=== PATIENT | male | born 1980 | race Caucasian/White ===

== ENCOUNTER 2023-07-24 09:44 | Outpatient (REF) | payer MEDICAID, SELFPAY ==
[2023-07-24 11:29] LABS: Appearance Urine Clear; Color Urine Yellow; Glucose Urine UA Negative (Negative); Leukocyte Esterase Urine Negative (Negative); Nitrite Urine Negative (Negative); PH 5.5 (5.0-9.0); Specific Gravity - Urine 1.015 (1.005-1.025); Urine Blood Negative (Negative); Urine Ketones Negative (Negative); Urine Protein Negative (Neg-Trace)
[2023-07-24 11:30] LABS: Appearance Urine Clear; Color Urine Yellow; Glucose Urine UA Negative (Negative); Leukocyte Esterase Urine Negative (Negative); Nitrite Urine Negative (Negative); PH 5.5 (5.0-9.0); Specific Gravity - Urine 1.015 (1.005-1.025); Urine Blood Negative (Negative); Urine Ketones Negative (Negative); Urine Protein Negative (Neg-Trace)
[2023-07-24 11:36] LABS: Bacteria Urine None Seen (None Seen); Hyaline Casts Urine 0-2 /LPF (0-2); RBC Urine 0-2 /HPF (0-2); Squamous Epithelial Cell Urine 0-2 /HPF (0-2); WBC Urine 0-5 /HPF (0-5)
[2023-07-24 12:09] LABS: Estimated Average Glucose 111 mg/dL; Hemoglobin A1c % 5.5 % (<6.0)
[2023-07-24 12:20] LABS: B Type Natriuretic Peptide 101 pg/mL (<100)
[2023-07-24 12:45] LABS: Alanine Aminotransferase 40 U/L (0-40); Alkaline Phosphatase 87 U/L (39-117); Anion Gap 12 (12-20); Aspartate Amino Transferase 52 U/L (5-37); Bilirubin Total 0.3 mg/dL (0.0-1.0); Blood Urea Nitrogen 10 mg/dL (9-16); Calcium 10.1 mg/dL (8.4-10.2); Carbon Dioxide 27 mmol/L (22-29); Chloride 106 mmol/L (96-108); Estimated Glomerular Filt Rate > 60; Glucose Random 97 mg/dL (60-115); Potassium 4.6 mmol/L (3.3-5.1); Prostate Specific Antigen 0.12 ng/mL (<0.05-4.0); Sodium 140 mmol/L (135-145); Total Protein 8.3 g/dL (6.5-8.0)
[2023-07-24 13:06] LABS: TSH reflex Free T4 1.31 uIU/mL (0.32-4.0)
[2023-07-25 04:45] LABS: HBS Num1 12.56 mIU/mL (0-7.99); ~HepC Num1 13.68 S/CO (0.00-0.79); ~Hepatitis B Surface Antibody REACTIVE (Nonreactive); ~Hepatitis C Antibody Reactive (Nonreactive)
[2023-07-25 19:38] LABS: HCV Log PCR 7.04 Log IU/mL (NOT DETECTED); HepC Viral Load 11000000 IU/mL (NOT DETECTED)
== END 2023-07-24 09:45 | disposition home or self-care (01) ==
LOC: HO.HHCL 09:44
PROVIDERS: Nurse Practitioner; Visit Provider Nurse Practitioner Family
DX: R33.9 Retention of urine, unspecified (principal); E66.09 Other obesity due to excess calories; R60.0 Localized edema; B19.20 Unspecified viral hepatitis C without hepatic coma; L03.119 Cellulitis of unspecified part of limb; L02.419 Cutaneous abscess of limb, unspecified; Z68.34 Body mass index [BMI] 34.0-34.9, adult
CPT/HCPCS: 36415; 80053; 81001; 81003; 83036; 83880; 84153; 84443; 86706; 86803; 87522

== ENCOUNTER 2023-08-15 09:31 | Outpatient (REF) | payer MEDICAID, SELFPAY ==
[2023-08-15 11:29] LABS: MANUAL DIFF FLAG NO
[2023-08-15 11:43] LABS: Basophils Percent Auto 0.4 % (0-2); Eosinophils Absolute Auto 0.2 X10*3/uL (0.0-0.4); Eosinophils Percent Auto 4.3 % (0-4); Hematocrit 44.4 % (42.0-52.0); Hemoglobin 14.4 g/dl (14.0-18.0); Imm Gran Abs Auto 0.01 X10*3/uL (0.00-0.03); Imm Gran Pct Auto 0.2 % (0.0-0.4); Lymphocytes Absolute Auto 1.7 X10*3/uL (1.2-4.9); Lymphocytes Percent Auto 35.7 % (20-40); Mean Corpuscular HGB Conc 32.4 g/dl (31.0-36.0); Mean Corpuscular Hemoglobin 28.8 pg (27.0-33.0); Mean Corpuscular Volume 88.8 fL (80.0-98.0); Mean Platelet Volume 10.4 fL (9.4-12.4); Monocytes Absolute Auto 0.5 X10*3/uL (0.1-1.2); Monocytes Percent Auto 9.7 % (2-11); Neutrophils Absolute Auto 2.4 x10*3/uL (2.0-8.3); Neutrophils Percent Auto 49.7 % (45-73); Platelet Count 219 X10*3/uL (160-400); Red Cell Distribution Width 13.3 % (11.0-16.0); White Blood Count 4.9 X10*3/uL (4.8-10.8)
[2023-08-15 11:48] LABS: INTERNATIONAL NORM RATIO 0.9 (0.9-1.1); Prothrombin Time 11.2 SEC (11.1-13.3)
[2023-08-15 12:14] LABS: HBsAGNum1 0.25 S/CO (0.00-0.99); HIV AB/AG Nonreactive (Nonreactive); HIV Num 1 0.05 S/CO (0.00-0.99); Hepatitis B Surface Antigen Negative (Negative)
[2023-08-21 16:38] LABS: Hepatitis C Genotype 1a
[2023-08-28 17:39] LABS: FIB-ALT 40 U/L (9-46); FIB-Alpha-2-Macroglobulin 261 mg/dL (106-279); FIB-Apolipoprotein A1 152 mg/dL (94-176); FIB-GGT 236 U/L (3-95); FIB-Haptoglobin 83 mg/dL (43-212); FIB-Total Bilirubin 0.4 mg/dL (0.2-1.2); Liver Fibrosis Score 0.51; Liver Fibrosis Stage F2; Nec Inflam Act Grade A0-A1; Nec Inflam Act Score 0.28
== END 2023-08-15 09:32 | disposition home or self-care (01) ==
LOC: HO.HHCL 09:31
PROVIDERS: Visit Provider Nurse Practitioner
DX: B19.20 Unspecified viral hepatitis C without hepatic coma (principal)
CPT/HCPCS: 36415; 81596; 85025; 85610; 87340; 87389; 87902

== ENCOUNTER 2023-09-03 09:16 | Outpatient (REF) | payer MEDICAID, SELFPAY ==
[2023-09-03 12:01] LABS: MANUAL DIFF FLAG NO
[2023-09-03 12:09] LABS: Basophils Percent Auto 0.4 % (0-2); Eosinophils Absolute Auto 0.1 X10*3/uL (0.0-0.4); Eosinophils Percent Auto 1.4 % (0-4); Hemoglobin 14.4 g/dl (14.0-18.0); Imm Gran Abs Auto 0.02 X10*3/uL (0.00-0.03); Imm Gran Pct Auto 0.3 % (0.0-0.4); Lymphocytes Absolute Auto 2.1 X10*3/uL (1.2-4.9); Lymphocytes Percent Auto 30.3 % (20-40); Mean Corpuscular Hemoglobin 28.7 pg (27.0-33.0); Mean Corpuscular Volume 89.8 fL (80.0-98.0); Mean Platelet Volume 10.5 fL (9.4-12.4); Monocytes Absolute Auto 0.4 X10*3/uL (0.1-1.2); Monocytes Percent Auto 6.1 % (2-11); Neutrophils Absolute Auto 4.3 x10*3/uL (2.0-8.3); Neutrophils Percent Auto 61.5 % (45-73); Platelet Count 186 X10*3/uL (160-400); Red Blood Count 5.01 X10*6/uL (4.60-5.80); Red Cell Distribution Width 13.3 % (11.0-16.0)
[2023-09-03 12:21] LABS: INTERNATIONAL NORM RATIO 0.8 (0.9-1.1); Prothrombin Time 9.9 SEC (11.1-13.3)
[2023-09-03 12:39] LABS: HIV AB/AG Nonreactive (Nonreactive); HIV Num 1 0.05 S/CO (0.00-0.99)
[2023-09-07 11:29] LABS: Hepatitis C Genotype 1a
[2023-09-20 18:03] LABS: FIB-ALT 30 U/L (9-46); FIB-Alpha-2-Macroglobulin 269 mg/dL (106-279); FIB-Apolipoprotein A1 153 mg/dL (94-176); FIB-GGT 215 U/L (3-95); FIB-Haptoglobin 101 mg/dL (43-212); FIB-Total Bilirubin 0.3 mg/dL (0.2-1.2); Liver Fibrosis Score 0.42; Liver Fibrosis Stage F1-F2; Nec Inflam Act Grade A0-A1; Nec Inflam Act Score 0.17
== END 2023-09-03 09:17 | disposition home or self-care (01) ==
LOC: HO.HHCL 09:16
PROVIDERS: Visit Provider Nurse Practitioner
DX: B19.20 Unspecified viral hepatitis C without hepatic coma (principal)
CPT/HCPCS: 36415; 81596; 85025; 85610; 87389; 87902

== ENCOUNTER 2023-10-10 21:31 | Emergency (ER) | payer MEDICAID, SELFPAY ==
--- NOTE | ~2023-10-10 | XR_ITS ---
EXAMINATION: XR CHEST CLINICAL INFORMATION: Hypoxia. COMPARISON: None available. TECHNIQUE: Frontal view of the chest was obtained. FINDINGS: The cardiomediastinal silhouette is within normal limits. There is no focal lung consolidation or evidence for significant pleural effusion. The bony structures and soft tissues are unremarkable. XR/XR chest 1V IMPRESSION: No acute cardiopulmonary process.
--- NOTE | ~2023-10-10 | XR_ITS ---
EXAMINATION: XR HIP, LEFT CLINICAL INFORMATION: Pain. COMPARISON: None available. TECHNIQUE: Two views of the left hip. FINDINGS: The bone mineralization is within normal limits. There is mild bilateral subchondral sclerosis along the inferior acetabulum. There is minimal loss of joint space bilaterally. No fracture is seen. The soft tissues are unremarkable. XR/XR hip LT w PEL1V IMPRESSION: Mild degenerative changes of the hips. No acute osseous abnormality
--- NOTE | ~2023-10-10 | CT_ITS ---
EXAMINATION: CT HEAD WITHOUT CONTRAST CLINICAL INFORMATION: Altered mental status. COMPARISON: None available. TECHNIQUE: Contiguous axial imaging was performed from the skull base to vertex without intravenous administration of contrast. This CT examination was performed using dose optimization techniques as appropriate, variously including the following: *Automated exposure control *Adjustment of mA and/or kV according to patient size (this includes techniques or standardized protocols for targeted exams where dose is matched to indication/reason for exam; i.e. extremities or head) *Use of iterative reconstruction technique DLP: 725 mGy-cm FINDINGS: The lateral, third and fourth ventricles are normally outlined. The cortical sulci and basal cisterns are normally outlined as well. There is no acute territorial defect, hemorrhage or midline shift. The extra-axial spaces are unremarkable. Calvarium/scalp: Intact. Maxillofacial sinuses and mastoids: Clear as visualized. CT/CT head/brain wo IV con IMPRESSION: No acute intracranial pathology.
[2023-10-10 21:34] VITALS: BP 168/98; PULSE 94; O2SAT 99
[2023-10-10 21:36] VITALS: BP 161/110; PULSE 80; RESP 15; TEMP 37.3; O2SAT 90; BMI 33.9
--- NOTE | 2023-10-10 22:02 | ECG_ITS ---
Test Reason : overdose Blood Pressure : / mmHG Vent. Rate : 072 BPM Atrial Rate : 072 BPM P-R Int : 176 ms QRS Dur : 094 ms QT Int : 380 ms P-R-T Axes : 071 065 063 degrees QTc Int : 416 ms Sinus rhythm with marked sinus arrhythmia Minimal voltage criteria for LVH, may be normal variant ( Sokolow-Cueto ) Borderline ECG No previous ECGs available Referred By: Gilles Bazzi Electronically Signed By:Jose Enciso
[2023-10-10 22:21] LABS: MANUAL DIFF FLAG NO
[2023-10-10 22:24] LABS: Basophils Percent Auto 0.4 % (0-2); Eosinophils Absolute Auto 0.1 X10*3/uL (0.0-0.4); Eosinophils Percent Auto 1.1 % (0-4); Hematocrit 47.2 % (42.0-52.0); Imm Gran Abs Auto 0.03 X10*3/uL (0.00-0.03); Imm Gran Pct Auto 0.3 % (0.0-0.4); Lymphocytes Absolute Auto 2.8 X10*3/uL (1.2-4.9); Lymphocytes Percent Auto 26.9 % (20-40); Mean Corpuscular HGB Conc 33.9 g/dl (31.0-36.0); Mean Corpuscular Hemoglobin 28.5 pg (27.0-33.0); Mean Corpuscular Volume 84.1 fL (80.0-98.0); Mean Platelet Volume 9.2 fL (9.4-12.4); Monocytes Absolute Auto 0.6 X10*3/uL (0.1-1.2); Monocytes Percent Auto 5.9 % (2-11); Neutrophils Absolute Auto 6.8 x10*3/uL (2.0-8.3); Neutrophils Percent Auto 65.4 % (45-73); Platelet Count 221 X10*3/uL (160-400); Red Blood Count 5.61 X10*6/uL (4.60-5.80); Red Cell Distribution Width 12.8 % (11.0-16.0); White Blood Count 10.4 X10*3/uL (4.8-10.8)
[2023-10-10 22:39] LABS: Alanine Aminotransferase 17 U/L (0-40); Alkaline Phosphatase 95 U/L (39-117); Anion Gap 17 (12-20); Aspartate Amino Transferase 26 U/L (5-37); Blood Urea Nitrogen 16 mg/dL (9-16); Calcium 11.5 mg/dL (8.4-10.2); Carbon Dioxide 28 mmol/L (22-29); Chloride 99 mmol/L (96-108); Creatinine Clr Calc Pharmacy 89.7; Estimated Glomerular Filt Rate 56; Glucose Random 107 mg/dL (60-115); Lipase 133 U/L (8-78); Potassium 3.9 mmol/L (3.3-5.1); Sodium 140 mmol/L (135-145); Total Protein 9.5 g/dL (6.5-8.0)
[2023-10-10 22:44] LABS: Ethanol < 10 mg/dL
--- NOTE | 2023-10-10 23:03 | ED_ITS ---
HPI - General Adult General Chief complaint: Overdose Stated complaint: OD, 4 MG NARCAN GIVEN Time Seen by Provider: 10/10/23 21:43 Source: patient and RN notes reviewed Mode of arrival: EMS Limitations: language barrier History of Present Illness ED Provider: Rose Mary SÁNCHEZ narrative: 43-year-old male was apparently found down in alley unresponsive. EMS reports that they were 3 or 4 bags of heroin next to the patient. You received Narcan 4 mg intramuscular x2 for a total of 8 mg IM. The patient arrives somewhat sleepy but arouses to verbal stimuli He is answering questions with yes or no answers but does not contribute much to history He does complain of left knee pain denies any other complaints or concerns at this time Related Data Home Medications ?Medication ?Instructions ?Recorded ?Confirmed methadone 10 mg/mL oral 120 mg PO DAILY 10/11/23 10/11/23 concentrate (Methadone Intensol) Allergies Allergy/AdvReac Type Severity Reaction Status Date / Time Unable to Assess Allergy Verified 10/10/23 22:14 Review of Systems 2 Constitutional: Constitutional: Denies body ache(s), Reports chills, Denies frequent falls and Denies headache(s) ENT: Denies headache(s) Cardiovascular: Cardiovascular: Denies chest pain and Denies dyspnea Respiratory: Respiratory: Denies cough and Denies dyspnea Gastrointestinal: Gastrointestinal: Denies abdominal pain, Denies nausea and Denies vomiting Musculoskeletal: Musculoskeletal: Reports arthralgias Integumentary/Breasts: Skin/Breast: Denies rash Neurologic: Denies frequent falls and Denies headache(s) [facility] Social History Social History (System 07/09/23 @ 08:13 by Kathy Mendoza) Smoked in Last 30 Days: No Use of substances other than those prescribed or required for medical reasons: Yes Substance Use Type: Heroin Advance Directives: No Advance Directives Information Provided: Yes Do you have a plan to hurt others: No Plan Physical Exam ED Vital Signs: Vital Signs - 24 hr 10/10/23 21:36 10/11/23 00:00 10/11/23 03:07 Temperature 99.2 F 98.2 F 98.2 F Pulse Rate 80 82 96 Respiratory Rate 15 16 19 Blood Pressure 161/110 H 134/94 H 119/81 Pulse Oximetry 90 L 97 96 Oxygen Delivery Method Room Air Room Air Room Air Oxygen Flow Rate 10/11/23 04:00 10/11/23 06:00 10/11/23 07:12 Temperature 99.0 F 98.9 F 97.9 F Pulse Rate 73 71 62 Respiratory Rate 18 16 11 L Blood Pressure 118/72 115/75 118/64 Pulse Oximetry 94 93 93 Oxygen Delivery Method Room Air Nasal Cannula Nasal Cannula Oxygen Flow Rate 2 2 10/11/23 11:12 Temperature 98.1 F Pulse Rate 77 Respiratory Rate 14 Blood Pressure 132/71 Pulse Oximetry 93 Oxygen Delivery Method Nasal Cannula Oxygen Flow Rate 2 BMI result Body Mass Index 33.9 Const General: healthy appearing, no acute distress, awake and lethargic Nutritional Appearance: well nourished Orientation/consciousness: oriented to person, No oriented to place, No oriented to time and lethargic HENMT Head: Yes normocephalic and Yes atraumatic Eyes Eyelids: Yes eyelids normal Conjunctivae: conjunctivae normal Sclerae: sclerae normal Corneas: corneas normal Pupils: Equal, round and reactive pupils present EOM: EOMs intact bilaterally Neck Neck: Yes full ROM Resp Effort & Inspection: normal respiratory effort, able to speak in complete sentences, no audible wheezes and not labored Auscultation: clear to auscultation bilaterally Cardio Rate: regular rate Rhythm: regular rhythm GI Inspection: No distended Palpation (GI): Soft to palpation, not firm, nontender, no guarding and not rigid Skin General skin exam: no rashes or lesions noted and elasticity normal Neuro General: oriented to person, No oriented to place and No oriented to time Cranial nerves: Yes Equal, round and reactive pupils present and Yes Bilaterally intact EOM present Extrem Other: Moving all extremities well without any obvious deformities Course Reevaluation(s) Reevaluation #1: Patient re-evaluated, he is awake, alert and answering questions appropriately. His tox screen was positive for opiates, methadone, fentanyl, cocaine, and marijuana. When confronted with this the patient admits that he was both smoking and injecting opiates tonight. He states that he was not trying to harm himself but rather it was a stupid mistake that he overdosed. He is seeking detox. In addiction medicine consult was placed and the patient is medically cleared for addiction medicine consult Time: 01:43 Reevaluation #2: Paulette Anaya PA-C [id number]: Patient seen by addiction medicine who informed the patient there is no beds available for detox at this time and recommended presenting as a walk in to a detox facility tomorrow. Patient cleared for discharge. Observation care revealed the the patient does not meet medical necessity for hospitalization. Final disposition discussed with the patient who verbalized understanding and agreement. Patient completed observation care at 1330, total time spent in observation care was 11 hours and 47 minutes. Medications Administered Discontinued Medications Generic Name Dose Route Start Last Admin Trade Name Rody PRN Reason Stop Dose Admin Sodium Chloride 1,000 mls @ 999 mls/hr 10/10/23 23:00 10/11/23 02:11 Ns IV 10/11/23 00:00 Infused .Q1H1M JOHN Infusion Methadone HCl 120 mg 10/11/23 11:45 10/11/23 12:30 Methadone Hcl 20 Mg/2 Ml Oral.Conc PO 10/11/23 11:46 120 mg ONCE ONE Administration Medical Decision Making Medical Decision Making [facility] Narrative: 43-year-old male presents for evaluation of being found unresponsive. He arrives lethargic but arousable to verbal stimuli after receiving 8 mg of Narcan intramuscularly by EMS. He was found with drug paraphernalia around him. Using the spanish medical interpreter, the patient denies using any drugs today. Tox screen is pending. Plan for basic labs, CT scan of the brain. He complains of left hip pain but has no deformity will get an x-ray of the left hip and pelvis. He was hypoxic to 88% which is likely due to opiate abuse. Plan for chest x-ray to rule out aspiration pneumonia Differential Diagnosis Differential Diagnoses: The differential diagnosis associated with the presentation includes Substance abuse Drug overdose Opiate overdose Opiate abuse Aspiration pneumonia Intracranial hemorrhage Lab Data [facility] Lab Attestation statement: I reviewed the patient's lab results. No leukocytosis. No anemia. Normal platelet count. No electrolyte abnormalities. Renal function within normal limits. CPK is slightly elevated to 171. Lipase is elevated to 133. These may be reactive to substance abuse 10/10/23 22:16 10/10/23 22:16 Labs: Lab Results 10/10/23 10/11/23 Range/Units 22:16 00:20 WBC 10.4 (4.8-10.8) X10*3/uL RBC 5.61 (4.60-5.80) X10*6/uL Hgb 16.0 (14.0-18.0) g/dl Hct 47.2 (42.0-52.0) % MCV 84.1 (80.0-98.0) fL MCH 28.5 (27.0-33.0) pg MCHC 33.9 (31.0-36.0) g/dl RDW 12.8 (11.0-16.0) % Plt Count 221 (160-400) X10*3/uL MPV 9.2 L (9.4-12.4) fL Immature Gran % (Auto) 0.3 (0.0-0.4) % Neut % (Auto) 65.4 (45-73) % Lymph % (Auto) 26.9 (20-40) % Gladwin % (Auto) 5.9 (2-11) % Eos % (Auto) 1.1 (0-4) % Baso % (Auto) 0.4 (0-2) % Lymph # (Auto) 2.8 (1.2-4.9) X10*3/uL Gladwin # (Auto) 0.6 (0.1-1.2) X10*3/uL Eos # (Auto) 0.1 (0.0-0.4) X10*3/uL Baso # (Auto) 0.0 (0.0-0.2) X10*3/uL Abs Immat Gran (auto) 0.03 (0.00-0.03) X10*3/uL Absolute Neuts (auto) 6.8 (2.0-8.3) x10*3/uL Absolute Nucleated RBC 0.000 (0.0-0.012) X10*3/uL Nucleated RBC % (auto) 0.0 (0.0-0.2) /100WBC Sodium 140 (135-145) mmol/L Potassium 3.9 (3.3-5.1) mmol/L Chloride 99 (96-108) mmol/L Carbon Dioxide 28 (22-29) mmol/L Anion Gap 17 (12-20) BUN 16 (9-16) mg/dL Creatinine 1.38 (0.5-1.4) mg/dL Estim Creat Clear Calc 89.7 Estimated GFR 56 Random Glucose 107 (60-115) mg/dL Calcium 11.5 H D (8.4-10.2) mg/dL Total Bilirubin 1.0 (0.0-1.0) mg/dL AST 26 (5-37) U/L ALT 17 (0-40) U/L Alkaline Phosphatase 95 (39-117) U/L Total Creatine Kinase 871 H (38-174) U/L Total Protein 9.5 H (6.5-8.0) g/dL Albumin 5.0 (3.5-5.0) g/dL Lipase 133 H (8-78) U/L Hold Green Top See Note Urine Opiates Screen POSITIVE H (Not Detect) Ur Buprenorphine Scrn Not Detected (Not Detect) ng/mL Ur Oxycodone Screen Not Detected (Not Detect) ng/mL Urine Methadone Screen Positive H (Not Detect) ng/mL Urine Fentanyl Screen POSITIVE H (Not Detect) Ur Barbiturates Screen Not Detected (Not Detect) Ur Phencyclidine Scrn Not Detected (Not Detect) Ur Amphetamines Screen Not Detected (Not Detect) U Benzodiazepines Scrn Not Detected (Not Detect) Urine Cocaine Screen POSITIVE H (Not Detect) U Marijuana (THC) Screen POSITIVE H (Not Detect) Ethyl Alcohol < 10 mg/dL Independent Interpretation I performed an independent interpretation of an: Plain X-Ray (Agree with Radiology interpretation, no fracture of the left hip or pelvis. Chest x-ray without obvious infiltrate) and CT Scan Interpretation: No obvious intracranial hemorrhage Radiology Impression Discussion of test interpretation with radiology: I have reviewed the radiologist's reading. Radiologist Impression: XR/XR hip LT w PEL1V IMPRESSION: Mild degenerative changes of the hips. No acute osseous abnormality XR/XR chest 1V IMPRESSION: No acute cardiopulmonary process. CT/CT head/brain wo IV con IMPRESSION: No acute intracranial pathology. Discharge Plan Discharge Clinical Impression: Opioid overdose Patient Disposition: Still a Patient Prescriptions: No Action methadone [Methadone Intensol] 10 mg/mL Concentrate 120 mg PO DAILY Print Language: Lao
[2023-10-11] VITALS (7 sets, daily range): BP systolic 115–134; BP diastolic 64–94; PULSE 62–96; RESP 11–19; TEMP 36.6–37.2; O2SAT 93–97
[2023-10-11] MEDS: 0.9 % Sodium Chloride 1,000 ML 999 ML IV (00:18)
[2023-10-11 00:37] LABS: Amphetamine Screen Urine Not Detected (Not Detect); Barbiturates, Urine Not Detected (Not Detect); Benzodiazepines Screen Urine Not Detected (Not Detect); Buprenorphine Scr Not Detected (Not Detect); Cannabinoid Screen Urine POSITIVE (Not Detect); Cocaine Screen Urine POSITIVE (Not Detect); Fentanyl, urine POSITIVE (Not Detect); Methadone Screen, Urine Positive (Not Detect); Opiate Screen Urine POSITIVE (Not Detect); Oxycodone Screen Urine Not Detected (Not Detect); Phencyclidine Screen Urine Not Detected (Not Detect)
--- NOTE | 2023-10-11 08:36 | MHC.RECOVRN ---
Referral sent to Delia CEBALLOS.
--- NOTE | 2023-10-11 10:39 | HO.SUDE ---
Met with pt in ED4, along with block cutter, after pt presented after overdose requiring Narcan. Pt laying in bed, awake, alert, engages in conversation, appears comfortable. Pt reports using heroin/fentanyl, 5 bags, IV, which resulted in overdose. Prior to that pt reports last use was 2 or 3 weeks ago. Pt reports he had been at [facility] x 4 months and then [facility] in [place] x 5 months and had left 3 weeks ago. Pt reports lifetime hx of 2 overdoses. Pt reports numerous ATS admissions. Pt reports longest period in recovery was 5 years in [place], which ended 4 years ago. Pt reports currently receiving methadone through [facility] , 120 mg daily, x 3 years. Pt denies having recovery supports in place. Discussed available recovery resources and supports. Pt is interested in ATS, is willing to go to any facility. Pt denies questions or concerns for t/w.
--- NOTE | 2023-10-11 10:59 | MHC.RECOVRN ---
[facility] is unable to accept pt as they report pt was admitted to [facility] from 09/26-10/08, thus pt does not meet level of care as he was in the community x 1 day and used substances 1 time. Further bedsearch conducted, no available beds.
--- NOTE | 2023-10-11 11:32 | MHC.RECOVRN ---
Met with pt, along with trim die maker, to notify pt regarding bed availability. Encouraged pt to continue calling ATS facilities as bed availability can change throughout the day. Pt verbalizes understanding. Pt provided with list of ATS facilities. Pt requesting methadone dose and to dc. RN aware.
--- NOTE | 2023-10-11 11:46 | PC.NURSE ---
Verified pt.'s Methadone dose. MJ Sanchez Spoke with KRISTOPHER White. Last dose = 10/09 @ 6:06am. 120mg. Methadone form scanned to Pharmacy.
--- NOTE | 2023-10-11 12:17 | HE.PHANOTE ---
METHADONE Pt recieves from [facility], . Ricardo White LPN at facility, pt last received 120mg 10/09 @ 0606.
[2023-10-11] MEDS: methADONE HCl 20 MG/2 ML ORAL.CONC 120 MG PO (12:30)
== END 2023-10-11 15:02 | disposition home or self-care (01) ==
PROVIDERS: Physician Assistant; Emergency Provider Internal Medicine
DX: T40.1X1A Poisoning by heroin, accidental (unintentional), initial encounter (principal); M25.552 Pain in left hip; R07.89 Other chest pain; R41.82 Altered mental status, unspecified; I49.8 Other specified cardiac arrhythmias; R11.2 Nausea with vomiting, unspecified; R51.9 Headache, unspecified; Y92.9 Unspecified place or not applicable; Z79.899 Other long term (current) drug therapy
CPT/HCPCS: 36415; 70450; 71045; 73502; 80053; 80307; 82550; 83690; 85025; 93005; 96360; 96361; 99285

== ENCOUNTER → 2023-10-10 22:02 | Outpatient (BNV) | payer MEDICAID, SELFPAY | PROVIDERS: Emergency Provider Internal Medicine; Visit Provider Internal Medicine Cardiovascular Disease | DX: T40.1X1A Poisoning by heroin, accidental (unintentional), initial encounter (principal) | CPT/HCPCS: 93010 ==

== ENCOUNTER 2024-02-01 09:36 | Outpatient (REF) | payer MEDICAID, SELFPAY ==
--- NOTE | ~2024-02-01 | US_ITS ---
EXAMINATION: US ABDOMEN COMPLETE CLINICAL INFORMATION: Edema. ?cirrhosis. History of OUD. COMPARISON: None available. TECHNIQUE: Real-time imaging of the abdominal viscera. Technically difficult study secondary to body habitus and bowel gas. FINDINGS: PANCREAS: Limited visualization. ABDOMINAL AORTA: Limited visualization. INFERIOR VENA CAVA: Visualized portions are normal. LIVER: Increased hepatic parenchymal heterogeneity and echogenicity could be associated with hepatocellular disease/hepatic steatosis and substantially limits visualization. Correlation with liver function tests and clinical exam recommended to determine further management. GALLBLADDER: No gallstones. No gallbladder wall thickening. COMMON BILE DUCT: Normal in caliber measuring 0.4 cm in diameter. RIGHT KIDNEY: No hydronephrosis. No renal calculi. Limited visualization. Possible right renal junctional parenchymal defect at the lower pole is incompletely characterized due to limited visualization. The kidney measures 11.3 cm in maximum dimension. LEFT KIDNEY: No hydronephrosis. No renal calculi. Limited visualization. The kidney measures 10.4 cm in maximum dimension. SPLEEN: Normal. The spleen measures 10.0 cm in maximum dimension. FREE FLUID: None. US/US abdomen complete IMPRESSION: 1. Increased hepatic parenchymal heterogeneity and echogenicity could be associated with hepatocellular disease/hepatic steatosis and substantially limits visualization. Correlation with liver function tests and clinical exam recommended to determine further management. 2. Possible right middle junctional parenchymal defect at the lower pole is incompletely characterized due to limited visualization. CT scan recommended for further evaluation. Electronically signed by: Parul Durán MD 02/17/2024 09:04 PM [facility]
== END 2024-02-01 09:37 | disposition home or self-care (01) ==
LOC: HO.US 09:36
PROVIDERS: PCP Nurse Practitioner Family; Visit Provider Nurse Practitioner Family
DX: R60.0 Localized edema (principal)
CPT/HCPCS: 76700

== ENCOUNTER → 2024-02-19 12:29 | Outpatient (REF) | payer MEDICAID, SELFPAY ==
--- NOTE | 2024-02-19 12:42 | CA_ITS ---
Transthoracic Echocardiogram Patient (Last, First, Middle): Thony Barker, Gender: Male Date of : 1980 Age: 44 Procedure Date: 02/19/2024 Procedure Type: Transthoracic Echocardiogram Location: OP Height: 167.64 cm Weight: 90.72 kg BSA: 2.00 m2 Heart Rate: 45 bpm BP: 100 / 55 mmHg Bulkhead Carpenter: CARMELLA Brandon MD: Kristina Paul STAPLE PROCESSING MACHINE OPERATOR Brake Tester: Arnulfo Dukes MD Symptoms: R60.0 EDEMA R06.09 MORRISON Study Quality: Fair ECG Rhythm: Bradycardia Conclusions: - 1. Normal LV ejection fraction 60 65% 2. Trivial aortic regurgitation 3. Normal RV systolic pressure 4. No gross pericardial effusion Findings Left Ventricle Normal left ventricular size, thickness, and systolic function. The visually estimated ejection fraction is between 60-65%. Spectral Doppler is indicative of a normal filling pattern. Right Ventricle Normal right ventricular cavity size and systolic function. Atria Both atria are normal in size. There is no evidence of interatrial shunt. Aortic Valve Normal aortic valve structure and function. There is no aortic valve stenosis. There is trace (trivial) aortic valve regurgitation. Mitral Valve There is mild anterior and posterior mitral leaflet thickening. There is trace mitral valve regurgitation. There is no mitral valve stenosis. Pulmonic Valve The pulmonic valve is likely normal. There is trace pulmonic valve regurgitation. Tricuspid Valve Normal tricuspid valve structure. There is trace tricuspid valve regurgitation. The right ventricular systolic pressure is normal. The right ventricular systolic pressure is 20 mmHg. Normal right atrial pressure. There is no evidence of pulmonary hypertension. Great Vessels All visible segments of the aorta are normal in size. The pulmonary artery was not well visualized. There is no dilatation of the ascending aorta measuring 3.10 cm. Venous The inferior vena cava is normal in size and collapses greater than 50% with inspiration. Pericardium/Pleural There is no evidence of pericardial effusion. Prior Study Comparison No prior study available for comparison. Measurements 2D Linear Measurements IVSd: 0.96 0.6-0.9/0.6-1.0 cm LVIDd: 5.24 3.9-5.3/4.2-5.9 cm LVIDd Index: 2.62 2.4-3.2/2.2-3.1 cm/m2 LVIDs: 3.48 2.0-3.6 cm LVPWd: 0.89 0.7-1.1 cm LA Diam: 4.00 2.7-3.8/3.0-4.0 cm LAIDs Index: 2.00 1.5-2.3 cm/m2 LV Mass: 220.55 67-162/88-224 g LV Mass Index: 110.28 43-95/49-115 g/m2 LVOT Diam: 2.20 3.0+(-)1.3 cm 2D Systolic Function EF 4C: 55.60 >55% EF 2C: 66.00 >55% EF BiP: 61.50 >55% Mitral Valve MV Pk E: 0.83 MV PK A: 0.39 MV Decel Time: 244.00 E/A: 2.20 E'Lateral: 14.70 E'Medial: 10.00 E/E' Med: 8.30 E/E' Lat: 5.70 PHT: 71.00 MVA PHT: 3.10 Decel [place]: 3.41 Aortic Valve AoV Pk Alvaro: 1.12 AoV Mn Alvaro: 0.84 AoV VTI: 0.28 AoV Pk Grad: 5.00 Aov Mn Grad: 3.00 LOPEZ Cont.VTI: 2.92 LVOT LVOT Pk Alvaro: 0.84 LVOT Mn Alvaro: 0.62 LVOT VTI: 0.21 LVOT Pk Grad: 3.00 LVOT Mn Grad: 2.00 LVOT Diam: 2.20 LVOT Area: 3.80 Diastolic Function MV Pk E: 0.83 MV Pk A: 0.39 E/A: 2.20 E'Medial: 10.00 E/E' Med: 8.30 E' Laterial: 14.70 E/E' Lat: 5.70 Right Ventricle TAPSE (mm): 20.30 TVS' Alvaro: 10.10 Tricuspid Valve TR Pk Alvaro: 1.72 TR Pk Grad: 12.00 RA Press: 8.00 RVSP: 20.00 Great Vessels Aorta Sinus of Valsalva: 3.40 2.0-3.5 cm Ao Asc: 3.10 2.1-3.4 cm Pulmonary Valve PV Pk Alvaro: 0.84 Peak PV Grad: 3.00 Updated in Other Vendor System with Status of Final Arnulfo Dukes MD electronically signed on 02/19/2024 5:04:58 PM with status of Final
== END ==
LOC: HO.CARD 12:29
PROVIDERS: PCP Nurse Practitioner Family; Visit Provider Nurse Practitioner Family
DX: R60.0 Localized edema (principal); R06.09 Other forms of dyspnea
CPT/HCPCS: 93306

== ENCOUNTER → 2024-02-19 12:42 | Outpatient (BNV) | payer MEDICAID, SELFPAY | PROVIDERS: PCP Nurse Practitioner Family; Visit Provider Internal Medicine Cardiovascular Disease | DX: I35.1 Nonrheumatic aortic (valve) insufficiency (principal) | CPT/HCPCS: 93306 ==

== ENCOUNTER → 2024-03-19 10:49 | Outpatient (BNV) | payer MEDICAID, SELFPAY | PROVIDERS: PCP Nurse Practitioner Family; Visit Provider Nurse Practitioner Family | DX: Z13.9 Encounter for screening, unspecified (principal) | CPT/HCPCS: 81003 ==

== ENCOUNTER 2024-03-19 10:53 | Outpatient (AMB) | payer MEDICAID, SELFPAY ==
--- NOTE | 2024-03-19 10:54 | MHC.OFFVIS ---
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 Intake Note: Patient is present for URINARY RETENTION Urology Medication: TAMSULOSIN Antibiotic Allergy:NONE Blood Thinner:NONE TODAY'S PVR:0ML'S Sld Educational Aide Required: Yes Sld Educational Aide Services: Sld Educational Aide Present Sld Educational Aide Name: [id number] Allergies Unable to Assess Allergy (Verified 03/19/24 11:28) Medication List - Last Reconciled 03/19/24 by LUKE Pederson- fluticasone propionate 50 mcg/actuation 1 spray intranasal DAILY methadone (Methadone Intensol) 120 mg PO DAILY propranolol ER 60 mg PO DAILY terazosin 5 mg PO BEDTIME 30 days HPI Comments Details: Thony is a very pleasant 44-year-old British-speaking male patient of . He has a past medical history of opioid dependence, tobacco dependence, hep C, headaches, and chronic back pain. He presents to the office today as a new patient for ongoing lower urinary tract symptoms. In discussion with the patient today he reports having followed up with his PCP in discussing issues with his urination at which time urology referral was made for further assessment evaluation. He reports noting over the last year has been having issues with urinary hesitancy and straining upon urination. He otherwise denies urinary urgency, urinary frequency, incontinence, nocturia, hematuria, dysuria, foul smelling urine, flank pain, fever, and or chills. He reports being on Flomax and has found this somewhat helpful however symptoms continue. In office urinalysis results reviewed with the patient today. PVR 0 mL. In review of patient's chart it appears PSA 07/24 0.1. We discussed lifestyle modifications to assist with lower urinary tract symptoms as well as overall health and well-being. We discussed obtaining retroperitoneal ultrasound for further assessment evaluation. YUNIEL offered however deferred. He otherwise offers no other issues or concerns at this time. [facility] Social History (System 07/09/23 @ 08:13 by Kathy Mendoza) Substance Use Type: Heroin Review of Systems Const All systems reviewed & are unremarkable except as noted in HPI and below Physical Exam Const General: cooperative, healthy appearing, comfortable, no acute distress, well developed, alert and awake Orientation/consciousness: patient oriented x3 Limitations: no limitations HEENT Head: Yes normal to inspection, Yes normocephalic and Yes atraumatic Ears: hearing grossly normal bilaterally Eyes General: appearance normal, both eyes and all related structures Neck Neck: Yes normal visual inspection and Yes trachea midline Chest Chest palpation & inspection: normal inspection of the chest Resp Effort & Inspection: normal respiratory effort and able to speak in complete sentences Cardio Rate: regular rate GI Inspection: Yes normal to inspection General: Yes no CVA tenderness Back/Spine/Pelvis Back: no CVA tenderness Skin General skin exam: no rashes or lesions noted Neuro General: patient oriented x3 Extrem General: Yes normal to inspection Psych Appearance: grossly normal and well kempt Mental Status: mental status grossly normal Speech and movement: Normal speech and movement present and Clear speech present Affect: normal affect Attitude: cooperative Thought process: Normal thought process present Thought content: Normal thought content present Insight: Fair insight present (Psych) Judgement: Fair judgement present (Psych) Office Procedures Post Void Residual Post Residual Void Post Void Residual (PVR): 0 [id number] Void Residual by ultrasound Results AMB Urinalysis, Automated UA Leukoctes 0 Kalpana/uL Last Edit by STEVE Joel on 03/19/24 10:50 UA Nitrite Negative Last Edit by STEVE Joel on 03/19/24 10:50 UA Urobilinogen 0.2 mg/dL Last Edit by STEVE Joel on 03/19/24 10:50 UA Protein 0 mg/dL Last Edit by STEVE Joel on 03/19/24 10:50 UA pH 6.0 Last Edit by Stuart Wood CCM on 03/19/24 10:50 UA Blood 0 [place]cadio/uL Last Edit by STEVE Joel on 03/19/24 10:50 UA Specific [place] 1.020 Last Edit by STEVE Joel on 03/19/24 10:50 UA Ketone Negative Last Edit by STEVE Joel on 03/19/24 10:50 UA Bilirubin 0 mg/dL Last Edit by STEVE Joel on 03/19/24 10:50 UA Glucose 0 mg/dL Last Edit by STEVE Joel on 03/19/24 10:50 Assessment & Plan Assessment & Plan (1) Straining on urination: Code(s): R39.16 - Straining to void Category: Medical (2) History of urinary hesitancy: Code(s): Z87.898 - Personal history of other specified conditions Category: Medical Plan In office urinalysis results reviewed with the patient today; as noted above. PVR 0 mL. Will obtain retroperitoneal ultrasound for further assessment evaluation. Stop Flomax. Start terazosin as discussed and prescribed. We discussed lifestyle modifications to assist with lower urinary tract symptoms patient was experiencing. We discussed pelvic floor exercises for men. YUNIEL offered however deferred. We discussed possible near future in office cystoscopy and or urodynamics for further assessment evaluation. Follow-up in 1-3 months with imaging and PVR; or sooner with any issues, concerns, and or questions. Orders: Orders US retroperitoneal comp Today R39.16 - Straining to void, Z87.898 - Personal history of other specified conditions AMB Urinalysis Automated Today Z13.9 - Encounter for screening, unspecified Medications: New terazosin 5 mg PO BEDTIME 30 caps 3RF 30 days N40.1 - Benign prostatic hyperplasia with lower urinary tract symptoms, R35.0 - Frequency of micturition Patient Instructions: The patient had an opportunity to ask questions regarding the treatment plan. All questions were answered. Physical exam, labs, and imaging were discussed and reviewed in detail. As well as risks, benefits, and discussion of treatment choices. No major barriers to understanding were identified. The patient expressed understanding and agreement with the above treatment plan. The patient was made aware they should contact our office by phone for worsening of their current condition, the appearance of new symptoms, or with any questions or concerns. Compliance is encouraged with any medications and follow up testing that is ordered. It is a privilege to be allowed the opportunity to participate in? your urological care.? Again, if you have any questions or concerns If you have any questions or concerns please do not hesitate to contact me. The office is [phone]. This note is constructed using voice recognition software. While every effort has been made to ensure accuracy disease education specialist errors may have been included. Yours sincerely, LUKE Pederson-PREMA Coding Level of Care Code New Pt Level 4 (68746) Diagnoses Straining on urination R39.16 History of urinary hesitancy Z87.898 CPT Codes Post Residual Void - PVR CPT Code: [id number] Void Residual by ultrasound ([id number])
== END 2024-03-19 11:25 | disposition home or self-care (01) ==
LOC: HO.HUSH 10:53
PROVIDERS: PCP Nurse Practitioner Family; Visit Provider Nurse Practitioner Family
DX: R39.16 Straining to void (principal); Z87.898 Personal history of other specified conditions
CPT/HCPCS: 99204

== ENCOUNTER → 2024-03-19 10:53 | Outpatient (BNVA) | payer MEDICAID, SELFPAY | PROVIDERS: PCP Nurse Practitioner Family; Visit Provider Nurse Practitioner Family | DX: R39.16 Straining to void (principal); Z87.898 Personal history of other specified conditions | CPT/HCPCS: 51798; 99212 ==

== ENCOUNTER 2024-03-25 11:22 | Outpatient (REF) | payer MEDICAID, SELFPAY ==
[2024-03-25 13:14] LABS: MANUAL DIFF FLAG NO
[2024-03-25 13:22] LABS: Basophils Percent Auto 0.3 % (0-2); Eosinophils Absolute Auto 0.2 X10*3/uL (0.0-0.4); Eosinophils Percent Auto 3.2 % (0-4); Hematocrit 45.1 % (42.0-52.0); Hemoglobin 14.9 g/dl (14.0-18.0); Imm Gran Abs Auto 0.01 X10*3/uL (0.00-0.03); Imm Gran Pct Auto 0.1 % (0.0-0.4); Lymphocytes Absolute Auto 2.2 X10*3/uL (1.2-4.9); Mean Corpuscular Volume 87.7 fL (80.0-98.0); Mean Platelet Volume 11.1 fL (9.4-12.4); Monocytes Absolute Auto 0.5 X10*3/uL (0.1-1.2); Monocytes Percent Auto 7.5 % (2-11); Neutrophils Absolute Auto 3.9 x10*3/uL (2.0-8.3); Neutrophils Percent Auto 56.9 % (45-73); Platelet Count 186 X10*3/uL (160-400); Red Blood Count 5.14 X10*6/uL (4.60-5.80); Red Cell Distribution Width 13.2 % (11.0-16.0); White Blood Count 6.8 X10*3/uL (4.8-10.8)
[2024-03-25 13:40] LABS: Alanine Aminotransferase 50 U/L (0-40); Albumin Level 4.5 g/dL (3.5-5.0); Alkaline Phosphatase 86 U/L (39-117); Anion Gap 8 (12-20); Aspartate Amino Transferase 46 U/L (5-37); Bilirubin Total 0.3 mg/dL (0.0-1.0); Blood Urea Nitrogen 12 mg/dL (9-16); Calcium 10.2 mg/dL (8.4-10.2); Carbon Dioxide 32 mmol/L (22-29); Chloride 102 mmol/L (96-108); Estimated Glomerular Filt Rate > 60; Glucose Random 97 mg/dL (60-115); Potassium 4.4 mmol/L (3.3-5.1); Sodium 138 mmol/L (135-145); Total Protein 8.5 g/dL (6.5-8.0)
[2024-03-27 14:38] LABS: ~HepC Num1 14.05 S/CO (0.00-0.79); ~Hepatitis C Antibody Reactive (Nonreactive)
[2024-03-28 12:44] LABS: HCV Log PCR 6.56 Log IU/mL (NOT DETECTED); HepC Viral Load 3660000 IU/mL (NOT DETECTED)
== END 2024-03-25 11:23 | disposition home or self-care (01) ==
LOC: HO.HHCL 11:22
PROVIDERS: Visit Provider Nurse Practitioner Family
DX: B19.20 Unspecified viral hepatitis C without hepatic coma (principal); R93.2 Abnormal findings on diagnostic imaging of liver and biliary tract; R94.5 Abnormal results of liver function studies
CPT/HCPCS: 36415; 80053; 83880; 85025; 86803; 87522

== ENCOUNTER 2024-06-03 09:52 | Outpatient (REF) | payer MEDICAID, SELFPAY ==
--- NOTE | ~2024-06-03 | US_ITS ---
EXAMINATION: US RETROPERITONEAL COMPLETE (RENAL) CLINICAL INFORMATION: History of urinary hesitancy. COMPARISON: None available. TECHNIQUE: Real-time imaging of the kidneys and bladder. FINDINGS: RIGHT KIDNEY: 10.5 x 5.2 x 5.0 cm (SAG x AP x TRV). The kidney is normal in size, contour, and echogenicity. Renal cortical thickness is normal. No calculi or focal parenchymal lesions. There is a junctional parenchymal defect along the midpole. No hydronephrosis. LEFT KIDNEY: 11.3 x 6 0.0, 5.8 cm (SAG x AP x TRV). The kidney is normal in size, contour, and echogenicity. Renal cortical thickness is normal. No calculi or focal parenchymal lesions. No hydronephrosis. A small dromedary hump is noted in midpole. BLADDER: Well distended and normal. Bilateral ureteral jets are demonstrated. Prevoid bladder volume is 165.3 mL. Postvoid bladder volume is 0.3 mL. The prostate volume is 18.1 mL and within normal limits. US/US retroperitoneal comp IMPRESSION: Normal renal ultrasound. Normal bladder ultrasound. Electronically signed by: Heath Sevilla MD 06/04/2024 07:41 AM [facility]
--- OUTSIDE RECORDS SUMMARY | 2024-06-03 11:30 | XMS_ITS | Encounter Summary ---
Author Organization [employer] Address [address] [facility] [facility] [address] [place] [address] Care Team Providers Care Silver Holloware Assembler Name Role Phone Ana Sanchez FUGITIVE DETECTIVE Primary Care Provider [phone] Kristina Paul FUGITIVE DETECTIVE Primary Care Provider [phone] Reason for Referral * Consultation (Routine) - Authorized Specialty Diagnoses / Procedures Referred By Contac t Referred To Contact Infectious Diseases Diagnoses Chronic hepatitis C without hepatic coma (CMS/HCC) Gloria Roca MD [address] [place] [address] Phone: tel: fax: Referral ID Status Reason Start Date Expiration Date Visits Requested Visits Authorized [id number] Authorized Specialty Services Required 08/06/2023 08/05/2024 1 1 Encounter Details Date Type Department Care Team (Late st Contact Info) Description 08/06/2023 Orders Only [facility] [address] [place] [phone] Gloria Roca MD [address] [place], [place] [phone] Chronic hepatitis C without hepatic coma (CMS/HCC) (Primary Dx) Social History Tobacco Use Types Packs/Day Years Used Date Smoking Tobacco: Every Day Cigarettes Alcohol Use Standard Drinks/Week Comments Never 0 (1 standard drink = 0.6 oz pur e alcohol) Depression Answer Date Recorded Patient Health Questionnaire-9 Score 0 07/04/2023 Patient Health Questionnaire-9 Score 0 07/04/2023 Last PHQ-9: Questionnaire Data Not on file 0 07/04/2023 Housing Stability Answer Date Recorded What is your housing situation today? I do not have housing (Staying with others, in a hotel, in a longterm, living outside on the street, on a beach, in a car, or in a park 07/31/[address] you li ve. Do you have problems with any of the following? None of the above 07/31/2023 Food Insecurity Answer Date Recorded Within the past 12 months, y ou worried that your food would run out before you got money to buy more: Never True 07/31/2023 Within the past 12 months,th e food you bought just didn't last and you didn't have enough money to get more: Never True Transportation Answer Date Recorded In the past 12 months, has l ack of transportation kept you from medical appts, meetings, work or from getting things needed for daily living? No 07/31/2023 Utilities Answer Date Recorded In the past 12 months, has t he electric, gas, oil or water company threatened to shut off services in your home? No 07/31/2023 Depression Answer Date Recorded Patient Health Questionnaire-2 Score 0 07/04/2023 Sex and Gender Information Value Date Recorded Sex Assigned at Male 2022 10:38 AM EDT Legal Sex Male 10:38 AM EDT Gender Identity Male 2022 10:38 AM EDT Sexual Orientation Straight 2022 10 :38 AM EDT documented as of this encounter Plan of Treatment Upcoming Encounters Date Type Department Care Team (Late st Contact Info) Description 06/09/2024 1:00 PM EDT Office Visit [facility] [address] [place] [phone] Tika Danielson MD [address] [place] [address] 07/14/2024 11:15 AM EDT Office Visit [facility] [address] [place] [phone] Kristina Paul NP [address] [place] [address] Scheduled Referrals Name Type Priority Associated Diagnoses Order Schedule Referral to [facility] Infectious Disease (HIV & Hep C) Outpatient Referral Routine Chronic hepatitis C without hepatic coma (CMS/HCC) Expected: 08/06/2023 (Approximate), Expires: 08/05/2024 documented as of this encounter Procedures Procedure Name Priority Date/Time Associated Diagnosis Comments HEPATITIS C VIRAL RNA, QUANTITATIVE, REAL-TIME PCR Routine 03/25/2024 11:25 AM EST Chronic hepatitis C without hepatic coma (CMS/HCC) LIVER FIBROSIS, FIBROTEST ACTITEST PANEL Routine 09/03/2023 9:34 AM EDT Chronic hepatitis C without hepatic coma (CMS/HCC) CBC WITH AUTO DIFFERENTIAL Routine 09/03/2023 9:34 AM EDT Chronic hepatitis C without hepatic coma (CMS/HCC) HEPATITIS C VIRAL RNA GENOTYPE, LIPA Routine 09/03/2023 9:34 AM EDT Chronic hepatitis C without hepatic coma (CMS/HCC) HIV 1/2 ANTIGEN/ANTIBODY, FOURTH GENERATION W/RFL Routine 09/03/2023 9:34 AM EDT Chronic hepatitis C without hepatic coma (CMS/HCC) PROTHROMBIN TIME-INR Routine 09/03/2023 9:34 AM EDT Chronic hepatitis C without hepatic coma (CMS/HCC) LIVER FIBROSIS, FIBROTEST ACTITEST PANEL Routine 08/15/2023 9:33 AM EDT Chronic hepatitis C without hepatic coma (CMS/HCC) CBC WITH AUTO DIFFERENTIAL Routine 08/15/2023 9:33 AM EDT Chronic hepatitis C without hepatic coma (CMS/HCC) HEPATITIS B SURFACE ANTIGEN, EIA Routine 08/15/2023 9:33 AM EDT Chronic hepatitis C without hepatic coma (CMS/HCC) HEPATITIS C VIRAL RNA GENOTYPE, LIPA Routine 08/15/2023 9:33 AM EDT Chronic hepatitis C without hepatic coma (CMS/HCC) HIV 1/2 ANTIGEN/ANTIBODY, FOURTH GENERATION W/RFL Routine 08/15/2023 9:33 AM EDT Chronic hepatitis C without hepatic coma (CMS/HCC) PROTHROMBIN TIME-INR Routine 08/15/2023 9:33 AM EDT Chronic hepatitis C without hepatic coma (CMS/HCC) documented in this encounter Results * (ABNORMAL) Hepatitis C Viral RNA, Quantitative, Real-Time PCR (03/25/2024 11:25 AM EST) Hepatitis C Viral Load [id number](A ) NOT DETECTED IU/mL [facility] HCV Log PCR 6.56(A) NOT DETECTED Log IU/mL [facility] Comment:For additional infor merari, please refer tohttp://education.HyperWeek/faq/QYR85i4(This link is being provided for informational/educational purposes only.)THIS TEST WAS PERFORMED AT:[employer] [place] [id number] SIERRA MD 03/25/2024 11:2 5 AM EST 03/27/2024 3:00 PM EST us Kristina Paul NP LAB BLOOD ORDERABLES Final Resul t [facility] [address] [place] [phone] * (ABNORMAL) Liver Fibrosis (HCV), FibroTest-ActiTest Panel (09/03/2023 9:34 AM EDT) Liver Fibrosis Score 0.42 [facility] Liver Fibrosis Stage F1-F2 [facility] Liver Fibrosis Interpretation SEE NOTE [facility] Comment:minimal fibrosisFibr o Test Score (f) Metavir Score f>=0 and f<=0.21 : F0 (no fibrosis)f>0.21 and f<=0.27 : F0-F1 (no fibrosis)f>0.27 and f<=0.31 : F1 (minimal fibrosis)f>0.31 and f<=0.48 : F1-F2 (minimal fibrosis)f>0.48 and f<=0.58 : F2 (moderate fibrosis)f>0.58 and f<=0.72 : F3 (advanced fibrosis)f>0.72 and f<=0.74 : F3-F4 (advanced fibrosis)f>0.74 and f<=1.00 : F4 (severe fibrosis) Nec Inflam Act Score 0.17 [facility] Nec Inflam Act Grade A0-A1 [facility] Nec Inflam Act Interpretation SEE NOTE [facility] Comment:no activityActiTest Score (a) Metavir Score a>=0 and a<=0.17 : A0 (no activity)a>0.17 and a<=0.29 : A0-A1 (no activity)a>0.29 and a<=0.36 : A1 (minimal activity)a>0.36 and a<=0.52 : A1-A2 (minimal activity)a>0.52 and a<=0.60 : A2 (significant activity)a>0.60 and a<=0.62 : A2-A3 (significant activity)a>0.62 and a<=1.00 : A3 (severe activity) SFI-Lxsdk-8-Macroglo bulin 269 106 - 279 mg/dL [facility] FIB-Haptoglobin 101 43 - 212 mg/dL [facility] FIB-Apolipoprotein A1 153 94 - 176 mg/dL [facility] FIB-Total Bilirubin 0.3 0.2 - 1.2 mg/dL [facility] FIB-GGT 215(A) 3 - 95 U/L [facility] FIB-ALT 30 9 - 46 U/L [facility] Reference ID [id number] [facility] Footnote SEE NOTE [facility] Comment: The reliability of results is dependent on compliance withthe preanalytical and analytical conditions recommended byBioPredictive. The tests have to be deferred for: acutehemolysis, acute hepatitis, acute inflammation, extrahepatic cholestasis. The advice of a specialist should besought for interpretation in chronic hemolysis and Gilbert'ssyndrome. The test interpretation is not validated in livertransplant patients. Isolated extreme values of one of thecomponents should lead to caution in interpreting theresults. In case of discordance between a biopsy result charlie test, it is recommended to seek the advice of aspecialist. The causes of these discordances could be due toa flaw of the test or to a flaw in the biopsy: i.e. a liverbiopsy has a 33% variability rate for one fibrosis stage.FibroTest is interpretable for chronic hepatitis B and C,alcoholic and non alcoholic steatosis. ActiTest isinterpretable for chronic hepatitis B and C.The performance characteristics have been determined by[facility]. Ithas not been cleared or approved by the U.S. Food and DrugAdministration. Performance characteristics refer to theanalytical performance of the test.[employer], the associated logo, [employer] and all associated [employer] capellan are theregistered trademarks of [employer]. All third partymarks - (R) and (TM) - are the property of their respectiveowners. (C) [phone] [employer]. Allrights reserved.THIS TEST WAS PERFORMED AT:[employer] [id number] [facility], [place] ??[phone] SANCHEZ MD,PHD,ROXY 09/03/2023 9:34 AM EDT 09/03/2023 11:55 AM EDT Ana Sanchez FUGITIVE DETECTIVE LAB BLOOD ORDERABLES Final Resu lt [facility] [address] [place] [phone] * Hepatitis C Viral RNA, Genotype, LiPA (09/03/2023 9:34 AM EDT) Hepatitis C Genotype 1a [facility] Comment:The method used in t his test is RT-PCR and reversehybridization (Line Probe) of the 5' UTR and coreregion of the HCV genome.The analytical performance characteristics of thisassay have been determined by [place], [place]. The modificationshave not been cleared or approved by the FDA. Thisassay has been validated pursuant to the CLIAregulations and is used for clinical purposes.For additional information, please refer tohttp://education.Mendix/faq/HCVGenotyping(This link is being provided for informational/educational purposes only.)THIS TEST WAS PERFORMED AT:[employer]/[facility] [place] [address]CXXZRRKSHELLEY VILLAGRAN MD,PHD 09/03/2023 9:34 AM EDT 09/03/2023 11:14 AM EDT [facility] LAB BLOOD ORDERABLES Final Resu lt [facility] [address] [place] [phone] * HIV-1/2 Antigen and Antibodies, Fourth Generation, with Reflexes (09/03/2023 9:34 AM EDT) HIV AB/AG Nonreactive Nonreactive [facility] Comment:HIV-1 p24 Ag and/or HIV-1/HIV-2 Ab not detected.A test result that is nonreactive does not exclude thepossibility of exposure to or infection with HIV-1 and/orHIV-2. Nonreactive results in this assay for individualswith prior exposure to HIV-1 and/or HIV-2 may be due toantigen and antibody levels that are below the limit ofdetection of this assay.The FlashSoft HIV Ag/Ab Combo assay result andsupplemental assay results should be interpreted inconjunction with the patient's clinical presentation,history and other laboratory results. If the results areinconsistent with clinical evidence, additional testing issuggested to confirm the result. 09/03/2023 9:34 AM EDT 09/03/2023 11:55 AM EDT Ana Appram FUGITIVE DETECTIVE LAB BLOOD ORDERABLES Final Resu lt Performing Organization Address City/[facility]/ZIP Co de Phone Number [facility] [address] [place] [address] [phone] * (ABNORMAL) Prothrombin Time-INR (09/03/2023 9:34 AM EDT) [facility] Prothrombin Time 9.9(L) 11.1 - 13.3 SEC [facility] INTERNATIONAL NORM RATIO 0.8(L) 0.9 - 1.1 [facility] Comment:INTERNATIONAL NORMAL IZED RATIO (INR) REFERENCE RANGES Reference RangeFor patients not on anticoagulant therapy: 0.9 - 1.1INR ranges for oral anticoagulanttherapy:For prevention and treatment of venous thrombosis and pulmonary embolism: 2.0 - 3.0For acute myocardial infarction with aspirin therapy: 2.0 - 3.0For acute myocardial infarction without aspirin therapy: 3.0 - 4.0For patients with mechanical prosthetic heart valves: 2.5 - 3.5 09/03/2023 9:34 AM EDT 09/03/2023 11:58 AM EDT Ana Sanchez FUGITIVE DETECTIVE LAB BLOOD ORDERABLES Final Resu lt Performing Organization Address City/[facility]/ZIP Co de Phone Number [facility] [address] [place] [address] [phone] * CBC auto differential (09/03/2023 9:34 AM EDT) [facility] White Blood Count 7.0 4.8 - 10.8 X10*3/uL [facility] Red Blood Count 5.01 4.60 - 5.80 X10*6/uL [facility] Hemoglobin 14.4 14.0 - 18.0 g/dl [facility] Hematocrit 45.0 42.0 - 52.0 % [facility] Mean Corpuscular Volume 89.8 80.0 - 98.0 fL [facility] Mean Corpuscular Hemoglobin 28.7 27.0 - 33.0 pg [facility] Mean Corpuscular HGB Conc 32.0 31.0 - 36.0 g/dl [facility] Red Cell Distribution Width 13.3 11.0 - 16.0 % [facility] Platelet Count 186 160 - 400 X10*3/uL [facility] Mean Platelet Volume 10.5 9.4 - 12.4 fL [facility] Neutrophils Percent Auto 61.5 45 - 73 % [facility] Imm Gran Pct Auto 0.3 0.0 - 0.4 % [facility] Lymphocytes Percent Auto 30.3 20 - 40 % [facility] Monocytes Percent Auto 6.1 2 - 11 % [facility] Eosinophils Percent Auto 1.4 0 - 4 % [facility] Basophils Percent Auto 0.4 0 - 2 % [facility] NRBC Pct Auto 0.0 0.0 - 0.2 /100WBC [facility] Neutrophils Absolute Auto 4.3 2.0 - 8.3 x10*3/uL [facility] Imm Gran Abs Auto 0.02 0.00 - 0.03 X10*3/uL [facility] Lymphocytes Absolute Auto 2.1 1.2 - 4.9 X10*3/uL [facility] Monocytes Absolute Auto 0.4 0.1 - 1.2 X10*3/uL [facility] Eosinophils Absolute Auto 0.1 0.0 - 0.4 X10*3/uL [facility] Basophils Absolute Auto 0.0 0.0 - 0.2 X10*3/uL [facility] NRBC Abs Auto 0.000 0.0 - 0.012 X10*3/uL [facility] 09/03/2023 9:34 AM EDT 09/03/2023 11:58 AM EDT us Ana Sanchez NP LAB BLOOD ORDERABLES Final Resu lt [facility] [address] [place] [address] [phone] * (ABNORMAL) Liver Fibrosis (HCV), FibroTest-ActiTest Panel (08/15/2023 9:33 AM EDT) Liver Fibrosis Score 0.51 [facility] Liver Fibrosis Stage F2 [facility] Liver Fibrosis Interpretation SEE NOTE [facility] Comment:moderate fibrosisFib ro Test Score (f) Metavir Score f>=0 and f<=0.21 : F0 (no fibrosis)f>0.21 and f<=0.27 : F0-F1 (no fibrosis)f>0.27 and f<=0.31 : F1 (minimal fibrosis)f>0.31 and f<=0.48 : F1-F2 (minimal fibrosis)f>0.48 and f<=0.58 : F2 (moderate fibrosis)f>0.58 and f<=0.72 : F3 (advanced fibrosis)f>0.72 and f<=0.74 : F3-F4 (advanced fibrosis)f>0.74 and f<=1.00 : F4 (severe fibrosis) Nec Inflam Act Score 0.28 [facility] Nec Inflam Act Grade A0-A1 [facility] Nec Inflam Act Interpretation SEE NOTE [facility] Comment:no activityActiTest Score (a) Metavir Score a>=0 and a<=0.17 : A0 (no activity)a>0.17 and a<=0.29 : A0-A1 (no activity)a>0.29 and a<=0.36 : A1 (minimal activity)a>0.36 and a<=0.52 : A1-A2 (minimal activity)a>0.52 and a<=0.60 : A2 (significant activity)a>0.60 and a<=0.62 : A2-A3 (significant activity)a>0.62 and a<=1.00 : A3 (severe activity) ZTQ-Axebz-6-Macroglo bulin 261 106 - 279 mg/dL [facility] FIB-Haptoglobin 83 43 - 212 mg/dL [facility] FIB-Apolipoprotein A1 152 94 - 176 mg/dL [facility] FIB-Total Bilirubin 0.4 0.2 - 1.2 mg/dL [facility] FIB-GGT 236(A) 3 - 95 U/L [facility] FIB-ALT 40 9 - 46 U/L [facility] Reference ID [id number] [facility] Footnote SEE NOTE [facility] Comment: The reliability of results is dependent on compliance withthe preanalytical and analytical conditions recommended byBioPredictive. The tests have to be deferred for: acutehemolysis, acute hepatitis, acute inflammation, extrahepatic cholestasis. The advice of a specialist should besought for interpretation in chronic hemolysis and Gilbert'ssyndrome. The test interpretation is not validated in livertransplant patients. Isolated extreme values of one of thecomponents should lead to caution in interpreting theresults. In case of discordance between a biopsy result charlie test, it is recommended to seek the advice of aspecialist. The causes of these discordances could be due toa flaw of the test or to a flaw in the biopsy: i.e. a liverbiopsy has a 33% variability rate for one fibrosis stage.FibroTest is interpretable for chronic hepatitis B and C,alcoholic and non alcoholic steatosis. ActiTest isinterpretable for chronic hepatitis B and C.The performance characteristics have been determined by[facility]. Ithas not been cleared or approved by the U.S. Food and DrugAdministration. Performance characteristics refer to theanalytical performance of the test.[employer], the associated logo, [employer] and all associated [employer] capellan are theregistered trademarks of [employer]. All third partymarks - (R) and (TM) - are the property of their respectiveowners. (C) 2607-9542 [employer]. Allrights reserved.THIS TEST WAS PERFORMED AT:[employer] [id number] [facility], [place] ??[phone] SANCHEZ MD,PHD,ROXY 08/15/2023 9:33 AM EDT 08/15/2023 11:22 AM EDT Ana Sanchez FUGITIVE DETECTIVE LAB BLOOD ORDERABLES Final Resu lt [facility] [address] [place] [phone] * Hepatitis C Viral RNA, Genotype, LiPA (08/15/2023 9:33 AM EDT) Hepatitis C Genotype 1a [facility] Comment:The method used in t his test is RT-PCR and reversehybridization (Line Probe) of the 5' UTR and coreregion of the HCV genome.The analytical performance characteristics of thisassay have been determined by [employer] [place], [place]. The modificationshave not been cleared or approved by the FDA. Thisassay has been validated pursuant to the CLIAregulations and is used for clinical purposes.For additional information, please refer tohttp://education.Mendix/faq/HCVGenotyping(This link is being provided for informational/educational purposes only.)THIS TEST WAS PERFORMED AT:[employer]/[id number] [place] [address]UCUQPBKSHELLEY VILLAGRAN MD,PHD 08/15/2023 9:33 AM EDT 08/15/2023 11:22 AM EDT [facility] BLOOD ORDERABLES Final Resu lt Performing Organization Address [facility]/ZIP Co de Phone Number [facility] [address] [place] [phone] * Hepatitis B surface antigen, EIA (08/15/2023 9:33 AM EDT) Hepatitis B Surface Ag Negative Negative [facility] 08/15/2023 9:33 AM EDT 08/15/2023 11:22 AM EDT [facility] BLOOD ORDERABLES Final Resu lt Performing Organization Address [facility]/ZIP Co de Phone Number [facility] [address] [place] [address] [phone] * HIV-1/2 Antigen and Antibodies, Fourth Generation, with Reflexes (08/15/2023 9:33 AM EDT) HIV AB/AG Nonreactive Nonreactive [facility] Comment:HIV-1 p24 Ag and/or HIV-1/HIV-2 Ab not detected.A test result that is nonreactive does not exclude thepossibility of exposure to or infection with HIV-1 and/orHIV-2. Nonreactive results in this assay for individualswith prior exposure to HIV-1 and/or HIV-2 may be due toantigen and antibody levels that are below the limit ofdetection of this assay.The FlashSoft HIV Ag/Ab Combo assay result andsupplemental assay results should be interpreted inconjunction with the patient's clinical presentation,history and other laboratory results. If the results areinconsistent with clinical evidence, additional testing issuggested to confirm the result. 08/15/2023 9:33 AM EDT 08/15/2023 11:22 AM EDT Ana Sanchez NP LAB BLOOD ORDERABLES Final Resu lt [facility] [address] [place] [phone] * Prothrombin Time-INR (08/15/2023 9:33 AM EDT) Prothrombin Time 11.2 11.1 - 13.3 SEC [facility] INTERNATIONAL NORM RATIO 0.9 0.9 - 1.1 [facility] Comment:INTERNATIONAL NORMAL IZED RATIO (INR) REFERENCE RANGES Reference RangeFor patients not on anticoagulant therapy: 0.9 - 1.1INR ranges for oral anticoagulanttherapy:For prevention and treatment of venous thrombosis and pulmonary embolism: 2.0 - 3.0For acute myocardial infarction with aspirin therapy: 2.0 - 3.0For acute myocardial infarction without aspirin therapy: 3.0 - 4.0For patients with mechanical prosthetic heart valves: 2.5 - 3.5 08/15/2023 9:33 AM EDT 08/15/2023 11:29 AM EDT us Ana Sanchez FUGITIVE DETECTIVE LAB BLOOD ORDERABLES Final Resu lt [facility] [address] [place] [phone] [phone] * (ABNORMAL) CBC auto differential (08/15/2023 9:33 AM EDT) White Blood Count 4.9 4.8 - 10.8 X10*3/uL [facility] Red Blood Count 5.00 4.60 - 5.80 X10*6/uL [facility] Hemoglobin 14.4 14.0 - 18.0 g/dl [facility] Hematocrit 44.4 42.0 - 52.0 % [facility] Mean Corpuscular Volume 88.8 80.0 - 98.0 fL [facility] Mean Corpuscular Hemoglobin 28.8 27.0 - 33.0 pg [facility] Mean Corpuscular HGB Conc 32.4 31.0 - 36.0 g/dl [facility] Red Cell Distribution Width 13.3 11.0 - 16.0 % [facility] Platelet Count 219 160 - 400 X10*3/uL [facility] Mean Platelet Volume 10.4 9.4 - 12.4 fL [facility] Neutrophils Percent Auto 49.7 45 - 73 % [facility] Imm Gran Pct Auto 0.2 0.0 - 0.4 % [facility] Lymphocytes Percent Auto 35.7 20 - 40 % [facility] Monocytes Percent Auto 9.7 2 - 11 % [facility] Eosinophils Percent Auto 4.3(H) 0 - 4 % [facility] Basophils Percent Auto 0.4 0 - 2 % [facility] NRBC Pct Auto 0.0 0.0 - 0.2 /100WBC [facility] Neutrophils Absolute Auto 2.4 2.0 - 8.3 x10*3/uL [facility] Imm Gran Abs Auto 0.01 0.00 - 0.03 X10*3/uL [facility] Lymphocytes Absolute Auto 1.7 1.2 - 4.9 X10*3/uL [facility] Monocytes Absolute Auto 0.5 0.1 - 1.2 X10*3/uL [facility] Eosinophils Absolute Auto 0.2 0.0 - 0.4 X10*3/uL [facility] Basophils Absolute Auto 0.0 0.0 - 0.2 X10*3/uL [facility] NRBC Abs Auto 0.000 0.0 - 0.012 X10*3/uL [facility] 08/15/2023 9:33 AM EDT 08/15/2023 11:22 AM EDT us Ana Sanchez FUGITIVE DETECTIVE LAB BLOOD ORDERABLES Final Resu lt [facility] [address] [place] [address] [phone] documented in this encounter Visit Diagnoses Diagnosis Chronic hepatitis C without hepatic coma (CMS/HCC)- Primary documented in this encounter Additional Health Concerns Assessment Noted Time PHQ-9 Depression Total Score: 0 07/04/19 24 1:59 PM EDT documented as of this encounter Care Teams Silver Holloware Assembler Relationship Specialty Start Date End Date Ana Sanchez NP [address] [place] [address] PCP - General Family Medicine 07/04/23 11/07/23 Kristina Paul NP [address] [place] [address] PCP - General Family Medicine 11/08/23 documented as of this encounter
--- OUTSIDE RECORDS SUMMARY | 2024-06-03 11:30 | XMS_ITS | Encounter Summary ---
Author Organization [employer] Address [address] [facility] [address] 7t [place] [address] Care Team Providers Care Body Shop Worker Name Role Phone Kristina Paul NP Primary Care Provider [phone] Encounter Details Date Type Department Care Team ([facility] st Contact Info) Description 04/22/2024 Telephone [facility] [address] [place] [address] Kristina Paul NP [address] [place] [address] Social History Tobacco Use Types Packs/Day Years [...] with others, in a hotel, in a usp, living outside on the street, on a [...] Description 06/09/2024 1:00 PM EDT Office Visit [facility] [address] [place] [address] Tika Danielson MD [address] [place] [address] 07/14/2024 11:15 AM EDT Office Visit [facility] [address] [place] [address] Kristina Paul NP [address] [place] [address] documented as of this encounter Visit Diagnoses Not on filedocumented in this encounter Additional Health Concerns Assessment Noted Time PHQ-9 Depression Total Score: 0 07/04/19 1:59 PM EDT documented as of this encounter Care Teams Body Shop Worker Relationship Specialty Start Date End Date Kristina Paul NP [address] [place] [address] PCP - General Family Medicine 11/08/23 documented as of this encounter
--- OUTSIDE RECORDS SUMMARY | 2024-06-03 11:30 | XMS_ITS | Encounter Summary ---
Author Organization [employer] Address 75 [facility] [address] 7t [place] [address] Care Team Providers Care Military Administrative Technician Name Role Phone Kristina Paul NP Primary Care Provider [phone] Reason for Visit * Reason Comments [facility] Recovery Supports Encounter Details Date Type Department Care Team ([facility] st Contact Info) Description 06/02/2024 Patient Outreach [facility] MEDICINE [address] [place] [address] Jenny Barker Recovery Supports Social History Tobacco Use Types Packs/Day Years [...] in a car, or in a park 05/12/[address] you li ve. Do you have problems with any of the following? Mold 05/12/2024 Food Insecurity Answer Date Recorded Within the past 12 months, y ou worried that your food would run out before you got money to buy more: Sometimes True 2024 Within the past 12 months,th e food you bought just didn't last and you didn't have enough money to get more: Sometimes True 05/12/2024 Transportation Answer Date Recorded In the past 12 months, has l ack of transportation kept you from medical appts, meetings, work or from getting things needed for daily living? Yes, it has kept me from medical appointments or getting medications. 05/12/2024 Utilities Answer Date Recorded In the past 12 months, has t he electric, gas, oil or water company threatened to shut off services in your home? I am not sure 05/12/2024 Depression Answer Date Recorded Patient Health Questionnaire-2 Score 0 07/04/2023 Internet Access Answer Date Recorded Internet Access Q1 No 05/12/2024 Internet Access Q2 Not on file 05/12/2024 Sex and Gender Information Value Date Recorded Sex Assigned at Male 2022 10:38 AM EDT Legal Sex Male 10:38 AM EDT Gender Identity Male 2022 10:38 AM EDT Sexual Orientation Straight 2022 10 :38 AM EDT documented as of this encounter Progress Notes * Jenny Barker - 06/02/2024 2:57 PM EST I met with Thony griffin. Setting: in person at [facility] Recovery Wellness Goals worked on: Social Stability Action taken/next steps: Attended alcohol and drug free activity Additional comments: Today, the participant Thony Barker was at the recovery center. Jenny Barker documented in this encounter Plan of Treatment Upcoming Encounters Date Type Department Care Team (Late st Contact Info) Description 06/09/2024 1:00 PM EDT Office Visit [facility] [address] [place] [address] Tika Danielson MD [address] [place] [address] 07/14/2024 11:15 AM EDT Office Visit [facility] [address] [place] [address] Kristina Paul NP [address] [place] [address] documented as of this encounter Visit Diagnoses Not on filedocumented in this encounter Additional Health Concerns Assessment Noted Time PHQ-9 Depression Total Score: 0 07/04/19 24 1:59 PM EDT documented as of this encounter Care Teams Military Administrative Technician Relationship Specialty Start Date End Date Kristina Paul NP [address] [place] [address] PCP - General Family Medicine 11/08/23 documented as of this encounter
--- OUTSIDE RECORDS SUMMARY | 2024-06-03 11:31 | XMS_ITS | Encounter Summary ---
Author Organization [employer] Address 75 [facility] 7t [place] [address] Care Team Providers Care Digester Cook Name Role Phone Kristina Paul NP Primary Care Provider [phone] Encounter Details Date Type Department Care Team ([facility] st Contact Info) Description 05/12/2024 10:15 AM EST Office Visit [facility]INE [address] [place] [address] Kristina Paul NP [address] [place] [address] Nasal congestion with rhinorrhea (Primary Dx); Dietary counseling; Exercise counseling; Hep C w/o coma, chronic (CMS/HCC); Opioid dependence in remission ([facility]); Tinea corporis; PTSD (post-traumatic stress disorder); Tobacco use; Chronic migraine with aura without status migrainosus, not intractable; Nonintractable headache, unspecified chronicity pattern, unspecified headache type Social History Tobacco Use Types Packs/Day Years [...] with others, in a hotel, in a half-way, living outside on the street, on a [...] AM EDT documented as of this encounter Last Filed Vital Signs Vital Sign Reading Time Taken Comments Blood Pressure 130/85 05/12/2024 10:00 AM EST Pulse 69 05/12/2024 10:00 AM EST Temperature 37 ??C (98.6 ??F) 05/12/2024 10: 00 AM EST Respiratory Rate 18 05/12/2024 10:0 0 AM EST Oxygen Saturation 98% 05/12/2024 10: 00 AM EST Inhaled Oxygen Concentration - - Weight 94.7 kg (208 lb 12.8 oz) 025 10:00 AM EST Height 165.1 cm (5' 5 ) 05/12/2024 10:0 0 AM EST Body Mass Index 34.75 05/12/2024 10:00 AM EST documented in this encounter Plan of Treatment Upcoming Encounters Date Type Department Care Team ([facility] st Contact Info) Description 06/09/2024 1:00 PM EDT Office Visit [facility] [address] [place] [address] Tika Danielson MD [address] [place] [address] 07/14/2024 11:15 AM EDT Office Visit [facility] [address] [place] [address] Kristina Paul NP [address] [place] [address] documented as of this encounter Visit Diagnoses Diagnosis Nasal congestion with rhinorrhea- Primary Other diseases of nasal cavity and sinuses Dietary counseling Dietary surveillance and counseling Exercise counseling Hep C w/o coma, chronic (CMS/HCC) Chronic hepatitis C without mention of hepatic coma Opioid dependence in remission (CMS/HCC) Opioid type dependence, in remission Tinea corporis Dermatophytosis of the body PTSD (post-traumatic stress disorder) Posttraumatic stress disorder Tobacco use Chronic migraine with aura without status migrainosus, not intractable Nonintractable headache, unspecified chronicity pattern, unspecified headache type documented in this encounter Additional Health Concerns Assessment Noted Time PHQ-9 Depression Total Score: 0 07/04/19 1:59 PM EDT documented as of this encounter Care Teams Digester Cook Relationship Specialty Start Date End Date Kristina Paul NP [address] [place] [address] PCP - General Family Medicine 11/08/23 documented as of this encounter
--- OUTSIDE RECORDS SUMMARY | 2024-06-03 11:31 | XMS_ITS | Patient Health Record ---
Author Organization [facility] Address [address] [place], [place] [phone] Care Team Providers Care Dye House Vat Worker Name Role Phone No, PCP Primary Care Provider Unavailabl e [facility], [facility] Unavailable [phone] Reason For Referral No Information Plan Of Treatment No Information Insurance Providers Payer Name Payer Address Payer Phone Subscriber Number Group Number Insured Name Patient Relationship to Insured Coverage Start Date Coverage End Date [place] Medicaid Standard [address] [place] [address] [id number] Thony Rothman Self - patient is the insured 3
--- OUTSIDE RECORDS SUMMARY | 2024-06-03 11:31 | XMS_ITS | Encounter Summary ---
Author Organization [employer] Address 75 [facility] 7t [place] [address] Care Team Providers Care Tow Motor Mechanic Name Role Phone Kristina Paul NP Primary Care Provider Reason for Visit * Reason Comments Med Refill Encounter Details Date Type Department Care Team ([facility] Contact Info) Description 02/19/2024 Refill [facility] [address] [place], [place] [phone] Kristina Paul NP [address] [place] [address] Localized edema Social History Tobacco Use Types Packs/Day Years [...] with others, in a hotel, in a fdc, living outside on the street, on a [...] Description 06/09/2024 1:00 PM EDT Office Visit [facility] [address] [place] [address] Tika Danielson MD [address] [place] [address] 07/14/2024 11:15 AM EDT Office Visit [facility] [address] [place] [address] Kristina Paul NP [address] [place] [address] documented as of this encounter Visit Diagnoses Diagnosis Localized edema Edema documented in this encounter Additional Health Concerns Assessment Noted Time PHQ-9 Depression Total Score: 0 07/04/19 24 1:59 PM EDT documented as of this encounter Care Teams Tow Motor Mechanic Relationship Specialty Start Date End Date Kristina Paul NP [address] [place] [address] PCP - General Family Medicine 11/08/23 documented as of this encounter
--- OUTSIDE RECORDS SUMMARY | 2024-06-03 11:31 | XMS_ITS ---
Author Organization [facility] Address [address] [place], [place] [id number] Care Team Providers Care Tool Design Engineer Name Role Phone No, PCP Primary Care Provider Unavaillegacy health e [facility], [facility] Unavailable [phone] Smitha Lopes Unavailable [phone] REASON FOR VISIT Apply for [facility] Insurance Encounters Encounter Location Date Provider Diagnosis [facility] [address] [place] [address] 02/08/2023 Smitha Lopes Plan Of Treatment No Information Progress Notes * Dora ROTHMANOB:1 (43 yo M)Acc No.[id number]:02/08/2023 Case Management New Patient:?Chau Rothmancolleen Provider:?Smitha Lopes :1980???Age:43 Y???Sex:Male Skyler e:02/08/2023 Address:[address] [place] [address] [id number] Pcp:PCP No Subjective: * Chief Complaints: * ???1. Apply for [facility]. * HPI: ???Social Service:?Action Taken?[employer]? [employer] paper application was completed with client and faxed over to Enrollment center. 02/08/23 gd2.? Objective: Assessment: Plan: * Treatment: * Images: Billing Information: * Visit Code:? * Procedure Codes:? Care Plan Details* * Sign off status: Completed true * Provider:Logan Lopes Date:?02/08/2023 Generated for Pierce doan/Sana/eTjoaquimsmitting on:?06/03/2024 11:31 AM EST History and Physical Notes * HPI (History of Present Illness) Category Sub-Category Detail Notes Social Service Action Taken [facility] : [facility] p aper application was completed with client and faxed over to Enrollment center. 02/08/23 gd2
--- OUTSIDE RECORDS SUMMARY | 2024-06-03 11:31 | XMS_ITS | Encounter Summary ---
Author Organization [employer] Address [address] [facility] [address] 7t [place] [address] Care Team Providers Care Brazing Furnace Operator Name Role Phone Kristina Paul NP Primary Care Provider [phone] Encounter Details Date Type Department Care Team (Latest Contact Info) Description 05/12/2024 Travel Social History Tobacco Use Types Packs/Day Years [...] Description 06/09/2024 1:00 PM EDT Office Visit [facility] MEDICINE [address] [place] [address] Tika Danielson MD [address] [place] [address] 07/14/2024 11:15 AM EDT Office Visit [facility] [address] [place] [address] Kristina Paul NP [address] [place] [address] documented as of this encounter Visit Diagnoses Not on filedocumented in this encounter Additional Health Concerns Assessment Noted Time PHQ-9 Depression Total Score: 0 07/04/19 24 1:59 PM EDT documented as of this encounter Care Teams Brazing Furnace Operator Relationship Specialty Start Date End Date Kristina Paul NP [address] [place] [address] PCP - General Family Medicine 11/08/23 documented as of this encounter
--- OUTSIDE RECORDS SUMMARY | 2024-06-03 11:31 | XMS_ITS | Encounter Summary ---
Author Organization [employer] Address [address] [facility] [address] 7t [place] [address] Care Team Providers Care Airline Pilot Name Role Phone Kristina Paul NP Primary Care Provider Reason for Visit * Reason Onset Date Comments Appintment OP Lab 05/14/2024 Encounter Details Date Type Department Care Team (Late st Contact Info) Description 05/14/2024 Telephone [facility] MEDICINE [address] [place], [place] [phone] Lashon Beltrán [place] Appintment OP Lab Social History Tobacco Use Types Packs/Day Years [...] with others, in a hotel, in a assisted, living outside on the street, on a [...] AM EDT documented as of this encounter Miscellaneous Notes * Telephone Encounter - Lashon Beltrán [place] - 05/14/2024 11:38 AM EST Called Pt let them know they have a appointment with OP Lab for compression socks on 05/21/24 at 1 Pm. Pt understood. documented in this encounter Plan of Treatment Upcoming Encounters Date Type Department Care Team (Late st Contact Info) Description 06/09/2024 1:00 PM EDT Office Visit [facility] MEDICINE [address] [place] [address] Tika Danielson MD [address] [place] [address] 07/14/2024 11:15 AM EDT Office Visit [facility] [address] [place] [address] Kristina Paul NP [address] [place] [address] documented as of this encounter Visit Diagnoses Not on filedocumented in this encounter Additional Health Concerns Assessment Noted Time PHQ-9 Depression Total Score: 0 07/04/19 24 1:59 PM EDT documented as of this encounter Care Teams Airline Pilot Relationship Specialty Start Date End Date Kristina Paul NP [address] [place] [address] PCP - General Family Medicine 11/08/23 documented as of this encounter
--- OUTSIDE RECORDS SUMMARY | 2024-06-03 11:31 | XMS_ITS | Encounter Summary ---
Author Organization [employer] Address [address] [facility] [address] 7t [place] [address] Care Team Providers Care Insurance Sales Assistant Name Role Phone Kristina Paul NP Primary Care Provider [phone] Encounter Details Date Type Department Care Team ([facility] st Contact Info) Description 05/09/2024 Patient Outreach [facility] MEDICINE [address] [place], [place] [phone] Jas Stein [address] [place] [address] Social History Tobacco Use Types Packs/Day Years [...] with others, in a hotel, in a long-term, living outside on the street, on a [...] as of this encounter Progress Notes * Jas Stein - 05/09/2024 1:13 PM EST I met with Thony griffin. Setting: in person at [facility] Recovery Wellness Goals worked on: Social Stability Action taken/next steps: Attended alcohol and drug free activity Additional comments: Recovery Center Jas Stein documented in this encounter Plan of Treatment Upcoming Encounters Date Type Department Care Team (Late st Contact Info) Description 06/09/2024 1:00 PM EDT Office Visit [facility] MEDICINE [address] [place] [address] Tika Danielson MD [address] [place] [address] 07/14/2024 11:15 AM EDT Office Visit [facility] MEDICINE [address] [place] [address] Kristina Paul NP [address] [place] [address] documented as of this encounter Visit Diagnoses Not on filedocumented in this encounter Additional Health Concerns Assessment Noted Time PHQ-9 Depression Total Score: 0 07/04/19 24 1:59 PM EDT documented as of this encounter Care Teams Insurance Sales Assistant Relationship Specialty Start Date End Date Kristina Paul NP [address] [place] [address] PCP - General Family Medicine 11/08/23 documented as of this encounter
--- OUTSIDE RECORDS SUMMARY | 2024-06-03 11:31 | XMS_ITS | Encounter Summary ---
Author Organization [employer] Address 75 [facility] 7t [place] [address] Care Team Providers Care Legal Coordinator Name Role Phone Kristina Paul NP Primary Care Provider [phone] Encounter Details Date Type Department Care Team ([facility] st Contact Info) Description 05/14/2024 Orders Only [facility] MEDICINE [address] [place] [address] Kristina Paul NP [address] [place] [address] Nonintractable headache, unspecified chronicity pattern, unspecified headache [...] with others, in a hotel, in a skilled nursing, living outside on the street, on a [...] Description 06/09/2024 1:00 PM EDT Office Visit [facility] MEDICINE [address] [place] [address] Tika Danielson MD [address] [place] [address] 07/14/2024 11:15 AM EDT Office Visit [address] [address] Kristina Paul NP [address] [place] [address] documented as of this encounter Visit Diagnoses Diagnosis Nonintractable headache, unspecified chronicity pattern, unspecified headache type documented in this encounter Additional Health Concerns Assessment Noted Time PHQ-9 Depression Total Score: 0 07/04/19 24 1:59 PM EDT documented as of this encounter Care Teams Legal Coordinator Relationship Specialty Start Date End Date Kristina Paul NP [address] [place] [address] PCP - General Family Medicine 11/08/23 documented as of this encounter
--- OUTSIDE RECORDS SUMMARY | 2024-06-03 11:31 | XMS_ITS | Encounter Summary ---
Author Organization [employer] Address [address] [facility] [address] 7t [place] [address] Care Team Providers Care Beater Lead Name Role Phone Kristina Paul NP Primary Care Provider [phone] Reason for Visit * Reason Comments [facility] Recovery Supports Encounter Details Date Type Department Care Team ([facility] st Contact Info) Description 05/23/2024 Patient Outreach [facility] MEDICINE [address] [place] [address] Jenny Barker Recovery Supports Social History Tobacco [...] encounter Progress Notes * Jenny Barker - 05/23/2024 1:26 PM EST I met with Thony griffin. Setting: in person at [facility] Recovery Wellness Goals worked on: Social Stability Action taken/next steps: Offered person centered recovery support and Attended alcohol and drug free activity Additional comments: Today, Thony Barker was at the recovery center. Jenny Barker documented in this encounter Plan of Treatment Upcoming Encounters Date Type Department Care Team (Late st Contact Info) Description 06/09/2024 1:00 PM EDT Office Visit [facility] MEDICINE [address] [place] [address] Tika Danielson MD [address] [place] [address] 07/14/2024 11:15 AM EDT Office Visit [facility] MEDICINE [address] [place] [address] Kristina Paul NP [address] [place] [address] documented as of this encounter Visit Diagnoses Not on filedocumented in this encounter Additional Health Concerns Assessment Noted Time PHQ-9 Depression Total Score: 0 07/04/19 24 1:59 PM EDT documented as of this encounter Care Teams Beater Lead Relationship Specialty Start Date End Date Kristina Paul NP [address] [place] [address] PCP - General Family Medicine 11/08/23 documented as of this encounter
--- OUTSIDE RECORDS SUMMARY | 2024-06-03 11:31 | XMS_ITS | Encounter Summary ---
Author Organization [employer] Address 75 [facility] 7t [place] [address] Care Team Providers Care Lead Recoverer Name Role Phone Kristina Paul NP Primary Care Provider [phone] Reason for Visit * Reason Comments Med Refill Encounter Details Date Type Department Care Team ([facility] st Contact Info) Description 05/13/2024 Refill [facility] MEDICINE [address] [place], [place] [phone] Kristina Paul NP [address] [place] [address] Localized edema; Nonintractable headache, unspecified chronicity pattern, unspecified headache [...] with others, in a hotel, in a snf, living outside on the street, on a [...] Description 06/09/2024 1:00 PM EDT Office Visit [facility] MEDICINE [address] [place] [address] Tika Danielson MD [address] [place] [address] 07/14/2024 11:15 AM EDT Office Visit [facility] MEDICINE [address] [place] [address] Kristina Paul NP [address] [place] [address] documented as of this encounter Visit Diagnoses Diagnosis Localized edema Edema Nonintractable headache, unspecified chronicity pattern, unspecified headache type documented in this encounter Additional Health Concerns Assessment Noted Time PHQ-9 Depression Total Score: 0 07/04/19 24 1:59 PM EDT documented as of this encounter Care Teams Lead Recoverer Relationship Specialty Start Date End Date Kristina Paul NP [address] [place] [address] PCP - General Family Medicine 11/08/23 documented as of this encounter
--- OUTSIDE RECORDS SUMMARY | 2024-06-03 11:31 | XMS_ITS | Encounter Summary ---
Author Organization [employer] Address [address] [facility] [address] [place] [address] Care Team Providers Care Document Control Coordinator Name Role Phone Kristina Paul NP Primary Care Provider [phone] Reason for Visit * Reason Comments [facility] Recovery Supports Encounter Details Date Type Department Care Team ([facility] st Contact Info) Description 05/15/2024 Patient Outreach [facility] [address] [place], [place] [phone] Jas Stein [address] [place] [address] [facility] Recovery Supports Social History Tobacco Use Types [...] encounter Progress Notes * Jas Stein - 05/15/2024 1:15 PM EST I met with Thony griffin. Setting: in person at [facility] Recovery Wellness Goals worked on: Physical Health/Mental Health and Social Stability Action taken/next steps: Offered person centered recovery support and Attended alcohol and drug free activity Additional comments: Recovery center Jas Stein documented in this encounter Plan of Treatment Upcoming Encounters Date Type Department Care Team (Late st Contact Info) Description 06/09/2024 1:00 PM EDT Office Visit [facility] [address] [place] [phone] Tika Danielson MD [address] [place] [address] 07/14/2024 11:15 AM EDT Office Visit [facility] [address] [place] [phone] Kristina Paul NP [address] [place] [address] documented as of this encounter Visit Diagnoses Not on filedocumented in this encounter Additional Health Concerns Assessment Noted Time PHQ-9 Depression Total Score: 0 07/04/19 1:59 PM EDT documented as of this encounter Care Teams Document Control Coordinator Relationship Specialty Start Date End Date Kristina Paul NP [address] [place] [phone] PCP - General Family Medicine 11/08/23 documented as of this encounter
--- OUTSIDE RECORDS SUMMARY | 2024-06-03 11:31 | XMS_ITS | Clinical Summary ---
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 Take 1 tablet by mouth wait 1-2 hours, if no increase in urine output may take second dose, do not exceed two tablets per day 10 tablet 02/15/20 24 Active propranolol LA (Inderal LA) 60 MG 24 hr capsuleIndicat ions:Chronic tension-type headache, not intractable Take 1 capsule (60 mg) by mouth Once per day. Do not crush, chew, or split. 30 capsule 2 04/29/19 25 025 Active fluticasone (Flonase) 50 MCG/ACT nasal sprayIndicatio ns:Nasal congestion with rhinorrhea Administer 1 spray into each nostril Once per day. Shake gently. Before first use, prime pump. After use, clean tip and replace cap. 16 g 2 05/12/19 25 026 Active tiZANidine (Zanaflex) 2 MG tablet TAKE 2 TABLETS BY MOUTH AT BEDTIME IF NEEDED FOR MUSCLE SPASMS FOR UP TO 10 DAYS 30 tablet 05/12/19 25 Active SUMAtriptan (Imitrex) 50 MG tabletIndicati ons:Chronic migraine with aura without status migrainosus, not intractable,No nintractable headache, unspecified chronicity pattern, unspecified headache type Take 1 tablet (50 mg) by mouth 1 (one) time if needed for migraine for up to 27 doses. May repeat dose once in 2 hours if no relief. Do not exceed 2 doses in 24 hours. 9 tablet 2 05/12/19 25 Active naproxen (Naprosyn) 500 MG tabletIndicati ons:Nonintract able headache, unspecified chronicity pattern, unspecified headache type TAKE 1 TABLET BY MOUTH EVERY DAY WITH sumatriptan WITH FOOD 60 tablet 05/14/19 25 Active fluticasone (Flonase) 50 MCG/ACT nasal spray Administer 1 spray into each nostril Once per day. Shake gently. Before first use, prime pump. After use, clean tip and replace cap. 16 g 2 03/25/20 24 025 Discontinued(R eorder (will not trigger notification to Pharmacy)) tiZANidine (Zanaflex) 2 MG tablet TAKE 2 TABLETS BY MOUTH AT BEDTIME IF NEEDED FOR MUSCLE SPASMS FOR UP TO 10 DAYS 30 tablet 04/09/19 25 025 Discontinued(R eorder (will not trigger notification to Pharmacy)) naproxen (Naprosyn) 500 MG tabletIndicati ons:Nonintract able headache, unspecified chronicity pattern, unspecified headache type TAKE 1 TABLET BY MOUTH EVERY DAY WITH sumatriptan WITH FOOD 60 tablet 04/09/19 25 025 Discontinued(R eorder (will not trigger notification to Pharmacy)) SUMAtriptan (Imitrex) 50 MG tabletIndicati ons:Nonintract able headache, unspecified chronicity pattern, unspecified headache type Take 1 tablet (50 mg) by mouth 1 (one) time if needed for migraine for up to 9 doses. May repeat dose once in 2 hours if no relief. Do not exceed 2 doses in 24 hours. 9 tablet 04/29/19 25 025 Discontinued(R eorder (will not trigger notification to Pharmacy)) ketoconazole (NIZOral) 2 % cream Apply topically Once per day for 14 days. 40 g 05/12/19 25 025 Active Problems Problem Noted Date Diagnosed Date Tinea corporis 05/12/2024 Nasal congestion with rhinorrhea 05/12/2024 PTSD (post-traumatic stress disorder) 05/12/2024 Tobacco use 05/12/2024 Hepatitis C virus infection with hepatic coma Abnormal finding on liver function 03/25/2024 Assessment & Plan (03/25/2024 11:33 AM EST): CT ordered, Cmp ordered Referral to [facility] for ongoing hep c management Follow up in 6 weeks Hep C w/o coma, chronic 03/25/2024 Assessment & Plan (03/25/2024 11:34 AM EST): See above Abnormal liver ultrasound 03/24/2024 Dyspnea on exertion 01/25/2024 Assessment & Plan (01/25/2024 5:56 PM EDT): Echo ordered Deviated nasal septum 01/19/2024 Assessment & Plan (01/19/2024 3:51 PM EDT): Continue flonase, referral to ent 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 01/19/2024 Chronic low back pain 01/19/2024 Dietary counseling 01/19/2024 Assessment & Plan (01/19/2024 3:52 PM EDT): Encouraged limiting processed foods Exercise counseling 01/19/2024 Assessment & Plan (01/19/2024 3:52 PM EDT): Encouraged daily movement Chronic migraine with aura w ithout status migrainosus, not intractable 12/26/2023 Urinary retention 08/31/2023 Assessment & Plan (09/21/2023 9:01 AM EDT): Tolerating tasmulosin, referral to urology Chronic midline low back pain without sciatica 0 08/31/2023 Injury of left ankle 08/25/2023 Assessment & Plan (08/25/2023 8:21 PM EDT): X-ray ordered, minimal pain with weight bearing cannot recall trauma Onychomycosis 07/31/2023 Tinea pedis of both feet 07/31/2023 Assessment & Plan (08/25/2023 8:19 PM EDT): Rx for antifungal prescribed, attempt to keep feet clean and dry Localized edema 07/23/2023 Assessment & Plan (01/25/2024 5:59 PM EDT): Echo ordered, previously ordered compression stockings will contact pt when ready This is a recurring issue, and previous ultrasounds neg for dvt Abdominal ultrasound ordered, Suspect venous insufficiency , advised elevation Furosemide ordered , pt to update clinic on Sunday Assessment & Plan (09/21/2023 9:02 AM EDT): Referral to vascular, Will peanut picker compression stockings. No evidence of cellulitis today Assessment & Plan (07/23/2023 6:55 PM EDT): Likely secondary to cellulitis, suspect underlying venous stasis, Encouraged elevation, Pt was unable to acquire compression stockings, Referral to vascular Left leg swelling 07/23/2023 Cellulitis and abscess of leg 07/06/2023 Assessment & Plan (08/25/2023 8:19 PM EDT): Resolving negative ultrasound, has not seen vascular yet Assessment & Plan (07/23/2023 6:56 PM EDT): Resume doxycyline, with close follow up importance of labs reviewed Dvt ultrasound ordered to be completed at [facility]. Assessment & Plan (07/07/2023 1:25 PM EDT): Cellulitis of the RLE. docxycline prescribed. Started on abx / doxyclinine Less redness , less swelling No fever, continue Rtc in 1 week Advised elevation, and compression stockings ordered Sooner should leg swell, increased redness, or any sob Opioid dependence 07/04/2023 Assessment & Plan (01/19/2024 3:50 PM EDT): Pt recently overdosed, re established in program, feels supported Tobacco dependence syndrome 07/04/2023 Assessment & Plan (07/07/2023 1:25 PM EDT): Reviewed relationship between tobacco and skin infection, pt declines assistance today Viral hepatitis C 07/04/2023 Assessment & Plan (01/25/2024 5:57 PM EDT): Abdominal ultrasound ordered Assessment & Plan (10/06/2023 8:48 PM EDT): -patient reports history of hep C infection -labs ordered to [facility] current infection -will refer to [facility] for treatment if lab results reveal active infection Assessment & Plan (09/21/2023 9:01 AM EDT): In care with [facility]. Assessment & Plan (08/25/2023 8:20 PM EDT): Interested in management Assessment & Plan (07/07/2023 1:24 PM EDT): Due for labs, pt plans to complete this week Nonintractable headache 07/04/2023 Assessment & Plan (01/25/2024 5:56 PM EDT): Continue propranolol Assessment & Plan (01/19/2024 3:50 PM EDT): Reviewed treatment options, pt opts for trial of preventative medication Assessment & Plan (07/04/2023 3:18 PM EDT): Headache diary Bello,itriptan with naproxen Polysubstance dependence inc luding opioid drug with daily use 11/24/2020 Encounters Date Type Department Care Team Description 06/02/2024 Patient Outreach [facility] [address] [place] [phone] Jenny Barker Recovery Supports 05/23/2024 Patient Outreach [facility] [address] [place] [address] Jenny Barekr Recovery Supports 05/15/2024 Patient Outreach [address] [address] SteinJas paz Recovery Supports 05/14/2024 Orders Only [address] [address] Kristina Paul NP Nonintractable headache, unspecified chronicity pattern, unspecified headache type 05/14/[address] [address] Lashon Beltrán [place] Appintment OP Lab 05/13/[address] [address] Kristina Paul NP Localized edema; Nonintractable headache, unspecified chronicity pattern, unspecified headache type 05/12/2024 10:15 AM EST Office Visit [address] [place] [address] Kristina Paul NP Nasal congestion with rhinorrhea (Primary Dx); Dietary counseling; Exercise counseling; Hep C w/o coma, chronic ([facility]); Opioid dependence in remission ([facility]); Tinea corporis; PTSD (post-traumatic stress disorder); Tobacco use; Chronic migraine with aura without status migrainosus, not intractable; Nonintractable headache, unspecified chronicity pattern, unspecified headache type 05/12/2024 Travel 05/09/2024 Patient Outreach [address] [address] Emil Jas 05/01/[address] [address] Lashon Beltrán [place] Chart Prep 04/29/[address] [address] Bisi Gloria [place] 04/29/2024 Orders Only [address] [address] Kristina Paul, ANTONY Nonintractable headache, unspecified chronicity pattern, unspecified headache type; Chronic tension-type headache, not intractable 04/29/[address] [address] Kristina Paul NP Med Refill 04/28/[address] [address] Kristina Paul NP Call Back Request; Appointment Request 04/22/[address] [place] [address] Kristina Paul NP 04/14/[address] [address] Bisi Gloria [place] 04/09/[address] [address] Kristina Paul NP Nonintractable headache, unspecified chronicity pattern, unspecified headache type 04/08/[address] [address] Kristina Paul NP Durable Medical Equipment 03/28/[address] [address] Erick Lorenzana, NICOLE Hep C Management 03/27/[address] [address] Marleen Chery 03/25/2024 12:15 PM EST Office Visit [address] [address] Kristina Paul NP Abnormal liver ultrasound (Primary Dx); Abnormal finding on liver function; Hep C w/o coma, chronic (CMS/HCC); Deviated nasal septum 03/25/2024 Travel 03/24/[address] [address] Lashon Beltrán [place] Chart Prep 03/18/[address] [address] Lizzie Chavez RN Nonintractable headache, unspecified chronicity pattern, unspecified headache type 03/18/[address] [address] Kristina Paul NP Med Refill 03/10/[address] [address] Kristina Paul NP from Last 3 Months Immunizations Name Administration Dates Next Due Hep A, Adult 09/05/2021 Hep B, adult 09/01/2020 Influenza Quadrivalent Adjuvanted 03/23/2022 Tdap 11/15/2021,09/01/2020 Family History Medical History Relation Name Comments Migraines Mother Relation Name Status Comments Mother Social History Tobacco Use Types Packs/Day Years Used Date Smoking Tobacco: Every Day Cigarettes Tobacco Cessation:Ready to Q uit: Not Asked; Counseling Given: Not Answered Alcohol Use Standard Drinks/Week Comments Never 0 [...] with others, in a hotel, in a alf, living outside on the street, on a [...] Orientation Straight 2022 10 :38 AM EDT Last Filed Vital Signs Vital Sign Reading [...] Mass Index 34.75 05/12/2024 10:00 AM EST Plan of Treatment Upcoming Encounters Date Type Department Care Team (Late st Contact Info) Description 06/09/2024 1:00 PM EDT Office Visit [facility] [address] [place] [phone] Tika Danielson MD [address] [place] [address] 07/14/2024 11:15 AM EDT Office Visit [facility] [address] [place] [phone] Kristina Paul NP [address] [place] [address] Health Maintenance Due Date Last Done Comments Lipid Panel 1980 Family Planning (PISQ) 01/29/1995 Pneumococcal Vaccine: Pediatrics (0 to 5 Years) and At-Risk Patients (6 to 49) Years) (1 of 2 - PCV) 01/29/1999 Hepatitis B Vaccines (2 of 3 - 19+ 3-dose series) 09/29/2020 09/01/2020 Hepatitis A Vaccines (2 of 2 - Risk 2-dose series) 03/07/2022 09/05/2021 COVID-19 Vaccine ( - 2023-2 5 season) 2023 01/13/2022, 08/24/2020, 07/27/2020 Influenza Vaccine (#1) 2023 03/23/2022 Depression Screening 07/03/2024 07/04/2023, 07/04/2023 Alcohol/Substance Use Screening 12/25/2024 12/26/2023 SDOH Screening 05/12/2025 05/12/2024 Tobacco Screening 05/12/2025 05/12/2024 Zoster Vaccines (1 of 2) 01/29/2030 DTaP/Tdap/Td Vaccines (3 - T d or Tdap) 11/16/2031 11/15/2021, 09/01/2020 RSV Patients and Patients Aged 60 years or older (1 - 1-dose 75+ series) 01/29/2055 HIV Screening Completed 09/03/2023, 08/15/2023, 08/02/2020 HIB Vaccines Aged Out No longer eligi ble based on patient's age to complete this topic HPV Vaccines Aged Out No longer eligi ble based on patient's age to complete this topic IPV Vaccines Aged Out No longer eligi ble based on patient's age to complete this topic Meningococcal Vaccine Aged Out No cheri destiney eligible based on patient's age to complete this topic RSV under 20 months Aged Out No longe r eligible based on patient's age to complete this topic Rotavirus Vaccines Aged Out No longer eligible based on patient's age to complete this topic Procedures Procedure Name Priority Date/Time Associated Diagnosis Comments HEPATITIS C VIRAL RNA, QUANTITATIVE, REAL-TIME PCR Routine 03/25/2024 11:25 AM EST Chronic hepatitis C without hepatic coma (CMS/HCC) COMPREHENSIVE METABOLIC PANEL Routine 03/25/2024 11:25 AM EST Abnormal liver ultrasound Abnormal finding on liver function HEPATITIS C AB W/REFL TO HCV RNA, QN, PCR Routine 03/25/2024 11:25 AM EST Hepatitis C virus infection without hepatic coma, unspecified chronicity CBC WITH AUTO DIFFERENTIAL Routine 03/25/2024 11:25 AM EST Hepatitis C virus infection without hepatic coma, unspecified chronicity B TYPE NATRIURETIC PEPTIDE (BNP) Routine 03/25/2024 11:25 AM EST Hepatitis C virus infection without hepatic coma, unspecified chronicity HIV 1/2 ANTIGEN/ANTIBODY, FOURTH GENERATION W/RFL Routine 09/03/2023 9:34 AM EDT Chronic hepatitis C without hepatic coma (CMS/HCC) from Last 3 Months or Most Recently Relevant to Health Maintenance Results * (ABNORMAL) Hepatitis C Viral RNA, Quantitative, Real-Time PCR (03/25/2024 11:25 AM EST) Hepatitis C Viral Load [id number](A ) NOT DETECTED IU/mL [facility] HCV Log PCR 6.56(A) NOT DETECTED Log IU/mL [facility] Comment:For additional infor merari, please refer tohttp://education.Narrative Science/faq/KVB46q3(This link is being provided for informational/educational purposes only.)THIS TEST WAS PERFORMED AT:[employer] [employer] [place] [phone] SIERRA MD 03/25/2024 11:2 5 AM EST 03/27/2024 3:00 PM EST us Kristina Paul NP LAB BLOOD ORDERABLES Final Resul t [facility] [address] [place] [phone] * CBC auto differential (03/25/2024 11:25 AM EST) White Blood Count 6.8 4.8 - 10.8 X10*3/uL [facility] Red Blood Count 5.14 4.60 - 5.80 X10*6/uL [facility] Hemoglobin 14.9 14.0 - 18.0 g/dl [facility] Hematocrit 45.1 42.0 - 52.0 % [facility] Mean Corpuscular Volume 87.7 80.0 - 98.0 fL [facility] Mean Corpuscular Hemoglobin 29.0 27.0 - 33.0 pg [facility] Mean Corpuscular HGB Conc 33.0 31.0 - 36.0 g/dl [facility] Red Cell Distribution Width 13.2 11.0 - 16.0 % [facility] Platelet Count 186 160 - 400 X10*3/uL [facility] Mean Platelet Volume 11.1 9.4 - 12.4 fL [facility] Neutrophils Percent Auto 56.9 45 - 73 % [facility] Imm Gran Pct Auto 0.1 0.0 - 0.4 % [facility] Lymphocytes Percent Auto 32.0 20 - 40 % [facility] Monocytes Percent Auto 7.5 2 - 11 % [facility] Eosinophils Percent Auto 3.2 0 - 4 % [facility] Basophils Percent Auto 0.3 0 - 2 % [facility] NRBC Pct Auto 0.0 0.0 - 0.2 /100WBC [facility] Neutrophils Absolute Auto 3.9 2.0 - 8.3 x10*3/uL [facility] Imm Gran Abs Auto 0.01 0.00 - 0.03 X10*3/uL [facility] Lymphocytes Absolute Auto 2.2 1.2 - 4.9 X10*3/uL [facility] Monocytes Absolute Auto 0.5 0.1 - 1.2 X10*3/uL [facility] Eosinophils Absolute Auto 0.2 0.0 - 0.4 X10*3/uL [facility] Basophils Absolute Auto 0.0 0.0 - 0.2 X10*3/uL [facility] NRBC Abs Auto 0.000 0.0 - 0.012 X10*3/uL [facility] Blood Venous blood specimen / Unknown 03/25/2024 11:25 AM EST 03/25/2024 1:12 PM EST us Kristina Paul LETTERER LAB BLOOD ORDERABLES Final Resul t [facility] [address] [place] [phone] * (ABNORMAL) Hepatitis C Antibody with Reflex to HCV, RNA, Quantitative, Real- Time PCR (03/25/2024 11:25 AM EST) [facility] Hepatitis C Antibody Reactive( A) Nonreactive [facility] Comment:Presumptive evidence of antibodies to HCV. Blood Venous blood specimen / Unknown 03/25/2024 11:25 AM EST 03/25/2024 1:12 PM EST Kristina Paul NP LAB BLOOD ORDERABLES Final Resul t Performing Organization Address [facility] de Phone Number [facility] [address] [place] [phone] * B Type Natriuretic Peptide (BNP) (03/25/2024 11:25 AM EST) [facility] B Type Natriuretic Peptide <100 pg/mL [facility] Comment:Test Result Units Re f IntB-Type Natriuretic 9.8 pg/Ml 0.0 ? 100.0PeptideMethod: Siemens ADVIA Centaur XPTest performed by: [facility] [phone] Director: Mindy Marquez MDFor those patients who are being treated with Natrecor(nesiritide, recombinant BNP), BNP testing should beperformed at least two hours post treatment in order toensure that only endogenous levels of BNP are detected. Blood Venous blood specimen / Unknown 03/25/2024 11:25 AM EST 03/25/2024 1:12 PM EST us Kristina Paul NP LAB BLOOD ORDERABLES Final Resul t Performing Organization Address [facility] de Phone Number [facility] [address] [place] [phone] * (ABNORMAL) Comprehensive Metabolic Panel (03/25/2024 11:25 AM EST) [facility] Sodium 138 135 - 145 mmol/L [facility] Potassium 4.4 3.3 - 5.1 mmol/L [facility] Chloride 102 96 - 108 mmol/L [facility] Carbon Dioxide 32(H) 22 - 29 mmol/L [facility] Anion Gap 8(L) 12 - 20 [facility] Urea Nitrogen (BUN) 12 9 - 16 mg/dL [facility] Creatinine, Serum 0.86 0.5 - 1.4 mg/dL [facility] Estimated Glomerular Filt Rate >60 [facility] Comment:Chronic Kidney Disea se: Estimated GFR < 60 mL/min/[id number] Kidney Disease: Estimated GFR < 15 mL/min/1.73m2 Glucose 97 60 - 115 mg/dL [facility] Calcium 10.2 8.4 - 10.2 mg/dL [facility] Bilirubin, Total 0.3 0.0 - 1.0 mg/dL [facility] Aspartate Amino Transferase 46(H) 5 - 37 U/L [facility] Alanine Aminotransferase 50(H) 0 - 40 U/L [facility] Total Protein 8.5(H) 6.5 - 8.0 g/dL [facility] Albumin Level 4.5 3.5 - 5.0 g/dL [facility] Alkaline Phosphatase 86 39 - 117 U/L [facility] Blood Venous blood specimen / Unknown 03/25/2024 11:25 AM EST 03/25/2024 1:12 PM EST us Kristina Paul NP LAB BLOOD ORDERABLES Final Resul t [facility] [address] [place] [address] [phone] * HIV-1/2 Antigen and Antibodies, Fourth Generation, with Reflexes (09/03/2023 9:34 AM EDT) HIV AB/AG Nonreactive Nonreactive [facility] Comment:HIV-1 p24 Ag and/or HIV-1/HIV-2 Ab not detected.A test result that is nonreactive does not exclude thepossibility of exposure to or infection with HIV-1 and/orHIV-2. Nonreactive results in this assay for individualswith prior exposure to HIV-1 and/or HIV-2 may be due toantigen and antibody levels that are below the limit ofdetection of this assay.The [employer] HIV Ag/Ab Combo assay result andsupplemental assay results should be interpreted inconjunction with the patient's clinical presentation,history and other laboratory results. If the results areinconsistent with clinical evidence, additional testing issuggested to confirm the result. 09/03/2023 9:34 AM EDT 09/03/2023 11:55 AM EDT Ana Sanchez NP LAB BLOOD ORDERABLES Final Resu lt [facility] [address] [place] [phone] [phone] from Last 3 Months or Most Recently Relevant to Health Maintenance Insurance [facility] [facility] [address] [place] [phone] [address] [place] [phone] Care Teams Delinquent Tax Collector Relationship Specialty Start Date End Date Kristina Paul NP [address] [place] [phone] PCP - General Family Medicine 11/08/23
== END 2024-06-03 09:53 | disposition home or self-care (01) ==
LOC: HO.US 09:52
PROVIDERS: PCP Nurse Practitioner Family; Visit Provider Nurse Practitioner Family
DX: R39.16 Straining to void (principal); Z87.898 Personal history of other specified conditions
CPT/HCPCS: 76770

== ENCOUNTER → 2024-06-03 09:55 | Outpatient (BNV) | payer MEDICAID, SELFPAY | PROVIDERS: PCP Nurse Practitioner Family; Visit Provider Radiology Diagnostic Radiology | DX: R39.11 Hesitancy of micturition (principal) | CPT/HCPCS: 76770 ==

== ENCOUNTER 2024-06-17 09:22 | Outpatient (AMB) | payer MEDICAID, SELFPAY ==
--- NOTE | 2024-06-17 09:25 | A.OFFVIS_ITS ---
Intake Visit Reasons: 3 month follow up/ PVR/ US(set) Intake Note: Patient presents today for follow up on: urinary retention and ultrasound results Imaging Completed: 06/03/24 Urology Medication: Terazosin Antibiotic Allergy:NONE Blood Thinner:NONE TODAY'S PVR: 56ml's Lacquer Pin Press Operator Required: Yes Lacquer Pin Press Operator Services: Lacquer Pin Press Operator Present Lacquer Pin Press Operator Name: [id number] Accompanied by: Self / Same As Patient Allergies Unable to Assess Allergy (Verified 06/17/24 09:45) Medication List - Last Reconciled 06/17/24 by AYAD Pederson escitalopram oxalate 20 mg PO DAILY fluticasone propionate 50 mcg/actuation 1 spray intranasal DAILY methadone (Methadone Intensol) 120 mg PO DAILY prazosin 2 mg PO BEDTIME propranolol ER 60 mg PO DAILY terazosin 5 mg PO BEDTIME 90 days trazodone 50 - 100 mg PO BEDTIME PRN HPI Comments Details: Thony is a very pleasant 44-year-old Danish-speaking male patient of Dr. Paul. He has a past medical history of opioid dependence, tobacco dependence, hep C, headaches, and chronic back pain. He presents to the office today for follow-up. Of note, patient was seen approximately 3 months ago as a new patient for ongoing lower urinary tract symptoms at which time a retroperitoneal ultrasound and PSA were ordered for further assessment evaluation. The patient was also started on 5 mg of terazosin. In discussion with the patient today he reports significant improvement in lower urinary tract symptoms with 5 mg of terazosin at bedtime. He reports feeling urinary hesitancy and straining with urination have improved. Recent retroperitoneal ultrasound results reviewed with the patient today. 06/24 bilateral kidneys are normal in size, contour, and echogenicity. No renal calculi, lesions, and or hydronephrosis noted bilaterally. The bladder is well distended and normal. Bilateral jets are demonstrated. Pre void bladder volume is approximately 165 mL. Postvoid bladder volume is approximately 5 mL. The prostate was within normal limits measuring 18 mL. Normal renal and bladder ultrasound. We discussed further intervention to include in office cystoscopy for further assessment evaluation. He denies urinary urgency, urinary frequency, incontinence, nocturia, hematuria, dysuria, foul smelling urine, flank pain, fever, and or chills. Patient was previously trialed Flomax with no improvement in lower urinary tract symptoms. In office urinalysis results reviewed with the patient today. PVR 56 mL. In review of patient's chart it appears PSA 07/24 0.1. We discussed lifestyle modifications to assist with lower urinary tract symptoms as well as overall health and well-being. He otherwise offers no other issues or concerns at this time. Discussion Notes I informed the patient that recent ultrasound imaging showed no blockages or kidney stones, and his prostate does not appear enlarged at this time. We discussed continuing the current medication due to its effectiveness. As an additional option, I introduced the idea of performing a in office cystoscopy to evaluate whether a surgical procedure might be necessary to alleviate symptoms by opening the prostate. The patient was informed that he could choose to continue the medication or consider further diagnostic evaluation. He has opted to continue medication at present, and a refill was sent to his pharmacy. I advised him to contact me if his symptoms worsen, or if he decides to proceed with the suggested procedure. Plan The patient will continue with the current medication as it has shown efficacy in managing symptoms. A refill has been processed. Future consideration for cystoscopy exists to assess the potential need for prostate surgical intervention given suspected tightness, not enlargement. This decision aligns with the current presentation and ultrasound results excluding factors such as kidney issues or an enlarged prostate. The patient is advised to maintain communication regarding symptom changes or interest in further diagnostic procedure. FORMERLY [facility] Social History Substance Use Type: Heroin Review of Systems Const All systems reviewed & are unremarkable except as noted in HPI and below Physical Exam Const General: cooperative, healthy appearing, comfortable, no acute distress, well developed, alert and awake Orientation/consciousness: patient oriented x3 Limitations: no limitations HEENT Head: Yes normal to inspection, Yes normocephalic and Yes atraumatic Ears: hearing grossly normal bilaterally Eyes General: appearance normal, both eyes and all related structures Neck Neck: Yes normal visual inspection and Yes trachea midline Chest Chest palpation & inspection: normal inspection of the chest Resp Effort & Inspection: normal respiratory effort and able to speak in complete sentences Cardio Rate: regular rate GI Inspection: Yes normal to inspection General: Yes no CVA tenderness Back/Spine/Pelvis Back: no CVA tenderness Skin General skin exam: no rashes or lesions noted Neuro General: patient oriented x3 Extrem General: Yes normal to inspection Psych Appearance: grossly normal and well kempt Mental Status: mental status grossly normal Speech and movement: Normal speech and movement present and Clear speech present Affect: normal affect Attitude: cooperative Thought process: Normal thought process present Thought content: Normal thought content present Insight: Fair insight present (Psych) Judgement: Fair judgement present (Psych) Office Procedures Post Void Residual Post Residual Void Post Void Residual (PVR): 56 [id number] Void Residual by ultrasound Results Reviewed Results Reviewed: Date of Service: 06/03/24 Procedure(s): US retroperitoneal comp FINDINGS: RIGHT KIDNEY: 10.5 x 5.2 x 5.0 cm (SAG x AP x TRV). The kidney is normal in size, contour, and echogenicity. Renal cortical thickness is normal. No calculi or focal parenchymal lesions. There is a junctional parenchymal defect along the midpole. No hydronephrosis. LEFT KIDNEY: 11.3 x 6 0.0, 5.8 cm (SAG x AP x TRV). The kidney is normal in size, contour, and echogenicity. Renal cortical thickness is normal. No calculi or focal parenchymal lesions. No hydronephrosis. A small dromedary hump is noted in midpole. BLADDER: Well distended and normal. Bilateral ureteral jets are demonstrated. Prevoid bladder volume is 165.3 mL. Postvoid bladder volume is 0.3 mL. The prostate volume is 18.1 mL and within normal limits. IMPRESSION: Normal renal ultrasound. Normal bladder ultrasound. Assessment & Plan Assessment & Plan (1) Straining on urination: Code(s): R39.16 - Straining to void Category: Medical (2) History of urinary hesitancy: Code(s): Z87.898 - Personal history of other specified conditions Category: Medical Plan In office urinalysis results reviewed the patient today; as noted above. PVR 56 mL. Recent retroperitoneal ultrasound results reviewed with the patient today; as noted above. Patient reports improvement in lower urinary tract symptoms he had been experiencing with 5 mg of terazosin at bedtime and would like to continue; refill provided. We discussed further treatment options to include in office cystoscopy for further assessment evaluation. Reports be happy with current voiding parameters. Follow-up in 6 months with PSA and PVR; or sooner with any issues, concerns, and or questions. Orders: Orders AMB Urinalysis Automated Today Z13.9 - Encounter for screening, unspecified AMB Post Void Residual by ultrasound Today R39.16 - Straining to void Prostate Specific Antigen 6 Months R39.16 - Straining to void, Z87.898 - Personal history of other specified conditions Medications: Refilled terazosin 5 mg PO BEDTIME 90 days 90 caps 3RF N40.1 - Benign prostatic hyperplasia with lower urinary tract symptoms, R35.0 - Frequency of micturition Patient Instructions: The patient had an opportunity to ask questions regarding the treatment plan. All questions were answered. Physical exam, labs, and imaging were discussed and reviewed in detail. As well as risks, benefits, and discussion of treatment choices. No major barriers to understanding were identified. The patient expressed understanding and agreement with the above treatment plan. The patient was made aware they should contact our office by phone for worsening of their current condition, the appearance of new symptoms, or with any questions or concerns. Compliance is encouraged with any medications and follow up testing that is ordered. It is a privilege to be allowed the opportunity to participate in? your urological care.? Again, if you have any questions or concerns If you have any questions or concerns please do not hesitate to contact me. The office is [phone]. This note is constructed using voice recognition software. While every effort has been made to ensure accuracy plate printer errors may have been included. Yours sincerely, AYAD Pederson Coding Level of Care Code Est Pt Level 3 (58034) Diagnoses Straining on urination R39.16 History of urinary hesitancy Z87.898 CPT Codes Post Residual Void - PVR CPT Code: 95459-Yjwf Void Residual by ultrasound ([id number])
--- OUTSIDE RECORDS SUMMARY | 2024-06-17 10:13 | XMS_ITS | Encounter Summary ---
Author Organization [facility] Address [address] [place] [address] Care Team Providers Care Pest Locator Name Role Phone Kristina Paul NP Primary Care Provider [phone] Reason for Visit * Reason Comments [facility] Recovery Supports Encounter Details Date Type Department Care Team ([facility] st Contact Info) Description 05/23/2024 Patient Outreach [facility] [address] [place] [address] Jenny Barker Recovery Supports Social History Tobacco [...] with Thony griffin. Setting: in person at [facility] Recovery Wellness Goals worked on: Social Stability Action taken/next steps: Offered person centered recovery support and Attended alcohol and drug free activity Additional comments: Today, Thony Barker was at the recovery center. Jenny Barker documented in this encounter Plan of Treatment Upcoming Encounters Date Type Department Care Team (Late st Contact Info) Description 07/14/2024 11:15 AM EDT Office Visit [facility] [address] [place] [address] Kristina Paul NP [address] [place] [address] documented as of this encounter Visit Diagnoses Not on filedocumented in this encounter Additional Health Concerns Assessment Noted Time PHQ-9 Depression Total Score: 0 07/04/19 24 1:59 PM EDT documented as of this encounter Care Teams Pest Locator Relationship Specialty Start Date End Date Kristina Paul NP [address] [place] [address] PCP - General Family Medicine 11/08/23 documented as of this encounter
--- OUTSIDE RECORDS SUMMARY | 2024-06-17 10:13 | XMS_ITS | Encounter Summary ---
Author Organization [employer] Address [address] [facility] 7t [place] [address] Care Team Providers Care Art Installer Name Role Phone Ana Sanchez [employer] Primary Care Provider Kristina Paul [employer] Primary Care Provider [phone] Reason for Referral * Consultation (Routine) - Authorized Specialty Diagnoses / Procedures Referred By Contac t Referred To Contact Infectious Diseases Diagnoses Chronic hepatitis C without hepatic coma (CMS/HCC) Gloria Roca MD [address] [place] [phone] Phone: tel: fax: Referral ID Status Reason Start Date Expiration Date Visits Requested Visits Authorized [id number] Authorized Specialty Services Required 08/06/2023 08/05/2024 1 1 Encounter Details Date Type Department Care Team (Late st Contact Info) Description 08/06/2023 Orders Only [facility] [address] [place] [phone] Gloria Roca MD [address] [place], [place] [phone] Chronic hepatitis C without hepatic coma (CMS/HCC) [...] Description 07/14/2024 11:15 AM EDT Office Visit [facility] [address] [place] [address] Kristina Paul NP [address] [place] [address] Scheduled Referrals Name Type Priority Associated Diagnoses Order Schedule Referral to [facility] Infectious Disease (HIV & Hep C) Outpatient [...] 11:25 AM EST) Hepatitis C Viral Load 9583061(A ) NOT DETECTED IU/mL [facility] HCV Log PCR 6.56(A) NOT DETECTED Log IU/mL [facility] Comment:For additional infor merari, please refer tohttp://education.Groove Customer Support/faq/KNL20r5(This link is being provided for informational/educational purposes only.)THIS TEST WAS PERFORMED AT:[facility] [place] [id number] SIERRA MD 03/25/2024 11:2 5 AM EST 03/27/2024 3:00 PM EST us Kristina Paul [employer]ER REE[employer] NET LAB BLOOD ORDERABLES Final Resul t [facility] [address] [place] [phone] * (ABNORMAL) Liver Fibrosis (HCV), FibroTest-ActiTest Panel (09/03/2023 9:34 AM EDT) Pathologist [facility] Liver Fibrosis Score 0.42 [facility] Liver Fibrosis Stage F1-F2 [facility] Liver Fibrosis Interpretation SEE NOTE [facility] Comment:minimal fibrosisFibr o Test Score [...] (severe fibrosis) Nec Inflam Act Score 0.17 [facility] Nec Inflam Act Grade A0-A1 [facility] Nec Inflam Act Interpretation SEE NOTE [facility] Comment:no activityActiTest Score (a) Metavir Score a>=0 and a<=0.17 : A0 (no activity)a>0.17 and a<=0.29 : A0-A1 (no activity)a>0.29 and a<=0.36 : A1 (minimal activity)a>0.36 and a<=0.52 : A1-A2 (minimal activity)a>0.52 and a<=0.60 : A2 (significant activity)a>0.60 and a<=0.62 : A2-A3 (significant activity)a>0.62 and a<=1.00 : A3 (severe activity) PMD-Fvkjn-4-Macroglo bulin 269 106 - 279 mg/dL [facility] FIB-Haptoglobin 101 43 - 212 mg/dL [facility] FIB-Apolipoprotein A1 153 94 - 176 mg/dL [facility] FIB-Total Bilirubin 0.3 0.2 - 1.2 mg/dL [facility] FIB-GGT 215(A) 3 - 95 U/L [facility] FIB-ALT 30 9 - 46 U/L [facility] Reference ID [id number] [facility] Footnote SEE NOTE [facility] Comment: The reliability of results [...] and C.The performance characteristics have been determined by[facility]. Ithas not been cleared or approved by the U.S. Food and DrugAdministration. Performance characteristics refer to theanalytical performance of the test.Abril, the associated logo, [employer] and all associated [employer]shi capellan are theregistered trademarks of [employer]. All third partymarks - (R) and (TM) - are the property of their respectiveowners. (C) [id number] [employer]. Allrights reserved.THIS TEST WAS PERFORMED AT:[employer] [id number] [facility], [place] ??[phone] SANCHEZ MD,PHD,ROXY 09/03/2023 9:34 AM EDT 09/03/2023 11:55 AM EDT Ana Sanchez [employer] LAB BLOOD ORDERABLES Final Resu lt [facility] [address] [place] [phone] * Hepatitis C Viral RNA, Genotype, LiPA (09/03/2023 9:34 AM EDT) Hepatitis C Genotype 1a [facility] Comment:The method used in t his test is RT-PCR and reversehybridization (Line Probe) of the 5' UTR and coreregion of the HCV genome.The analytical performance characteristics of thisassay have been determined by [facility], [place], [place]. The modificationshave not been cleared or approved by the FDA. Thisassay has been validated pursuant to the CLIAregulations and is used for clinical purposes.For additional information, please refer tohttp://education.[employer]/faq/HCVGenotyping(This link is being provided for informational/educational purposes only.)THIS TEST WAS PERFORMED AT:[employer] [id number] [place] [id number] VILLAGRAN MD,PHD 09/03/2023 9:34 AM EDT 09/03/2023 11:14 AM EDT [facility] LAB BLOOD ORDERABLES Final Resu lt Performing Organization Address City/[facility]/ZIP Co de Phone Number [facility] [address] [place] [phone] * HIV-1/2 Antigen and Antibodies, Fourth Generation, with Reflexes (09/03/2023 9:34 AM EDT) Pathologist [facility] HIV AB/AG Nonreactive Nonreactive [facility] Comment:HIV-1 p24 Ag and/or HIV-1/HIV-2 Ab not detected.A test result that is nonreactive does not exclude thepossibility of exposure to or infection with HIV-1 and/orHIV-2. Nonreactive results in this assay for individualswith prior exposure to HIV-1 and/or HIV-2 may be due toantigen and antibody levels that are below the limit ofdetection of this assay.The Cursogram HIV Ag/Ab Combo assay result andsupplemental assay results should be interpreted inconjunction with the patient's clinical presentation,history and other laboratory results. If the results areinconsistent with clinical evidence, additional testing issuggested to confirm the result. 09/03/2023 9:34 AM EDT 09/03/2023 11:55 AM EDT [facility] LAB BLOOD ORDERABLES Final Resu lt Performing Organization Address [facility]/ZIP Co de Phone Number [facility] [address] [place] [phone] * (ABNORMAL) Prothrombin Time-INR (09/03/2023 9:34 AM EDT) Pathologist [facility] Prothrombin Time 9.9(L) 11.1 - 13.3 SEC [facility] INTERNATIONAL NORM RATIO 0.8(L) 0.9 - 1.1 [facility] Comment:INTERNATIONAL NORMAL IZED RATIO (INR) [...] 09/03/2023 11:58 AM EDT us Ana Sanchez [employer] LAB BLOOD ORDERABLES Final Resu lt [facility] [address] [place] [phone] * CBC auto differential (09/03/2023 9:34 AM EDT) [facility] White Blood Count 7.0 4.8 - 10.8 X10*3/uL [facility] Red Blood Count 5.01 4.60 - 5.80 X10*6/uL [facility] Hemoglobin 14.4 14.0 - 18.0 g/dl [facility] Hematocrit 45.0 42.0 - 52.0 % [facility] Mean Corpuscular Volume 89.8 80.0 - 98.0 fL [facility] Mean Corpuscular Hemoglobin 28.7 27.0 - 33.0 pg [facility] Mean Corpuscular HGB Conc 32.0 31.0 - 36.0 g/dl [facility] Red Cell Distribution Width 13.3 11.0 - 16.0 % [facility] Platelet Count 186 160 - 400 X10*3/uL [facility] Mean Platelet Volume 10.5 9.4 - 12.4 fL [facility] Neutrophils Percent Auto 61.5 45 - 73 % [facility] Imm Gran Pct Auto 0.3 0.0 - 0.4 % [facility] Lymphocytes Percent Auto 30.3 20 - 40 % [facility] Monocytes Percent Auto 6.1 2 - 11 % [facility] Eosinophils Percent Auto 1.4 0 - 4 % [facility] Basophils Percent Auto 0.4 0 - 2 % [facility] NRBC Pct Auto 0.0 0.0 - 0.2 /100WBC [facility] Neutrophils Absolute Auto 4.3 2.0 - 8.3 x10*3/uL [facility] Imm Gran Abs Auto 0.02 0.00 - 0.03 X10*3/uL [facility] Lymphocytes Absolute Auto 2.1 1.2 - 4.9 X10*3/uL [facility] Monocytes Absolute Auto 0.4 0.1 - 1.2 X10*3/uL [facility] Eosinophils Absolute Auto 0.1 0.0 - 0.4 X10*3/uL [facility] Basophils Absolute Auto 0.0 0.0 - 0.2 X10*3/uL [facility] NRBC Abs Auto 0.000 0.0 - 0.012 X10*3/uL [facility] 09/03/2023 9:34 AM EDT 09/03/2023 11:58 AM EDT us Ana Sanchez [employer] LAB BLOOD ORDERABLES Final Resu lt [facility] [address] [place] [phone] * (ABNORMAL) Liver Fibrosis (HCV), FibroTest-ActiTest Panel (08/15/2023 9:33 AM EDT) Liver Fibrosis Score 0.51 [facility] Liver Fibrosis Stage F2 [facility] Liver Fibrosis Interpretation SEE NOTE [facility] Comment:moderate fibrosisFib ro Test Score [...] (severe fibrosis) Nec Inflam Act Score 0.28 [facility] Nec Inflam Act Grade A0-A1 [facility] Nec Inflam Act Interpretation SEE NOTE [facility] Comment:no activityActiTest Score (a) Metavir Score a>=0 and a<=0.17 : A0 (no activity)a>0.17 and a<=0.29 : A0-A1 (no activity)a>0.29 and a<=0.36 : A1 (minimal activity)a>0.36 and a<=0.52 : A1-A2 (minimal activity)a>0.52 and a<=0.60 : A2 (significant activity)a>0.60 and a<=0.62 : A2-A3 (significant activity)a>0.62 and a<=1.00 : A3 (severe activity) DZQ-Zaihc-9-Macroglo bulin 261 106 - 279 mg/dL [facility] FIB-Haptoglobin 83 43 - 212 mg/dL [facility] FIB-Apolipoprotein A1 152 94 - 176 mg/dL [facility] FIB-Total Bilirubin 0.4 0.2 - 1.2 mg/dL [facility] FIB-GGT 236(A) 3 - 95 U/L [facility] FIB-ALT 40 9 - 46 U/L [facility] Reference ID [id number] [facility] Footnote SEE NOTE [facility] Comment: The reliability of results [...] and C.The performance characteristics have been determined by[facility]. Ithas not been cleared or approved by the U.S. Food and DrugAdministration. Performance characteristics refer to theanalytical performance of the test.Abril, the associated logo, [employer] and all associated [employer]shi capellan are theregistered trademarks of Namshi. All third partymarks - (R) and (TM) - are the property of their respectiveowners. (C) [phone] [employer]. Allrights reserved.THIS TEST WAS PERFORMED AT:[employer] [id number] [facility], [place] ??[id number] SANCHEZ MD,PHD,ROXY 08/15/2023 9:33 AM EDT 08/15/2023 11:22 AM EDT us Ana Sanchez NP LAB BLOOD ORDERABLES Final Resu lt [facility] [address] [place] [phone] * Hepatitis C Viral RNA, Genotype, LiPA (08/15/2023 9:33 AM EDT) Hepatitis C Genotype 1a [facility] Comment:The method used in t his test is RT-PCR and reversehybridization (Line Probe) of the 5' UTR and coreregion of the HCV genome.The analytical performance characteristics of thisassay have been determined by [facility] [employer], [place], [place]. The modificationshave not been cleared or approved by the FDA. Thisassay has been validated pursuant to the CLIAregulations and is used for clinical purposes.For additional information, please refer tohttp://education.[employer]/faq/HCVGenotyping(This link is being provided for informational/educational purposes only.)THIS TEST WAS PERFORMED AT:[employer]/[id number] [place] [address]HFEUBUSSHELLEY VILLAGRAN MD,PHD 08/15/2023 9:33 AM EDT 08/15/2023 11:22 AM EDT [facility] LAB BLOOD ORDERABLES Final Resu lt Performing Organization Address [facility] Co de Phone Number [facility] [address] [place] [phone] * Hepatitis B surface antigen, EIA (08/15/2023 9:33 AM EDT) Pathologist [facility] Hepatitis B Surface Ag Negative Negative [facility] 08/15/2023 9:33 AM EDT 08/15/2023 11:22 AM EDT [facility] LAB BLOOD ORDERABLES Final Resu lt Performing Organization Address [facility] Co de Phone Number [facility] [address] [place] [phone] * HIV-1/2 Antigen and Antibodies, Fourth Generation, with Reflexes (08/15/2023 9:33 AM EDT) Pathologist [facility] HIV AB/AG Nonreactive Nonreactive [facility] Comment:HIV-1 p24 Ag and/or HIV-1/HIV-2 Ab not detected.A test result that is nonreactive does not exclude thepossibility of exposure to or infection with HIV-1 and/orHIV-2. Nonreactive results in this assay for individualswith prior exposure to HIV-1 and/or HIV-2 may be due toantigen and antibody levels that are below the limit ofdetection of this assay.The Pokelab[employer]ingi HIV Ag/Ab Combo assay result andsupplemental assay results should be interpreted inconjunction with the patient's clinical presentation,history and other laboratory results. If the results areinconsistent with clinical evidence, additional testing issuggested to confirm the result. 08/15/2023 9:33 AM EDT 08/15/2023 11:22 AM EDT [facility] BLOOD ORDERABLES Final Resu lt Performing Organization Address [facility] Co de Phone Number [facility] [address] [place] [phone] * Prothrombin Time-INR (08/15/2023 9:33 AM EDT) Pathologist [facility] Prothrombin Time 11.2 11.1 - 13.3 SEC [facility] INTERNATIONAL NORM RATIO 0.9 0.9 - 1.1 [facility] Comment:INTERNATIONAL NORMAL IZED RATIO (INR) [...] 9:33 AM EDT 08/15/2023 11:29 AM EDT [facility] LAB BLOOD ORDERABLES Final Resu lt Performing Organization Address [facility] Co de Phone Number [facility] [address] [place] [phone] * (ABNORMAL) CBC auto differential (08/15/2023 9:33 AM EDT) White Blood Count 4.9 4.8 - 10.8 X10*3/uL [facility] Red Blood Count 5.00 4.60 - 5.80 X10*6/uL [facility] Hemoglobin 14.4 14.0 - 18.0 g/dl [facility] Hematocrit 44.4 42.0 - 52.0 % [facility] Mean Corpuscular Volume 88.8 80.0 - 98.0 fL [facility] Mean Corpuscular Hemoglobin 28.8 27.0 - 33.0 pg [facility] Mean Corpuscular HGB Conc 32.4 31.0 - 36.0 g/dl [facility] Red Cell Distribution Width 13.3 11.0 - 16.0 % [facility] Platelet Count 219 160 - 400 X10*3/uL [facility] Mean Platelet Volume 10.4 9.4 - 12.4 fL [facility] Neutrophils Percent Auto 49.7 45 - 73 % [facility] Imm Gran Pct Auto 0.2 0.0 - 0.4 % [facility] Lymphocytes Percent Auto 35.7 20 - 40 % [facility] Monocytes Percent Auto 9.7 2 - 11 % [facility] Eosinophils Percent Auto 4.3(H) 0 - 4 % [facility] Basophils Percent Auto 0.4 0 - 2 % [facility] NRBC Pct Auto 0.0 0.0 - 0.2 /100WBC [facility] Neutrophils Absolute Auto 2.4 2.0 - 8.3 x10*3/uL [facility] Imm Gran Abs Auto 0.01 0.00 - 0.03 X10*3/uL [facility] Lymphocytes Absolute Auto 1.7 1.2 - 4.9 X10*3/uL [facility] Monocytes Absolute Auto 0.5 0.1 - 1.2 X10*3/uL [facility] Eosinophils Absolute Auto 0.2 0.0 - 0.4 X10*3/uL [facility] Basophils Absolute Auto 0.0 0.0 - 0.2 X10*3/uL [facility] NRBC Abs Auto 0.000 0.0 - 0.012 X10*3/uL [facility] 08/15/2023 9:33 AM EDT 08/15/2023 11:22 AM EDT Ana Sanchez [employer] LAB BLOOD ORDERABLES Final Resu lt [facility] [address] [place] [phone] documented in this encounter Visit Diagnoses Diagnosis Chronic hepatitis C without hepatic coma (CMS/HCC)- Primary documented in this encounter Additional Health Concerns Assessment Noted Time PHQ-9 Depression Total Score: 0 07/04/19 24 1:59 PM EDT documented as of this encounter Care Teams Art Installer Relationship Specialty Start Date End Date Ana Sanchez NP [address] [place] [address] PCP - General Family Medicine 07/04/23 11/07/23 Kristina Paul NP [address] [place] [address] PCP - General Family Medicine 11/08/23 documented as of this encounter
--- OUTSIDE RECORDS SUMMARY | 2024-06-17 10:13 | XMS_ITS | Encounter Summary ---
Author Organization [employer] Address [address] [facility] [address] [place] [address] Care Team Providers Care Exterminator Name Role Phone Kristina Paul NP Primary Care Provider [phone] Reason for Visit * Reason Comments GBAT Encounter Details Date Type Department Care Team (Latest Contact Info) Description 06/11/2024 10:30 AM EDT Office Visit [facility] [address] [place], [place] [phone] Long Manuel MD [address] [place], [place] [phone] Opioid dependence, uncomplicated (CMS/HCC) (Primary Dx) Social History Tobacco Use [...] as of this encounter Progress Notes * Long Manuel MD - 06/11/2024 10:30 AM EDT LAST GBAT VISIT 09/05/2023 Patient presents for Group-Based Opioid Treatment for OUD Reviewed the group goals, expectations and policies Consented to the group treatment options Actively participated in the group discussion with the topic of: Kindness Following staff present at the visit: Physician, Conservation Agent, Clinician,Team RN, and Inventory Administrator Opportunities provided to address individual medical/medication/BH concerns States doing well without cravings or relapse TODAY GBAT VISIT 06/11/2024 Patient presents for Group-Based Opioid Treatment for OUD First GBAT visit since 09/2023 Currently on Methadone maintenance Reviewed the group goals, expectations and policies Consented to the group treatment options Actively participated in the group discussion with the topic of: Changes Following staff present at the visit: Physician, Conservation Agent, Clinician,Team RN, and Inventory Administrator Opportunities provided to address individual medical/medication/BH concerns States doing well without cravings or relapse Review of Systems Psychiatric/Behavioral: Negative for behavioral problems and dysphoric mood. The patient is not nervous/anxious. Physical Exam Constitutional: Appearance: Normal appearance. Pulmonary: Effort: Pulmonary effort is normal. Neurological: Mental Status: He is alert. Psychiatric: Mood and Affect: Mood normal. Behavior: Behavior normal. Thony was seen today for gbat. Diagnoses and all orders for this visit: Opioid dependence, uncomplicated (CMS/HCC) (Primary) Patient presents for Group-Based Addiction Treatment of OUD Reviewed the group goals, expectations and policies Consented to the group treatment options Actively participated in the group discussed Future discussion topics reviewed Patient is tolerating current treatment of Methadone Reviewed behavioral modification and accessing services Group counseling provided with a focus on support system, tools for achieving/maintaining recovery Reviewed barriers for these goals Discussed strategies to address when faced situations that may trigger use [employer] GLAZIER reviewed Following staff present at the visit: Physician, Team RN, Clinician, Conservation Agent and Inventory Administrator This information has been disclosed to you from records protected by federal confidentiality rules (42 CFR Part 2). The federal rules prohibit you from making any further disclosure of information inthis record that identifies a patient as having or having had a substance use disorder either directly, by reference to publicly available information, or through verification of such identification by another person unless further disclosure is expressly permitted by the written consent of the individual whose information is being disclosed or as otherwise permitted by (see2.3.1). The federal rules restrict any use of the information to investigate or prosecute with regard to a crime any patient with a substance use disorder, except as provided at 2.12??(5) and 2.65. documented in this encounter Plan of Treatment Upcoming Encounters Date Type Department Care Team (Late st Contact Info) Description 07/14/2024 11:15 AM EDT Office Visit [facility] [address] [place] [phone] Kristina Paul NP [address] [place] [address] documented as of this encounter Visit Diagnoses Diagnosis Opioid dependence, uncomplicated (CMS/HCC)- Primary documented in this encounter Additional Health Concerns Assessment Noted Time PHQ-9 Depression Total Score: 0 07/04/19 24 1:59 PM EDT documented as of this encounter Care Teams Exterminator Relationship Specialty Start Date End Date Kristina Paul NP [address] [place] [address] PCP - General Family Medicine 11/08/23 documented as of this encounter
--- OUTSIDE RECORDS SUMMARY | 2024-06-17 10:13 | XMS_ITS | Encounter Summary ---
Author Organization [employer] Address [address] [place] [address] Care Team Providers Care Order Entry Specialist Name Role Phone Kristina Paul NP Primary Care Provider [phone] Encounter Details Date Type Department Care Team ([facility] st Contact Info) Description 04/22/2024 Telephone [facility] [address] [place] [address] Kristina Paul NP [address] [place] [address] Social History Tobacco Use Types Packs/Day Years [...] Description 07/14/2024 11:15 AM EDT Office Visit [facility] [address] [place] [phone] Kristina Paul NP [address] [place] [address] documented as of this encounter Visit Diagnoses Not on filedocumented in this encounter Additional Health Concerns Assessment Noted Time PHQ-9 Depression Total Score: 0 07/04/19 24 1:59 PM EDT documented as of this encounter Care Teams Order Entry Specialist Relationship Specialty Start Date End Date Kristina Paul NP [address] [place] [address] PCP - General Family Medicine 11/08/23 documented as of this encounter
--- OUTSIDE RECORDS SUMMARY | 2024-06-17 10:13 | XMS_ITS | Encounter Summary ---
Author Organization [employer] Address [address] [place] [address] Care Team Providers Care Compliance Officer Name Role Phone Kristina Paul NP Primary Care Provider [phone] Reason for Visit * Reason Comments RC Recovery Supports Encounter Details Date Type Department Care Team ([facility] st Contact Info) Description 06/02/2024 Patient Outreach [facility] MEDICINE [address] [place] [address] Jenny Barker Recovery Supports Social History Tobacco [...] with Thony griffin. Setting: in person at [facility] Recovery Wellness Goals worked on: Social Stability Action taken/next steps: Attended alcohol and drug free activity Additional comments: Today, the participant Thony Barker was at the recovery center. Jenny Barker documented in this encounter Plan of Treatment Upcoming Encounters Date Type Department Care Team (Late st Contact Info) Description 07/14/2024 11:15 AM EDT Office Visit [facility] MEDICINE [address] [place] [address] Kristina Paul NP [address] [place] [address] documented as of this encounter Visit Diagnoses Not on filedocumented in this encounter Additional Health Concerns Assessment Noted Time PHQ-9 Depression Total Score: 0 07/04/19 24 1:59 PM EDT documented as of this encounter Care Teams Compliance Officer Relationship Specialty Start Date End Date Kristina Paul NP [address] [place] [address] PCP - General Family Medicine 11/08/23 documented as of this encounter
--- OUTSIDE RECORDS SUMMARY | 2024-06-17 10:13 | XMS_ITS | Encounter Summary ---
Author Organization [employer] Address [address] [facility] 7t [place] [address] Care Team Providers Care Obstetrical Nurse Name Role Phone Kristina Paul NP Primary Care Provider [phone] Encounter Details Date Type Department Care Team ([facility] st Contact Info) Description 06/13/2024 Population Health Risk Score [facility] (C[facility]) Department [address] [facility] [address] [place] [address] Provider, Population Health Generic Social History Tobacco Use Types Packs/Day Years [...] with others, in a hotel, in a m[facility], living outside on the street, on a [...] Description 07/14/2024 11:15 AM EDT Office Visit [facility] MEDICINE [address] [place] [address] Kristina Paul NP [address] [place] [address] documented as of this encounter Visit Diagnoses Not on filedocumented in this encounter Additional Health Concerns Assessment Noted Time PHQ-9 Depression Total Score: 0 07/04/19 24 1:59 PM EDT documented as of this encounter Care Teams Obstetrical Nurse Relationship Specialty Start Date End Date Kristina Paul NP [address] [place] [address] PCP - General Family Medicine 11/08/23 documented as of this encounter
--- OUTSIDE RECORDS SUMMARY | 2024-06-17 10:13 | XMS_ITS | Encounter Summary ---
Author Organization [employer] Address [address] [address] [facility] [address] [address] [place] [address] Care Team Providers Care External Grinder Name Role Phone Kristina Paul NP Primary Care Provider [phone] Encounter Details Date Type Department Care Team ([facility] st Contact Info) Description 06/11/2024 Telephone [facility] MEDICINE [address] [place] [address] Yovana Yu, RN [address] [place] [address] Social History Tobacco Use Types Packs/Day Years [...] with others, in a hotel, in a halfway, living outside on the street, on a [...] encounter Miscellaneous Notes * Telephone Encounter - Yovana Yu RN - 06/11/2024 10:04 AM EDT Per pharmacy-pt picked up Madoyleet yesterday,06/10/24, tx end date will be 08/07/24,SVR date 10/28/24. RNwill call pt in one week to touch base on how tx is going. documented in this encounter Plan of Treatment Upcoming Encounters Date Type Department Care Team (Late st Contact Info) Description 07/14/2024 11:15 AM EDT Office Visit [facility] MEDICINE [address] [place] [address] Kristina Paul NP [address] [place] [address] documented as of this encounter Visit Diagnoses Not on filedocumented in this encounter Additional Health Concerns Assessment Noted Time PHQ-9 Depression Total Score: 0 07/04/19 24 1:59 PM EDT documented as of this encounter Care Teams External Grinder Relationship Specialty Start Date End Date Kristina Paul NP [address] [place] [address] PCP - General Family Medicine 11/08/23 documented as of this encounter
--- OUTSIDE RECORDS SUMMARY | 2024-06-17 10:13 | XMS_ITS | Encounter Summary ---
Author Organization [employer] Address [address] [place] [address] Care Team Providers Care Communications Equipment Installer Name Role Phone Kristina Paul NP Primary Care Provider [phone] Encounter Details Date Type Department Care Team (Latest Contact Info) Description 06/11/2024 Travel Social History Tobacco Use Types Packs/Day [...] with others, in a hotel, in a [facility], living outside on the street, on a [...] Description 07/14/2024 11:15 AM EDT Office Visit [facility] MEDICINE [address] [place] [address] Kristina Paul NP [address] [place] [address] documented as of this encounter Visit Diagnoses Not on filedocumented in this encounter Additional Health Concerns Assessment Noted Time PHQ-9 Depression Total Score: 0 07/04/19 1:59 PM EDT documented as of this encounter Care Teams Communications Equipment Installer Relationship Specialty Start Date End Date Kristina Paul NP [address] [place] [address] PCP - General Family Medicine 11/08/23 documented as of this encounter
--- OUTSIDE RECORDS SUMMARY | 2024-06-17 10:13 | XMS_ITS | Encounter Summary ---
Author Organization [employer] Address [address] [place] [address] Care Team Providers Care Loan Specialist Name Role Phone Kristina Paul NP Primary Care Provider [phone] Encounter Details Date Type Department Care Team (Latest Contact Info) Description 06/09/2024 Travel Social History Tobacco Use Types Packs/Day [...] with others, in a hotel, in a [place] [facility], living outside on the street, on a [...] Description 07/14/2024 11:15 AM EDT Office Visit [facility] MEDICINE [address] [place] [address] Kristina Paul NP [address] [place] [address] documented as of this encounter Visit Diagnoses Not on filedocumented in this encounter Additional Health Concerns Assessment Noted Time PHQ-9 Depression Total Score: 0 07/04/19 1:59 PM EDT documented as of this encounter Care Teams Loan Specialist Relationship Specialty Start Date End Date Kristina Paul NP [address] [place] [address] PCP - General Family Medicine 11/08/23 documented as of this encounter
--- OUTSIDE RECORDS SUMMARY | 2024-06-17 10:14 | XMS_ITS | Encounter Summary ---
Author Organization [employer] Address [address] [facility] 7[address] [place] [address] Care Team Providers Care Soda Dialyzer Name Role Phone Kristina Paul NP Primary Care Provider [phone] Reason for Visit * Reason Comments Med Refill Encounter Details Date Type Department Care Team ([facility] Contact Info) Description 02/19/2024 Refill [facility] MEDICINE [address] [place], [place] [phone] Kristina Paul NP [address] [place] [address] Localized edema Social History Tobacco Use Types [...] 11:15 AM EDT Office Visit [facility] MEDICINE [address] [place] [address] Kristina Paul NP [address] [place] [address] documented as of this encounter Visit Diagnoses Diagnosis Localized edema Edema documented in this encounter Additional Health Concerns Assessment Noted Time PHQ-9 Depression Total Score: 0 07/04/19 24 1:59 PM EDT documented as of this encounter Care Teams Soda Dialyzer Relationship Specialty Start Date End Date Kristina Paul NP [address] [place] [address] PCP - General Family Medicine 11/08/23 documented as of this encounter
--- OUTSIDE RECORDS SUMMARY | 2024-06-17 10:14 | XMS_ITS | Encounter Summary ---
Author Organization [employer] Address [address] [facility] 7t [place] [address] Care Team Providers Care Grain Operations Manager Name Role Phone Kristina Paul NP Primary Care Provider [phone] Reason for Visit * Reason Comments HCV F/U Encounter Details Date Type Department Care Team ([facility] Contact Info) Description 06/09/2024 1:00 PM EDT Office Visit [facility] MEDICINE [address] [place] [address] Tika Yip MD [address] [place] [address] Hepatitis C virus infection without hepatic coma, unspecified chronicity (Primary Dx) Social History Tobacco Use Types [...] with others, in a hotel, in a jail, living outside on the street, on a [...] Sign Reading Time Taken Comments Blood Pressure 100/60 06/09/2024 1:09 PM EDT Pulse 51 06/09/2024 1:09 PM EDT Temperature 36.2 ??C (97.2 ??F) 06/09/2024 1:09 PM ED T Respiratory Rate - - Oxygen Saturation - - Inhaled Oxygen Concentration - - Weight - - Height - - Body Mass Index - - documented in this encounter Progress Notes * Tika Yip MD - 06/09/2024 1:[address] Yip, Thony was re-referred to us for Hep C treatment and had Hep C RNA [id number] on 03/25/24; unfortunately his partial treatment with Mavyret over the summer was unsuccessful. From PCP note 03/25/24: Ptis doing well, attending program stable in sobriety, no acute concerns. Open to referral to crs forongoing hep c management Please advise on if pt can be re-treated here and what labs are needed? Thanks! Erick RN note from 12/11/23: Thony started Mavyret on 10/01/23, while he was in a [facility] sober program. Evidently, he took about a week of medication, and then left the program abruptly, leaving his medication behind. Mavyret was discarded per [facility]. Per [facility] Pharm[facility], Mavyret was again picked up on 11/20/23. RN contacted patient to decipher medication adherence. Pt says he has been taking Mavyret again for about 2 weeks. He thinks he may have had another lapse in October. He insists on continuing the medication despite explanation that it may notbe effective. RN will check SVR12 in early April. MD INTAKE-06/09/24 Subjective Patient ID: Thony Acosta is a 44 y.o. male who presents for HCV F/U. Thony is being seen to discuss treatment options for chronic viral HCV, diagnosed around 8 years ago in intermediate in [place], GT 1a (08/15/23), viral load 11,000,000 (07/24/23), Fibrosis score: F2 (08/15/23). He was treated last 2023, with a two month course of Mavyret. Due to life circumstances, including homelessness and getting discharged from a treatment program without his medication, he did not take Mavyret as prescribed with multiple missed doses and resulting incomplete treatment. Currently, he is in a residential program at [facility] and is in a much better place to receive treatment. [facility] staff administer his daily medications. 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 Meds reconciled. Denies alcohol or other drug use. +tobacco - 1/2 ppd and is not interested in quitting at this time. He is feeling well and appears motivated to receive treatment. Not partnered or sexually active. Review of Systems Constitutional: Negative for fatigue. Gastrointestinal: Negative for abdominal pain, nausea and vomiting. Psychiatric/Behavioral: Negative for dysphoric mood. The patient is not nervous/anxious. Objective Physical Exam Constitutional: Appearance: Normal appearance. He is well-developed. Skin: General: Skin is warm and dry. Neurological: General: No focal deficit present. Mental Status: He is alert and oriented to person, place, and time. Mental status is at baseline. Psychiatric: Mood and Affect: Mood normal. Behavior: Behavior normal. Assessment/Plan Diagnoses and all orders for this visit: Hepatitis C virus infection without hepatic coma, unspecified chronicity Planned treatment and duration: - Glecaprevir-Pibrentasvir (Mavyret) 100-40 MG tablet; Take 3 tablets by mouth Once per day. Potential drug interactions: none identified. Counseled patient on HCV transmission, natural history, treatment options and reviewed treatment course/duration, side effects, adherence strategies/importance, laboratory monitoring, chance of cure as documented by SVR12, and reinfection risk. Questions answered and concerns addressed. This information has been disclosed to you [...] 2.12??(5) and 2.65. documented in this encounter Miscellaneous Notes * Addendum Note - Tika Yip MD - 06/09/2024 1:00 PM EDTAddended by: TIKA YIP on: 06/09/2024 02:24 PM Modules accepted: Orders documented in this encounter Plan of Treatment Upcoming Encounters Date Type Department Care Team (Late st Contact Info) Description 07/14/2024 11:15 AM EDT Office Visit [facility] MEDICINE [address] [place] [address] Kristina Paul NP [address] [place] [address] documented as of this encounter Visit Diagnoses Diagnosis Hepatitis C virus infection without hepatic coma, unspecified chronicity- Primary documented in this encounter Additional Health Concerns Assessment Noted Time PHQ-9 Depression Total Score: 0 07/04/19 1:59 PM EDT documented as of this encounter Care Teams Grain Operations Manager Relationship Specialty Start Date End Date Kristina Paul NP [address] [place] [address] PCP - General Family Medicine 11/08/23 documented as of this encounter
--- OUTSIDE RECORDS SUMMARY | 2024-06-17 10:14 | XMS_ITS | Patient Health Record ---
Author Organization [facility] Address [address] [place], [place] [id number] Care Team Providers Care Youth Director Name Role Phone No, PCP Primary Care Provider Unavailabl e [facility] Unavailable [phone] Reason For Referral No Information Plan Of Treatment No Information Insurance Providers Payer Name Payer Address Payer Phone Subscriber Number Group Number Insured Name Patient Relationship to Insured Coverage Start Date Coverage End Date [place] Medicaid Standard [address] [place] [address] [id number] Thony Rothman Self - patient is the insured 3
--- OUTSIDE RECORDS SUMMARY | 2024-06-17 10:14 | XMS_ITS ---
Author Organization [facility] Address [address] [place], [place] [id number] Care Team Providers Care Revenue Field Agent Name Role Phone No, PCP [facility] Provider [facility] Unavailable [phone] Smitha Lopes Unavailable [phone] REASON FOR VISIT Apply for [employer] Health Insurance Encounters Encounter Location Date Provider Diagnosis [facility] [address] [place] [id number] 02/08/2023 Smitha Lopes Plan Of Treatment No Information Progress Notes * Dora ROTHMANOB:1 (43 yo M)Acc No.[id number]:02/08/2023 Case Management New Patient:?Chau Rothmancolleen Provider:?Smitha Lopes :1980???Age:43 Y???Sex:Male Skyler e:02/08/2023 Address:[address] [place] [address] [id number] Pcp:PCP No Subjective: * Chief Complaints: * ???1. Apply for [facility]. * HPI: ???Social Service:?Action Taken?CinnaBid? Axial paper application was completed with client and faxed over to Enrollment center. 02/08/23 gd2.? Objective: Assessment: Plan: * Treatment: * Images: Billing Information: * Visit Code:? * Procedure Codes:? Care Plan Details* * Sign off status: Completed true * Provider:Logan Lopes Date:?02/08/2023 Generated for Pierce doan/Sana/eTjoaquimsmitting on:?06/17/2024 10:13 AM EDT History and Physical Notes * HPI (History of Present Illness) Category Sub-Category Detail Notes Social Service Action Taken [facility] : [employer] Health p aper application was completed with client and faxed over to Enrollment center. 02/08/23 gd2
--- OUTSIDE RECORDS SUMMARY | 2024-06-17 10:14 | XMS_ITS | Clinical Summary ---
Author Organization [employer] Address [address] [facility] [address] [place] [address] Care Team Providers Care Assistant Professor Of Marine Biology Name Role Phone Kristina Paul NP Primary Care Provider [phone] Allergies No known active allergies Medications tamsulosin (Flomax) 0.4 MG 24 hr capsuleIndicati ons:Retention, urine TAKE 1 CAPSULE BY MOUTH EVERY DAY 90 capsule 1 4 Active furosemide (Lasix) 20 MG tabletIndicatio ns:Localized edema Take 2 tablets (40 mg) by mouth Once per day for 5 days. Take 1 tablet by mouth wait 1-2 hours, if no increase in urine output may take second dose, do not exceed two tablets per day 10 tablet 4 Active propranolol LA (Inderal LA) 60 MG 24 hr capsuleIndicati ons:Chronic tension-type headache, not intractable Take 1 capsule (60 mg) by mouth Once per day. Do not crush, chew, or split. 30 capsule 2 5 07/29/19 25 Active fluticasone (Flonase) 50 MCG/ACT nasal sprayIndication s:Nasal congestion with rhinorrhea Administer 1 spray into each nostril Once per day. Shake gently. Before first use, prime pump. After use, clean tip and replace cap. 16 g 2 5 05/12/19 26 Active tiZANidine (Zanaflex) 2 MG tablet TAKE 2 TABLETS BY MOUTH AT BEDTIME IF NEEDED FOR MUSCLE SPASMS FOR UP TO 10 DAYS 30 tablet 5 Active SUMAtriptan (Imitrex) 50 MG tabletIndicatio ns:Chronic migraine with aura without status migrainosus, not intractable,Non intractable headache, unspecified chronicity pattern, unspecified headache type Take 1 tablet (50 mg) by mouth 1 (one) time if needed for migraine for up to 27 doses. May repeat dose once in 2 hours if no relief. Do not exceed 2 doses in 24 hours. 9 tablet 2 5 Active naproxen (Naprosyn) 500 MG tabletIndicatio ns:Nonintractab le headache, unspecified chronicity pattern, unspecified headache type TAKE 1 TABLET BY MOUTH EVERY DAY WITH sumatriptan WITH FOOD 60 tablet 5 Active escitalopram (Lexapro) 20 MG tablet Take 1 tablet by mouth Once per day. 5 Active traZODone (Desyrel) 50 MG tablet TAKE 1 OR 2 TABLETS BY MOUTH EVERY DAY AT BEDTIME NEEDED 5 Active Glecaprevir-Pib rentasvir (Mavyret) 100-40 MG tablet Take 3 tablets by mouth Once per day. 84 tablet 1 5 08/05/19 25 Active methadone (Dolophine) 10 MG/5ML solution Take 125 mg by mouth Once per day. Active ketoconazole (NIZOral) 2 % cream Apply topically Once per day for 14 days. 40 g 5 05/26/19 25 Active Problems Problem Noted Date Diagnosed Date Tinea corporis 05/12/2024 Assessment & Plan (06/09/2024 10:23 AM EDT): Cream effective, renew Nasal congestion with rhinorrhea 05/12/2024 Assessment & Plan (06/09/2024 10:24 AM EDT): Topical nasal spray referral to ent PTSD (post-traumatic stress disorder) 05/12/2024 Tobacco use 05/12/2024 Assessment & Plan (06/09/2024 10:24 AM EDT): Pt declines assistance cutting down today Hepatitis C virus infection with hepatic coma Abnormal finding on liver function 03/25/2024 Assessment & Plan (03/25/2024 11:33 AM EST): CT ordered, Cmp ordered Referral to [facility] for ongoing hep c management Follow up in 6 weeks Hep C w/o coma, chronic 03/25/2024 Assessment & Plan (06/09/2024 10:23 AM EDT): Establishing with [facility] Assessment & Plan (03/25/2024 11:34 AM EST): See above Abnormal liver ultrasound 03/24/2024 Dyspnea on exertion 01/25/2024 Assessment & Plan (01/25/2024 5:56 PM EDT): Echo ordered Deviated nasal septum 01/19/2024 Assessment & Plan (01/19/2024 3:51 PM EDT): Continue flonase, referral to ent 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 Eat different types of protein foods in your diet. This can include seafood, lean meats, poultry, beans, peas, lentils, nuts, seeds, soy products, and eggs. Limit foods and beverages higher in added sugars, saturated fat, and sodium. Exercise Recommendations: At least 150 minutes of moderate-intensity physical activity per week, or an equivalent combination of moderate- and vigorous-intensity activity Assessment & Plan (01/19/2024 3:52 PM EDT): [...] 9:02 AM EDT): Referral to vascular, Will hot die picker compression stockings. No evidence of cellulitis [...] Dvt ultrasound ordered to be [facility] at [facility]. Assessment & Plan (07/07/2023 1:25 PM EDT): Cellulitis of the RLE. docxycline prescribed. Started on abx 4/3 doxyclinine Less redness , less swelling No fever, continue Rtc in 1 week Advised elevation, and compression stockings ordered Sooner should leg swell, increased redness, or any sob Opioid dependence 07/04/2023 Assessment & Plan (06/09/2024 10:24 AM EDT): Stable in current program Assessment & Plan (01/19/2024 3:50 PM EDT): [...] to gibson current infection -will refer to [facility] for treatment if lab results reveal active infection Assessment & Plan (09/21/2023 9:01 AM EDT): In care with [facility]. Assessment & Plan (08/25/2023 8:20 PM EDT): Interested in management Assessment & Plan (07/07/2023 1:24 PM EDT): Due for labs, pt plans to complete this week Nonintractable headache 07/04/2023 Assessment & Plan (06/09/2024 10:23 AM EDT): Renew medications, reviewed abortive therapy Assessment & Plan (01/25/2024 5:56 PM EDT): Continue propranolol Assessment & Plan (01/19/2024 3:50 PM EDT): Reviewed treatment options, pt opts for trial of preventative medication Assessment & Plan (07/04/2023 3:18 PM EDT): Headache diary Bello,itriptan with naproxen Polysubstance dependence inc luding opioid drug with daily use 11/24/2020 Encounters Date Type Department Care Team Description 06/13/2024 [facility] Risk Score [facility] () Department [address] [phone] Provider, Population Health Generic 06/11/2024 10:30 AM EDT Office Visit [facility] [address] [place] [address] Long Manuel MD Opioid dependence, uncomplicated (CMS/HCC) (Primary Dx) 06/11/2024 Travel 06/11/2024 Telephone [facility] [address] [place] [address] Yovana Yu RN 06/09/2024 1:00 PM EDT Office Visit [facility] [address] [place] [address] Tika Danielson MD Hepatitis C virus infection without hepatic coma, unspecified chronicity (Primary Dx) 06/09/2024 Travel 06/02/2024 Patient Outreach [facility] [place] [address] Jenny Barker Recovery Supports 05/23/2024 Patient Outreach [address] [address] Jenny Barker [facility] 05/15/2024 Patient Outreach [facility] [address] [place] [address] Jas Stein Recovery Supports 05/14/2024 Orders Only [facility] [address] Kristina Paul NP Nonintractable headache, unspecified chronicity pattern, unspecified headache type 05/14/2024 Telephone [facility] [address] [place] [address] Lashon Beltrán [place] Appintment OP Lab 05/13/2024 Refill [facility] [address] [place] [address] Kristina Paul NP Localized edema; Nonintractable headache, unspecified chronicity pattern, unspecified headache type 05/12/2024 10:15 AM EST Office Visit [address] [address] Kristina Paul NP Nasal congestion with rhinorrhea (Primary Dx); Dietary counseling; Exercise counseling; Hep C w/o coma, chronic ([facility]); Opioid dependence in remission ([facility]); Tinea corporis; PTSD (post-traumatic stress disorder); Tobacco use; Chronic migraine with aura without status migrainosus, not intractable; Nonintractable headache, unspecified chronicity pattern, unspecified headache type 05/12/2024 Travel 05/09/2024 Patient Outreach [address] [address] Jas Stein 05/01/[address] [address] Lashon Beltrán [place] Chart Prep 04/29/[address] [address] Bisi Gloria [place] 04/29/2024 Orders Only [address] [address] Kristina Paul NP Nonintractable headache, unspecified chronicity pattern, unspecified headache type; Chronic tension-type headache, not intractable 04/29/[address] [address] Kristina Paul NP Med Refill 04/28/[address] [address] Kristina Paul NP Call Back Request; Appointment Request 04/22/[address] [address] Kristina Paul NP 04/14/[address] [address] Bisi Gloria [place] 04/09/[address] [address] Kristina Paul NP Nonintractable headache, unspecified chronicity pattern, unspecified headache type 04/08/[address] [address] Kristina Paul NP Durable Medical Equipment 03/28/[address] [phone] Erick Lorenzana, NICOLE Hep C Management 03/27/[address] [phone] Marleen Chery 03/25/2024 12:15 PM EST Office Visit [address] [phone] Kristina Paul NP Abnormal liver ultrasound (Primary Dx); Abnormal finding on liver function; Hep C w/o coma, chronic (CMS/HCC); Deviated nasal septum 03/25/2024 Travel 03/24/[address] [phone] Lashon Beltrán [place] Chart Prep from Last 3 Months Immunizations Name Administration [...] with others, in a hotel, in a correction, living outside on the street, on a [...] 06/09/2024 1:09 PM ED T Respiratory Rate 18 05/12/2024 10:0 0 AM [...] 11:15 AM EDT Office Visit [facility] [address] [place] [address] Kristina Paul, ANTONY [address] [place] [address] Health Maintenance Due Date Last Done Comments [...] 12/26/2023 SDOH Screening 05/12/2025 05/12/2024 Tobacco Screening 06/09/2025 06/09/2024 Zoster Vaccines (1 of 2) 01/29/2030 DTaP/Tdap/Td [...] Procedure Name Priority Date/Time Associated Diagnosis Comments US RETROPERITONEAL COMPLETE Routine 06/03/2024 10:00 AM EST HEPATITIS C VIRAL RNA, QUANTITATIVE, REAL-TIME PCR [...] Recently Relevant to Health Maintenance Results * US Retroperitoneal Complete (06/03/2024 10:00 AM EST) Anatomical Region Laterality Modality Ultrasound 06/03/2024 10:0 0 AM EST Narrative 06/04/2024 7:44 AM EST ?[address] ?[place] [address] ? Ultrasound Report ? Signed ? Patient: Mj,Thony ?MR#: [id number] ?? [id number] ? : 1980 ?Acct:[id number] ? Age/Sex: 44 / M ?ADM Date: 03/04/25 ? Loc: HO.US ? Attending Dr: Gabrielle LION ? Ordering Physician: Gabrielle Dias ?? Date of Service: 06/03/24 ?? Procedure(s): US retroperitoneal comp ?? Accession Number(s): [id number] ? cc: Kristina Paul MANUFACTURING WORKER; Gabrielle Dias ? EXAMINATION: ?? US RETROPERITONEAL COMPLETE (RENAL) ? CLINICAL INFORMATION: ?? History of urinary hesitancy. ? COMPARISON: ?? None available. ? TECHNIQUE: ?? Real-time imaging of the kidneys and bladder. ? FINDINGS: ? RIGHT KIDNEY: 10.5 x 5.2 x 5.0 cm (SAG x AP x TRV). The kidney is ?? normal in size, contour, and echogenicity. Renal cortical thickness is ?? normal. No calculi or focal parenchymal lesions. There is a junctional ?? parenchymal defect along the midpole. No hydronephrosis. ? LEFT KIDNEY: 11.3 x 6 0.0, 5.8 cm (SAG x AP x TRV). The kidney is ?? normal in size, contour, and echogenicity. Renal cortical thickness is ?? normal. No calculi or focal parenchymal lesions. No hydronephrosis. A ?? small dromedary hump is noted in midpole. ? BLADDER: Well distended and normal. Bilateral ureteral jets are ?? demonstrated. Prevoid bladder volume is 165.3 mL. Postvoid bladder ?? volume is 0.3 mL. ? The prostate volume is 18.1 mL and within normal limits. ? US/US retroperitoneal comp ?? IMPRESSION: ?? Normal renal ultrasound. ? Normal bladder ultrasound. ? Electronically signed by: ??Heath Sevilla MD ??06/04/2024 07:41 AM EST RP ? Dictated By: ?Di,Heath S MD ? Signed By: ?<Electronically signed by Heath S MD Di in OV> ?06/04/24740 ? DD/ 1000 ? TD/TT: 06/03/24 1021 ? Hoop Riveting Machine Operator: MSM ? Procedure Note Lory Pierson - 06/04/[address] [address] Ultrasound Report Signed Patient: Aldo BarkerLisa#: [id number] : 1980Acct:[id number] Age/Sex: 44 / MADM Date: 06/03/24 Loc: HO.US Attending Dr: Gabrielle HERMAN Ordering Physician: Gabrielle Dias Date of Service: 06/03/24 Procedure(s): US retroperitoneal comp Accession Number(s): [id number] cc: Kristina Paul MANUFACTURING WORKER; Gabrielle Dias EXAMINATION: US RETROPERITONEAL COMPLETE (RENAL) CLINICAL INFORMATION: History of urinary hesitancy. COMPARISON: None available. TECHNIQUE: Real-time imaging of the kidneys and bladder. FINDINGS: RIGHT KIDNEY: 10.5 x 5.2 x 5.0 cm (SAG x AP x TRV). The kidney is normal in size, contour, and echogenicity. Renal cortical thickness is normal. No calculi or focal parenchymal lesions. There is a junctional parenchymal defect along the midpole. No hydronephrosis. LEFT KIDNEY: 11.3 x 6 0.0, 5.8 cm (SAG x AP x TRV). The kidney is normal in size, contour, and echogenicity. Renal cortical thickness is normal. No calculi or focal parenchymal lesions. No hydronephrosis. A small dromedary hump is noted in midpole. BLADDER: Well distended and normal. Bilateral ureteral jets are demonstrated. Prevoid bladder volume is 165.3 mL. Postvoid bladder volume is 0.3 mL. The prostate volume is 18.1 mL and within normal limits. US/US retroperitoneal comp IMPRESSION: Normal renal ultrasound. Normal bladder ultrasound. Electronically signed by: Heath Sevilla MD 06/04/2024 07:41 AM EST Dictated By: Heath Sevilla MD Signed By: <Electronically signed by Heath Sevilla MD in OV> 06/04/24 0741 DD/ 1000 TD/TT: 06/03/24 1021 Hoop Riveting Machine Operator: [facility] External Provider IMG US PROCEDURES Edited Result - Final * (ABNORMAL) Hepatitis C Viral RNA, Quantitative, Real-Time PCR (03/25/2024 11:25 AM EST) Hepatitis C Viral Load [id number](A ) NOT DETECTED IU/mL [facility] HCV Log PCR 6.56(A) NOT DETECTED Log IU/mL [facility] Comment:For additional infor merari, please refer [email or web address].Youbetme/faq/[email or web address](This link is being provided for informational/educational purposes only.)THIS TEST WAS PERFORMED AT:[employer] [place] [id number] SIERRA MD 03/25/2024 11:2 5 AM EST 03/27/2024 3:00 PM EST us Kristina Paul NP LAB BLOOD ORDERABLES Final Resul t [facility] [address] [place] [address] [phone] * CBC auto differential (03/25/2024 11:25 AM EST) White Blood Count 6.8 4.8 - 10.8 X10*3/uL [facility] Red Blood Count 5.14 4.60 - 5.80 X10*6/uL [facility] Hemoglobin 14.9 14.0 - 18.0 g/dl [facility] Hematocrit 45.1 42.0 - 52.0 % [facility] Mean Corpuscular Volume 87.7 80.0 - 98.0 fL [facility] Mean Corpuscular Hemoglobin 29.0 27.0 - 33.0 pg [facility] Mean Corpuscular HGB Conc 33.0 31.0 - 36.0 g/dl [facility] Red Cell Distribution Width 13.2 11.0 - 16.0 % [facility] Platelet Count 186 160 - 400 X10*3/uL [facility] Mean Platelet Volume 11.1 9.4 - 12.4 fL [facility] Neutrophils Percent Auto 56.9 45 - 73 % [facility] Imm Gran Pct Auto 0.1 0.0 - 0.4 % [facility] Lymphocytes Percent Auto 32.0 20 - 40 % [facility] Monocytes Percent Auto 7.5 2 - 11 % [facility] Eosinophils Percent Auto 3.2 0 - 4 % [facility] Basophils Percent Auto 0.3 0 - 2 % [facility] NRBC Pct Auto 0.0 0.0 - 0.2 /100WBC [facility] Neutrophils Absolute Auto 3.9 2.0 - 8.3 x10*3/uL [facility] Imm Gran Abs Auto 0.01 0.00 - 0.03 X10*3/uL [facility] Lymphocytes Absolute Auto 2.2 1.2 - 4.9 X10*3/uL [facility] Monocytes Absolute Auto 0.5 0.1 - 1.2 X10*3/uL [facility] Eosinophils Absolute Auto 0.2 0.0 - 0.4 X10*3/uL [facility] Basophils Absolute Auto 0.0 0.0 - 0.2 X10*3/uL [facility] NRBC Abs Auto 0.000 0.0 - 0.012 X10*3/uL [facility] Blood Venous blood specimen / Unknown 03/25/2024 11:25 AM EST 03/25/2024 1:12 PM EST Kristina Paul NP LAB BLOOD ORDERABLES Final Resul t Performing Organization Address City/[facility]/ZIP Co de Phone Number [facility] [address] [place] [phone] * (ABNORMAL) Hepatitis C Antibody with Reflex to HCV, RNA, Quantitative, Real- Time PCR (03/25/2024 11:25 AM EST) Hepatitis C Antibody Reactive( A) Nonreactive [facility] Comment:Presumptive evidence of antibodies to HCV. Blood Venous blood specimen / Unknown 03/25/2024 11:25 AM EST 03/25/2024 1:12 PM EST Kristina Paul MANUFACTURING WORKER LAB BLOOD ORDERABLES Final Resul t [facility] [address] [place] [address] [phone] * B Type Natriuretic Peptide (BNP) (03/25/2024 11:25 AM EST) B Type Natriuretic Peptide <100 pg/mL [facility] Comment:Test Result Units Re f IntB-Type Natriuretic 9.8 pg/Ml 0.0 ? 100.0PeptideMethod: Siemens ADVIA [employer] XPTest performed by: Yashi [address] [id number] Director: Mindy Marquez MDFor those patients who are being treated with Natrecor(nesiritide, recombinant BNP), BNP testing should beperformed at least two hours post treatment in order toensure that only endogenous levels of BNP are detected. Blood Venous blood specimen / Unknown 03/25/2024 11:25 AM EST 03/25/2024 1:12 PM EST us Kristina Paul NP LAB BLOOD ORDERABLES Final Resul t Performing Organization Address [facility] Co de Phone Number [facility] [address] [place] [address] [phone] * (ABNORMAL) Comprehensive Metabolic Panel (03/25/2024 11:25 AM EST) Pathologist [facility] Sodium 138 135 - 145 mmol/L [facility] Potassium 4.4 3.3 - 5.1 mmol/L [facility] Chloride 102 96 - 108 mmol/L [facility] Carbon Dioxide 32(H) 22 - 29 mmol/L [facility] Anion Gap 8(L) 12 - 20 [facility] Urea Nitrogen (BUN) 12 9 - 16 mg/dL [facility] Creatinine, Serum 0.86 0.5 - 1.4 mg/dL [facility] Estimated Glomerular Filt Rate >60 [facility] Comment:Chronic Kidney Disea se: Estimated GFR < 60 mL/min/1.11p1Dyxrlz Kidney Disease: Estimated GFR < 15 mL/min/1.73m2 Glucose 97 60 - 115 mg/dL [facility] Calcium 10.2 8.4 - 10.2 mg/dL [facility] Bilirubin, Total 0.3 0.0 - 1.0 mg/dL [facility] Aspartate Amino Transferase 46(H) 5 - 37 U/L [facility] Alanine Aminotransferase 50(H) 0 - 40 U/L [facility] Total Protein 8.5(H) 6.5 - 8.0 g/dL [facility] Albumin Level 4.5 3.5 - 5.0 g/dL [facility] Alkaline Phosphatase 86 39 - 117 U/L [facility] Blood Venous blood specimen / Unknown 03/25/2024 11:25 AM EST 03/25/2024 1:12 PM EST us Kristina Paul NP LAB BLOOD ORDERABLES Final Resul t [facility] [address] [place] [phone] [phone] * HIV-1/2 Antigen and Antibodies, Fourth Generation, with Reflexes (09/03/2023 9:34 AM EDT) HIV AB/AG Nonreactive Nonreactive [facility] Comment:HIV-1 p24 Ag and/or HIV-1/HIV-2 Ab not detected.A test result that is nonreactive does not exclude thepossibility of exposure to or infection with HIV-1 and/orHIV-2. Nonreactive results in this assay for individualswith prior exposure to HIV-1 and/or HIV-2 may be due toantigen and antibody levels that are below the limit ofdetection of this assay.The [employer] HIV Ag/Ab Combo assay result andsupplemental assay results should be interpreted inconjunction with the patient's clinical presentation,history and other laboratory results. If the results areinconsistent with clinical evidence, additional testing issuggested to confirm the result. 09/03/2023 9:34 AM EDT 09/03/2023 11:55 AM EDT us Ana Sanchez NP LAB BLOOD ORDERABLES Final Resu lt [facility] [address] [place] [address] [phone] from Last 3 Months or Most Recently Relevant to Health Maintenance Insurance * Guarantor: Thony Rothman Account Type Relation to Patient Date of Phone Billing Address Personal/Family Self [address] [place] [address] [facility] C[facility] * Guarantor: Thony Rothman Account Type Relation to Patient Date of Phone Billing Address Personal/Family Self [address] [place] [address] * Guarantor: Thony Rothman Account Type Relation to Patient Date of Phone Billing Address Personal/Family Self [address] [place] [address] * Guarantor: Thony Rothman Account Type Relation to Patient Date of Phone Billing Address Personal/Family Self [address] [place] [address] Care Teams Assistant Professor Of Marine Biology Relationship Specialty Start Date End Date Kristina Paul NP [address] [place] [address] PCP - General Family Medicine 11/08/23
== END 2024-06-17 09:53 | disposition home or self-care (01) ==
LOC: HO.HUSH 09:22
PROVIDERS: PCP Nurse Practitioner Family; Visit Provider Nurse Practitioner Family
DX: R39.16 Straining to void (principal); Z87.898 Personal history of other specified conditions
CPT/HCPCS: 99213

== ENCOUNTER → 2024-06-17 09:22 | Outpatient (BNVA) | payer MEDICAID, SELFPAY | PROVIDERS: PCP Nurse Practitioner Family; Visit Provider Nurse Practitioner Family | DX: N40.1 Benign prostatic hyperplasia with lower urinary tract symptoms (principal); R39.16 Straining to void; R35.0 Frequency of micturition; Z87.898 Personal history of other specified conditions | CPT/HCPCS: 51798; 99212 ==

== ENCOUNTER 2024-07-02 13:57 | Outpatient (REF) | payer MEDICAID, SELFPAY ==
--- OUTSIDE RECORDS SUMMARY | 2024-07-02 16:42 | XMS_ITS | Clinical Summary ---
Author Organization [employer] Address [address] [place] [address] [address] [place] [address] Care Team Providers Care Server Cashier Name Role Phone Kristina Paul NP Primary Care Provider Allergies No known active allergies Medications tamsulosin [...] hours. 9 tablet 2 05/12/19 25 Active escitalopram (Lexapro) 20 MG tablet Take 1 tablet by mouth Once per day. 05/21/19 25 Active traZODone (Desyrel) 50 MG tablet TAKE 1 OR 2 TABLETS BY MOUTH EVERY DAY AT BEDTIME NEEDED 05/13/19 25 Active Glecaprevir-Pi brentasvir (Mavyret) 100-40 MG tablet Take 3 tablets by mouth Once per day. 84 tablet 1 06/10/19 25 025 Active methadone (Dolophine) 10 MG/5ML solution Take 125 mg by mouth Once per day. Active naproxen (Naprosyn) 500 MG tabletIndicati ons:Nonintract able headache, unspecified chronicity pattern, unspecified headache type TAKE 1 TABLET BY MOUTH EVERY DAY WITH sumatriptan WITH FOOD 60 tablet 06/21/19 25 Active naproxen (Naprosyn) 500 MG tabletIndicati ons:Nonintract able headache, unspecified chronicity pattern, unspecified headache type TAKE 1 TABLET BY MOUTH EVERY DAY WITH sumatriptan WITH FOOD 60 tablet 05/14/19 25 025 Discontinued(R eorder (will not trigger notification to Pharmacy)) Active Problems Problem Noted Date Diagnosed Date [...] 9:02 AM EDT): Referral to vascular, Will cotton picker compression stockings. No evidence of cellulitis [...] ultrasound ordered to be completed at [facility]. Assessment & Plan (07/07/2023 1:25 [...] to gibson current infection -will refer to [facility] for treatment if lab results reveal [...] Encounters Date Type Department Care Team Description 07/02/2024 9:00 AM EDT Office Visit [address] [address] Long Manuel MD Opioid dependence, uncomplicated (CMS/HCC) (Primary Dx) 07/02/2024 Travel 07/02/[address] [address] Lashon Beltrán MA Chart Prep 07/01/2024 Patient Outreach [address] [address] Brenden Lobo Recovery Supports 06/26/2024 Patient Outreach [address] [address] Brenden Lobo Recovery Supports 06/23/2024 Patient Outreach [address] [address] Albino Hidalgo Recovery Supports 06/20/[address] [address] Kristina Paul NP Nonintractable headache, unspecified chronicity pattern, unspecified headache type 06/13/2024 Population Health Risk Score Community [facility] (C3) Department [address] [place] [id number] Provider, Population Health Generic 06/11/2024 10:30 AM EDT Office Visit [address] [address] Long Manuel MD Opioid dependence, uncomplicated (CMS/HCC) (Primary Dx) 06/11/2024 Travel 06/11/[address] [address] Yovana Yu RN 06/09/2024 1:00 PM EDT Office Visit [address] [address] Tika Danielson MD Hepatitis C virus infection without hepatic coma, unspecified chronicity (Primary Dx) 06/09/2024 Travel 06/02/2024 Patient Outreach [address] [address] Jenny Barker Recovery Supports 05/23/2024 Patient Outreach [address] [address] Jenny Barker Recovery Supports 05/15/2024 Patient Outreach [address] [address] Jas Stein Recovery Supports 05/14/2024 Orders Only [address] [address] Kristina Paul NP Nonintractable headache, unspecified chronicity pattern, unspecified headache type 05/14/[address] [address] Lashon Beltrán [place] Appintment OP Lab 05/13/[address] [address] Kristina Paul NP Localized edema; Nonintractable headache, unspecified chronicity pattern, unspecified headache type 05/12/2024 10:15 AM EST Office Visit [address] [address] Kristina Paul NP Nasal congestion with rhinorrhea (Primary Dx); Dietary counseling; Exercise counseling; Hep C w/o coma, chronic (CMS/HCC); Opioid dependence in remission (CMS/HCC); Tinea corporis; PTSD (post-traumatic stress disorder); Tobacco use; Chronic migraine with aura without status migrainosus, not intractable; Nonintractable headache, unspecified chronicity pattern, unspecified headache type 05/12/2024 Travel 05/09/2024 Patient Outreach [address] [address] Jas Stein 05/01/[address] [address] Lashon Beltrán MA Chart Prep 04/29/[address] [address] Bisi Gloria MA 04/29/2024 Orders Only [address] [address] Kristina Paul NP Nonintractable headache, unspecified chronicity pattern, unspecified headache type; Chronic tension-type headache, not intractable 04/29/[address] [address] Kristina Paul NP Med Refill 04/28/[address] [address] Kristina Paul NP Call Back Request; Appointment Request 04/22/[address] [address] Kristina Paul NP 04/14/[address] [address] Bisi Gloria [place] 04/09/[address] [address] Kristina Paul NP Nonintractable headache, unspecified chronicity pattern, unspecified headache type 04/08/[address] [address] Kristina Paul NP Durable Medical Equipment from Last 3 Months Immunizations Name Administration [...] with others, in a hotel, in a senior care, living outside on the street, on a [...] AM EDT Office Visit [facility] [address] [place], [place] [phone] Kristina Paul, ANTONY [address] [place], [place] [phone] Health Maintenance Due Date Last Done Comments [...] RETROPERITONEAL COMPLETE Routine 06/03/2024 10:00 AM EST HIV 1/2 ANTIGEN/ANTIBODY, FOURTH GENERATION W/RFL Routine 09/03/2023 9:34 AM EDT Chronic hepatitis C without hepatic coma (CMS/HCC) from Last 3 Months or Most Recently Relevant to Health Maintenance Results * US Retroperitoneal Complete (06/03/2024 10:00 AM EST) Anatomical Region Laterality Modality Ultrasound 06/03/2024 10:0 0 AM EST Narrative 06/04/2024 7:44 AM EST ? [facility] ?[address] ?[place] [address] ? Ultrasound Report ? Signed ? Patient: Thony Barker ?MR#: [id number] ?? [id number] ? : 1980 ?Acct:[id number] ? Age/Sex: 44 / M ?ADM Date: 06/03/24 ? Loc: HO.US ? Attending Dr: Gabrielle BUTLER-BC ? Ordering Physician: Gabrielle Dias ?? Date of Service: 06/03/24 ?? Procedure(s): US retroperitoneal comp ?? Accession Number(s): [id number] ? cc: Kristina Paul DIRECTOR INFORMATICS; Gabrielle DiasP-BC ? EXAMINATION: ?? US RETROPERITONEAL COMPLETE (RENAL) [...] 07:41 AM EST RP ? Dictated By: ?Heath Sevilla MD ? Signed By: ?<Electronically signed by Heath Sevilla MD in OV> ?06/04/24 0741 ? DD/ 1000 ? TD/TT: 06/03/24 1021 ? Management Supervisor: MSM ? Procedure Note Dangelo, Image - 06/04/2024 [place] [address] Ultrasound Report Signed Patient: Brabara Barker#: [id number] : 1980Acct:[id number] Age/Sex: 44 / MADM Date: 06/03/24 Loc: HO.US Attending Dr: Gabrielle LION Ordering Physician: Gabrielle Dias Date of Service: 06/03/24 Procedure(s): US retroperitoneal comp Accession Number(s): [id number] cc: Kristina Paul DIRECTOR INFORMATICS; Gabrielle Dias EXAMINATION: US RETROPERITONEAL COMPLETE (RENAL) [...] 06/04/24 0741 DD/ 1000 TD/TT: 06/03/24 1021 Management Supervisor: JACE [facility] External Provider IMG US PROCEDURES Edited Result - Final * HIV-1/2 Antigen and Antibodies, Fourth Generation, with Reflexes (09/03/2023 9:34 AM EDT) HIV AB/AG Nonreactive Nonreactive [facility] Comment:HIV-1 p24 Ag and/or HIV-1/HIV-2 Ab not detected.A test result that is nonreactive does not exclude thepossibility of exposure to or infection with HIV-1 and/orHIV-2. Nonreactive results in this assay for individualswith prior exposure to HIV-1 and/or HIV-2 may be due toantigen and antibody levels that are below the limit ofdetection of this assay.The [facility] Al[facility] HIV Ag/Ab Combo assay result andsupplemental assay results should be interpreted inconjunction with the patient's clinical presentation,history and other laboratory results. If the results areinconsistent with clinical evidence, additional testing issuggested to confirm the result. 09/03/2023 9:34 AM EDT 09/03/2023 11:55 AM EDT Ana Sanchez NP LAB BLOOD ORDERABLES Final Resu lt [facility] [address] [place] [address] [phone] from Last 3 Months or Most Recently Relevant to Health Maintenance Insurance [facility] C3 Care Teams Server Cashier Relationship Specialty Start Date End Date Kristina Paul NP [address] [place] [id number] PCP - General Family Medicine 11/08/23
--- OUTSIDE RECORDS SUMMARY | 2024-07-02 16:42 | XMS_ITS | Encounter Summary ---
Author Organization [employer] Address [address] [place] [address] Care Team Providers Care Database Consultant Name Role Phone Kristina Paul NP Primary Care Provider [phone] Reason for Visit * Reason Onset Date Comments Chart Prep 07/02/2024 Encounter Details Date Type Department Care Team ([facility] st Contact Info) Description 07/02/2024 Telephone [facility] [address] [place], [place] [phone] Lashon Beltrán [place] Chart Prep Social History Tobacco Use Types Packs/Day Years [...] Telephone Encounter - Lashon Beltrán [place] - 07/02/2024 9:57 AM EDT Chart Prep Labs: done Images: done Vaccines due: Covid, Hep A, Hep B, PCV20, Flu Referrals: Radiology Pt had appointment r/s to 07/02/24 at 4 pm Screenings: Lipid panel Overdue care gaps: PHQ-9 and Tobacco documented in this encounter Plan of Treatment Upcoming Encounters Date Type Department Care Team (Late st Contact Info) Description 07/14/2024 11:15 AM EDT Office Visit [facility] [address] [place] [address] Kristina Paul NP [address] [place] [address] documented as of this encounter Visit Diagnoses Not on filedocumented in this encounter Additional Health Concerns Assessment Noted Time PHQ-9 Depression Total Score: 0 07/04/19 24 1:59 PM EDT documented as of this encounter Care Teams Database Consultant Relationship Specialty Start Date End Date Kristina Paul NP [address] [place] [address] PCP - General Family Medicine 11/08/23 documented as of this encounter
--- OUTSIDE RECORDS SUMMARY | 2024-07-02 16:42 | XMS_ITS | Encounter Summary ---
Author Organization [employer] Address [address] [place] [address] Care Team Providers Care Psychological Tests Sales Agent Name Role Phone Kristina Paul NP Primary Care Provider [phone] Encounter Details Date Type Department Care Team ([facility] st Contact Info) Description 04/22/2024 Telephone [facility]INE [address] [place] [address] Kristina Paul NP [address] [place] [address] Social History Tobacco Use Types Packs/Day Years [...] with others, in a hotel, in a custodial, living outside on the street, on a [...] [facility] MED[facility]INE [address] [place] [address] Kristina Paul NP [address] [place] [address] documented as of this encounter Visit Diagnoses Not on filedocumented in this encounter Additional Health Concerns Assessment Noted Time PHQ-9 Depression Total Score: 0 07/04/19 24 1:59 PM EDT documented as of this encounter Care Teams Psychological Tests Sales Agent Relationship Specialty Start Date End Date Kristina Paul NP [address] [place] [address] PCP - General Family Medicine 11/08/23 documented as of this encounter
--- OUTSIDE RECORDS SUMMARY | 2024-07-02 16:42 | XMS_ITS | Patient Health Record ---
Author Organization [facility] Address [address] [place], [place] [id number] Care Team Providers Care Children Librarian Name Role Phone No, PCP Primary Care Provider Unavailabl e [facility], [facility] Unavailable [phone] Reason For Referral No Information Plan Of Treatment No Information Insurance Providers Payer Name Payer Address Payer Phone Subscriber Number Group Number Insured Name Patient Relationship to Insured Coverage Start Date Coverage End Date [place] Medicaid Standard [address] [place] [phone] [id number] Thony Rothman Self - patient is the insured 3
--- OUTSIDE RECORDS SUMMARY | 2024-07-02 16:42 | XMS_ITS | Encounter Summary ---
Author Organization [employer] Address [address] [facility] 7[address] [place] [address] Care Team Providers Care Sql Architect Name Role Phone Ana Sanchez FIELD ORGANIZER Primary Care Provider [phone] Kristina Paul FIELD ORGANIZER Primary Care Provider [phone] Reason for Referral * Consultation (Routine) - Authorized Specialty Diagnoses / Procedures Referred By Contac t Referred To Contact Infectious Diseases Diagnoses Chronic hepatitis C without hepatic coma (CMS/HCC) Gloria Roca MD [address] [place] [address] Phone: tel: fax: Referral ID Status Reason Start Date Expiration Date Visits Requested Visits Authorized [id number] Authorized Specialty Services Required 08/06/2023 08/05/2024 1 1 Encounter Details Date Type Department Care Team (Late st Contact Info) Description 08/06/2023 Orders Only [facility] [address] [place] [phone] Gloria Roca MD [address] [place], [place] [phone] Chronic hepatitis C without hepatic coma (CMS/HCC) [...] Description 07/14/2024 11:15 AM EDT Office Visit [facility] [address] [place] [address] Kristina Paul NP [address] [place] [address] Scheduled Referrals Name Type Priority Associated Diagnoses Order Schedule [facility] Disease (HIV & Hep C) Outpatient [...] 11:25 AM EST) Hepatitis C Viral Load 8743071(A ) NOT DETECTED IU/mL [facility] HCV Log PCR 6.56(A) NOT DETECTED Log IU/mL [facility] Comment:For additional infor merari, please refer tohttp://education.[employer]/faq/YOB37j2(This link is being provided for informational/educational purposes only.)THIS TEST WAS PERFORMED AT:[facility] [address] [place] [id number] SIERRA MD 03/25/2024 11:2 5 AM EST 03/27/2024 3:00 PM EST us Kristina Paul FIELD ORGANIZER LAB BLOOD ORDERABLES Final Resul t [facility] [address] [place] [phone] * (ABNORMAL) Liver Fibrosis (HCV), FibroTest-ActiTest Panel (09/03/2023 9:34 AM EDT) Pathologist [facility] Liver Fibrosis Score 0.42 [facility] Liver Fibrosis Stage F1-F2 [facility] Liver Fibrosis Interpretation SEE NOTE [facility] Comment:minimal fibrosisFibr o Test Score [...] (severe fibrosis) Nec Inflam Act Score 0.17 [facility] Nec Inflam Act Grade A0-A1 [facility] Nec Inflam Act Interpretation SEE NOTE [facility] Comment:no activityActiTest Score (a) Metavir Score a>=0 and a<=0.17 : A0 (no activity)a>0.17 and a<=0.29 : A0-A1 (no activity)a>0.29 and a<=0.36 : A1 (minimal activity)a>0.36 and a<=0.52 : A1-A2 (minimal activity)a>0.52 and a<=0.60 : A2 (significant activity)a>0.60 and a<=0.62 : A2-A3 (significant activity)a>0.62 and a<=1.00 : A3 (severe activity) BTU-Aptzx-7-Macroglo bulin 269 106 - 279 mg/dL [facility] FIB-Haptoglobin 101 43 - 212 mg/dL [facility] FIB-Apolipoprotein A1 153 94 - 176 mg/dL [facility] FIB-Total Bilirubin 0.3 0.2 - 1.2 mg/dL [facility] FIB-GGT 215(A) 3 - 95 U/L [facility] FIB-ALT 30 9 - 46 U/L [facility] Reference ID [id number] [facility] Footnote SEE NOTE [facility] Comment: The reliability of results [...] and C.The performance characteristics have been determined by[facility]. Ithas not been cleared or approved by the U.S. Food and DrugAdministration. Performance characteristics refer to theanalytical performance of the test.[employer], the associated logo, [employer] and all associated [employer] capellan are theregistered trademarks of [employer]. All third partymarks - (R) and (TM) - are the property of their respectiveowners. (C) [id number] [employer]. Allrights reserved.THIS TEST WAS PERFORMED AT:[employer] [id number] [facility], [place] ??[id number] SANCHEZ MD,PHD,ROXY 09/03/2023 9:34 AM EDT 09/03/2023 11:55 AM EDT Ana Sanchez FIELD ORGANIZER LAB BLOOD ORDERABLES Final Resu lt [facility] [address] [place] [phone] * Hepatitis C Viral RNA, Genotype, LiPA (09/03/2023 9:34 AM EDT) Hepatitis C Genotype 1a [facility] Comment:The method used in t his test is RT-PCR and reversehybridization (Line Probe) of the 5' UTR and coreregion of the HCV genome.The analytical performance characteristics of thisassay have been determined by [facility], [place], [place]. The modificationshave not been cleared or approved by the FDA. Thisassay has been validated pursuant to the CLIAregulations and is used for clinical purposes.For additional information, please refer tohttp://education.Sendmybag/faq/HCVGenotyping(This link is being provided for informational/educational purposes only.)THIS TEST WAS PERFORMED AT:[employer]/[id number] [place] [address]MTQVFWUSHELLEY VILLAGRAN MD,PHD 09/03/2023 9:34 AM EDT 09/03/2023 11:14 AM EDT [facility] LAB BLOOD ORDERABLES Final Resu lt Performing Organization Address City/[facility]/ZIP Co de Phone Number [facility] [address] [place] [phone] * HIV-1/2 Antigen and Antibodies, Fourth Generation, with Reflexes (09/03/2023 9:34 AM EDT) Pathologist [facility] HIV AB/AG Nonreactive Nonreactive [facility] Comment:HIV-1 p24 Ag and/or HIV-1/HIV-2 Ab not detected.A test result that is nonreactive does not exclude thepossibility of exposure to or infection with HIV-1 and/orHIV-2. Nonreactive results in this assay for individualswith prior exposure to HIV-1 and/or HIV-2 may be due toantigen and antibody levels that are below the limit ofdetection of this assay.The [employer] HIV Ag/Ab Combo assay result andsupplemental assay results should be interpreted inconjunction with the patient's clinical presentation,history and other laboratory results. If the results areinconsistent with clinical evidence, additional testing issuggested to confirm the result. 09/03/2023 9:34 AM EDT 09/03/2023 11:55 AM EDT [facility] LAB BLOOD ORDERABLES Final Resu lt Performing Organization Address [facility]/ZIP Co de Phone Number [facility] [address] [place] [phone] * (ABNORMAL) Prothrombin Time-INR (09/03/2023 9:34 AM EDT) Pathologist [facility] Prothrombin Time 9.9(L) 11.1 - 13.3 SEC [facility] INTERNATIONAL NORM RATIO 0.8(L) 0.9 - 1.1 [facility] Comment:INTERNATIONAL NORMAL IZED RATIO (INR) [...] 09/03/2023 11:58 AM EDT us Ana Sanchez FIELD ORGANIZER LAB BLOOD ORDERABLES Final Resu lt [facility] [address] [place] [phone] * CBC auto differential (09/03/2023 9:34 AM EDT) [facility] White Blood Count 7.0 4.8 - 10.8 X10*3/uL [facility] Red Blood Count 5.01 4.60 - 5.80 X10*6/uL [facility] Hemoglobin 14.4 14.0 - 18.0 g/dl [facility] Hematocrit 45.0 42.0 - 52.0 % [facility] Mean Corpuscular Volume 89.8 80.0 - 98.0 fL [facility] Mean Corpuscular Hemoglobin 28.7 27.0 - 33.0 pg [facility] Mean Corpuscular HGB Conc 32.0 31.0 - 36.0 g/dl [facility] Red Cell Distribution Width 13.3 11.0 - 16.0 % [facility] Platelet Count 186 160 - 400 X10*3/uL [facility] Mean Platelet Volume 10.5 9.4 - 12.4 fL [facility] Neutrophils Percent Auto 61.5 45 - 73 % [facility] Imm Gran Pct Auto 0.3 0.0 - 0.4 % [facility] Lymphocytes Percent Auto 30.3 20 - 40 % [facility] Monocytes Percent Auto 6.1 2 - 11 % [facility] Eosinophils Percent Auto 1.4 0 - 4 % [facility] Basophils Percent Auto 0.4 0 - 2 % [facility] NRBC Pct Auto 0.0 0.0 - 0.2 /100WBC [facility] Neutrophils Absolute Auto 4.3 2.0 - 8.3 x10*3/uL [facility] Imm Gran Abs Auto 0.02 0.00 - 0.03 X10*3/uL [facility] Lymphocytes Absolute Auto 2.1 1.2 - 4.9 X10*3/uL [facility] Monocytes Absolute Auto 0.4 0.1 - 1.2 X10*3/uL [facility] Eosinophils Absolute Auto 0.1 0.0 - 0.4 X10*3/uL [facility] Basophils Absolute Auto 0.0 0.0 - 0.2 X10*3/uL [facility] NRBC Abs Auto 0.000 0.0 - 0.012 X10*3/uL [facility] 09/03/2023 9:34 AM EDT 09/03/2023 11:58 AM EDT us Ana Sanchez FIELD ORGANIZER LAB BLOOD ORDERABLES Final Resu lt [facility] [address] [place] [phone] * (ABNORMAL) Liver Fibrosis (HCV), FibroTest-ActiTest Panel (08/15/2023 9:33 AM EDT) Liver Fibrosis Score 0.51 [facility] Liver Fibrosis Stage F2 [facility] Liver Fibrosis Interpretation SEE NOTE [facility] Comment:moderate fibrosisFib ro Test Score [...] (severe fibrosis) Nec Inflam Act Score 0.28 [facility] Nec Inflam Act Grade A0-A1 [facility] Nec Inflam Act Interpretation SEE NOTE [facility] Comment:no activityActiTest Score (a) Metavir Score a>=0 and a<=0.17 : A0 (no activity)a>0.17 and a<=0.29 : A0-A1 (no activity)a>0.29 and a<=0.36 : A1 (minimal activity)a>0.36 and a<=0.52 : A1-A2 (minimal activity)a>0.52 and a<=0.60 : A2 (significant activity)a>0.60 and a<=0.62 : A2-A3 (significant activity)a>0.62 and a<=1.00 : A3 (severe activity) CJG-Rbahz-6-Macroglo bulin 261 106 - 279 mg/dL [facility] FIB-Haptoglobin 83 43 - 212 mg/dL [facility] FIB-Apolipoprotein A1 152 94 - 176 mg/dL [facility] FIB-Total Bilirubin 0.4 0.2 - 1.2 mg/dL [facility] FIB-GGT 236(A) 3 - 95 U/L [facility] FIB-ALT 40 9 - 46 U/L [facility] Reference ID [id number] [facility] Footnote SEE NOTE [facility] Comment: The reliability of results [...] and C.The performance characteristics have been determined by[facility]. Ithas not been cleared or approved by the U.S. Food and DrugAdministration. Performance characteristics refer to theanalytical performance of the test.Illume Software, the associated logo, [employer] and all associated [employer] capellan are theregistered trademarks of [employer]. All third partymarks - (R) and (TM) - are the property of their respectiveowners. (C) [id number] [employer]. Allrights reserved.THIS TEST WAS PERFORMED AT:[employer] [id number] [facility], [place] ??[id number] SANCHEZ MD,PHD,ROXY 08/15/2023 9:33 AM EDT 08/15/2023 11:22 AM EDT us Ana Sanchez NP LAB BLOOD ORDERABLES Final Resu lt [facility] [address] [place] [phone] * Hepatitis C Viral RNA, Genotype, LiPA (08/15/2023 9:33 AM EDT) Hepatitis C Genotype 1a [facility] Comment:The method used in t his test is RT-PCR and reversehybridization (Line Probe) of the 5' UTR and coreregion of the HCV genome.The analytical performance characteristics of thisassay have been determined by [facility] [employer] [place], [place]. The modificationshave not been cleared or approved by the FDA. Thisassay has been validated pursuant to the CLIAregulations and is used for clinical purposes.For additional information, please refer tohttp://education.Sendmybag/faq/HCVGenotyping(This link is being provided for informational/educational purposes only.)THIS TEST WAS PERFORMED AT:[facility]with/[facility] [place] [address]UBWSVLZSHELLEY VILLAGRAN MD,PHD 08/15/2023 9:33 AM EDT 08/15/2023 11:22 AM EDT [facility] LAB BLOOD ORDERABLES Final Resu lt Performing Organization Address [facility] Co de Phone Number [facility] [address] [place] [phone] * Hepatitis B surface antigen, EIA (08/15/2023 9:33 AM EDT) Pathologist [facility] Hepatitis B Surface Ag Negative Negative [facility] 08/15/2023 9:33 AM EDT 08/15/2023 11:22 AM EDT [facility] LAB BLOOD ORDERABLES Final Resu lt Performing Organization Address [facility] Co de Phone Number [facility] [address] [place] [address] [phone] * HIV-1/2 Antigen and Antibodies, Fourth Generation, with Reflexes (08/15/2023 9:33 AM EDT) Pathologist [facility] HIV AB/AG Nonreactive Nonreactive [facility] Comment:HIV-1 p24 Ag and/or HIV-1/HIV-2 Ab not detected.A test result that is nonreactive does not exclude thepossibility of exposure to or infection with HIV-1 and/orHIV-2. Nonreactive results in this assay for individualswith prior exposure to HIV-1 and/or HIV-2 may be due toantigen and antibody levels that are below the limit ofdetection of this assay.The [employer] HIV Ag/Ab Combo assay result andsupplemental assay results should be interpreted inconjunction with the patient's clinical presentation,history and other laboratory results. If the results areinconsistent with clinical evidence, additional testing issuggested to confirm the result. 08/15/2023 9:33 AM EDT 08/15/2023 11:22 AM EDT [facility] BLOOD ORDERABLES Final Resu lt Performing Organization Address [facility] Co de Phone Number [facility] [address] [place] [phone] * Prothrombin Time-INR (08/15/2023 9:33 AM EDT) Pathologist [facility] Prothrombin Time 11.2 11.1 - 13.3 SEC [facility] INTERNATIONAL NORM RATIO 0.9 0.9 - 1.1 [facility] Comment:INTERNATIONAL NORMAL IZED RATIO (INR) [...] 9:33 AM EDT 08/15/2023 11:29 AM EDT [facility] LAB BLOOD ORDERABLES Final Resu lt Performing Organization Address [facility] Co de Phone Number [facility] [address] [place] [phone] * (ABNORMAL) CBC auto differential (08/15/2023 9:33 AM EDT) White Blood Count 4.9 4.8 - 10.8 X10*3/uL [facility] Red Blood Count 5.00 4.60 - 5.80 X10*6/uL [facility] Hemoglobin 14.4 14.0 - 18.0 g/dl [facility] Hematocrit 44.4 42.0 - 52.0 % [facility] Mean Corpuscular Volume 88.8 80.0 - 98.0 fL [facility] Mean Corpuscular Hemoglobin 28.8 27.0 - 33.0 pg [facility] Mean Corpuscular HGB Conc 32.4 31.0 - 36.0 g/dl [facility] Red Cell Distribution Width 13.3 11.0 - 16.0 % [facility] Platelet Count 219 160 - 400 X10*3/uL [facility] Mean Platelet Volume 10.4 9.4 - 12.4 fL [facility] Neutrophils Percent Auto 49.7 45 - 73 % [facility] Imm Gran Pct Auto 0.2 0.0 - 0.4 % [facility] Lymphocytes Percent Auto 35.7 20 - 40 % [facility] Monocytes Percent Auto 9.7 2 - 11 % [facility] Eosinophils Percent Auto 4.3(H) 0 - 4 % [facility] Basophils Percent Auto 0.4 0 - 2 % [facility] NRBC Pct Auto 0.0 0.0 - 0.2 /100WBC [facility] Neutrophils Absolute Auto 2.4 2.0 - 8.3 x10*3/uL [facility] Imm Gran Abs Auto 0.01 0.00 - 0.03 X10*3/uL [facility] Lymphocytes Absolute Auto 1.7 1.2 - 4.9 X10*3/uL [facility] Monocytes Absolute Auto 0.5 0.1 - 1.2 X10*3/uL [facility] Eosinophils Absolute Auto 0.2 0.0 - 0.4 X10*3/uL [facility] Basophils Absolute Auto 0.0 0.0 - 0.2 X10*3/uL [facility] NRBC Abs Auto 0.000 0.0 - 0.012 X10*3/uL [facility] 08/15/2023 9:33 AM EDT 08/15/2023 11:22 AM EDT Ana Sanchez FIELD ORGANIZER LAB BLOOD ORDERABLES Final Resu lt [facility] [address] [place] [phone] documented in this encounter Visit Diagnoses Diagnosis Chronic hepatitis C without hepatic coma (CMS/HCC)- Primary documented in this encounter Additional Health Concerns Assessment Noted Time PHQ-9 Depression Total Score: 0 07/04/19 24 1:59 PM EDT documented as of this encounter Care Teams Sql Architect Relationship Specialty Start Date End Date Ana Sanchez NP [address] [place] [address] PCP - General Family Medicine 07/04/23 11/07/23 Kristina Paul NP [address] [place] [address] PCP - General Family Medicine 11/08/23 documented as of this encounter
--- OUTSIDE RECORDS SUMMARY | 2024-07-02 16:42 | XMS_ITS ---
Author Organization [facility] Address [address] [place], [place] [phone] Care Team Providers Care Cognos Analyst Name Role Phone No, PCP Primary Care Provider [facility] Unavailable [phone] Smitha Lopes Unavailable [phone] REASON FOR VISIT Apply for [employer] Insurance Encounters Encounter Location Date Provider Diagnosis [facility] [address] [place] [phone] 02/08/2023 Smitha Lopes Plan Of Treatment No Information Progress Notes * Dora ROTHMANOB:1 (43 yo M)Acc No.[id number]:02/08/2023 Case Management New Patient:?Chau Rothmancolleen Provider:?Smitha Lopes :1980???Age:43 Y???Sex:Male Skyler e:02/08/2023 Address:[address] [place] [address] [phone] Pcp:PCP No Subjective: * Chief Complaints: * ???1. Apply for [employer] [facility]. * HPI: ???Social Service:?Action Taken?[employer]? [employer] paper application was completed with client and faxed over to Enrollment center. 02/08/23 gd2.? Objective: Assessment: Plan: * Treatment: * Images: Billing Information: * Visit Code:? * Procedure Codes:? Care Plan Details* * Sign off status: Completed true * Provider:Logan Lopes Date:?02/08/2023 Generated for Pierce doan/Sana/eTjoaquimsmitting on:?07/02/2024 09:54 AM EDT History and Physical Notes * HPI (History of Present Illness) Category Sub-Category Detail Notes Social Service Action Taken [facility] : [employer] p aper application was completed with client and faxed over to Enrollment center. 02/08/23 gd2
--- OUTSIDE RECORDS SUMMARY | 2024-07-02 16:42 | XMS_ITS | Encounter Summary ---
Author Organization [employer] Address [address] [facility] [place] [address] Care Team Providers Care Photographic Equipment Inspector Name Role Phone Kristina Paul NP Primary Care Provider [phone] Reason for Visit * Reason Comments GBAT Encounter Details Date Type Department Care Team (Latest Contact Info) Description 07/02/2024 9:00 AM EDT Office Visit [facility] [address] [place], [place] [phone] Long Manuel MD [address] [place], [place] [phone] Opioid dependence, uncomplicated (CMS/HCC) (Primary Dx) Social [...] with others, in a hotel, in a group home, living outside on the street, on a [...] Progress Notes * Long Manuel MD - 07/02/2024 9:00 AM EDT LAST GBAT VISIT 06/11/2024 Patient presents for Group-Based Opioid Treatment for OUD First GBAT visit since 09/2023 Currently on Methadone maintenance Reviewed the group goals, expectations and policies Consented to the group treatment options Actively participated in the group discussion with the topic of: Changes Following staff present at the visit: Physician, Supervisor Mail Carriers, Clinician,Team RN, and Voice Professor Opportunities provided to address individual medical/medication/BH concerns States doing well without cravings or relapse TODAY GBAT VISIT 07/02/2024 Patient presents for Group-Based Opioid Treatment for OUD Currently on Methadone maintenance Reviewed the group goals, expectations and policies Consented to the group treatment options Actively participated in the group discussion with the topic of: Open Discussion Following staff present at the visit: Physician, Supervisor Mail Carriers, Clinician,Team RN, and Voice Professor Opportunities provided to address individual medical/medication/BH concerns [...] faced situations that may trigger use [facility] TECH reviewed Following staff present at the visit: Physician, Team RN, Clinician, Supervisor Mail Carriers and Voice Professor This information has been disclosed to you [...] Description 07/14/2024 11:15 AM EDT Office Visit [facility] [address] [place] [phone] Kristina Paul NP [address] [place], [place] [phone] documented as of this encounter Visit Diagnoses Diagnosis Opioid dependence, uncomplicated (CMS/HCC)- Primary documented in this encounter Additional Health Concerns Assessment Noted Time PHQ-9 Depression Total Score: 0 07/04/19 24 1:59 PM EDT documented as of this encounter Care Teams Photographic Equipment Inspector Relationship Specialty Start Date End Date Kristina Paul NP [address] [place] [phone] PCP - General Family Medicine 11/08/23 documented as of this encounter
--- OUTSIDE RECORDS SUMMARY | 2024-07-02 16:42 | XMS_ITS | Encounter Summary ---
Author Organization [employer] Address [address] [place] [address] Care Team Providers Care Instrument And Control Service Person Name Role Phone Kristina Paul NP Primary Care Provider [phone] Encounter Details Date Type Department Care Team (Latest Contact Info) Description 07/02/2024 Travel Social History Tobacco Use Types Packs/Day [...] with others, in a hotel, in a chcf, living outside on the street, on a [...] Description 07/14/2024 11:15 AM EDT Office Visit [facility] [address] [place] [address] Kristina Paul NP [address] [place] [address] documented as of this encounter Visit Diagnoses Not on filedocumented in this encounter Additional Health Concerns Assessment Noted Time PHQ-9 Depression Total Score: 0 07/04/19 1:59 PM EDT documented as of this encounter Care Teams Instrument And Control Service Person Relationship Specialty Start Date End Date Kristina Paul NP [address] [place] [address] PCP - General Family Medicine 11/08/23 documented as of this encounter
--- OUTSIDE RECORDS SUMMARY | 2024-07-02 16:42 | XMS_ITS | Encounter Summary ---
Author Organization [employer] Address [address] [place] [address] Care Team Providers Care Labor Relations Manager Name Role Phone Kristina Paul NP Primary Care Provider [phone] Reason for Visit * Reason Comments Recovery Supports Encounter Details Date Type Department Care Team ([facility] st Contact Info) Description 07/01/2024 Patient Outreach [facility] [address] [place] [address] Brenden Lobo Recovery Supports Social History Tobacco Use Types [...] with others, in a hotel, in a mcfp, living outside on the street, on a [...] as of this encounter Progress Notes * Brenden Lobo - 07/01/2024 3:10 PM EDT I met with Thony griffin. Setting: in person at [facility] Goals worked on: Social Stability Action taken/next steps: Attended recovery support group and Offered person centered recovery support Participant attended a group session centered on recovery topics, where members engaged in open discussion and offered mutual support. Brenden Lobo documented in this encounter Plan of Treatment Upcoming Encounters Date Type Department Care Team (Late st Contact Info) Description 07/14/2024 11:15 AM EDT Office Visit [facility] [address] [place] [address] Kristina Paul NP [address] [place] [address] documented as of this encounter Visit Diagnoses Not on filedocumented in this encounter Additional Health Concerns Assessment Noted Time PHQ-9 Depression Total Score: 0 07/04/19 24 1:59 PM EDT documented as of this encounter Care Teams Labor Relations Manager Relationship Specialty Start Date End Date Kristina Paul NP [address] [place] [address] PCP - General Family Medicine 11/08/23 documented as of this encounter
--- OUTSIDE RECORDS SUMMARY | 2024-07-02 16:42 | XMS_ITS | Encounter Summary ---
Author Organization [employer] [employer] Address [address] [facility] 7t [place] [address] Care Team Providers Care Livestock Brands Inspector Name Role Phone Kristina Paul NP Primary Care Provider [phone] Reason for Visit * Reason Comments Med Refill Encounter Details Date Type Department Care Team ([facility] Contact Info) Description 02/19/2024 Refill [facility] [address] [place], [place] [phone] Kristina Paul NP [address] [place] [address] Localized edema Social History Tobacco Use Types [...] Description 07/14/2024 11:15 AM EDT Office Visit [facility] [address] [place] [address] Kristina Paul NP [address] [place] [address] documented as of this encounter Visit Diagnoses Diagnosis Localized edema Edema documented in this encounter Additional Health Concerns Assessment Noted Time PHQ-9 Depression Total Score: 0 07/04/19 24 1:59 PM EDT documented as of this encounter Care Teams Livestock Brands Inspector Relationship Specialty Start Date End Date Kristina Paul NP [address] [place] [address] PCP - General Family Medicine 11/08/23 documented as of this encounter
== END 2024-07-02 13:58 | disposition home or self-care (01) ==
LOC: HO.CT 13:57
PROVIDERS: PCP Nurse Practitioner Family; Visit Provider Nurse Practitioner Family
DX: Z13.89 Encounter for screening for other disorder (principal)

== ENCOUNTER 2024-11-14 10:25 | Outpatient (REF) | payer MEDICAID, SELFPAY ==
--- OUTSIDE RECORDS SUMMARY | 2024-11-14 10:33 | XMS_ITS | Patient Health Record ---
Author Organization [facility] Address [address] [place], [place] [phone] Care Team Providers Care Color Straining Bag Washer Name Role Phone [facility] Primary Care Provider Marycarmen Ireland Unavailable Reason For Referral No Information Encounters Encounter Location Date Provider Diagnosis [facility] [address] [place] [phone] 07/16/2024 Marycarmen Ireland [facility] [phone] 10/30/2024 Marycarmen Ireland Plan Of Treatment No Information Insurance Providers Payer Name Payer Address Payer Phone Subscriber Number Group Number Insured Name Patient Relationship to Insured Coverage Start Date Coverage End Date [place] Medicaid Standard [address] [place] [address] [id number] Thony Rothman Self - patient is the insured 3
--- OUTSIDE RECORDS SUMMARY | 2024-11-14 10:33 | XMS_ITS | Encounter Summary ---
Author Organization [employer] Address [address] [facility] 7t [place] [address] Care Team Providers Care Credit Review Analyst Name Role Phone Ana Sanchez REAL ESTATE OPERATIONS MANAGER Primary Care Provider [phone] Kristina Paul REAL ESTATE OPERATIONS MANAGER Primary Care Provider [phone] Encounter Details Date Type Department Care Team ([facility] st Contact Info) Description 08/06/2023 Orders Only [facility] MEDICINE [address] [place] [address] Gloria Roca MD [address] [place] [address] Chronic hepatitis C without hepatic coma (CMS/HCC) [...] with others, in a hotel, in a prison, living outside on the street, on a [...] Care Team (Late st Contact Info) Description 12/15/2024 10:15 AM EDT Office Visit [facility] [address] [place], [place] [phone] Kristina Paul NP [address] [place] [address] documented as of this encounter Procedures Procedure [...] 11:25 AM EST) Hepatitis C Viral Load 7513615(A ) NOT DETECTED IU/mL [facility] HCV Log PCR 6.56(A) NOT DETECTED Log IU/mL [facility] Comment:For additional infor merari, please refer tohttp://education.[employer]/faq/EXP37p5(This link is being provided for informational/educational purposes only.)THIS TEST WAS PERFORMED AT:[facility] [place] [id number] SIERRA MD 03/25/2024 11:2 5 AM EST 03/27/2024 3:00 PM EST us Kristina Paul NP LAB BLOOD ORDERABLES Final Resul t [facility] [address] [place] [address] [phone] * (ABNORMAL) Liver Fibrosis (HCV), FibroTest-ActiTest Panel (09/03/2023 9:34 AM EDT) Liver Fibrosis Score 0.42 [facility] Liver Fibrosis Stage F1-F2 [facility] Liver Fibrosis Interpretation SEE NOTE [facility] Comment:minimal fibrosisFibr o Test Score (f) Metavir Score f>=0 and f<=0.21 : F0 (no fibrosis)f>0.21 and f<=0.27 : F0-F1 (no fibrosis)f>0.27 and f<=0.31 : F1 (minimal fibrosis)f>0.31 and f<=0.48 : F1-F2 (minimal fibrosis)f>0.48 and f<=0.58 : F2 (moderate fibrosis)f>0.58 and f<=0.72 : F3 (advanced fibrosis)f>0.72 and f<=0.74 : F3-F4 (advanced fibrosis)f>0.74 and f<=1.00 : F4 (severe fibrosis) Nec Inflam Act Score 0.17 [facility] Nec Inflam Act Grade A0-A1 [facility] Nec Inflam Act Interpretation SEE NOTE [facility] Comment:no activityActiTest Score (a) Metavir Score a>=0 and a<=0.17 : A0 (no activity)a>0.17 and a<=0.29 : A0-A1 (no activity)a>0.29 and a<=0.36 : A1 (minimal activity)a>0.36 and a<=0.52 : A1-A2 (minimal activity)a>0.52 and a<=0.60 : A2 (significant activity)a>0.60 and a<=0.62 : A2-A3 (significant activity)a>0.62 and a<=1.00 : A3 (severe activity) VQY-Rgwkn-9-Macroglo bulin 269 106 - 279 mg/dL [facility] FIB-Haptoglobin 101 43 - 212 mg/dL [facility] FIB-Apolipoprotein A1 153 94 - 176 mg/dL [facility] FIB-Total Bilirubin 0.3 0.2 - 1.2 mg/dL [facility] FIB-GGT 215(A) 3 - 95 U/L [facility] FIB-ALT 30 9 - 46 U/L [facility] Reference ID [id number] [facility] Footnote SEE NOTE [facility] Comment: The reliability of results is [...] and C.The performance characteristics have been determined by[facility]. Ithas not been cleared or approved by the U.S. Food and DrugAdministration. Performance characteristics refer to theanalytical performance of the test.[employer], the associated logo, datatrackerInstitute and all associated [employer] capellan are theregistered trademarks of [employer]. All third partymarks - (R) and (TM) - are the property of their respectiveowners. (C) 1014-7094 [employer]. Allrights reserved.THIS TEST WAS PERFORMED AT:[employer] [id number] [place] [address]UEKSGYSED SANCHEZ MD,PHD,ROXY 09/03/2023 9:34 AM EDT 09/03/2023 11:[address] [facility] REAL ESTATE OPERATIONS MANAGER LAB BLOOD ORDERABLES Final Resu lt Performing Organization Address [facility] Co de Phone Number [facility] [address] [place] [phone] * Hepatitis C Viral RNA, Genotype, LiPA (09/03/2023 9:34 AM EDT) Pathologist [facility] Hepatitis C Genotype 1a [facility] Comment:The method used in t his test is RT-PCR and reversehybridization (Line Probe) of the 5' UTR and coreregion of the HCV genome.The analytical performance characteristics of thisassay have been determined by [facility], [place], [place]. The modificationshave not been cleared or approved by the FDA. Thisassay has been validated pursuant to the CLIAregulations and is used for clinical purposes.For additional information, please refer tohttp://education.[employer]/faq/HCVGenotyping(This link is being provided for informational/educational purposes only.)THIS TEST WAS PERFORMED AT:[employer]/[id number] [place] [address]WXJVMFVSHELLEY VILLAGRAN MD,PHD 09/03/2023 9:34 AM EDT 09/03/2023 11:[address] [facility] REAL ESTATE OPERATIONS MANAGER LAB BLOOD ORDERABLES Final Resu lt Performing Organization Address [facility] Co de Phone Number [facility] [address] [place] [phone] * HIV-1/2 Antigen and Antibodies, Fourth Generation, with Reflexes (09/03/2023 9:34 AM EDT) Pathologist [facility] HIV AB/AG Nonreactive Nonreactive [facility] Comment:HIV-1 p24 Ag and/or HIV-1/HIV-2 Ab not detected.A test result that is nonreactive does not exclude thepossibility of exposure to or infection with HIV-1 and/orHIV-2. Nonreactive results in this assay for individualswith prior exposure to HIV-1 and/or HIV-2 may be due toantigen and antibody levels that are below the limit ofdetection of this assay.The [employer] HIV Ag/Ab Combo assay result andsupplemental assay results should be interpreted inconjunction with the patient's clinical presentation,history and other laboratory results. If the results areinconsistent with clinical evidence, additional testing issuggested to confirm the result. 09/03/2023 9:34 AM EDT 09/03/2023 11:55 AM EDT [facility] LAB BLOOD ORDERABLES Final Resu lt [facility] [address] [place] [phone] * (ABNORMAL) Prothrombin Time-INR (09/03/2023 9:34 AM EDT) [facility] Prothrombin Time 9.9(L) 11.1 - 13.3 SEC [facility] INTERNATIONAL NORM RATIO 0.8(L) 0.9 - 1.1 [facility] Comment:INTERNATIONAL NORMAL IZED RATIO (INR) REFERENCE [...] EDT 09/03/2023 11:58 AM EDT Ana Sanchez REAL ESTATE OPERATIONS MANAGER LAB BLOOD ORDERABLES Final Resu lt [facility] [address] [place], [place] [phone] * CBC auto differential (09/03/2023 9:34 AM EDT) White Blood Count 7.0 4.8 - 10.8 X10*3/uL [facility] Red Blood Count 5.01 4.60 - 5.80 X10*6/uL [facility] Hemoglobin 14.4 14.0 - 18.0 g/dl [facility] Hematocrit 45.0 42.0 - 52.0 % [facility] Mean Corpuscular Volume 89.8 80.0 - 98.0 fL [facility] Mean Corpuscular Hemoglobin 28.7 27.0 - 33.0 pg [facility] Mean Corpuscular HGB Conc 32.0 31.0 - 36.0 g/dl [facility] Red Cell Distribution Width 13.3 11.0 - 16.0 % [facility] Platelet Count 186 160 - 400 X10*3/uL [facility] Mean Platelet Volume 10.5 9.4 - 12.4 fL [facility] Neutrophils Percent Auto 61.5 45 - 73 % [facility] Imm Gran Pct Auto 0.3 0.0 - 0.4 % [facility] Lymphocytes Percent Auto 30.3 20 - 40 % [facility] Monocytes Percent Auto 6.1 2 - 11 % [facility] Eosinophils Percent Auto 1.4 0 - 4 % [facility] Basophils Percent Auto 0.4 0 - 2 % [facility] NRBC Pct Auto 0.0 0.0 - 0.2 /100WBC [facility] Neutrophils Absolute Auto 4.3 2.0 - 8.3 x10*3/uL [facility] Imm Gran Abs Auto 0.02 0.00 - 0.03 X10*3/uL [facility] Lymphocytes Absolute Auto 2.1 1.2 - 4.9 X10*3/uL [facility] Monocytes Absolute Auto 0.4 0.1 - 1.2 X10*3/uL [facility] Eosinophils Absolute Auto 0.1 0.0 - 0.4 X10*3/uL [facility] Basophils Absolute Auto 0.0 0.0 - 0.2 X10*3/uL [facility] NRBC Abs Auto 0.000 0.0 - 0.012 X10*3/uL [facility] 09/03/2023 9:34 AM EDT 09/03/2023 11:58 AM EDT us Ana Sanchez REAL ESTATE OPERATIONS MANAGER LAB BLOOD ORDERABLES Final Resu lt [facility] [address] [place] [phone] * (ABNORMAL) Liver Fibrosis (HCV), FibroTest-ActiTest Panel (08/15/2023 9:33 AM EDT) Liver Fibrosis Score 0.51 [facility] Liver Fibrosis Stage F2 [facility] Liver Fibrosis Interpretation SEE NOTE [facility] Comment:moderate fibrosisFib ro Test Score (f) Metavir Score f>=0 and f<=0.21 : F0 (no fibrosis)f>0.21 and f<=0.27 : F0-F1 (no fibrosis)f>0.27 and f<=0.31 : F1 (minimal fibrosis)f>0.31 and f<=0.48 : F1-F2 (minimal fibrosis)f>0.48 and f<=0.58 : F2 (moderate fibrosis)f>0.58 and f<=0.72 : F3 (advanced fibrosis)f>0.72 and f<=0.74 : F3-F4 (advanced fibrosis)f>0.74 and f<=1.00 : F4 (severe fibrosis) Nec Inflam Act Score 0.28 [facility] Nec Inflam Act Grade A0-A1 [facility] Nec Inflam Act Interpretation SEE NOTE [facility] Comment:no activityActiTest Score (a) Metavir Score a>=0 and a<=0.17 : A0 (no activity)a>0.17 and a<=0.29 : A0-A1 (no activity)a>0.29 and a<=0.36 : A1 (minimal activity)a>0.36 and a<=0.52 : A1-A2 (minimal activity)a>0.52 and a<=0.60 : A2 (significant activity)a>0.60 and a<=0.62 : A2-A3 (significant activity)a>0.62 and a<=1.00 : A3 (severe activity) ACT-Gphbh-6-Macroglo bulin 261 106 - 279 mg/dL [facility] FIB-Haptoglobin 83 43 - 212 mg/dL [facility] FIB-Apolipoprotein A1 152 94 - 176 mg/dL [facility] FIB-Total Bilirubin 0.4 0.2 - 1.2 mg/dL [facility] FIB-GGT 236(A) 3 - 95 U/L [facility] FIB-ALT 40 9 - 46 U/L [facility] Reference ID [id number] [facility] Footnote SEE NOTE [facility] Comment: The reliability of results is [...] and C.The performance characteristics have been determined by[facility]. Ithas not been cleared or approved by the U.S. Food and DrugAdministration. Performance characteristics refer to theanalytical performance of the test.[employer], [employer], the associated logo, datatrackerRonnie and all associated [employer] capellan are theregistered trademarks of [employer]. All third partymarks - (R) and (TM) - are the property of their respectiveowners. (C) 5206-2300 [employer]. Allrights reserved.THIS TEST WAS PERFORMED AT:[employer] [id number] [place] [address]CRISGSYED SANCHEZ MD,PHD,ROXY 08/15/2023 9:33 AM EDT 08/15/2023 11:22 AM EDT Ana Sanchez REAL ESTATE OPERATIONS MANAGER LAB BLOOD ORDERABLES Final Resu lt [facility] [address] [place] [phone] * Hepatitis C Viral RNA, Genotype, LiPA (08/15/2023 9:33 AM EDT) Hepatitis C Genotype 1a [facility] Comment:The method used in t his test is RT-PCR and reversehybridization (Line Probe) of the 5' UTR and coreregion of the HCV genome.The analytical performance characteristics of thisassay have been determined by [facility], [place], [place]. The modificationshave not been cleared or approved by the FDA. Thisassay has been validated pursuant to the CLIAregulations and is used for clinical purposes.For additional information, please refer tohttp://education.[employer]/faq/HCVGenotyping(This link is being provided for informational/educational purposes only.)THIS TEST WAS PERFORMED AT:[employer] [id number] [place] [address]FGJRZXGSHELLEY VILLAGRAN MD,PHD 08/15/2023 9:33 AM EDT 08/15/2023 11:22 AM EDT Ana Collado REAL ESTATE OPERATIONS MANAGER LAB BLOOD ORDERABLES Final Resu lt Performing Organization Address City/[facility]/ZIP Co de Phone Number [facility] [address] [place] [phone] * Hepatitis B surface antigen, EIA (08/15/2023 9:33 AM EDT) Hepatitis B Surface Ag Negative Negative [facility] 08/15/2023 9:33 AM EDT 08/15/2023 11:22 AM EDT [facility] LAB BLOOD ORDERABLES Final Resu lt Performing Organization Address [facility] Number [facility] [address] [place] [phone] * HIV-1/2 Antigen and Antibodies, Fourth Generation, with Reflexes (08/15/2023 9:33 AM EDT) HIV AB/AG Nonreactive Nonreactive [facility] Comment:HIV-1 p24 Ag and/or HIV-1/HIV-2 Ab not detected.A test result that is nonreactive does not exclude thepossibility of exposure to or infection with HIV-1 and/orHIV-2. Nonreactive results in this assay for individualswith prior exposure to HIV-1 and/or HIV-2 may be due toantigen and antibody levels that are below the limit ofdetection of this assay.The [employer] HIV Ag/Ab Combo assay result andsupplemental assay results should be interpreted inconjunction with the patient's clinical presentation,history and other laboratory results. If the results areinconsistent with clinical evidence, additional testing issuggested to confirm the result. 08/15/2023 9:33 AM EDT 08/15/2023 11:22 AM EDT Ana Heaven REAL ESTATE OPERATIONS MANAGER LAB BLOOD ORDERABLES Final Resu lt Performing Organization Address [facility]/ZIP Co de Phone Number [facility] [address] [place] [phone] * Prothrombin Time-INR (08/15/2023 9:33 AM EDT) [facility] Prothrombin Time 11.2 11.1 - 13.3 SEC [facility] INTERNATIONAL NORM RATIO 0.9 0.9 - 1.1 [facility] Comment:INTERNATIONAL NORMAL IZED RATIO (INR) REFERENCE [...] 9:33 AM EDT 08/15/2023 11:29 AM EDT Ana Sanchez REAL ESTATE OPERATIONS MANAGER LAB BLOOD ORDERABLES Final Resu lt [facility] [address] [place] [phone] * (ABNORMAL) CBC auto differential (08/15/2023 9:33 AM EDT) [facility] White Blood Count 4.9 4.8 - 10.8 X10*3/uL [facility] Red Blood Count 5.00 4.60 - 5.80 X10*6/uL [facility] Hemoglobin 14.4 14.0 - 18.0 g/dl [facility] Hematocrit 44.4 42.0 - 52.0 % [facility] Mean Corpuscular Volume 88.8 80.0 - 98.0 fL [facility] Mean Corpuscular Hemoglobin 28.8 27.0 - 33.0 pg [facility] Mean Corpuscular HGB Conc 32.4 31.0 - 36.0 g/dl [facility] Red Cell Distribution Width 13.3 11.0 - 16.0 % [facility] Platelet Count 219 160 - 400 X10*3/uL [facility] Mean Platelet Volume 10.4 9.4 - 12.4 fL [facility] Neutrophils Percent Auto 49.7 45 - 73 % [facility] Imm Gran Pct Auto 0.2 0.0 - 0.4 % [facility] Lymphocytes Percent Auto 35.7 20 - 40 % [facility] Monocytes Percent Auto 9.7 2 - 11 % [facility] Eosinophils Percent Auto 4.3(H) 0 - 4 % [facility] Basophils Percent Auto 0.4 0 - 2 % [facility] NRBC Pct Auto 0.0 0.0 - 0.2 /100WBC [facility] Neutrophils Absolute Auto 2.4 2.0 - 8.3 x10*3/uL [facility] Imm Gran Abs Auto 0.01 0.00 - 0.03 X10*3/uL [facility] Lymphocytes Absolute Auto 1.7 1.2 - 4.9 X10*3/uL [facility] Monocytes Absolute Auto 0.5 0.1 - 1.2 X10*3/uL [facility] Eosinophils Absolute Auto 0.2 0.0 - 0.4 X10*3/uL [facility] Basophils Absolute Auto 0.0 0.0 - 0.2 X10*3/uL [facility] NRBC Abs Auto 0.000 0.0 - 0.012 X10*3/uL [facility] 08/15/2023 9:33 AM EDT 08/15/2023 11:22 AM EDT us Ana Sanchez NP LAB BLOOD ORDERABLES Final Resu lt [facility] [address] [place] [phone] documented in this encounter Visit Diagnoses Diagnosis Chronic hepatitis C without hepatic coma (CMS/HCC)- Primary documented in this encounter Additional Health Concerns Assessment Noted Time PHQ-9 Depression Total Score: 0 07/04/19 24 1:59 PM EDT documented as of this encounter Care Teams Credit Review Analyst Relationship Specialty Start Date End Date Ana Sanchez NP [address] [place] [address] PCP - General Family Medicine 07/04/23 11/07/23 Kristina Paul NP [address] [place] [address] PCP - General Family Medicine 11/08/23 documented as of this encounter
[2024-11-14 14:03] LABS: Alanine Aminotransferase 30 U/L (0-40); Albumin Level 4.2 g/dL (3.5-5.0); Alkaline Phosphatase 87 U/L (39-117); Anion Gap 13 (12-20); Aspartate Amino Transferase 41 U/L (5-37); Blood Urea Nitrogen 10 mg/dL (9-16); Calcium 9.8 mg/dL (8.4-10.2); Carbon Dioxide 26 mmol/L (22-29); Chloride 103 mmol/L (96-108); Estimated Glomerular Filt Rate > 60; Potassium 4.5 mmol/L (3.3-5.1); Sodium 137 mmol/L (135-145); Total Protein 7.5 g/dL (6.5-8.0)
[2024-11-17 15:43] LABS: HCV Log PCR 6.71 Log IU/mL (NOT DETECTED); HepC Viral Load 5180000 IU/mL (NOT DETECTED)
== END 2024-11-14 10:26 | disposition home or self-care (01) ==
LOC: HO.HHCL 10:25
PROVIDERS: PCP Nurse Practitioner Family; Visit Provider Family Medicine
DX: B19.20 Unspecified viral hepatitis C without hepatic coma (principal)
CPT/HCPCS: 36415; 80053; 82248; 87522

== ENCOUNTER 2024-12-08 09:17 | Outpatient (REF) | payer MEDICAID, SELFPAY ==
--- OUTSIDE RECORDS SUMMARY | 2024-12-08 10:29 | XMS_ITS | Patient Health Record ---
Author Organization [facility] Address [address] [place] [address] Care Team Providers Care Weather Analyst Name Role Phone [facility] Primary Care Provider Marycarmen Ireland Unavailable [phone] Reason For Referral No Information Encounters Encounter Location Date Provider Diagnosis [facility] [address] [place] [phone] 07/16/2024 Marycarmen Ireland [facility] [phone] 10/30/2024 Marycarmen Ireland Plan Of Treatment No Information Insurance Providers Payer Name Payer Address Payer Phone Subscriber Number Group Number Insured Name Patient Relationship to Insured Coverage Start Date Coverage End Date [place] Medicaid Standard [address] [place] [address] [id number] Thony Rothman Self - patient is the insured 3
[2024-12-08 12:00] LABS: Prostate Specific Antigen 0.10 ng/mL (<0.05-4.0)
== END 2024-12-08 09:18 | disposition home or self-care (01) ==
LOC: HO.HHCL 09:17
PROVIDERS: PCP Nurse Practitioner Family; Referring Provider Nurse Practitioner Family; Visit Provider Family Medicine
DX: B19.20 Unspecified viral hepatitis C without hepatic coma (principal); R39.16 Straining to void; Z87.898 Personal history of other specified conditions
CPT/HCPCS: 36415; 84153; 87902

== ENCOUNTER 2024-12-16 10:17 | Outpatient (REF) | payer MEDICAID, SELFPAY ==
--- OUTSIDE RECORDS SUMMARY | 2024-12-15 10:15 | XMS_ITS | Encounter Summary ---
Author Organization [employer] Address [address] [place] [address] [address] [place] [address] Care Team Providers Care Culinary Assistant Name Role Phone Kristina Paul NP Primary Care Provider [phone] Reason for Visit * Reason Comments Wound Check Follow-up Encounter Details Date Type Department Care Team ([facility] Contact Info) Description 12/15/2024 10:15 AM EDT Office Visit [facility] [address] [place] [address] Kristina Paul NP [address] [place] [address] Chronic migraine with aura without status migrainosus, not intractable; Nonintractable headache, unspecified chronicity pattern, unspecified headache type Social History Tobacco Use Types Packs/Day Years Used Date Smoking Tobacco: Every Day Cigarettes Passive Smoke Exposure: Current Tobacco Cessation:Ready to Q uit: Not Asked; Counseling Given: Not Answered Alcohol Use Standard Drinks/Week Comments Never 0 (1 standard drink = 0.6 oz pur e alcohol) Depression Answer Date Recorded Patient Health Questionnaire-9 Score 3 07/14/2024 Patient Health Questionnaire-9 Score 3 07/14/2024 Last PHQ-9: Questionnaire Data Not on file 0 07/14/2024 Housing Stability Answer Date Recorded What is [...] Answer Date Recorded Patient Health Questionnaire-2 Score 1 07/14/2024 Internet Access Answer Date Recorded Internet Access [...] Sign Reading Time Taken Comments Blood Pressure 119/80 12/15/2024 9:50 AM EDT Pulse 51 12/15/2024 9:50 AM EDT Temperature 37 C (98.6 F) 12/15/2024 9:50 AM EDT Respiratory Rate 19 12/15/2024 9:50 AM EDT Oxygen Saturation 95% 12/15/2024 9:50 AM EDT Inhaled Oxygen Concentration - - Weight 98.9 kg (218 lb) 12/15/2024 9:50 AM EDT Height 167.6 cm (5' 6 ) 12/15/2024 9:50 AM EDT Body Mass Index 35.19 12/15/2024 9:50 AM EDT documented in this encounter Progress Notes * Kristina Paul NP - 12/15/2024 10:15 AM EDT Thony Zi Acosta is a 44 y.o. male presenting for follow up for the following conditions: - Thony Zi Mj Colon, 44-year-old male - Chronic localized back pain, continuous, worsened by standing, no radiation to buttocks - Onset after work-related incident, described as a crunch sensation, no history of trauma or fracture - No prior imaging performed for back pain - History of migraine headaches, uses medication as needed - Currently undergoing treatment for hepatitis C, recent laboratory result elevated, awaiting follow-up for restarting therapy - Reports improved well-being with current sobriety, denies drug use Problem List[1] Review of Systems Constitutional: Negative for activity change and appetite change. Musculoskeletal: Positive for arthralgias and back pain. Neurological: Positive for headaches. Negative for dizziness and facial asymmetry. BP 119/80 (BP Location: Left arm, Patient Position: Sitting, BP Cuff Size: Adult) Pulse 51 Temp98.6 ??F (37 ??C) (Oral) Resp 19 Ht 5' 6 (1.676 m) Wt 218 lb (98.9 kg) BMI 35.19 kg/m?? Physical Exam Vitals reviewed. Constitutional: Appearance: Normal appearance. He is obese. HENT: Head: Normocephalic. Cardiovascular: Rate and Rhythm: Normal rate. Heart sounds: Normal heart sounds. Pulmonary: Breath sounds: Normal breath sounds. Abdominal: Palpations: Abdomen is soft. Musculoskeletal: Cervical back: Neck supple. Neurological: Mental Status: He is alert. Psychiatric: Mood and Affect: Mood normal. - CARDIOVASCULAR: Cardiac auscultation performed. Orders Only on 12/08/2024 Component Date Value Prostate Specific Antigen 12/08/2024 0.10 Hepatitis C Genotype 12/08/2024 1a Orders Only on 11/14/2024 Component Date Value Sodium 11/14/2024 137 Potassium 11/14/2024 4.5 Chloride 11/14/2024 103 Carbon Dioxide 11/14/2024 26 Anion Gap 11/14/2024 13 Urea Nitrogen (BUN) 11/14/2024 10 Creatinine, Serum 11/14/2024 0.78 Estimated Glomerular Christopher* 11/14/2024 >60 Glucose 11/14/2024 87 Calcium 11/14/2024 9.8 Bilirubin, Total 11/14/2024 0.4 Aspartate Amino Transfer* 11/14/2024 41 (H) Alanine Aminotransferase 11/14/2024 30 Total Protein 11/14/2024 7.5 Albumin Level 11/14/2024 4.2 Alkaline Phosphatase 11/14/2024 87 Bilirubin, Direct 11/14/2024 0.2 Hepatitis C Viral Load 11/14/2024 [id number] (A) HCV Log PCR 11/14/2024 6.71 (A) Assessment & Plan Chronic migraine with aura without status migrainosus, not intractable Orders: SUMAtriptan (Imitrex) 50 MG tablet; Take 1 tablet (50 mg) by mouth 1 (one) time if needed for migraine (take no more than twice weekly) for up to 27 days. May repeat dose once in 2 hours if no relief. Do not exceed 2 doses in 24 hours. Nonintractable headache, unspecified chronicity pattern, unspecified headache type Orders: SUMAtriptan (Imitrex) 50 MG tablet; Take 1 tablet (50 mg) by mouth 1 (one) time if needed for migraine (take no more than twice weekly) for up to 27 days. May repeat dose once in 2 hours if no relief. Do not exceed 2 doses in 24 hours. naproxen (Naprosyn) 500 MG tablet; TAKE 1 TABLET BY MOUTH EVERY DAY WITH sumatriptan WITH FOOD Assessment & Plan Chronic migraine with aura without status migrainosus, not intractable: - Prescribed headache medication with instructions to use only for the worst headache, not more than once a week. Advised to take naproxen with food to protect the stomach. Nonintractable headache, unspecified chronicity pattern, unspecified headache type: - Prescribed naproxen for headache management. Advised to take with food. Back pain: - Ordered lumbar spine X-ray. Will contact referrals for further evaluation and support. Advised tofollow up with the team across the street. Hepatitis C: - Advised to schedule laboratory testing and follow up for treatment initiation. Patient awaiting call from specialist to start treatment. Tobacco use: - Offered smoking cessation support; patient declined at this time. Prescription - Naproxen: take with food; protect stomach; limit use to worst headache only, a few times or once weekly Appointments - X-ray at downstairs imaging when possible - Follow-up with referrals team across the street - Follow-up consultation in one month Based on our discussion, I have outlined the following instructions for you: - Use your headache medication only when you have your worst headache, and do not use it more than once a week. - Take naproxen for headache, and always take it with food to protect your stomach. - Follow up with the team across the street as advised. - Schedule your laboratory tests and follow up to start treatment for hepatitis C. - Wait for the specialist to call you to begin your hepatitis C treatment. - You were offered help to quit smoking, but you chose not to use it at this time. Next appointment(s): - X-ray at downstairs imaging when possible - Follow-up with referrals team across the street - Follow-up consultation in one month Thank you again for your visit, and we look forward to supporting you in your journey to better health. This note was drafted using Ambient (AI) technology. The patient/patient's guardian has been informed and has consented to the use of this technology: Yes Visit Conducted in: Egyptian Translation by: Provided by [facility] staff member Shayna [1] Patient Active Problem List Diagnosis Opioid dependence (CMS/HCC) Tobacco dependence syndrome Viral hepatitis C Nonintractable headache Cellulitis and abscess of leg Localized edema Left leg swelling Onychomycosis Tinea pedis of both feet Injury of left ankle Urinary retention Chronic midline low back pain without sciatica Chronic migraine with aura without status migrainosus, not intractable Deviated nasal septum 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 Chronic low back pain Dietary counseling Exercise counseling Dyspnea on exertion Abnormal liver ultrasound Abnormal finding on liver function Hep C w/o coma, chronic (CMS/HCC) Hepatitis C virus infection with hepatic coma Polysubstance dependence including opioid drug with daily use (CMS/HCC) Tinea corporis Nasal congestion with rhinorrhea PTSD (post-traumatic stress disorder) Tobacco use Seasonal allergic rhinitis due to pollen Closed fracture of nasal bones Non-allergic rhinitis Rhinitis medicamentosa Disorder of nasal cavity Nasal congestion Seasonal allergic rhinitis Venous stasis documented in this encounter Miscellaneous Notes * Assessment & Plan Note - Kristina Paul NP - 12/15/2024 10:15 AM EDTAssociated Problem(s): Chronic migraine with aura without status migrainosus, not intractable Orders: SUMAtriptan (Imitrex) 50 MG tablet; Take 1 tablet (50 mg) by mouth 1 (one) time if needed for migraine (take no more than twice weekly) for up to 27 days. May repeat dose once in 2 hours if no relief. Do not exceed 2 doses in 24 hours. * Assessment & Plan Note - Kristina Paul NP - 12/15/2024 10:15 AM EDTAssociated Problem(s): Nonintractable headache Orders: SUMAtriptan (Imitrex) 50 MG tablet; Take 1 tablet (50 mg) by mouth 1 (one) time if needed for migraine (take no more than twice weekly) for up to 27 days. May repeat dose once in 2 hours if no relief. Do not exceed 2 doses in 24 hours. naproxen (Naprosyn) 500 MG tablet; TAKE 1 TABLET BY MOUTH EVERY DAY WITH sumatriptan WITH FOOD documented in this encounter Plan of Treatment Upcoming Encounters Date Type Department Care Team (Late st Contact Info) Description 12/22/2024 1:30 PM EDT Office Visit [facility] [address] [place] [phone] Tika Danielson MD [address] [place] [phone] 02/02/2025 11:30 AM EST Office Visit [facility] [address] [place] [phone] Kristina Paul NP [address] [place] [phone] documented as of this encounter Visit Diagnoses Diagnosis Chronic migraine with aura without status migrainosus, not intractable Nonintractable headache, unspecified chronicity pattern, unspecified headache type documented in this encounter Additional Health Concerns Assessment Noted Time PHQ-9 Depression Total Score: 3 0414/20 25 11:39 AM EDT documented as of this encounter Care Teams Culinary Assistant Relationship Specialty Start Date End Date Kristina Paul NP [address] [place] [address] PCP - General Family Medicine 11/08/23 documented as of this encounter
--- NOTE | ~2024-12-16 | XR_ITS ---
EXAMINATION: XR LUMBOSACRAL SPINE WITH OBLIQUES CLINICAL INFORMATION: chronic low back now radiating to left buttock, occuring more frequently COMPARISON: None available. TECHNIQUE: AP oblique and lateral views FINDINGS: No acute cortical disruption. No gross malalignment. Endplate sclerosis at multiple levels of the thoracolumbar spine. Small marginal osteophyte formation at T11-12, L2-3 and L3-4 levels.. No lytic or blastic lesions. XR/XR lumbar spine 4V min IMPRESSION: Multilevel thoracolumbar spondylosis, mild. No acute fracture or gross listhesis. Electronically signed by: Molina Hdez MD 12/16/2024 12:28 PM EDT
--- OUTSIDE RECORDS SUMMARY | 2024-12-16 13:26 | XMS_ITS | Clinical Summary ---
Author Organization [id number] Address [address] [place] [address] [address] [place] [address] Care Team Providers Care Finish Mixer Name Role Phone Kristina Paul NP Primary Care Provider Allergies No known active allergies Medications traZODone (Desyrel) 50 MG tablet TAKE 1 OR 2 TABLETS BY MOUTH EVERY DAY AT BEDTIME NEEDED 05/13/19 25 Active methadone (Dolophine) 10 MG/5ML solution Take 125 mg by mouth Once per day. Active furosemide (Lasix) 20 MG tabletIndicati ons:Localized edema Take 2 tablets (40 mg) by mouth Once per day for 5 days. Take 1 tablet by mouth wait 1-2 hours, if no increase in urine output may take second dose, do not exceed two tablets per day 10 tablet 10/07/19 25 Active triamcinolone (Kenalog) 0.1 % cream Apply topically if needed in the morning and at bedtime (pain and swelling). 30 g 2 10/22/19 25 Active propranolol LA (Inderal LA) 60 MG 24 hr capsuleIndicat ions:Chronic tension-type headache, not intractable Take 1 capsule (60 mg) by mouth Once per day. Do not crush, chew, or split. 90 capsule 1 10/22/19 25 026 Active fluticasone (Flonase) 50 MCG/ACT nasal sprayIndicatio ns:Nasal congestion with rhinorrhea Administer 1 spray into each nostril Once per day. Shake gently. Before first use, prime pump. After use, clean tip and replace cap. 16 g 2 10/22/19 25 026 Active tamsulosin (Flomax) 0.4 MG 24 hr capsuleIndicat ions:Retention , urine Take 1 capsule (0.4 mg) by mouth Once per day. 90 capsule 1 11/14/19 25 Active tiZANidine (Zanaflex) 2 MG tablet TAKE 2 TABLETS BY MOUTH AT BEDTIME NEEDED FOR MUSCLE SPASMS 30 tablet 12/05/19 25 Active SUMAtriptan (Imitrex) 50 MG tabletIndicati [...] doses in 24 hours. 9 tablet 2 12/16/19 25 025 Active naproxen (Naprosyn) 500 MG tabletIndicati ons:Nonintract able headache, unspecified chronicity pattern, unspecified headache type TAKE 1 TABLET BY MOUTH EVERY DAY WITH sumatriptan WITH FOOD 60 tablet 12/16/19 25 Active escitalopram (Lexapro) 20 MG tablet Take 1 tablet (20 mg) by mouth Once per day. Do not start before August 20, 2024. 30 tablet 2 08/21/19 25 025 Discontinued(T herapy completed) tiZANidine (Zanaflex) 2 MG tablet TAKE 2 TABLETS BY MOUTH EVERY DAY AT BEDTIME NEEDED FOR MUSCLE SPASMS 30 tablet 10/22/19 25 025 Discontinued SUMAtriptan (Imitrex) 50 MG tabletIndicati ons:Chronic migraine [...] doses in 24 hours. 9 tablet 2 10/22/19 25 025 Discontinued(R eorder (will not trigger notification to Pharmacy)) naproxen (Naprosyn) 500 MG tabletIndicati ons:Nonintract able headache, unspecified chronicity pattern, unspecified headache type TAKE 1 TABLET BY MOUTH EVERY DAY WITH sumatriptan WITH FOOD 60 tablet 10/29/19 25 025 Discontinued(R eorder (will not trigger notification to Pharmacy)) Active Problems Problem Noted Date Diagnosed Date Venous stasis 10/21/2024 Assessment & Plan (10/21/2024 1:32 PM EDT): Continue with skin care, activity, minimizing activity, elevation and compressions stockings Seasonal allergic rhinitis due to pollen 025 Tinea corporis 05/12/2024 Assessment & Plan (06/09/2024 10:23 AM EDT): Cream effective, renew Nasal congestion with rhinorrhea 05/12/2024 Assessment & Plan (10/21/2024 1:32 PM EDT): stable Assessment & Plan (08/19/2024 3:48 PM EDT): Continue with topical nasal steroid Assessment & Plan (06/09/2024 10:24 AM EDT): Topical nasal spray referral to ent PTSD (post-traumatic stress disorder) 05/12/2024 Tobacco use 05/12/2024 Assessment & Plan (10/21/2024 1:32 PM EDT): Encouraged reduction Assessment & Plan (08/19/2024 3:49 PM EDT): Declines assistance cutting back today Assessment & Plan (06/09/2024 10:24 AM EDT): Pt declines assistance cutting down today Hepatitis C virus infection with hepatic coma Non-allergic rhinitis 04/29/2024 Rhinitis medicamentosa 04/29/2024 Disorder of nasal cavity 04/29/2024 Nasal congestion 04/29/2024 Seasonal allergic rhinitis 04/29/2024 Abnormal finding on liver function 03/25/2024 Assessment [...] problem 01/19/2024 Chronic low back pain 01/19/2024 Assessment & Plan (10/21/2024 1:33 PM EDT): Pt with difficulty facilitating and attending visits. [facility] team is working on scheduling on behalf of patient, Assessment & Plan (08/19/2024 3:50 PM EDT): Radiating down left leg, no trauma, referral to PT and physiatry, Assessment & Plan (08/11/2024 11:04 AM EDT): Acute on chronic lbp, X-rays ordered Consider MRI due to radiation, Referral to physical therapy, referral to physiatry , per pt report he has not heard from them from previous referrals. Dietary counseling 01/19/2024 Assessment & Plan (06/09/2024 [...] w ithout status migrainosus, not intractable 12/26/2023 Assessment & Plan (12/15/2024 10:44 AM EDT): Orders: SUMAtriptan (Imitrex) 50 MG tablet; Take 1 tablet (50 mg) by mouth 1 (one) time if needed for migraine (take no more than twice weekly) for up to 27 days. May repeat dose once in 2 hours if no relief. Do not exceed 2 doses in 24 hours. 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 No evidence of cellulitis today [...] Dvt ultrasound ordered to be completed at [facility]. Assessment & Plan (07/07/2023 1:25 PM EDT): Cellulitis of the RLE. docxycline prescribed. Started on abx 4/3 doxyclinine Less redness , less swelling No fever, continue Rtc in 1 week Advised elevation, and compression stockings ordered Sooner should leg swell, increased redness, or any sob Opioid dependence 07/04/2023 Assessment & Plan (10/21/2024 1:34 PM EDT): Pt currently in residential care, supported and reports confidence in sobriety Assessment & Plan (06/09/2024 10:24 AM EDT): Stable in current program Assessment & Plan (01/19/2024 3:50 PM EDT): Pt recently overdosed, re established in program, feels supported Tobacco dependence syndrome 07/04/2023 Assessment & Plan (07/07/2023 1:25 PM EDT): Reviewed relationship between tobacco and skin infection, pt declines assistance today Viral hepatitis C 07/04/2023 Assessment & Plan (08/19/2024 3:49 PM EDT): In care with infectious disease at [facility] at [facility] Assessment & Plan (01/25/2024 5:57 PM EDT): Abdominal ultrasound ordered Assessment & Plan (10/06/2023 8:48 PM EDT): -patient reports history of hep C infection -labs ordered to [facility] current infection -will refer to [facility] for treatment if lab results reveal active infection Assessment & Plan (09/21/2023 9:01 AM EDT): In care with [facility] ID. Assessment & Plan (08/25/2023 8:20 PM EDT): Interested in management Assessment & Plan (07/07/2023 1:24 PM EDT): Due for labs, pt plans to complete this week Nonintractable headache 07/04/2023 Assessment & Plan (12/15/2024 10:44 AM EDT): Orders: SUMAtriptan (Imitrex) 50 MG tablet; Take [...] WITH sumatriptan WITH FOOD Assessment & Plan (06/09/2024 10:23 AM EDT): Renew medications, reviewed abortive therapy Assessment & Plan (01/25/2024 5:56 PM EDT): Continue propranolol Assessment & Plan (01/19/2024 3:50 PM EDT): Reviewed treatment options, pt opts for trial of preventative medication Assessment & Plan (07/04/2023 3:18 PM EDT): Headache diary Bello,itriptan with naproxen Closed fracture of nasal bones 11/21/2021 Overview (10/21/2024): Nasal fx, closed; Note: Date Diagnosed: 11/21/2021 8:57 AM (802.0) Fracture of nasal bones, initial encounter for closed fracture; Note: Date Diagnosed: 11/21/2021 8:59 AM (S02.2XXA) Polysubstance dependence inc luding opioid drug with daily use 11/24/2020 Encounters Date Type Department Care Team Description 12/15/2024 10:15 AM EDT Office Visit [facility] [address] [place] [phone] Kristina Paul NP Chronic migraine with aura without status migrainosus, not intractable; Nonintractable headache, unspecified chronicity pattern, unspecified headache type 12/15/2024 Patient Outreach [facility] [address] [place] [phone] Jenny Barker Recovery Supports 12/15/[address] [address] Annamaria Luis RN 12/15/2024 Travel 12/11/[address] [phone] Kristina Paul NP CHARTPREP 12/08/2024 Orders Only GENERIC EXTERNAL DATA DEPARTMENT Provider, Generic External Data 12/03/2024 Refill [facility] [address] [place] [phone] Kristina Paul NP 11/17/2024 Results Follow-Up [facility] [address] [place] [phone] Kristina Paul NP Comprehensive Metabolic Panel, Hepatic Function Panel, Hepatitis C Viral RNA, Quantitative, Real-Time PCR 11/14/2024 Orders Only [facility] [address] [facility] [place] [address] Kristina Paul NP 11/14/2024 Telephone [facility] [address] [place] [address] Yovana Yu RN 11/13/2024 Refill [facility] [address] [facility] [place] [address] Kristina Paul NP Retention, urine 10/27/2024 Refill [facility] [address] [facility] [place] [address] Gloria Roca MD Nonintractable headache, unspecified chronicity pattern, unspecified headache type 10/22/2024 Telephone [facility] [address] [facility] [place] [address] Yovana Yu RN 10/21/2024 11:30 AM EDT Office Visit [address] [place] [address] Kristina Paul NP Venous stasis (Primary Dx); Chronic tension-type headache, not intractable; Chronic migraine with aura without status migrainosus, not intractable; Nonintractable headache, unspecified chronicity pattern, unspecified headache type; Nasal congestion with rhinorrhea; Healthcare maintenance; Tobacco use; Chronic low back pain, unspecified back pain laterality, unspecified whether sciatica present; Opioid dependence in remission (CMS/HCC); Urinary retention 10/21/2024 Patient Outreach [facility] [address] [place] [address], [place] [phone] Daniel Prasad Recovery Supports 10/21/2024 Travel 10/21/2024 Refill [facility] [address] [place] [address] Kristina Paul NP Chronic tension-type headache, not intractable 10/14/2024 Refill [facility] [address] [facility] [place] [address] Kristina Paul NP Localized edema 10/14/2024 Refill [facility] [address] [facility] [place] [address] Gloria Roca MD 10/06/2024 Refill [facility] [address] [place] [address] Kristina Paul NP Localized edema 09/15/2024 Telephone [facility] [address] [place] [address] Kristina Paul NP Chart Prep from Last 3 Months Immunizations Immunization Administration Dates Next Due Hep A, Adult [...] Mass Index 35.19 12/15/2024 9:50 AM EDT Plan of Treatment Upcoming Encounters Date Type Department Care Team (Late st Contact Info) Description 12/22/2024 1:30 PM EDT Office Visit [facility]INE [address] [place] [phone] Tika Danielson MD [address] [place] [phone] 02/02/2025 11:30 AM EST Office Visit [facility] [address] [place] [phone] Kristina Paul NP [address] [place] [address] Health Maintenance Due Date Last Done Comments Lipid Panel 1980 Family Planning (PISQ) 01/29/1995 HPV Vaccines (1 - Male 3-dos e series) 01/29/1995 Pneumococcal Vaccine: Pediatrics (0 to 5 Years) and At-Risk Patients (6 to 49) Years (1 of 2 - PCV) 01/29/1999 Hepatitis B Vaccines (2 of 3 - 19+ 3-dose series) 09/29/2020 09/01/2020 Hepatitis A Vaccines (2 of 2 - Risk 2-dose series) 03/07/2022 09/05/2021 COVID-19 Vaccine (4 - 2024-2 6 season) 2024 01/13/2022, 08/24/2020, 07/27/2020 Influenza Vaccine (#1) 2024 03/23/2022 Alcohol/Substance Use Screening 12/25/2024 12/26/2023 SDOH Screening 05/12/2025 05/12/2024 Depression Screening 07/14/2025 07/14/2024, 07/14/2024 Disability Screening 08/11/2025 08/11/2024 Tobacco Screening 12/15/2025 12/15/2024 Zoster Vaccines (1 of 2) 01/29/2030 DTaP/Tdap/Td [...] patient's age to complete this topic Meningococcal B Vaccine Aged Out No l onger eligible based on patient's age to complete [...] Procedure Name Priority Date/Time Associated Diagnosis Comments XR LUMBAR SPINE COMPLETE 4+ VIEWS Routine 12/16/2024 12:20 PM EDT Chronic low back pain with bilateral sciatica, unspecified back pain laterality HEPATITIS C VIRAL RNA GENOTYPE, LIPA Routine 12/08/2024 9:24 AM EDT PSA, TOTAL Routine 12/08/2024 9:24 AM EDT HEPATITIS C VIRAL RNA, QUANTITATIVE, REAL-TIME PCR Routine 11/14/2024 10:31 AM EDT HEPATIC FUNCTION PANEL Routine 10:31 AM EDT COMPREHENSIVE METABOLIC PANEL Routine 11/14/2024 10:31 AM EDT HIV 1/2 ANTIGEN/ANTIBODY, FOURTH GENERATION W/RFL Routine 09/03/2023 9:34 AM EDT Chronic hepatitis C without hepatic coma (CMS/HCC) from Last 3 Months or Most Recently Relevant to Health Maintenance Results * XR Lumbar Spine Complete 4+ Views (12/16/2024 12:20 PM EDT) Anatomical Region Laterality Modality Spine, L-spine Radiographic Adriane ging 12/16/2024 12:2 0 PM EDT Narrative 12/16/2024 12:31 [place] [address] XRay Report Signed Patient: Thony Barker MR#: [id number] : 1980 Acct:[id number] Age/Sex: 44 / M ADM Date: 12/16/24 Loc: HO.HHCX Attending Dr: Kristina Paul RNFA Ordering Physician: Kristina Paul NP Date of Service: 12/16/24 Procedure(s): XR lumbar spine 4V min Accession Number(s): [id number] cc: Kristina Paul NP Reason for Exam: chronic low back now radiating to left buttock, occuring more frequently EXAMINATION: XR LUMBOSACRAL SPINE WITH OBLIQUES CLINICAL INFORMATION: chronic low back now radiating to left buttock, occuring more frequently COMPARISON: None available. TECHNIQUE: AP oblique and lateral views FINDINGS: No acute cortical disruption. No gross malalignment. Endplate sclerosis at multiple levels of the thoracolumbar spine. Small marginal osteophyte formation at T11-12, L2-3 and L3-4 levels.. No lytic or blastic lesions. XR/XR lumbar spine 4V min IMPRESSION: Multilevel thoracolumbar spondylosis, mild. No acute fracture or gross listhesis. Electronically signed by: Molina Hdez MD 12/16/2024 12:28 PM EDT RP Dictated By: Molina Iqbal MD Signed By: <Electronically signed by Molina Pederson MD in OV> 12/16/24 1228 DD/ 1220 TD/TT: 12/16/24 1221 Gettering Operator: Procedure Note Donotuseinterpreter, Image - 12/16/2024 [place] [address] XRay Report Signed Patient: Barbara Barker#: [id number] : 1980Acct:[id number] Age/Sex: 44 / MADM Date: 12/16/24 Loc: HO.HHCX Attending Dr: Kristina Paul RNFA Ordering Physician: Kristina Paul NP Date of Service: 12/16/24 Procedure(s): XR lumbar spine 4V min Accession Number(s): [id number] cc: Kristina Paul NP Reason for Exam: chronic low back now radiating to left buttock, occuringmore frequently EXAMINATION: XR LUMBOSACRAL SPINE WITH OBLIQUES CLINICAL INFORMATION: chronic low back now radiating to left buttock, occuring more frequently COMPARISON: None available. TECHNIQUE: AP oblique and lateral views FINDINGS: No acute cortical disruption. No gross malalignment. Endplate sclerosis at multiple levels of the thoracolumbar spine. Small marginal osteophyte formation at T11-12, L2-3 and L3-4 levels.. No lytic or blastic lesions. XR/XR lumbar spine 4V min IMPRESSION: Multilevel thoracolumbar spondylosis, mild. No acute fracture or gross listhesis. Electronically signed by: Molina Hdez MD 12/16/2024 12:28 PM EDT RP Dictated By: Molina Iqbal MD Signed By: <Electronically signed by Molina Pederson MDin OV> 12/16/24 1228 DD/ 1220 TD/TT: 12/16/24 1221 Gettering Operator: us Kristina Paul NP IMG XR PROCEDURES Edited Result - Final * Hepatitis C Viral RNA, Genotype, LiPA (12/08/2024 9:24 AM EDT) Hepatitis C Genotype 1a Not Detected [facility] Comment:The methods used in this test are RT-PCR and DNASequencing of the 5' UTR and core region of the HCVgenome.For additional information, please refer tohttp://education.Open English/faq/HCVGenotyping(This link is being provided for informational/educational purposes only.)This test was developed and its analytical performancecharacteristics have been determined by [facility]. It has not been cleared or approved bythe FDA. The assay has been validated pursuant to theIA regulations and is used for clinical purposes.THIS TEST WAS PERFORMED AT:[employer] [id number] [place] [id number] VILLAGRAN MD,PHD 12/08/2024 9:24 AM EDT 12/08/2024 11:21 AM EDT us Tika Danielson MD LAB BLOOD ORDERABLES Final R esult [facility] [address] [place] [phone] * PSA,Total (12/08/2024 9:24 AM EDT) Pathologist [facility] Prostate Specific Antigen 0.10 <0.05 - 4.0 ng/mL [facility] Comment:PSA methodology: Abb guerline Alioctavioty i ChemiluminescentMicroparticle Immunoassay (CMIA) 12/08/2024 9:24 AM EDT 12/08/2024 11:21 AM EDT us Generic External Data Provider LAB BLOOD ORDERAB LES Final Result Performing Organization Address [facility] Co de Phone Number [facility] [address] [place] [phone] * (ABNORMAL) Hepatitis C Viral RNA, Quantitative, Real-Time PCR (11/14/2024 10:31 AM EDT) Hepatitis C Viral Load 5525735(A ) NOT DETECTED IU/mL [facility] HCV Log PCR 6.71(A) NOT DETECTED Log IU/mL [facility] Comment:For additional infor mation, please refer tohttp://education.NovaPlanner/faq/RZC74y8(This link is being provided for informational/educational purposes only.)THIS TEST WAS PERFORMED AT:[employer] [place] [id number] SIERRA MD 11/14/2024 10:3 1 AM EDT 11/14/2024 1:21 PM EDT Tika Danielson MD LAB BLOOD ORDERABLES Final R esult Performing Organization Address [facility] Co de Phone Number [facility] [address] [place] [phone] * Hepatic Function Panel (11/14/2024 10:31 AM EDT) Bilirubin, Direct 0.2 0.0 - 0.5 mg/dL [facility] 11/14/2024 10:3 1 AM EDT 11/14/2024 1:21 PM EDT Tika Danielson MD LAB BLOOD ORDERABLES Final R esult Performing Organization Address City/[facility] Co de Phone Number [facility] [address] [place] [phone] * (ABNORMAL) Comprehensive Metabolic Panel (11/14/2024 10:31 AM EDT) Sodium 137 135 - 145 mmol/L [facility] Potassium 4.5 3.3 - 5.1 mmol/L [facility] Chloride 103 96 - 108 mmol/L [facility] Carbon Dioxide 26 22 - 29 mmol/L [facility] Anion Gap 13 12 - 20 [facility] Urea Nitrogen (BUN) 10 9 - 16 mg/dL [facility] Creatinine, Serum 0.78 0.5 - 1.4 mg/dL [facility] Estimated Glomerular Filt Rate >60 [facility] Comment:Chronic Kidney Disea se: Estimated GFR < 60 mL/min/[id number] Kidney Disease: Estimated GFR < 15 mL/min/1.73m2 Glucose 87 60 - 115 mg/dL [facility] Calcium 9.8 8.4 - 10.2 mg/dL [facility] Bilirubin, Total 0.4 0.0 - 1.0 mg/dL [facility] Aspartate Amino Transferase 41(H) 5 - 37 U/L [facility] Alanine Aminotransferase 30 0 - 40 U/L [facility] Total Protein 7.5 6.5 - 8.0 g/dL [facility] Albumin Level 4.2 3.5 - 5.0 g/dL [facility] Alkaline Phosphatase 87 39 - 117 U/L [facility] 11/14/2024 10:3 1 AM EDT 11/14/2024 1:21 PM EDT us Kristina Paul RNFA LAB BLOOD ORDERABLES Final Resul t [facility] [address] [place] [phone] * HIV-1/2 Antigen and Antibodies, Fourth Generation, with Reflexes (09/03/2023 9:34 AM EDT) HIV AB/AG Nonreactive Nonreactive [facility] Comment:HIV-1 p24 Ag and/or HIV-1/HIV-2 Ab not detected.A test result that is nonreactive does not exclude thepossibility of exposure to or infection with HIV-1 and/orHIV-2. Nonreactive results in this assay for individualswith prior exposure to HIV-1 and/or HIV-2 may be due toantigen and antibody levels that are below the limit ofdetection of this assay.The [employer] HIV Ag/Ab Combo assay result andsupplemental assay results should be interpreted inconjunction with the patient's clinical presentation,history and other laboratory results. If the results areinconsistent with clinical evidence, additional testing issuggested to confirm the result. 09/03/2023 9:34 AM EDT 09/03/2023 11:55 AM EDT us Ana Sanchez NP LAB BLOOD ORDERABLES Final Resu lt [facility] [address] [place] [phone] from Last 3 Months or Most Recently Relevant to Health Maintenance Insurance [facility] [facility] [address] [place] [phone] Care Teams Finish Mixer Relationship Specialty Start Date End Date Kristina Paul NP [address] [place] [phone] PCP - General Family Medicine 11/08/23
--- OUTSIDE RECORDS SUMMARY | 2024-12-16 13:26 | XMS_ITS | Encounter Summary ---
Author Organization [employer] Address [address] [place] [address] 7 [place] [address] Care Team Providers Care Warehouse Team Leader Name Role Phone Ana Sanchez CARPET BINDER Primary Care Provider [phone] Kristina Paul CARPET BINDER Primary Care Provider [phone] Encounter Details Date Type Department Care Team ([facility] st Contact Info) Description 08/06/2023 Orders Only [facility] MEDICINE [address] [place] [address] Gloria Roca MD [address] [place] [address] Chronic hepatitis C without hepatic coma (CMS/HCC) [...] Description 12/22/2024 1:30 PM EDT Office Visit [facility] MEDICINE [address] [place] [phone] Tika Danielson MD [address] [place] [address] 02/02/2025 11:30 AM EST Office Visit [address] [address] Kristina Paul NP [address] [place], [place] [phone] documented as of this encounter Procedures Procedure [...] 11:25 AM EST) Hepatitis C Viral Load 1998150(A ) NOT DETECTED IU/mL [facility] HCV Log PCR 6.56(A) NOT DETECTED Log IU/mL [facility] Comment:For additional infor merari, please refer tohttp://education.DebtMarket/faq/PAB62x1(This link is being provided for informational/educational purposes only.)THIS TEST WAS PERFORMED AT:[facility] [place] [id number] SIERRA MD 03/25/2024 11:2 5 AM EST 03/27/2024 3:00 PM EST us Kristina Paul CARPET BINDER LAB BLOOD ORDERABLES Final Resul t [facility] [address] [place] [address] [phone] * (ABNORMAL) Liver Fibrosis (HCV), FibroTest-ActiTest Panel (09/03/2023 9:34 AM EDT) Liver Fibrosis Score 0.42 [facility] Liver Fibrosis Stage F1-F2 [facility] Liver Fibrosis Interpretation SEE NOTE [facility] Comment:minimal fibrosisFibr o Test Score (f) Metavir Score f>=0 and f<=0.21 : F0 (no fibrosis)f>0.21 and f<=0.27 : F0-F1 (no fibrosis)f>0.27 and f<=0.31 : F1 (minimal fibrosis)f>0.31 and f<=0.48 : F1-F2 (minimal fibrosis)f>0.48 and f<=0.58 : F2 (moderate fibrosis)f>0.58 and f<=0.72 : F3 (advanced fibrosis)f>0.72 and f<=0.74 : F3-F4 (advanced fibrosis)f>0.74 and f<=1.00 : F4 (severe fibrosis) Nec Inflam Act Score 0.17 [facility] Nec Inflam Act Grade A0-A1 [facility] Nec Inflam Act Interpretation SEE NOTE [facility] Comment:no activityActiTest Score (a) Metavir Score a>=0 and a<=0.17 : A0 (no activity)a>0.17 and a<=0.29 : A0-A1 (no activity)a>0.29 and a<=0.36 : A1 (minimal activity)a>0.36 and a<=0.52 : A1-A2 (minimal activity)a>0.52 and a<=0.60 : A2 (significant activity)a>0.60 and a<=0.62 : A2-A3 (significant activity)a>0.62 and a<=1.00 : A3 (severe activity) TOX-Oswtd-6-Macroglo bulin 269 106 - 279 mg/dL [facility] FIB-Haptoglobin 101 43 - 212 mg/dL [facility] FIB-Apolipoprotein A1 153 94 - 176 mg/dL [facility] FIB-Total Bilirubin 0.3 0.2 - 1.2 mg/dL [facility] FIB-GGT 215(A) 3 - 95 U/L [facility] FIB-ALT 30 9 - 46 U/L [facility] Reference ID [id number] [facility] Footnote SEE NOTE [facility] Comment: The reliability of results is [...] and C.The performance characteristics have been determined by[facility]. Ithas not been cleared or approved by the U.S. Food and DrugAdministration. Performance characteristics refer to theanalytical performance of the test.Udacity, [employer], the associated logo, Papa and all associated Ahaali capellan are theregistered trademarks of Ahaali. All third partymarks - (R) and (TM) - are the property of their respectiveowners. (C) [id number] [employer]. Allrights reserved.THIS TEST WAS PERFORMED AT:[employer] [id number] [place] [address]XOYIPSYED SANCHEZ MD,PHD,ROXY 09/03/2023 9:34 AM EDT 09/03/2023 11:55 AM EDT [facility] BLOOD ORDERABLES Final Resu lt Performing Organization Address [facility] Co de Phone Number [facility] [address] [place] [phone] * Hepatitis C Viral RNA, Genotype, LiPA (09/03/2023 9:34 AM EDT) Hepatitis C Genotype 1a [facility] Comment:The method used in t his test is RT-PCR and reversehybridization (Line Probe) of the 5' UTR and coreregion of the HCV genome.The analytical performance characteristics of thisassay have been determined by [facility], [place], [place]. The modificationshave not been cleared or approved by the FDA. Thisassay has been validated pursuant to the CLIAregulations and is used for clinical purposes.For additional information, please refer tohttp://education.RessQ Technologies/faq/HCVGenotyping(This link is being provided for informational/educational purposes only.)THIS TEST WAS PERFORMED AT:[employer] [id number] [place] [address]ZHGOYQSSHELLEY VILLAGRAN MD,PHD 09/03/2023 9:34 AM EDT 09/03/2023 11:14 AM EDT [facility] LAB BLOOD ORDERABLES Final Resu lt Performing Organization Address City/[facility]/ZIP Co de Phone Number [facility] [address] [place] [address] [phone] * HIV-1/2 Antigen and Antibodies, Fourth Generation, with Reflexes (09/03/2023 9:34 AM EDT) HIV AB/AG Nonreactive Nonreactive [facility] Comment:HIV-1 p24 Ag and/or HIV-1/HIV-2 Ab not detected.A test result that is nonreactive does not exclude thepossibility of exposure to or infection with HIV-1 and/orHIV-2. Nonreactive results in this assay for individualswith prior exposure to HIV-1 and/or HIV-2 may be due toantigen and antibody levels that are below the limit ofdetection of this assay.The [employer] HIV Ag/Ab Combo assay result andsupplemental assay results should be interpreted inconjunction with the patient's clinical presentation,history and other laboratory results. If the results areinconsistent with clinical evidence, additional testing issuggested to confirm the result. 09/03/2023 9:34 AM EDT 09/03/2023 11:55 AM EDT Ana Sanchez NP LAB BLOOD ORDERABLES Final Resu lt Performing Organization Address [facility] Co de Phone Number [facility] [address] [place] [phone] * (ABNORMAL) Prothrombin Time-INR (09/03/2023 9:34 AM EDT) Prothrombin Time 9.9(L) 11.1 - 13.3 SEC [facility] INTERNATIONAL NORM RATIO 0.8(L) 0.9 - 1.1 [facility] Comment:INTERNATIONAL NORMAL IZED RATIO (INR) REFERENCE [...] 09/03/2023 11:58 AM EDT us Ana Sanchez CARPET BINDER LAB BLOOD ORDERABLES Final Resu lt [facility] [address] [place] [address] [phone] * CBC auto differential (09/03/2023 9:34 AM EDT) White Blood Count 7.0 4.8 - 10.8 X10*3/uL [facility] Red Blood Count 5.01 4.60 - 5.80 X10*6/uL [facility] Hemoglobin 14.4 14.0 - 18.0 g/dl [facility] Hematocrit 45.0 42.0 - 52.0 % [facility] Mean Corpuscular Volume 89.8 80.0 - 98.0 fL [facility] Mean Corpuscular Hemoglobin 28.7 27.0 - 33.0 pg [facility] Mean Corpuscular HGB Conc 32.0 31.0 - 36.0 g/dl [facility] Red Cell Distribution Width 13.3 11.0 - 16.0 % [facility] Platelet Count 186 160 - 400 X10*3/uL [facility] Mean Platelet Volume 10.5 9.4 - 12.4 fL [facility] Neutrophils Percent Auto 61.5 45 - 73 % [facility] Imm Gran Pct Auto 0.3 0.0 - 0.4 % [facility] Lymphocytes Percent Auto 30.3 20 - 40 % [facility] Monocytes Percent Auto 6.1 2 - 11 % [facility] Eosinophils Percent Auto 1.4 0 - 4 % [facility] Basophils Percent Auto 0.4 0 - 2 % [facility] NRBC Pct Auto 0.0 0.0 - 0.2 /100WBC [facility] Neutrophils Absolute Auto 4.3 2.0 - 8.3 x10*3/uL [facility] Imm Gran Abs Auto 0.02 0.00 - 0.03 X10*3/uL [facility] Lymphocytes Absolute Auto 2.1 1.2 - 4.9 X10*3/uL [facility] Monocytes Absolute Auto 0.4 0.1 - 1.2 X10*3/uL [facility] Eosinophils Absolute Auto 0.1 0.0 - 0.4 X10*3/uL [facility] Basophils Absolute Auto 0.0 0.0 - 0.2 X10*3/uL [facility] NRBC Abs Auto 0.000 0.0 - 0.012 X10*3/uL [facility] 09/03/2023 9:34 AM EDT 09/03/2023 11:58 AM EDT Ana Sanchez NP LAB BLOOD ORDERABLES Final Resu lt [facility] [address] [place] [phone] [phone] * (ABNORMAL) Liver Fibrosis (HCV), FibroTest-ActiTest Panel (08/15/2023 9:33 AM EDT) Liver Fibrosis Score 0.51 [facility] Liver Fibrosis Stage F2 [facility] Liver Fibrosis Interpretation SEE NOTE [facility] Comment:moderate fibrosisFib ro Test Score (f) Metavir Score f>=0 and f<=0.21 : F0 (no fibrosis)f>0.21 and f<=0.27 : F0-F1 (no fibrosis)f>0.27 and f<=0.31 : F1 (minimal fibrosis)f>0.31 and f<=0.48 : F1-F2 (minimal fibrosis)f>0.48 and f<=0.58 : F2 (moderate fibrosis)f>0.58 and f<=0.72 : F3 (advanced fibrosis)f>0.72 and f<=0.74 : F3-F4 (advanced fibrosis)f>0.74 and f<=1.00 : F4 (severe fibrosis) Nec Inflam Act Score 0.28 [facility] Nec Inflam Act Grade A0-A1 [facility] Nec Inflam Act Interpretation SEE NOTE [facility] Comment:no activityActiTest Score (a) Metavir Score a>=0 and a<=0.17 : A0 (no activity)a>0.17 and a<=0.29 : A0-A1 (no activity)a>0.29 and a<=0.36 : A1 (minimal activity)a>0.36 and a<=0.52 : A1-A2 (minimal activity)a>0.52 and a<=0.60 : A2 (significant activity)a>0.60 and a<=0.62 : A2-A3 (significant activity)a>0.62 and a<=1.00 : A3 (severe activity) GMY-Nkcng-1-Macroglo bulin 261 106 - 279 mg/dL [facility] FIB-Haptoglobin 83 43 - 212 mg/dL [facility] FIB-Apolipoprotein A1 152 94 - 176 mg/dL [facility] FIB-Total Bilirubin 0.4 0.2 - 1.2 mg/dL [facility] FIB-GGT 236(A) 3 - 95 U/L [facility] FIB-ALT 40 9 - 46 U/L [facility] Reference ID [id number] [facility] Footnote SEE NOTE [facility] Comment: The reliability of results is [...] and C.The performance characteristics have been determined by[facility]. Ithas not been cleared or approved by the U.S. Food and DrugAdministration. Performance characteristics refer to theanalytical performance of the test.[employer], the associated logo, [employer] and all associated Ahaali capellan are theregistered trademarks of Ahaali. All third partymarks - (R) and (TM) - are the property of their respectiveowners. (C) [id number] [employer]. Allrights reserved.THIS TEST WAS PERFORMED AT:[employer] [id number] [place] [address]NZWHVSYED SANCHEZ MD,PHD,ROXY 08/15/2023 9:33 AM EDT 08/15/2023 11:22 AM EDT Ana Collado CARPET BINDER LAB BLOOD ORDERABLES Final Resu lt [facility] [address] [place] [phone] * Hepatitis C Viral RNA, Genotype, LiPA (08/15/2023 9:33 AM EDT) Hepatitis C Genotype 1a [facility] Comment:The method used in t his test is RT-PCR and reversehybridization (Line Probe) of the 5' UTR and coreregion of the HCV genome.The analytical performance characteristics of thisassay have been determined by [facility], [place], [place]. The modificationshave not been cleared or approved by the FDA. Thisassay has been validated pursuant to the CLIAregulations and is used for clinical purposes.For additional information, please refer tohttp://education.Footmarks.Sova/faq/HCVGenotyping(This link is being provided for informational/educational purposes only.)THIS TEST WAS PERFORMED AT:[id number] [place] [address]MKNKHFKSHELLEY VILLAGRAN MD,PHD 08/15/2023 9:33 AM EDT 08/15/2023 11:22 AM EDT [facility] CARPET BINDER LAB BLOOD ORDERABLES Final Resu lt Performing Organization Address [facility]/ZIP Co de Phone Number [facility] [address] [place] [phone] * Hepatitis B surface antigen, EIA (08/15/2023 9:33 AM EDT) Pathologist [facility] Hepatitis B Surface Ag Negative Negative [facility] 08/15/2023 9:33 AM EDT 08/15/2023 11:22 AM EDT [facility] CARPET BINDER LAB BLOOD ORDERABLES Final Resu lt Performing Organization Address [facility]/ZIP Co de Phone Number [facility] [address] [place] [phone] * HIV-1/2 Antigen and Antibodies, Fourth Generation, with Reflexes (08/15/2023 9:33 AM EDT) Pathologist [facility] HIV AB/AG Nonreactive Nonreactive [facility] Comment:HIV-1 p24 Ag and/or HIV-1/HIV-2 Ab not detected.A test result that is nonreactive does not exclude thepossibility of exposure to or infection with HIV-1 and/orHIV-2. Nonreactive results in this assay for individualswith prior exposure to HIV-1 and/or HIV-2 may be due toantigen and antibody levels that are below the limit ofdetection of this assay.The [employer] HIV Ag/Ab Combo assay result andsupplemental assay results should be interpreted inconjunction with the patient's clinical presentation,history and other laboratory results. If the results areinconsistent with clinical evidence, additional testing issuggested to confirm the result. 08/15/2023 9:33 AM EDT 08/15/2023 11:22 AM EDT [facility] CARPET BINDER LAB BLOOD ORDERABLES Final Resu lt Performing Organization Address [facility] Co de Phone Number [facility] [address] [place] [phone] * Prothrombin Time-INR (08/15/2023 9:33 AM EDT) Prothrombin Time 11.2 11.1 - 13.3 SEC [facility] INTERNATIONAL NORM RATIO 0.9 0.9 - 1.1 [facility] Comment:INTERNATIONAL NORMAL IZED RATIO (INR) REFERENCE [...] 9:33 AM EDT 08/15/2023 11:29 AM EDT [facility] CARPET BINDER LAB BLOOD ORDERABLES Final Resu lt Performing Organization Address [facility] Co de Phone Number [facility] [address] [place] [phone] * (ABNORMAL) CBC auto differential (08/15/2023 9:33 AM EDT) White Blood Count 4.9 4.8 - 10.8 X10*3/uL [facility] Red Blood Count 5.00 4.60 - 5.80 X10*6/uL [facility] Hemoglobin 14.4 14.0 - 18.0 g/dl [facility] Hematocrit 44.4 42.0 - 52.0 % [facility] Mean Corpuscular Volume 88.8 80.0 - 98.0 fL [facility] Mean Corpuscular Hemoglobin 28.8 27.0 - 33.0 pg [facility] Mean Corpuscular HGB Conc 32.4 31.0 - 36.0 g/dl [facility] Red Cell Distribution Width 13.3 11.0 - 16.0 % [facility] Platelet Count 219 160 - 400 X10*3/uL [facility] Mean Platelet Volume 10.4 9.4 - 12.4 fL [facility] Neutrophils Percent Auto 49.7 45 - 73 % [facility] Imm Gran Pct Auto 0.2 0.0 - 0.4 % [facility] Lymphocytes Percent Auto 35.7 20 - 40 % [facility] Monocytes Percent Auto 9.7 2 - 11 % [facility] Eosinophils Percent Auto 4.3(H) 0 - 4 % [facility] Basophils Percent Auto 0.4 0 - 2 % [facility] NRBC Pct Auto 0.0 0.0 - 0.2 /100WBC [facility] Neutrophils Absolute Auto 2.4 2.0 - 8.3 x10*3/uL [facility] Imm Gran Abs Auto 0.01 0.00 - 0.03 X10*3/uL [facility] Lymphocytes Absolute Auto 1.7 1.2 - 4.9 X10*3/uL [facility] Monocytes Absolute Auto 0.5 0.1 - 1.2 X10*3/uL [facility] Eosinophils Absolute Auto 0.2 0.0 - 0.4 X10*3/uL [facility] Basophils Absolute Auto 0.0 0.0 - 0.2 X10*3/uL [facility] NRBC Abs Auto 0.000 0.0 - 0.012 X10*3/uL [facility] 08/15/2023 9:33 AM EDT 08/15/2023 11:22 AM EDT us Ana Appram CARPET BINDER LAB BLOOD ORDERABLES Final Resu lt [facility] [address] [place] [phone] documented in this encounter Visit Diagnoses Diagnosis Chronic hepatitis C without hepatic coma (CMS/HCC)- Primary documented in this encounter Additional Health Concerns Assessment Noted Time PHQ-9 Depression Total Score: 0 07/04/19 24 1:59 PM EDT documented as of this encounter Care Teams Warehouse Team Leader Relationship Specialty Start Date End Date Ana Sanchez NP [address] [place] [address] PCP - General Family Medicine 07/04/23 11/07/23 Kristina Paul NP [address] [place] [phone] PCP - General Family Medicine 11/08/23 documented as of this encounter
--- OUTSIDE RECORDS SUMMARY | 2024-12-16 13:26 | XMS_ITS | Encounter Summary ---
Author Organization [email or web address] Address [address] [place] [address] Care Team Providers Care Chip Mucker Name Role Phone Kristina Paul NP Primary Care Provider [phone] Encounter Details Date Type Department Care Team ([facility] st Contact Info) Description 07/07/[address] [facility] MEDICINE [address] [place], [place] [phone] Juan Torres PharmD Social History Tobacco Use Types Packs/Day Years [...] encounter Miscellaneous Notes * Telephone Encounter - Juan Torres PharmD - 07/07/2024 10:31 AM EDT Patient picked up second refill of Mavyret on 07/07/2024. Patient Reported the following ORTIZ: Headache and dizziness that lasted the first three days but hassense stopped. Adherence was discussed with patient and they reported Patient reported strict adherence to medication, denies missing any doses Thank you, Jani documented in this encounter Plan of Treatment Upcoming Encounters Date Type Department Care Team (Late st Contact Info) Description 12/22/2024 1:30 PM EDT Office Visit [facility] MEDICINE [address] [place] [phone] Tika Danielson MD [address] [place] [address] 02/02/2025 11:30 AM EST Office Visit [facility] MEDICINE [address] [place] [phone] Kristina Paul NP [address] [place] [address] documented as of this encounter Visit Diagnoses Not on filedocumented in this encounter Additional Health Concerns Assessment Noted Time PHQ-9 Depression Total Score: 0 04/03/20 24 1:59 PM EDT documented as of this encounter Care Teams Chip Mucker Relationship Specialty Start Date End Date Kristina Paul NP [address] [place] [address] PCP - General Family Medicine 11/08/23 documented as of this encounter
--- OUTSIDE RECORDS SUMMARY | 2024-12-16 13:26 | XMS_ITS | Encounter Summary ---
Author Organization [employer] Address [address] [facility] [address] [place] [address] Care Team Providers Care Home Care Scheduler Name Role Phone Kristina aPul NP Primary Care Provider [phone] Encounter Details Date Type Department Care Team ([facility] Contact Info) Description 04/22/2024 Telephone [facility] MEDICINE [address] [place] [address] Kristina Paul NP [address] [place] [address] Social History Tobacco Use Types Packs/Day Years [...] Description 12/22/2024 1:30 PM EDT Office Visit [facility] MEDICINE [address] [place] [phone] Tika Danielson MD [address] [place] [phone] 02/02/2025 11:30 AM EST Office Visit [address] [phone] Kristina Paul NP [address] [place] [address] documented as of this encounter Visit Diagnoses Not on filedocumented in this encounter Additional Health Concerns Assessment Noted Time PHQ-9 Depression Total Score: 0 07/04/19 24 1:59 PM EDT documented as of this encounter Care Teams Home Care Scheduler Relationship Specialty Start Date End Date Kristina Paul NP [address] [place] [phone] PCP - General Family Medicine 11/08/23 documented as of this encounter
--- OUTSIDE RECORDS SUMMARY | 2024-12-16 13:26 | XMS_ITS | Encounter Summary ---
Author Organization [employer] Address [address] [place] [address] 7t [place] [address] Care Team Providers Care Process Area Supervisor Name Role Phone Kristina Paul NP Primary Care Provider [phone] Reason for Visit * Reason Comments Med Refill Encounter Details Date Type Department Care Team ([facility] Contact Info) Description 02/19/2024 Refill [facility] MEDICINE [address] [place] [address] Kristina Paul NP [address] [place] [address] Localized edema Social History Tobacco Use Types [...] with others, in a hotel, in a fpc, living outside on the street, on a [...] Office Visit [facility] MEDICINE [address] [place] [address] Tika Danielson MD [address] [place] [address] 02/02/2025 11:30 AM EST Office Visit [facility] MEDICINE [address] [place] [phone] Kristina Paul NP [address] [place] [address] documented as of this encounter Visit Diagnoses Diagnosis Localized edema Edema documented in this encounter Additional Health Concerns Assessment Noted Time PHQ-9 Depression Total Score: 0 07/04/19 24 1:59 PM EDT documented as of this encounter Care Teams Process Area Supervisor Relationship Specialty Start Date End Date Kristina Paul NP [address] [place] [address] PCP - General Family Medicine 11/08/23 documented as of this encounter
--- OUTSIDE RECORDS SUMMARY | 2024-12-16 13:27 | XMS_ITS | Encounter Summary ---
Author Organization [employer] Address [address] [facility] 7t [place] [address] Care Team Providers Care Box Office Attendant Name Role Phone Kristina Paul NP Primary Care Provider [phone] Encounter Details Date Type Department Care Team (Latest Contact Info) Description 11/17/2024 Results Follow-Up [facility] [address] [place] [address] Kristina Paul NP [address] [place] [address] Comprehensive Metabolic Panel, Hepatic Function Panel, Hepatitis C Viral RNA, Quantitative, Real-Time PCR Social History Tobacco Use Types Packs/Day Years Used Date Smoking Tobacco: Every Day Cigarettes Passive Smoke Exposure: Current Alcohol Use Standard Drinks/Week Comments Never 0 [...] encounter Miscellaneous Notes * Telephone Encounter - Natalie Osuna RN - 12/15/2024 3:32 PM EDT RN spoke to pt who reports not missing any Mavret doses, took as prescribed. Is no longer at [facility]. Pt agrees to come in 12/22/24 at 1:30 to further discuss with . ----- Message from Tika Danielson MD sent at 12/15/2024 10:35 AM EDT ----- Let's schedule an in person appointment to discuss options. ----- Message ----- From: Natalie Osuna RN Sent: 12/15/2024 9:04 AM EDT To: Tika Danielson MD Genotype resulted 1a, please advise next steps. Thank you ----- Message ----- From: Tika Danielson MD Sent: 12/04/2024 10:36 AM EDT To: Natalie Osuna RN Tif, can you please order an HCV genotype? That may help us determine whether this is a new infection vs. treatment failure. ----- Message ----- From: Natalie Osuna RN Sent: 12/02/2024 10:46 AM EDT To: Tika Danielson MD ----- Message from Natalie Osuna RN sent at 12/02/2024 10:46 AM EDT ----- ----- Message ----- From: Tika Danielson MD Sent: 12/02/2024 10:21 AM EDT To: Natalie Osuna RN Labs show persistent viral load. Please follow up with patient RE: med adherence to determine next steps. Thank you. ----- Message ----- From: Interface, Lab Results In Sent: 11/14/2024 2:04 PM EDT To: Tika Danielson MD * Telephone Encounter - Natalie Osuna RN - 12/15/2024 3:32 PM EDT ----- Message from Tika Danielson MD sent at 12/15/2024 10:35 AM EDT ----- Let's schedule an in person appointment to discuss options. ----- Message ----- From: Natalie Osuna RN Sent: 12/15/2024 9:04 AM EDT To: Tika Danielson MD Genotype resulted 1a, please advise next steps. Thank you ----- Message ----- From: Tika Danielson MD Sent: 12/04/2024 10:36 AM EDT To: Natalie Osuna RN Tif, can you please order an HCV genotype? That may help us determine whether this is a new infection vs. treatment failure. ----- Message ----- From: Natalie Osuna RN Sent: 12/02/2024 10:46 AM EDT To: Tika Danielson MD ----- Message from Natalie Osuna RN sent at 12/02/2024 10:46 AM EDT ----- ----- Message ----- From: Tika Danielson MD Sent: 12/02/2024 10:21 AM EDT To: Natalie Osuna RN Labs show persistent viral load. Please follow up with patient RE: med adherence to determine next steps. Thank you. ----- Message ----- From: Interface, Lab Results In Sent: 11/14/2024 2:04 PM EDT To: Tika Danielson MD * Result Encounter Note - Tika Danielson MD - 12/15/2024 10:35 AM EDT Let's schedule an in person appointment to discuss options. * Result Encounter Note - Tika Danielson MD - 12/04/2024 12:56 PM EDT Thank you! * Addendum Note - Natalie Osuna RN - 12/04/2024 11:47 AM EDTAddended by: NATALIE OSUNA on: 12/04/2024 11:47 AM Modules accepted: Orders * Telephone Encounter - Natalie Osuna RN - 12/04/2024 11:45 AM EDT Pt informed of below and agrees to come in. States he will come in next week. ----- Message from Tika Danielson MD sent at 12/04/2024 10:36 AM EDT ----- Tif, can you please order an HCV genotype? That may help us determine whether this is a new infection vs. treatment failure. ----- Message ----- From: Natalie Osuna RN Sent: 12/02/2024 10:46 AM EDT To: Tika Danielson MD ----- Message from Natalie Osuna RN sent at 12/02/2024 10:46 AM EDT ----- ----- Message ----- From: Tika Danielson MD Sent: 12/02/2024 10:21 AM EDT To: Natalie Osuna RN Labs show persistent viral load. Please follow up with patient RE: med adherence to determine next steps. Thank you. ----- Message ----- From: Interface, Lab Results In Sent: 11/14/2024 2:04 PM EDT To: Tika Danielson MD * Telephone Encounter - Natalie Osuna RN - 12/04/2024 11:44 AM EDT ----- Message from Tika Danielson MD sent at 12/04/2024 10:36 AM EDT ----- Tif, can you please order an HCV genotype? That may help us determine whether this is a new infection vs. treatment failure. ----- Message ----- From: Natalie Osuna RN Sent: 12/02/2024 10:46 AM EDT To: Tika Danielson MD ----- Message from Natalie Osuna RN sent at 12/02/2024 10:46 AM EDT ----- ----- Message ----- From: Tika Danielson MD Sent: 12/02/2024 10:21 AM EDT To: Natalie Osuna RN Labs show persistent viral load. Please follow up with patient RE: med adherence to determine next steps. Thank you. ----- Message ----- From: Interface, Lab Results In Sent: 11/14/2024 2:04 PM EDT To: Tika Danielson MD * Result Encounter Note - Tika Danielson MD - 12/04/2024 10:36 AM EDT Tif, can you please order an HCV genotype? That may help us determine whether this is a new infection vs. treatment failure. * Telephone Encounter - Natalie Osuna RN - 12/02/2024 10:44 AM EDT RN spoke to pt via an conference interpreter. Pt informed of persistent VL, states he completed all his rx as prescribed. Denies having and intercourse, but states he is currently using IVDU. States he is only using clean needles. He is not sharing needles or using older one used with past infection. Message sent to treating provider top review for next steps. Thank you ----- Message from Tika Danielson MD sent at 12/02/2024 10:21 AM EDT ----- Labs show persistent viral load. Please follow up with patient RE: med adherence to determine next steps. Thank you. ----- Message ----- From: Interface, Lab Results In Sent: 11/14/2024 2:04 PM EDT To: Tika Danielson MD * Telephone Encounter - Natalie Osuna RN - 12/02/2024 10:44 AM EDT ----- Message from Tika Danielson MD sent at 12/02/2024 10:21 AM EDT ----- Labs show persistent viral load. Please follow up with patient RE: med adherence to determine next steps. Thank you. ----- Message ----- From: Interface, Lab Results In Sent: 11/14/2024 2:04 PM EDT To: Tika Danielson MD * Result Encounter Note - Tika Danielsno MD - 12/02/2024 10:21 AM EDT Labs show persistent viral load. Please follow up with patient RE: med adherence to determine next steps. Thank you. documented in this encounter Plan of Treatment Upcoming Encounters Date Type Department Care Team (Late st Contact Info) Description 12/22/2024 1:30 PM EDT Office Visit [address] [address] Tika Danielson MD [address] [place] [address] 02/02/2025 11:30 AM EST Office Visit [address] [address] Kristina Paul NP [address] [place] [address] Scheduled Orders Name Type Priority Associated Diagnoses Orde r Schedule Hepatitis C Viral RNA, Genotype, LiPA Lab Routine Hepatitis C virus infection without hepatic coma, unspecified chronicity Expected: 12/04/2024 (Approximate), Expires: 12/04/2025 documented as of this encounter Visit Diagnoses Diagnosis Hepatitis C virus infection without hepatic coma, unspecified chronicity- Primary documented in this encounter Additional Health Concerns Assessment Noted Time PHQ-9 Depression Total Score: 3 07/15/19 25 11:39 AM EDT documented as of this encounter Care Teams Box Office Attendant Relationship Specialty Start Date End Date Kristina Paul NP [address] [place] [address] PCP - General Family Medicine 11/08/23 documented as of this encounter
--- OUTSIDE RECORDS SUMMARY | 2024-12-16 13:27 | XMS_ITS | Encounter Summary ---
Author Organization [employer] Address [address] [place] [address] 7 [place] [address] Care Team Providers Care Track Laying Machine Operator Name Role Phone Kristina Paul NP Primary Care Provider [phone] Reason for Visit * Reason Onset Date Comments CHARTPREP 12/11/2024 Encounter Details Date Type Department Care Team ([facility] Contact Info) Description 12/11/2024 Telephone [facility] [address] [place] [address] Kristina Paul NP [address] [place] [address] CHARTPREP Social History Tobacco Use Types Packs/Day Years [...] encounter Miscellaneous Notes * Telephone Encounter - Cindy Madrid [place] - 12/11/2024 2:06 PM EDT Chart Prep Labs: done Images: done except XR lumbar and CT abdomen Referrals: complete Office: [facility] [address] [place] [address] Tel. [phone] Fax. [phone]. Letter mailed to patient to book appt. Office has tried to reach patient from last referral and patient didn't call back. Referral closed. Vaccines due: Covid, Flu, PCV20, Hep B, Hep A, and HPV Screenings: not applicable Overdue care gaps: Not applicable documented in this encounter Plan of Treatment Upcoming Encounters Date Type Department Care Team (Late st Contact Info) Description 12/22/2024 1:30 PM EDT Office Visit [facility] [address] [place] [address] Tika Danielson MD [address] [place], [place] [phone] 02/02/2025 11:30 AM EST Office Visit [facility] [address] [place] [address] Kristina Paul NP [address] [place] [address] documented as of this encounter Visit Diagnoses Not on filedocumented in this encounter Additional Health Concerns Assessment Noted Time PHQ-9 Depression Total Score: 3 07/15/19 25 11:39 AM EDT documented as of this encounter Care Teams Track Laying Machine Operator Relationship Specialty Start Date End Date Kristina Paul NP [address] [place] [address] PCP - General Family Medicine 11/08/23 documented as of this encounter
--- OUTSIDE RECORDS SUMMARY | 2024-12-16 13:27 | XMS_ITS | Encounter Summary ---
Author Organization [employer] Address [address] [facility] 7t [place] [address] Care Team Providers Care Special Certificate Dictator Name Role Phone Kristina Paul NP Primary Care Provider [phone] Reason for Visit * Reason Comments [facility] Encounter Details Date Type Department Care Team ([facility] st Contact Info) Description 12/15/2024 Patient Outreach [facility] [address] [place] [address] Jenny Barker Recovery Supports Social History Tobacco [...] encounter Progress Notes * Jenny Barker - 12/15/2024 3:25 PM EDT I met with Thony griffin. Setting: in person at [facility] Recovery Wellness Goals worked on: Social Stability Action taken/next steps: Attended alcohol and drug free activity Additional comments: Jenny Barker documented in this encounter Plan of Treatment Upcoming Encounters Date Type Department Care Team (Late st Contact Info) Description 12/22/2024 1:30 PM EDT Office Visit [facility] [address] [place] [address] Tika Danielson MD [address] [place] [address] 02/02/2025 11:30 AM EST Office Visit [address] [address] Kristina Paul NP [address] [place] [address] documented as of this encounter Visit Diagnoses Not on filedocumented in this encounter Additional Health Concerns Assessment Noted Time PHQ-9 Depression Total Score: 3 07/15/19 11:39 AM EDT documented as of this encounter Care Teams Special Certificate Dictator Relationship Specialty Start Date End Date Kristina Paul NP [address] [place] [address] PCP - General Family Medicine 11/08/23 documented as of this encounter
--- OUTSIDE RECORDS SUMMARY | 2024-12-16 13:27 | XMS_ITS | Encounter Summary ---
Author Organization [employer] Address [address] [facility] [address] 7[address] [place] [address] Care Team Providers Care Chemical Operator Name Role Phone Kristina Paul NP Primary Care Provider [phone] Encounter Details Date Type Department Care Team ([facility] st Contact Info) Description 12/15/2024 Telephone [facility] [address] [place], [place] [phone] Annamaria Luis RN Social History Tobacco Use Types Packs/Day Years [...] encounter Miscellaneous Notes * Telephone Encounter - Annamaria Luis RN - 12/15/2024 11:25 AM EDT Incoming call from pharmacy to report that pt was rx terazosin 5 mg daily at bedtime 06/17/[address] [facility]. Pharmacy wants to confirm with PCP if they were aware since pt was alsorx the tamsulosin on 11/13/24 with refills. Message sent to PCP as an review. Tc will be returned toext [phone] to report. documented in this encounter Plan of Treatment Upcoming Encounters Date Type Department Care Team (Late st Contact Info) Description 12/22/2024 1:30 PM EDT Office Visit [facility] [address] [place] [address] Tika Danielson MD [address] [place] [address] 02/02/2025 11:30 AM EST Office Visit [facility] [address] [place] [address] Kristina Paul NP [address] [place] [address] documented as of this encounter Visit Diagnoses Not on filedocumented in this encounter Additional Health Concerns Assessment Noted Time PHQ-9 Depression Total Score: 3 07/15/19 25 11:39 AM EDT documented as of this encounter Care Teams Chemical Operator Relationship Specialty Start Date End Date Kristina Paul NP [address] [place] [address] PCP - General Family Medicine 11/08/23 documented as of this encounter
--- OUTSIDE RECORDS SUMMARY | 2024-12-16 13:27 | XMS_ITS | Encounter Summary ---
Author Organization [employer] Address [address] [facility] 7t [place] [address] Care Team Providers Care Legal Department Manager Name Role Phone Kristina Paul NP Primary Care Provider [phone] Encounter Details Date Type Department Care Team (Latest Contact Info) Description 12/15/2024 Travel Social History Tobacco Use Types Packs/Day [...] with others, in a hotel, in a penitentiary, living outside on the street, on a [...] Description 12/22/2024 1:30 PM EDT Office Visit [facility] [address] [place] [address] Tika Danielson MD [address] [place] [address] 02/02/2025 11:30 AM EST Office Visit [address] [address] Kristina Paul NP [address] [place] [address] documented as of this encounter Visit Diagnoses Not on filedocumented in this encounter Additional Health Concerns Assessment Noted Time PHQ-9 Depression Total Score: 3 07/15/19 25 11:39 AM EDT documented as of this encounter Care Teams Legal Department Manager Relationship Specialty Start Date End Date Kristina Paul NP [address] [place] [address] PCP - General Family Medicine 11/08/23 documented as of this encounter
--- OUTSIDE RECORDS SUMMARY | 2024-12-16 13:27 | XMS_ITS | Encounter Summary ---
Author Organization [employer] Address [address] [place] [address] 7[address] [place] [address] Care Team Providers Care Cleaning Staff Supervisor Name Role Phone Kristina Paul NP Primary Care Provider [phone] Reason for Visit * Reason Comments Med Refill Encounter Details Date Type Department Care Team ([facility] Contact Info) Description 10/14/2024 Refill [facility] [address] [place] [address] Kristina Paul NP [address] [place] [address] Localized edema Social History Tobacco Use Types [...] Description 12/22/2024 1:30 PM EDT Office Visit [facility] [address] [place] [address] Tika Danielson MD [address] [place] [address] 02/02/2025 11:30 AM EST Office Visit [address] [address] Kristina Paul NP [address] [place] [address] documented as of this encounter Visit Diagnoses Diagnosis Localized edema Edema documented in this encounter Additional Health Concerns Assessment Noted Time PHQ-9 Depression Total Score: 3 07/15/19 25 11:39 AM EDT documented as of this encounter Care Teams Cleaning Staff Supervisor Relationship Specialty Start Date End Date Kristina Paul NP [address] [place] [address] PCP - General Family Medicine 11/08/23 documented as of this encounter
--- OUTSIDE RECORDS SUMMARY | 2024-12-16 13:27 | XMS_ITS | Patient Health Record ---
Author Organization [facility] Address [address] [place] [address] Care Team Providers Care Branch Employment Coordinator Name Role Phone [facility] Primary Care Provider Marycarmen Ireland Unavailable [phone] Reason For Referral No Information Encounters Encounter Location Date Provider Diagnosis [facility] [address] [place] [phone] 07/16/2024 Marycarmen Ireland [facility] [phone] 10/30/2024 Marycarmen Ireland Plan Of Treatment No Information Insurance Providers Payer Name Payer Address Payer Phone Subscriber Number Group Number Insured Name Patient Relationship to Insured Coverage Start Date Coverage End Date [place] Medicaid Standard [address] [place] [address] [id number] Thony Rothman Self - patient is the insured 3
== END 2024-12-16 10:18 | disposition home or self-care (01) ==
LOC: HO.HHCX 10:17
PROVIDERS: PCP Nurse Practitioner Family; Visit Provider Nurse Practitioner Family
DX: M54.41 Lumbago with sciatica, right side (principal); M54.42 Lumbago with sciatica, left side; G89.29 Other chronic pain
CPT/HCPCS: 72110

== ENCOUNTER → 2024-12-16 10:22 | Outpatient (BNV) | payer MEDICAID, SELFPAY | PROVIDERS: PCP Nurse Practitioner Family; Visit Provider Radiology Diagnostic Radiology | DX: M54.42 Lumbago with sciatica, left side (principal); G89.29 Other chronic pain | CPT/HCPCS: 72110 ==

== ENCOUNTER 2024-12-18 09:50 | Outpatient (AMB) | payer MEDICAID, SELFPAY ==
--- OUTSIDE RECORDS SUMMARY | 2024-12-15 10:15 | XMS_ITS | Encounter Summary ---
Author Organization [employer] Address [address] [place] [address] [address] [place] [address] Care Team Providers Care Assistant Director Of Residence Life Name Role Phone Kristina Paul NP Primary Care Provider [phone] Reason for Visit * Reason Comments Wound Check Follow-up Encounter Details Date Type Department Care Team ([facility] Contact Info) Description 12/15/2024 10:15 AM EDT Office Visit [facility] [address] [place] [address] Kristina Paul NP [address] [place] [address] Chronic migraine with aura without status migrainosus, [...] with others, in a hotel, in a residential, living outside on the street, on a [...] 10 Creatinine, Serum 11/14/2024 0.78 Estimated Glomerular Chrisotpher* 11/14/2024 >60 Glucose 11/14/2024 87 Calcium 11/14/2024 9.8 Bilirubin, Total 11/14/2024 0.4 Aspartate Amino Transfer* 11/14/2024 41 (H) Alanine Aminotransferase 11/14/2024 30 Total Protein 11/14/2024 7.5 Albumin Level 11/14/2024 4.2 Alkaline Phosphatase 11/14/2024 87 Bilirubin, Direct 11/14/2024 0.2 Hepatitis C Viral Load 11/14/2024 [id number] (A) HCV Log PCR 11/14/2024 6.71 (A) [...] of this technology: Yes Visit Conducted in: Moroccan Translation by: Provided by [facility] staff member Shayna [1] Patient Active Problem [...] Description 12/22/2024 1:30 PM EDT Office Visit [facility] [address] [place] [phone] Tika Danielson MD [address] [place] [phone] 02/02/2025 11:30 AM EST Office Visit [facility] [address] [place] [phone] Kristina Paul NP [address] [place] [phone] documented as of this encounter Visit Diagnoses Diagnosis Chronic migraine with aura without status migrainosus, not intractable Nonintractable headache, unspecified chronicity pattern, unspecified headache type documented in this encounter Additional Health Concerns Assessment Noted Time PHQ-9 Depression Total Score: 3 0414/20 25 11:39 AM EDT documented as of this encounter Care Teams Assistant Director Of Residence Life Relationship Specialty Start Date End Date Kristina Paul NP [address] [place] [address] PCP - General Family Medicine 11/08/23 documented as of this encounter
--- NOTE | 2024-12-18 10:39 | A.OFFVIS_ITS ---
Intake Visit Reasons: 6m/PVR Intake Note: Patient is present for 6M/PVR Urology Medication:TERAZOSIN Antibiotic Allergy:NONE Blood Thinner:NONE Last PVR:56ML'S Todays PVR:18ML'S Network Programmer Required: No Network Programmer Services: Network Programmer Present Network Programmer Name: [id number] Allergies Unable to Assess Allergy (Verified 12/18/24 10:52) Medication List - Last Reconciled 12/18/24 by LUKE Pederson- escitalopram oxalate 20 mg PO DAILY fluticasone propionate 50 mcg/actuation 1 spray intranasal DAILY methadone (Methadone Intensol) 120 mg PO DAILY prazosin 2 mg PO BEDTIME terazosin 5 mg PO BEDTIME 90 days trazodone 50 - 100 mg PO BEDTIME PRN HPI Comments Details: Thony is a very pleasant 44-year-old Welsh-speaking male patient of Dr. Nupur cabral. He has a past medical history of opioid dependence, tobacco dependence, hep C, headaches, and chronic back pain. He presents to the office today for follow- up of his lower urinary tract symptoms. In discussion with the patient today he reports to be doing and feeling well. He reports compliance with terazosin as prescribed. He discusses this has been helpful in episodes of urinary hesitancy he had been experiencing. He discusses having followed up with his PCP as he has been having issues with waking up and being wet in the area however it does not smell like urine and or look like urine. He reports it to be transparent. We did discuss potential causes of this issue. Previous workup has included a retroperitoneal ultrasound retroperitoneal ultrasound results reviewed with the patient today. 06/24 bilateral kidneys are normal in size, contour, and echogenicity. No renal calculi, lesions, and or hydronephrosis noted bilaterally. The bladder is well distended and normal. Bilateral jets are demonstrated. Pre void bladder volume is approximately 165 mL. Postvoid bladder volume is approximately 5 mL. The prostate was within normal limits measuring 18 mL. Normal renal and bladder ultrasound. He denies urinary urgency, urinary frequency, incontinence, nocturia, hematuria, dysuria, foul smelling urine, flank pain, fever, and or chills. Patient was previously trialed Flomax with no improvement in lower urinary tract symptoms. In office urinalysis results reviewed with the patient today. PVR 18 mL. He otherwise offers no other issues or concerns at this time. PSAs: 4/24 0.1, 11/24 0.10 PFSH Social History Substance Use Type: Heroin Review of Systems Const All systems reviewed & are unremarkable except as noted in HPI and below Physical Exam Const General: cooperative, healthy appearing, comfortable, no acute distress, well developed, alert and awake Orientation/consciousness: patient oriented x3 Limitations: language barrier HEENT Head: Yes normal to inspection, Yes normocephalic and Yes atraumatic Ears: hearing grossly normal bilaterally Eyes General: appearance normal, both eyes and all related structures Neck Neck: Yes normal visual inspection and Yes trachea midline Chest Chest palpation & inspection: normal inspection of the chest Resp Effort & Inspection: normal respiratory effort and able to speak in complete sentences Cardio Rate: regular rate GI Inspection: Yes normal to inspection General: Yes no CVA tenderness Back/Spine/Pelvis Back: no CVA tenderness Skin General skin exam: no rashes or lesions noted Neuro General: patient oriented x3 Extrem General: Yes normal to inspection Psych Appearance: grossly normal and well kempt Mental Status: mental status grossly normal Speech and movement: Normal speech and movement present and Clear speech present Affect: normal affect Attitude: cooperative Thought process: Normal thought process present Thought content: Normal thought content present Insight: Fair insight present (Psych) Judgement: Fair judgement present (Psych) Office Procedures Post Void Residual Post Residual Void Post Void Residual (PVR): 18 [id number] Void Residual by ultrasound Results AMB Urinalysis, Automated UA Leukoctes 0 Kalpana/uL Last Edit by STEVE Joel on 12/18/24 11:19 UA Nitrite Negative Last Edit by STEVE Joel on 12/18/24 11:19 UA Urobilinogen 0.2 mg/dL Last Edit by STEVE Joel on 12/18/24 11:1 9 UA Protein 0 mg/dL Last Edit by STEVE Jeol on 12/18/24 11:19 UA pH 6.0 Last Edit by STEVE Joel on 12/18/24 11:19 UA Blood 0 Arcadio/uL Last Edit by STEVE Joel on 12/18/24 11:19 UA Specific [place] 1.015 Last Edit by STEVE Joel on 12/18/24 11: 19 UA Ketone Negative Last Edit by STEVE Joel on 12/18/24 11:19 UA Bilirubin 0 mg/dL Last Edit by STEVE Joel on 12/18/24 11:19 UA Glucose 0 mg/dL Last Edit by STEVE Joel on 12/18/24 11:19 Results Reviewed Results Reviewed: Laboratory Last Values Urine pH (Auto) 6.0 12/18/24 11:18 Specific [place] (Auto) 1.015 12/18/24 11:18 Urine Protein (Auto) 0 mg/dL 12/18/24 11:18 Glucose (UA)(Auto) 0 mg/dL 12/18/24 11:18 Urine Ketones (Auto) Negative 12/18/24 11:18 Urine Blood (Auto) 0 Arcadio/uL 12/18/24 11:18 Urine Nitrite (Auto) Negative 12/18/24 11:18 Urine Bilirubin (Auto) 0 mg/dL 12/18/24 11:18 Urine Urobilinogen (Auto) 0.2 mg/dL 12/18/24 11:18 Leukocyte Esterase (Auto) 0 Kalpana/uL 12/18/24 11:18 Assessment & Plan Assessment & Plan (1) History of urinary hesitancy: Code(s): Z87.898 - Personal history of other specified conditions Category: Medical (2) Straining on urination: Code(s): R39.16 - Straining to void Category: Medical Plan In office urinalysis results with the patient today; as noted above. PVR 18 mL. Continue terazosin as discussed and prescribed. Recent PSA results with the patient today; as noted above. We did discuss potential causes of witnessed to unaware upon wakening. He reports be happy with current voiding parameters. Follow-up next available in office cystoscopy. Follow-up per doctor's orders; or sooner with any issues, concerns, and or questions. Orders: Orders AMB Urinalysis Automated 12/18/24 Z13.9 - Encounter for screening, unspecified Patient Instructions: The patient had an opportunity to ask questions regarding the treatment plan. All questions were answered. Physical exam, labs, and imaging were discussed and reviewed in detail. As well as risks, benefits, and discussion of treatment choices. No major barriers to understanding were identified. The patient expressed understanding and agreement with the above treatment plan. The patient was made aware they should contact our office by phone for worsening of their current condition, the appearance of new symptoms, or with any questions or concerns. Compliance is encouraged with any medications and follow up testing that is ordered. It is a privilege to be allowed the opportunity to participate in? your urological care.? Again, if you have any questions or concerns If you have any questions or concerns please do not hesitate to contact me. The office is [phone]. This note is constructed using voice recognition software. While every effort has been made to ensure accuracy automatic silk screen printer errors may have been included. Yours sincerely, LUKE Pederson-PREMA Coding Level of Care Code Est Pt Level 3 (85060) Diagnoses History of urinary hesitancy Z87.898 Straining on urination R39.16 CPT Codes Post Residual Void - PVR CPT Code: 57835-Hzri Void Residual by ultrasound ([id number])
--- OUTSIDE RECORDS SUMMARY | 2024-12-18 11:28 | XMS_ITS | Encounter Summary ---
Author Organization [employer] Address [address] [facility] 7t [place] [address] Care Team Providers Care Outer Diameter Grinder Tool Name Role Phone Ana Sanchez INDUSTRIAL HYGIENE MANAGER Primary Care Provider [phone] Kristina Paul INDUSTRIAL HYGIENE MANAGER Primary Care Provider [phone] Encounter Details Date Type Department Care Team ([facility] st Contact Info) Description 08/06/2023 Orders Only [facility] MED[facility]INE [address] [place] [address] Gloria Roca MD [address] [place] [address] Chronic hepatitis C without hepatic coma (CMS/HCC) [...] 12/22/2024 1:30 PM EDT Office Visit [facility] MEDICINE [address] [place] [address] Tika Danielson MD [address] [place] [address] 02/02/2025 11:30 AM EST Office Visit [address] [address] Kristina Paul NP [address] [place], [place] [phone] documented as of this encounter Procedures Procedure [...] 11:25 AM EST) Hepatitis C Viral Load 7483033(A ) NOT DETECTED IU/mL [facility] HCV Log PCR 6.56(A) NOT DETECTED Log IU/mL [facility] Comment:For additional infor merari, please refer tohttp://education.Qbox.io/faq/XHR43m0(This link is being provided for informational/educational purposes only.)THIS TEST WAS PERFORMED AT:[employer] [place] [id number] SIERRA MD 03/25/2024 11:2 5 AM EST 03/27/2024 3:00 PM EST us Kristina Paul INDUSTRIAL HYGIENE MANAGER LAB BLOOD ORDERABLES Final Resul t [facility] [address] [place] [address] [phone] * (ABNORMAL) Liver Fibrosis (HCV), FibroTest-ActiTest Panel (09/03/2023 9:34 AM EDT) Liver Fibrosis Score 0.42 [facility] Liver Fibrosis Stage F1-F2 [facility] Liver Fibrosis Interpretation SEE NOTE [facility] Comment:minimal fibrosisFibr o Test Score [...] (severe fibrosis) Nec Inflam Act Score 0.17 [facility] Nec Inflam Act Grade A0-A1 [facility] Nec Inflam Act Interpretation SEE NOTE [facility] Comment:no activityActiTest Score (a) Metavir Score a>=0 and a<=0.17 : A0 (no activity)a>0.17 and a<=0.29 : A0-A1 (no activity)a>0.29 and a<=0.36 : A1 (minimal activity)a>0.36 and a<=0.52 : A1-A2 (minimal activity)a>0.52 and a<=0.60 : A2 (significant activity)a>0.60 and a<=0.62 : A2-A3 (significant activity)a>0.62 and a<=1.00 : A3 (severe activity) YTP-Cemrq-9-Macroglo bulin 269 106 - 279 mg/dL [facility] FIB-Haptoglobin 101 43 - 212 mg/dL [facility] FIB-Apolipoprotein A1 153 94 - 176 mg/dL [facility] FIB-Total Bilirubin 0.3 0.2 - 1.2 mg/dL [facility] FIB-GGT 215(A) 3 - 95 U/L [facility] FIB-ALT 30 9 - 46 U/L [facility] Reference ID [id number] [facility] Footnote SEE NOTE [facility] Comment: The reliability of results [...] and C.The performance characteristics have been determined by[facility] Therapeut[facility]. Ithas not been cleared or approved by the U.S. Food and DrugAdministration. Performance characteristics refer to theanalytical performance of the test.[employer], [employer], the associated logo, Papa and all associated [employer] capellan are theregistered trademarks of [employer]. All third partymarks - (R) and (TM) - are the property of their respectiveowners. (C) [id number] [employer] Incorporated. Allrights reserved.THIS TEST WAS PERFORMED AT:[employer] [id number] [place] [address]OLCNYSYED SANCHEZ MD,PHD,ROXY 09/03/2023 9:34 AM EDT 09/03/2023 11:55 AM EDT [facility] BLOOD ORDERABLES Final Resu lt Performing Organization Address [facility] Co de Phone Number [facility] [address] [place] [phone] * Hepatitis C Viral RNA, Genotype, LiPA (09/03/2023 9:34 AM EDT) Hepatitis C Genotype 1a [facility] Comment:The method used in t his test is RT-PCR and reversehybridization (Line Probe) of the 5' UTR and coreregion of the HCV genome.The analytical performance characteristics of thisassay have been determined by [facility], [place], [place]. The modificationshave not been cleared or approved by the FDA. Thisassay has been validated pursuant to the CLIAregulations and is used for clinical purposes.For additional information, please refer tohttp://education.KZO Innovations/faq/HCVGenotyping(This link is being provided for informational/educational purposes only.)THIS TEST WAS PERFORMED AT:[employer] [id number] [place] [address]NGSVGLQSHELLEY VILLAGRAN MD,PHD 09/03/2023 9:34 AM EDT 09/03/2023 11:14 AM EDT [facility] LAB BLOOD ORDERABLES Final Resu lt Performing Organization Address City/[facility]/ZIP Co de Phone Number [facility] [address] [place] [address] [phone] * HIV-1/2 Antigen and Antibodies, Fourth Generation, with Reflexes (09/03/2023 9:34 AM EDT) HIV AB/AG Nonreactive Nonreactive [facility] Comment:HIV-1 p24 Ag and/or HIV-1/HIV-2 Ab not detected.A test result that is nonreactive does not exclude thepossibility of exposure to or infection with HIV-1 and/orHIV-2. Nonreactive results in this assay for individualswith prior exposure to HIV-1 and/or HIV-2 may be due toantigen and antibody levels that are below the limit ofdetection of this assay.The Dogster HIV Ag/Ab Combo assay result andsupplemental assay results should be interpreted inconjunction with the patient's clinical presentation,history and other laboratory results. If the results areinconsistent with clinical evidence, additional testing issuggested to confirm the result. 09/03/2023 9:34 AM EDT 09/03/2023 11:55 AM EDT Ana Sanchez NP LAB BLOOD ORDERABLES Final Resu lt Performing Organization Address [facility] Co de Phone Number [facility] [address] [place] [phone] * (ABNORMAL) Prothrombin Time-INR (09/03/2023 9:34 AM EDT) Prothrombin Time 9.9(L) 11.1 - 13.3 SEC [facility] INTERNATIONAL NORM RATIO 0.8(L) 0.9 - 1.1 [facility] Comment:INTERNATIONAL NORMAL IZED RATIO (INR) [...] 09/03/2023 11:58 AM EDT us Ana Sanchez INDUSTRIAL HYGIENE MANAGER LAB BLOOD ORDERABLES Final Resu lt [facility] [address] [place] [address] [phone] * CBC auto differential (09/03/2023 9:34 AM EDT) White Blood Count 7.0 4.8 - 10.8 X10*3/uL [facility] Red Blood Count 5.01 4.60 - 5.80 X10*6/uL [facility] Hemoglobin 14.4 14.0 - 18.0 g/dl [facility] Hematocrit 45.0 42.0 - 52.0 % [facility] Mean Corpuscular Volume 89.8 80.0 - 98.0 fL [facility] Mean Corpuscular Hemoglobin 28.7 27.0 - 33.0 pg [facility] Mean Corpuscular HGB Conc 32.0 31.0 - 36.0 g/dl [facility] Red Cell Distribution Width 13.3 11.0 - 16.0 % [facility] Platelet Count 186 160 - 400 X10*3/uL [facility] Mean Platelet Volume 10.5 9.4 - 12.4 fL [facility] Neutrophils Percent Auto 61.5 45 - 73 % [facility] Imm Gran Pct Auto 0.3 0.0 - 0.4 % [facility] Lymphocytes Percent Auto 30.3 20 - 40 % [facility] Monocytes Percent Auto 6.1 2 - 11 % [facility] Eosinophils Percent Auto 1.4 0 - 4 % [facility] Basophils Percent Auto 0.4 0 - 2 % [facility] NRBC Pct Auto 0.0 0.0 - 0.2 /100WBC [facility] Neutrophils Absolute Auto 4.3 2.0 - 8.3 x10*3/uL [facility] Imm Gran Abs Auto 0.02 0.00 - 0.03 X10*3/uL [facility] Lymphocytes Absolute Auto 2.1 1.2 - 4.9 X10*3/uL [facility] Monocytes Absolute Auto 0.4 0.1 - 1.2 X10*3/uL [facility] Eosinophils Absolute Auto 0.1 0.0 - 0.4 X10*3/uL [facility] Basophils Absolute Auto 0.0 0.0 - 0.2 X10*3/uL [facility] NRBC Abs Auto 0.000 0.0 - 0.012 X10*3/uL [facility] 09/03/2023 9:34 AM EDT 09/03/2023 11:58 AM EDT Ana Sanchez NP LAB BLOOD ORDERABLES Final Resu lt [facility] [address] [place] [address] [phone] * (ABNORMAL) Liver Fibrosis (HCV), FibroTest-ActiTest Panel (08/15/2023 9:33 AM EDT) Liver Fibrosis Score 0.51 [facility] Liver Fibrosis Stage F2 [facility] Liver Fibrosis Interpretation SEE NOTE [facility] Comment:moderate fibrosisFib ro Test Score [...] (severe fibrosis) Nec Inflam Act Score 0.28 [facility] Nec Inflam Act Grade A0-A1 [facility] Nec Inflam Act Interpretation SEE NOTE [facility] Comment:no activityActiTest Score (a) Metavir Score a>=0 and a<=0.17 : A0 (no activity)a>0.17 and a<=0.29 : A0-A1 (no activity)a>0.29 and a<=0.36 : A1 (minimal activity)a>0.36 and a<=0.52 : A1-A2 (minimal activity)a>0.52 and a<=0.60 : A2 (significant activity)a>0.60 and a<=0.62 : A2-A3 (significant activity)a>0.62 and a<=1.00 : A3 (severe activity) XUV-Bkahw-3-Macroglo bulin 261 106 - 279 mg/dL [facility] FIB-Haptoglobin 83 43 - 212 mg/dL [facility] FIB-Apolipoprotein A1 152 94 - 176 mg/dL [facility] FIB-Total Bilirubin 0.4 0.2 - 1.2 mg/dL [facility] FIB-GGT 236(A) 3 - 95 U/L [facility] FIB-ALT 40 9 - 46 U/L [facility] Reference ID [id number] [facility] Footnote SEE NOTE [facility] Comment: The reliability of results [...] and C.The performance characteristics have been determined by[facility] Therapeut[facility]. Ithas not been cleared or approved by the U.S. Food and DrugAdministration. Performance characteristics refer to theanalytical performance of the test.Per[employer]Line, the associated logo, [employer] and all associated [employer] capellan are theregistered trademarks of [employer]. All third partymarks - (R) and (TM) - are the property of their respectiveowners. (C) [id number] [employer] Incorporated. Allrights reserved.THIS TEST WAS PERFORMED AT:[employer] [id number] [place] [address]JOQMESYED SANCHEZ MD,PHD,ROXY 08/15/2023 9:33 AM EDT 08/15/2023 11:22 AM EDT Ana Collado INDUSTRIAL HYGIENE MANAGER LAB BLOOD ORDERABLES Final Resu lt [facility] [address] [place] [phone] * Hepatitis C Viral RNA, Genotype, LiPA (08/15/2023 9:33 AM EDT) Hepatitis C Genotype 1a [facility] Comment:The method used in t his test is RT-PCR and reversehybridization (Line Probe) of the 5' UTR and coreregion of the HCV genome.The analytical performance characteristics of thisassay have been determined by [facility], [place], [place]. The modificationshave not been cleared or approved by the FDA. Thisassay has been validated pursuant to the CLIAregulations and is used for clinical purposes.For additional information, please refer tohttp://education.AutomateIt.ServusXchange, LLC/faq/HCVGenotyping(This link is being provided for informational/educational purposes only.)THIS TEST WAS PERFORMED AT:[employer] [id number] [place] [address]XWOJWARSHELLEY VILLAGRAN MD,PHD 08/15/2023 9:33 AM EDT 08/15/2023 11:22 AM EDT [facility] INDUSTRIAL HYGIENE MANAGER LAB BLOOD ORDERABLES Final Resu lt Performing Organization Address [facility]/ZIP Co de Phone Number [facility] [address] [place] [phone] * Hepatitis B surface antigen, EIA (08/15/2023 9:33 AM EDT) Pathologist [facility] Hepatitis B Surface Ag Negative Negative [facility] 08/15/2023 9:33 AM EDT 08/15/2023 11:22 AM EDT [facility] INDUSTRIAL HYGIENE MANAGER LAB BLOOD ORDERABLES Final Resu lt Performing Organization Address [facility]/ZIP Co de Phone Number [facility] [address] [place] [phone] * HIV-1/2 Antigen and Antibodies, Fourth Generation, with Reflexes (08/15/2023 9:33 AM EDT) Pathologist [facility] HIV AB/AG Nonreactive Nonreactive [facility] Comment:HIV-1 p24 Ag and/or HIV-1/HIV-2 Ab not detected.A test result that is nonreactive does not exclude thepossibility of exposure to or infection with HIV-1 and/orHIV-2. Nonreactive results in this assay for individualswith prior exposure to HIV-1 and/or HIV-2 may be due toantigen and antibody levels that are below the limit ofdetection of this assay.The [employer] HIV Ag/Ab Combo assay result andsupplemental assay results should be interpreted inconjunction with the patient's clinical presentation,history and other laboratory results. If the results areinconsistent with clinical evidence, additional testing issuggested to confirm the result. 08/15/2023 9:33 AM EDT 08/15/2023 11:22 AM EDT [facility] INDUSTRIAL HYGIENE MANAGER LAB BLOOD ORDERABLES Final Resu lt Performing Organization Address [facility] Co de Phone Number [facility] [address] [place] [phone] * Prothrombin Time-INR (08/15/2023 9:33 AM EDT) Prothrombin Time 11.2 11.1 - 13.3 SEC [facility] INTERNATIONAL NORM RATIO 0.9 0.9 - 1.1 [facility] Comment:INTERNATIONAL NORMAL IZED RATIO (INR) [...] 9:33 AM EDT 08/15/2023 11:29 AM EDT [facility] INDUSTRIAL HYGIENE MANAGER LAB BLOOD ORDERABLES Final Resu lt Performing Organization Address [facility] Co de Phone Number [facility] [address] [place] [phone] * (ABNORMAL) CBC auto differential (08/15/2023 9:33 AM EDT) White Blood Count 4.9 4.8 - 10.8 X10*3/uL [facility] Red Blood Count 5.00 4.60 - 5.80 X10*6/uL [facility] Hemoglobin 14.4 14.0 - 18.0 g/dl [facility] Hematocrit 44.4 42.0 - 52.0 % [facility] Mean Corpuscular Volume 88.8 80.0 - 98.0 fL [facility] Mean Corpuscular Hemoglobin 28.8 27.0 - 33.0 pg [facility] Mean Corpuscular HGB Conc 32.4 31.0 - 36.0 g/dl [facility] Red Cell Distribution Width 13.3 11.0 - 16.0 % [facility] Platelet Count 219 160 - 400 X10*3/uL [facility] Mean Platelet Volume 10.4 9.4 - 12.4 fL [facility] Neutrophils Percent Auto 49.7 45 - 73 % [facility] Imm Gran Pct Auto 0.2 0.0 - 0.4 % [facility] Lymphocytes Percent Auto 35.7 20 - 40 % [facility] Monocytes Percent Auto 9.7 2 - 11 % [facility] Eosinophils Percent Auto 4.3(H) 0 - 4 % [facility] Basophils Percent Auto 0.4 0 - 2 % [facility] NRBC Pct Auto 0.0 0.0 - 0.2 /100WBC [facility] Neutrophils Absolute Auto 2.4 2.0 - 8.3 x10*3/uL [facility] Imm Gran Abs Auto 0.01 0.00 - 0.03 X10*3/uL [facility] Lymphocytes Absolute Auto 1.7 1.2 - 4.9 X10*3/uL [facility] Monocytes Absolute Auto 0.5 0.1 - 1.2 X10*3/uL [facility] Eosinophils Absolute Auto 0.2 0.0 - 0.4 X10*3/uL [facility] Basophils Absolute Auto 0.0 0.0 - 0.2 X10*3/uL [facility] NRBC Abs Auto 0.000 0.0 - 0.012 X10*3/uL [facility] 08/15/2023 9:33 AM EDT 08/15/2023 11:22 AM EDT us Ana Appram INDUSTRIAL HYGIENE MANAGER LAB BLOOD ORDERABLES Final Resu lt [facility] [address] [place] [address] [phone] documented in this encounter Visit Diagnoses Diagnosis Chronic hepatitis C without hepatic coma (CMS/HCC)- Primary documented in this encounter Additional Health Concerns Assessment Noted Time PHQ-9 Depression Total Score: 0 07/04/19 24 1:59 PM EDT documented as of this encounter Care Teams Outer Diameter Grinder Tool Relationship Specialty Start Date End Date Ana Sanchez NP [address] [place] [address] PCP - General Family Medicine 07/04/23 11/07/23 Kristina Paul NP [address] [place] [address] PCP - General Family Medicine 11/08/23 documented as of this encounter
--- OUTSIDE RECORDS SUMMARY | 2024-12-18 11:28 | XMS_ITS | Encounter Summary ---
Author Organization [employer] Address [address] [facility] 7t [place] [address] Care Team Providers Care Manager Case Management Name Role Phone Kristina Paul NP Primary Care Provider [phone] Reason for Visit * Reason Comments Med Refill Encounter Details Date Type Department Care Team ([facility] Contact Info) Description 02/19/2024 Refill [facility] [address] [place] [address] Kristina Paul NP [address] [place] [address] Localized edema Social History Tobacco Use Types [...] Description 12/22/2024 1:30 PM EDT Office Visit [facility] [address] [place] [address] Tika Danielson MD [address] [place] [address] 02/02/2025 11:30 AM EST Office Visit [facility] [address] [place] [address] Kristina Paul NP [address] [place] [address] documented as of this encounter Visit Diagnoses Diagnosis Localized edema Edema documented in this encounter Additional Health Concerns Assessment Noted Time PHQ-9 Depression Total Score: 0 07/04/19 24 1:59 PM EDT documented as of this encounter Care Teams Manager Case Management Relationship Specialty Start Date End Date Kristina Paul NP [address] [place] [address] PCP - General Family Medicine 11/08/23 documented as of this encounter
--- OUTSIDE RECORDS SUMMARY | 2024-12-18 11:28 | XMS_ITS | Encounter Summary ---
Author Organization [employer] Address [address] [facility] [address] [place] [address] Care Team Providers Care Rnfa Name Role Phone Kristina Paul NP Primary Care Provider [phone] Encounter Details Date Type Department Care Team ([facility] st Contact Info) Description 07/07/2024 Telephone [facility] [address] [place], [place] [phone] Juan Torres PharmD Social History Tobacco Use [...] Description 12/22/2024 1:30 PM EDT Office Visit [facility] [address] [place] [phone] Tika Danielson MD [address] [place] [address] 02/02/2025 11:30 AM EST Office Visit [facility] [address] [place] [phone] Kristina Paul NP [address] [place] [address] documented as of this encounter Visit Diagnoses Not on filedocumented in this encounter Additional Health Concerns Assessment Noted Time PHQ-9 Depression Total Score: 0 04/03/20 24 1:59 PM EDT documented as of this encounter Care Teams Rnfa Relationship Specialty Start Date End Date Kristina Paul NP [address] [place] [address] PCP - General Family Medicine 11/08/23 documented as of this encounter
--- OUTSIDE RECORDS SUMMARY | 2024-12-18 11:29 | XMS_ITS | Encounter Summary ---
Author Organization [employer] Address [address] [facility] 7t [place] [address] Care Team Providers Care Patient Financial Services Coordinator Name Role Phone Kristina Paul NP Primary Care Provider [phone] Reason for Visit * Reason Comments [facility] Encounter Details Date Type Department Care Team ([facility] st Contact Info) Description 12/15/2024 Patient Outreach [facility] [address] [place] [address] Jenny Barker Recovery Supports Social History Tobacco [...] with Thony griffin. Setting: in person at [facility] Goals worked on: Social Stability Action taken/next steps: Attended alcohol and drug free activity Additional comments: Jenny Barker documented in this encounter Plan of Treatment Upcoming Encounters Date Type Department Care Team (Late st Contact Info) Description 12/22/2024 1:30 PM EDT Office Visit [facility] [address] [place] [phone] Tika Danielson MD [address] [place] [phone] 02/02/2025 11:30 AM EST Office Visit [address] [address] Kristina Paul NP [address] [place] [phone] documented as of this encounter Visit Diagnoses Not on filedocumented in this encounter Additional Health Concerns Assessment Noted Time PHQ-9 Depression Total Score: 3 07/15/19 11:39 AM EDT documented as of this encounter Care Teams Patient Financial Services Coordinator Relationship Specialty Start Date End Date Kristina Paul NP [address] [place] [address] PCP - General Family Medicine 11/08/23 documented as of this encounter
--- OUTSIDE RECORDS SUMMARY | 2024-12-18 11:29 | XMS_ITS | Encounter Summary ---
Author Organization [employer] Address [address] [facility] 7t [place] [address] Care Team Providers Care Treating Machine Operator Name Role Phone Kristina Paul NP Primary Care Provider [phone] Encounter Details Date Type Department Care Team (Latest Contact Info) Description 11/17/2024 Results Follow-Up [facility] [address] [place] [address] Kristina Paul NP [address] [place] [address] Comprehensive Metabolic Panel, Hepatic Function Panel, Hepatitis [...] took as prescribed. Is no longer at [facility]. Pt agrees to come in 12/22/24 at [...] MD Sent: 12/02/2024 10:21 AM EDT To: Natalei Osuna RN Labs show persistent viral load. [...] EDT RN spoke to pt via an car sander. Pt informed of persistent VL, states he [...] Encounter Note - Tika Danielson MD - 12/02/2024 10:21 AM EDT Labs show persistent viral load. Please follow up with patient RE: med adherence to determine next steps. Thank you. documented in this encounter Plan of Treatment Upcoming Encounters Date Type Department Care Team (Late st Contact Info) Description 12/22/2024 1:30 PM EDT Office Visit [address] [address] Tika Danielson MD [address] [place] [address] 02/02/2025 11:30 AM EST Office Visit [address] [address] Kristina Paul NP [address] [place] [phone] Scheduled Orders Name Type Priority Associated Diagnoses [...] documented as of this encounter Care Teams Treating Machine Operator Relationship Specialty Start Date End Date Kristina Paul NP [address] [place] [phone] PCP - General Family Medicine 11/08/23 documented as of this encounter
--- OUTSIDE RECORDS SUMMARY | 2024-12-18 11:29 | XMS_ITS | Encounter Summary ---
Author Organization [employer] Address [address] [facility] 7t [place] [address] Care Team Providers Care Commercial Drone Pilot Name Role Phone Kristina Paul NP Primary Care Provider [phone] Reason for Visit * Reason Comments Med Refill Encounter Details Date Type Department Care Team ([facility] st Contact Info) Description 10/14/2024 Refill [facility] [address] [place] [address] Kristina Paul NP [address] [place] [address] Localized edema Social History Tobacco Use Types [...] with others, in a hotel, in a retirement, living outside on the street, on a [...] Description 12/22/2024 1:30 PM EDT Office Visit [facility] [address] [place] [address] Tika Danielson MD [address] [place] [address] 02/02/2025 11:30 AM EST Office Visit [address] [address] Kristina Paul NP [address] [place] [address] documented as of this encounter Visit Diagnoses Diagnosis Localized edema Edema documented in this encounter Additional Health Concerns Assessment Noted Time PHQ-9 Depression Total Score: 3 07/15/19 25 11:39 AM EDT documented as of this encounter Care Teams Commercial Drone Pilot Relationship Specialty Start Date End Date Kristina Paul NP [address] [place] [address] PCP - General Family Medicine 11/08/23 documented as of this encounter
--- OUTSIDE RECORDS SUMMARY | 2024-12-18 11:29 | XMS_ITS | Encounter Summary ---
Author Organization [employer] Address [address] 7t [place] [address] Care Team Providers Care Program Manager Environmental Planning Name Role Phone Kristina Paul NP Primary Care Provider [phone] Encounter Details Date Type Department Care Team ([facility] st Contact Info) Description 12/15/2024 Telephone [facility] [address] [place], [place] [phone] Annamaria Luis RN Social History Tobacco Use [...] at bedtime 06/17/24 with ayear supply by [facility]. Pharmacy wants to confirm with PCP if they were aware since pt was alsorx the tamsulosin on 11/13/24 with refills. Message sent to PCP as an review. Tc will be returned toext [phone] to report. documented in this encounter Plan of Treatment Upcoming Encounters Date Type Department Care Team (Late st Contact Info) Description 12/22/2024 1:30 PM EDT Office Visit [facility] [address] [place] [address] Tika Danielson MD [address] [place] [address] 02/02/2025 11:30 AM EST Office Visit [facility] [address] [place] [address] Kristina Paul NP [address] [place] [address] documented as of this encounter Visit Diagnoses Not on filedocumented in this encounter Additional Health Concerns Assessment Noted Time PHQ-9 Depression Total Score: 3 07/15/19 25 11:39 AM EDT documented as of this encounter Care Teams Program Manager Environmental Planning Relationship Specialty Start Date End Date Kristina Paul NP [address] [place] [address] PCP - General Family Medicine 11/08/23 documented as of this encounter
--- OUTSIDE RECORDS SUMMARY | 2024-12-18 11:29 | XMS_ITS | Encounter Summary ---
Author Organization [employer] Address [address] [facility] 7t [place] [address] Care Team Providers Care Environmental Economist Name Role Phone Kristina Paul NP Primary Care Provider [phone] Encounter Details Date Type Department Care Team [...] 12/22/2024 1:30 PM EDT Office Visit [facility] [address] [place] [address] Tika Danielson MD 230 [place] [address] 02/02/2025 11:30 AM EST Office Visit [address] [address] Kristina Paul NP [address] [place] [address] documented as of this encounter Visit Diagnoses Not on filedocumented in this encounter Additional Health Concerns Assessment Noted Time PHQ-9 Depression Total Score: 3 07/15/19 25 11:39 AM EDT documented as of this encounter Care Teams Environmental Economist Relationship Specialty Start Date End Date Kristina Paul NP [address] [place] [address] PCP - General Family Medicine 11/08/23 documented as of this encounter
--- OUTSIDE RECORDS SUMMARY | 2024-12-18 11:29 | XMS_ITS | Encounter Summary ---
Author Organization [employer] Address [address] [facility] 7t [place] [address] Care Team Providers Care Health Practice Manager Name Role Phone Kristina Paul NP Primary Care Provider [phone] Encounter Details Date Type Department Care Team ([facility] Contact Info) Description 04/22/2024 Telephone [facility] [address] [place] [address] Kristina Paul NP [address] [place] [address] Social History Tobacco Use Types Packs/Day Years [...] with others, in a hotel, in a detention, living outside on the street, on a [...] Description 12/22/2024 1:30 PM EDT Office Visit [facility] [address] [place] [address] Tika Danielson MD [address] [place] [address] 02/02/2025 11:30 AM EST Office Visit [address] [address] Kristina Paul NP [address] [place] [address] documented as of this encounter Visit Diagnoses Not on filedocumented in this encounter Additional Health Concerns Assessment Noted Time PHQ-9 Depression Total Score: 0 07/04/19 24 1:59 PM EDT documented as of this encounter Care Teams Health Practice Manager Relationship Specialty Start Date End Date Kristina Paul NP [address] [place] [address] PCP - General Family Medicine 11/08/23 documented as of this encounter
--- OUTSIDE RECORDS SUMMARY | 2024-12-18 11:29 | XMS_ITS | Patient Health Record ---
Author Organization [facility] Address [address] [place] [address] Care Team Providers Care Sister Superior Name Role Phone [facility] Primary Care Provider [phone] Marycarmen Ireland Unavailable [phone] Reason For Referral No Information Encounters Encounter Location Date Provider Diagnosis [facility] [address] [place] [phone] 07/16/2024 Marycarmen Ireland [facility] [phone] 10/30/2024 Marycarmen Ireland Plan Of Treatment No Information Insurance Providers Payer Name Payer Address Payer Phone Subscriber Number Group Number Insured Name Patient Relationship to Insured Coverage Start Date Coverage End Date [place] Medicaid Standard [address] [place] [address] [id number] Thony Rothman Self - patient is the insured 3
--- OUTSIDE RECORDS SUMMARY | 2024-12-18 11:29 | XMS_ITS | Clinical Summary ---
Author Organization [employer] Address [address] [place] [address] 7t [place] [address] Care Team Providers Care Machine Precision Engraver Name Role Phone Kristina Paul NP Primary Care Provider [phone] Allergies No known active allergies Medications traZODone [...] Pt with difficulty facilitating and attending visits. [facility] team is working on scheduling on behalf [...] 9:02 AM EDT): Referral to vascular, Will fruit or nut picker compression stockings. No evidence of cellulitis [...] Dvt ultrasound ordered to be completed at [facility]. Assessment & Plan (07/07/2023 1:25 PM [...] EDT): In care with infectious disease at [facility] Assessment & Plan (01/25/2024 5:57 PM EDT): Abdominal ultrasound ordered Assessment & Plan (10/06/2023 8:48 PM EDT): -patient reports history of hep C infection -labs ordered to [facility] current infection -will refer to [facility] for treatment if lab results reveal active infection Assessment & Plan (09/21/2023 9:01 AM EDT): In care with [facility]. Assessment & Plan (08/25/2023 8:20 PM [...] Description 12/15/2024 10:15 AM EDT Office Visit [facility] [address] [place] [address] Kristina Paul NP Chronic migraine with aura without status migrainosus, not intractable; Nonintractable headache, unspecified chronicity pattern, unspecified headache type 12/15/2024 Patient Outreach [facility] [address] [place] [address] Jenny Barker Recovery Supports 12/15/[address] [address] Annamaria Luis RN 12/15/2024 Travel 12/11/[address] [address] Kristina Paul NP CHARTPREP 12/08/2024 Orders Only GENERIC EXTERNAL DATA DEPARTMENT Provider, Generic External Data 12/03/2024 Refill [facility] [address] [place] [address] Kristina Paul NP 11/17/2024 Results Follow-Up [facility] WALK[facility]IN [facility] [address] [place] [address] Kristina Paul NP Comprehensive Metabolic Panel, Hepatic Function Panel, Hepatitis C Viral RNA, Quantitative, Real-Time PCR 11/14/2024 Orders Only [facility]INE [address] [facility] [place] [address] Kristina Paul NP 11/14/2024 Telephone [facility] [address] [place] [address] Yovana Yu RN 11/13/2024 Refill [facility] [address] [facility] [place] [address] Kristina Paul NP Retention, urine 10/27/2024 Refill [facility] [address] [facility] [place] [address] Gloria Roca MD Nonintractable headache, unspecified chronicity pattern, unspecified headache type 10/22/2024 Telephone [facility] [address] [facility] [place] [address] Yovana Yu RN 10/21/2024 11:30 AM EDT Office Visit [address] [place] [address] Kristina Paul NP Venous stasis (Primary Dx); Chronic tension-type headache, not intractable; Chronic migraine with aura without status migrainosus, not intractable; Nonintractable headache, unspecified chronicity pattern, unspecified headache type; Nasal congestion with rhinorrhea; Healthcare maintenance; Tobacco use; Chronic low back pain, unspecified back pain laterality, unspecified whether sciatica present; Opioid dependence in remission (CMS/HCC); Urinary retention 10/21/2024 Patient Outreach [facility] [address] [place] [address], [place] [address] Daniel Prasad Recovery Supports 10/21/2024 Travel 10/21/2024 Refill [facility] [address] [place] [address] Kristina Paul NP Chronic tension-type headache, not intractable 10/14/2024 Refill [facility] [address] [facility] [place] [address] Kristina Paul NP Localized edema 10/14/2024 Refill [facility] [address] [facility] [place] [address] Gloria Roca MD 10/06/2024 Refill [facility] [address] [place] [address] Kristina Paul NP Localized edema from Last 3 Months Immunizations Immunization Administration [...] Description 12/22/2024 1:30 PM EDT Office Visit [facility] [address] [place] [address] Tika Danielson MD [address] [place] [address] 02/02/2025 11:30 AM EST Office Visit [facility] [address] [place] [address] Kristina Paul NP [address] [place] [address] Health Maintenance Due Date Last Done Comments [...] PM EDT Narrative 12/16/2024 12:31 [place] [address] XRay Report Signed Patient: Thony Barker MR#: [id number] : 1980 Acct:[id number] Age/Sex: 44 / M ADM Date: 12/16/24 Loc: HO.HHCX Attending Dr: Kristina Paul NP Ordering Physician: Kristina Paul NP Date of Service: 12/16/24 Procedure(s): XR lumbar spine 4V min Accession Number(s): [id number] cc: Kristina Paul NP Reason for Exam: [...] 12/16/24 1228 DD/ 1220 TD/TT: 12/16/24 1221 Rn Hyperbaric: Procedure Note Donotuseinterpreter, Image - 12/16/[address] [address] XRay Report Signed Patient: Barbara Barker#: [id number] : 1980Acct:[id number] Age/Sex: 44 / MADM Date: 12/16/24 Loc: HO.HHCX Attending Dr: Kristina Paul BUILDING MAINTENANCE SUPERVISOR Ordering Physician: Kristina Paul NP Date of Service: 12/16/24 Procedure(s): XR lumbar spine 4V min Accession Number(s): [id number] cc: Kristina Paul NP Reason for Exam: [...] 12/16/24 1228 DD/ 1220 TD/TT: 12/16/24 1221 Rn Hyperbaric: Kristina Paul BUILDING MAINTENANCE SUPERVISOR IMG XR PROCEDURES Edited Result - Final * Hepatitis C Viral RNA, Genotype, LiPA (12/08/2024 9:24 AM EDT) Hepatitis C Genotype 1a Not Detected [facility] Comment:The methods used in this test are RT-PCR and DNASequencing of the 5' UTR and core region of the HCVgenome.For additional information, please refer tohttp://education.[employer]entiva/faq/HCVGenotyping(This link is being provided for informational/educational purposes only.)This test was developed and its analytical performancecharacteristics have been determined by [employer]. It has not been cleared or approved bythe FDA. The assay has been validated pursuant to theIA regulations and is used for clinical purposes.THIS TEST WAS PERFORMED AT:[employer] [id number] [place] [address]NBCJUPC Sharyn VILLAGRAN MD,PHD 12/08/2024 9:24 AM EDT 12/08/2024 11:21 AM EDT Tika Danielson MD LAB BLOOD ORDERABLES Final R esult Performing Organization Address [facility] Co de Phone Number [facility] [address] [place] [phone] * PSA,Total (12/08/2024 9:24 AM EDT) Prostate Specific Antigen 0.10 <0.05 - 4.0 ng/mL [facility] Comment:PSA methodology: Thomas Alcala i ChemiluminescentMicroparticle Immunoassay (CMIA) 12/08/2024 9:24 AM EDT 12/08/2024 11:21 AM EDT Generic External Data Provider LAB BLOOD ORDERAB LES Final Result Performing Organization Address City/[facility]/ZIP Co de Phone Number [facility] [address] [place] [phone] * (ABNORMAL) Hepatitis C Viral RNA, Quantitative, Real-Time PCR (11/14/2024 10:31 AM EDT) [facility] Hepatitis C Viral Load 8200758(A ) NOT DETECTED IU/mL [facility] HCV Log PCR 6.71(A) NOT DETECTED Log IU/mL [facility] Comment:For additional infor mation, please refer tohttp://education.Peekapak/faq/BUM97l9(This link is being provided for informational/educational purposes only.)THIS TEST WAS PERFORMED AT:[employer] [place] [address]RVHBBDILLON SIERRA MD 11/14/2024 10:3 1 AM EDT 11/14/2024 1:21 PM EDT Tika Danielson MD LAB BLOOD ORDERABLES Final R esult Performing Organization Address [facility] de Phone Number [facility] [address] [place] [phone] * Hepatic Function Panel (11/14/2024 10:31 AM EDT) [facility] Bilirubin, Direct 0.2 0.0 - 0.5 mg/dL [facility] 11/14/2024 10:3 1 AM EDT 11/14/2024 1:21 PM EDT Tika Danielson MD LAB BLOOD ORDERABLES Final R esult Performing Organization Address [facility] Co de Phone Number [facility] [address] [place] [phone] * (ABNORMAL) Comprehensive Metabolic Panel (11/14/2024 10:31 AM EDT) [facility] Sodium 137 135 - 145 mmol/L [facility] Potassium 4.5 3.3 - 5.1 mmol/L [facility] Chloride 103 96 - 108 mmol/L [facility] Carbon Dioxide 26 22 - 29 mmol/L [facility] Anion Gap 13 12 - 20 [facility] Urea Nitrogen (BUN) 10 9 - 16 mg/dL [facility] Creatinine, Serum 0.78 0.5 - 1.4 mg/dL [facility] Estimated Glomerular Filt Rate >60 [facility] Comment:Chronic Kidney Disea se: Estimated GFR < 60 mL/min/1.71n9Hkbwrg Kidney Disease: Estimated GFR < 15 mL/min/1.73m2 Glucose 87 60 - 115 mg/dL [facility] Calcium 9.8 8.4 - 10.2 mg/dL [facility] Bilirubin, Total 0.4 0.0 - 1.0 mg/dL [facility] Aspartate Amino Transferase 41(H) 5 - 37 U/L [facility] Alanine Aminotransferase 30 0 - 40 U/L [facility] Total Protein 7.5 6.5 - 8.0 g/dL [facility] Albumin Level 4.2 3.5 - 5.0 g/dL [facility] Alkaline Phosphatase 87 39 - 117 U/L [facility] 11/14/2024 10:3 1 AM EDT 11/14/2024 1:21 PM EDT Kristina Paul NP LAB BLOOD ORDERABLES Final Resul t [facility] [address] [place] [address] [phone] * HIV-1/2 Antigen and Antibodies, Fourth Generation, with Reflexes (09/03/2023 9:34 AM EDT) HIV AB/AG Nonreactive Nonreactive [facility] Comment:HIV-1 p24 Ag and/or HIV-1/HIV-2 Ab not detected.A test result that is nonreactive does not exclude thepossibility of exposure to or infection with HIV-1 and/orHIV-2. Nonreactive results in this assay for individualswith prior exposure to HIV-1 and/or HIV-2 may be due toantigen and antibody levels that are below the limit ofdetection of this assay.The [employer] Alinity HIV Ag/Ab Combo assay result andsupplemental assay results should be interpreted inconjunction with the patient's clinical presentation,history and other laboratory results. If the results areinconsistent with clinical evidence, additional testing issuggested to confirm the result. 09/03/2023 9:34 AM EDT 09/03/2023 11:55 AM EDT Ana Sanchez NP LAB BLOOD ORDERABLES Final Resu lt [facility] [address] [place] [address] [phone] from Last 3 Months or Most Recently Relevant to Health Maintenance Insurance [facility] [employer] Care Teams Machine Precision Engraver Relationship Specialty Start Date End Date Kristina Paul NP [address] [place] [phone] PCP - General Family Medicine 11/08/23
== END 2024-12-18 11:05 | disposition home or self-care (01) ==
LOC: HO.HUSH 09:50
PROVIDERS: PCP Nurse Practitioner Family; Visit Provider Nurse Practitioner Family
DX: Z13.9 Encounter for screening, unspecified (principal)

== ENCOUNTER → 2024-12-18 09:50 | Outpatient (BNVA) | payer MEDICAID, SELFPAY | PROVIDERS: PCP Nurse Practitioner Family; Visit Provider Nurse Practitioner Family | DX: R39.16 Straining to void (principal); Z13.9 Encounter for screening, unspecified; Z87.898 Personal history of other specified conditions | CPT/HCPCS: 51798; 81003; 99212 ==

== ENCOUNTER 2025-03-09 09:33 | Outpatient (REF) | payer MEDICAID, SELFPAY ==
[2025-03-09 12:20] LABS: Alanine Aminotransferase 14 U/L (0-40); Albumin Level 4.4 g/dL (3.5-5.0); Alkaline Phosphatase 90 U/L (39-117); Anion Gap 10 (12-20); Aspartate Amino Transferase 25 U/L (5-37); Blood Urea Nitrogen 13 mg/dL (9-16); Calcium 9.7 mg/dL (8.4-10.2); Carbon Dioxide 26 mmol/L (22-29); Chloride 106 mmol/L (96-108); Estimated Glomerular Filt Rate > 60; Potassium 4.4 mmol/L (3.3-5.1); Sodium 138 mmol/L (135-145); Total Protein 7.9 g/dL (6.5-8.0)
== END 2025-03-09 09:34 | disposition home or self-care (01) ==
LOC: HO.HHCL 09:33
PROVIDERS: PCP Nurse Practitioner Family; Visit Provider Nurse Practitioner Family
DX: M54.16 Radiculopathy, lumbar region (principal); R60.0 Localized edema; K59.03 Drug induced constipation
CPT/HCPCS: 36415; 80053

== ENCOUNTER 2025-03-14 10:40 | Outpatient (REF) | payer MEDICAID, SELFPAY ==
--- NOTE | ~2025-03-14 | MR_ITS ---
CLINICAL HISTORY: chronic severe low back pain, radiating to buttocks, ? radiculopathy Exam: Unenhanced MRI of the lumbar spine. Comparison: None. Findings: Lumbar vertebral body heights and alignment are well-maintained. There is a minimal Modic type 2 endplate signal change at L2-3 level. Intervertebral disc heights are reasonably maintained with slight disc desiccation at L5-S1 level. Conus medullaris terminates at L2 level. Axial images reveal the following: L1-2: No focal disc herniation, spinal or foraminal compromise. L2-3: No focal disc herniation, spinal or foraminal compromise. L3-4: No focal disc herniation, spinal or foraminal compromise. L4-5: No focal disc herniation, spinal or foraminal compromise. L5-S1: No focal disc herniation, spinal or foraminal compromise. Impression: 1. Unremarkable appearing MRI of the lumbar spine. This document has been electronically signed by: Roman Hartman MD on 03/16/2025 15:19:55
--- OUTSIDE RECORDS SUMMARY | 2025-03-14 10:46 | XMS_ITS | Encounter Summary ---
Author Organization [employer] Address [address] [place] [address] 7 [place] [address] Care Team Providers Care Boat Master Name Role Phone Ana Sanchez SNOWBOARD DESIGNER Primary Care Provider [phone] Kristina Paul SNOWBOARD DESIGNER Primary Care Provider [phone] Encounter Details Date Type Department Care Team (Late st Contact Info) Description 08/06/2023 Orders Only [facility] [address] [place] [address] Gloria Roca MD [address] [place] [address] Chronic hepatitis C without hepatic coma (CMS/HCC) [...] Care Team (Late st Contact Info) Description 03/20/2025 10:30 AM EST Medication Management [facility] [address] [place] [phone] Sarah Marrufo, PharmD [address] [place] [address] 04/22/2025 11:15 AM EST Office Visit [facility] [address] [place] [phone] Kristina Paul, ANTONY [address] [place] [address] documented as of this encounter Procedures Procedure [...] 11:25 AM EST) Hepatitis C Viral Load 8342064(A ) NOT DETECTED IU/mL [facility] HCV Log PCR 6.56(A) NOT DETECTED Log IU/mL [facility] Comment:For additional infor merari, please refer tohttp://education.Fanli website.Navegg/faq/NIE75p7(This link is being provided for informational/educational purposes only.)THIS TEST WAS PERFORMED AT:[facility] [place] [id number] SIERRA MD 03/25/2024 11:2 5 AM EST 03/27/2024 3:00 PM EST us Kristina Paul NP LAB BLOOD ORDERABLES Final Resul t [facility] [address] [place] [address] [phone] * (ABNORMAL) Liver Fibrosis (HCV), FibroTest-ActiTest Panel (09/03/2023 9:34 AM EDT) Liver Fibrosis Score 0.42 [facility] Liver Fibrosis Stage F1-F2 [facility] Liver Fibrosis Interpretation SEE NOTE [facility] Comment:minimal fibrosisFibr o Test Score [...] (severe fibrosis) Nec Inflam Act Score 0.17 [facility] Nec Inflam Act Grade A0-A1 [facility] Nec Inflam Act Interpretation SEE NOTE [facility] Comment:no activityActiTest Score (a) Metavir Score a>=0 and a<=0.17 : A0 (no activity)a>0.17 and a<=0.29 : A0-A1 (no activity)a>0.29 and a<=0.36 : A1 (minimal activity)a>0.36 and a<=0.52 : A1-A2 (minimal activity)a>0.52 and a<=0.60 : A2 (significant activity)a>0.60 and a<=0.62 : A2-A3 (significant activity)a>0.62 and a<=1.00 : A3 (severe activity) PBX-Kznlj-5-Macroglo bulin 269 106 - 279 mg/dL [facility] FIB-Haptoglobin 101 43 - 212 mg/dL [facility] FIB-Apolipoprotein A1 153 94 - 176 mg/dL [facility] FIB-Total Bilirubin 0.3 0.2 - 1.2 mg/dL [facility] FIB-GGT 215(A) 3 - 95 U/L [facility] FIB-ALT 30 9 - 46 U/L [facility] Reference ID [id number] [facility] Footnote SEE NOTE [facility] Comment: The reliability of results [...] and C.The performance characteristics have been [facility] by[facility]. Ithas not been cleared or approved by the U.S. Food and DrugAdministration. Performance characteristics refer to theanalytical performance of the test.[facility], the associated logo, [employer] and all associated [employer] capellan are theregistered trademarks of [employer]. All third partymarks - (R) and (TM) - are the property of their respectiveowners. (C) [id number] [employer]. Allrights reserved.THIS TEST WAS PERFORMED AT:[employer] [id number] [place] [address]PPWHSSYED SANCHEZ MD,PHD,ROXY 09/03/2023 9:34 AM EDT 09/03/2023 11:55 AM EDT [facility] LAB BLOOD ORDERABLES Final Resu lt [facility] [address] [place] [phone] * Hepatitis C Viral RNA, Genotype, LiPA (09/03/2023 9:34 AM EDT) Hepatitis C Genotype 1a [facility] Comment:The method used in t his test is RT-PCR and reversehybridization (Line Probe) of the 5' UTR and coreregion of the HCV genome.The analytical performance characteristics of thisassay have been determined by [facility] [employer], [place], [place]. The modificationshave not been cleared or approved by the FDA. Thisassay has been validated pursuant to the CLIAregulations and is used for clinical purposes.For additional information, please refer tohttp://education.Exaprotect.Navegg/faq/HCVGenotyping(This link is being provided for informational/educational purposes only.)THIS TEST WAS PERFORMED AT:[employer] [id number] [place] [address]UVMTPNRSHELLEY VILLAGRAN MD,PHD 09/03/2023 9:34 AM EDT 09/03/2023 11:14 AM EDT [facility] LAB BLOOD ORDERABLES Final Resu lt Performing Organization Address [facility]/ZIP Co de Phone Number [facility] [address] [place] [address] [phone] * HIV-1/2 Antigen and Antibodies, Fourth Generation, with Reflexes (09/03/2023 9:34 AM EDT) HIV AB/AG Nonreactive Nonreactive [facility] Comment:HIV-1 p24 Ag and/or HIV-1/HIV-2 Ab not detected.A test result that is nonreactive does not exclude thepossibility of exposure to or infection with HIV-1 and/orHIV-2. Nonreactive results in this assay for individualswith prior exposure to HIV-1 and/or HIV-2 may be due toantigen and antibody levels that are below the limit ofdetection of this assay.The [employer] USniSNAPP' HIV Ag/Ab Combo assay result andsupplemental assay results should be interpreted inconjunction with the patient's clinical presentation,history and other laboratory results. If the results areinconsistent with clinical evidence, additional testing issuggested to confirm the result. 09/03/2023 9:34 AM EDT 09/03/2023 11:55 AM EDT Ana Sanchez LAB BLOOD ORDERABLES Final Resu lt Performing Organization Address [facility] Co de Phone Number [facility] [address] [place] [address] [phone] * (ABNORMAL) Prothrombin Time-INR (09/03/2023 9:34 AM EDT) Prothrombin Time 9.9(L) 11.1 - 13.3 SEC [facility] INTERNATIONAL NORM RATIO 0.8(L) 0.9 - 1.1 [facility] Comment:INTERNATIONAL NORMAL IZED RATIO (INR) [...] EDT 09/03/2023 11:58 AM EDT us Ana Colladom SNOWBOARD DESIGNER LAB BLOOD ORDERABLES Final Resu lt [facility] [address] [place] [address] [phone] * CBC auto differential (09/03/2023 9:34 AM EDT) White Blood Count 7.0 4.8 - 10.8 X10*3/uL [facility] Red Blood Count 5.01 4.60 - 5.80 X10*6/uL [facility] Hemoglobin 14.4 14.0 - 18.0 g/dl [facility] Hematocrit 45.0 42.0 - 52.0 % [facility] Mean Corpuscular Volume 89.8 80.0 - 98.0 fL [facility] Mean Corpuscular Hemoglobin 28.7 27.0 - 33.0 pg [facility] Mean Corpuscular HGB Conc 32.0 31.0 - 36.0 g/dl [facility] Red Cell Distribution Width 13.3 11.0 - 16.0 % [facility] Platelet Count 186 160 - 400 X10*3/uL [facility] Mean Platelet Volume 10.5 9.4 - 12.4 fL [facility] Neutrophils Percent Auto 61.5 45 - 73 % [facility] Imm Gran Pct Auto 0.3 0.0 - 0.4 % [facility] Lymphocytes Percent Auto 30.3 20 - 40 % [facility] Monocytes Percent Auto 6.1 2 - 11 % [facility] Eosinophils Percent Auto 1.4 0 - 4 % [facility] Basophils Percent Auto 0.4 0 - 2 % [facility] NRBC Pct Auto 0.0 0.0 - 0.2 /100WBC [facility] Neutrophils Absolute Auto 4.3 2.0 - 8.3 x10*3/uL [facility] Imm Gran Abs Auto 0.02 0.00 - 0.03 X10*3/uL [facility] Lymphocytes Absolute Auto 2.1 1.2 - 4.9 X10*3/uL [facility] Monocytes Absolute Auto 0.4 0.1 - 1.2 X10*3/uL [facility] Eosinophils Absolute Auto 0.1 0.0 - 0.4 X10*3/uL [facility] Basophils Absolute Auto 0.0 0.0 - 0.2 X10*3/uL [facility] NRBC Abs Auto 0.000 0.0 - 0.012 X10*3/uL [facility] 09/03/2023 9:34 AM EDT 09/03/2023 11:58 AM EDT Ana Sanchez SNOWBOARD DESIGNER LAB BLOOD ORDERABLES Final Resu lt [facility] [address] [place] [phone] * (ABNORMAL) Liver Fibrosis (HCV), FibroTest-ActiTest Panel (08/15/2023 9:33 AM EDT) Liver Fibrosis Score 0.51 [facility] Liver Fibrosis Stage F2 [facility] Liver Fibrosis Interpretation SEE NOTE [facility] Comment:moderate fibrosisFib ro Test Score [...] (severe fibrosis) Nec Inflam Act Score 0.28 [facility] Nec Inflam Act Grade A0-A1 [facility] Nec Inflam Act Interpretation SEE NOTE [facility] Comment:no activityActiTest Score (a) Metavir Score a>=0 and a<=0.17 : A0 (no activity)a>0.17 and a<=0.29 : A0-A1 (no activity)a>0.29 and a<=0.36 : A1 (minimal activity)a>0.36 and a<=0.52 : A1-A2 (minimal activity)a>0.52 and a<=0.60 : A2 (significant activity)a>0.60 and a<=0.62 : A2-A3 (significant activity)a>0.62 and a<=1.00 : A3 (severe activity) LOT-Jgzej-4-Macroglo bulin 261 106 - 279 mg/dL [facility] FIB-Haptoglobin 83 43 - 212 mg/dL [facility] FIB-Apolipoprotein A1 152 94 - 176 mg/dL [facility] FIB-Total Bilirubin 0.4 0.2 - 1.2 mg/dL [facility] FIB-GGT 236(A) 3 - 95 U/L [facility] FIB-ALT 40 9 - 46 U/L [facility] Reference ID [id number] [facility] Footnote SEE NOTE [facility] Comment: The reliability of results [...] and C.The performance characteristics have been determined [facility]. Ithas not been cleared or approved by the U.S. Food and DrugAdministration. Performance characteristics refer to theanalytical performance of the test.[employer], the associated logo, [employer] and all associated [employer] capellan are theregistered trademarks of [employer]. All third partymarks - (R) and (TM) - are the property of their respectiveowners. (C) [id number] [employer]. Allrights reserved.THIS TEST WAS PERFORMED AT:[employer] [id number] [place] [address]NVLMOSYED SANCHEZ MD,PHD,ROXY 08/15/2023 9:33 AM EDT 08/15/2023 11:22 AM EDT Ana Sanchez SNOWBOARD DESIGNER LAB BLOOD ORDERABLES Final Resu lt [facility] [address] [place] [phone] * Hepatitis C Viral RNA, Genotype, LiPA (08/15/2023 9:33 AM EDT) Hepatitis C Genotype 1a [facility] Comment:The method used in t his test is RT-PCR and reversehybridization (Line Probe) of the 5' UTR and coreregion of the HCV genome.The analytical performance characteristics of thisassay have been determined by [facility], [place], [place]. The modificationshave not been cleared or approved by the FDA. Thisassay has been validated pursuant to the CLIAregulations and is used for clinical purposes.For additional information, please refer tohttp://education.Cytoo/faq/HCVGenotyping(This link is being provided for informational/educational purposes only.)THIS TEST WAS PERFORMED AT:[employer]/[facility] [id number] [place] [address]KUPDOASSHELLEY VILLAGRAN MD,PHD 08/15/2023 9:33 AM EDT 08/15/2023 11:22 AM EDT [facility] SNOWBOARD DESIGNER LAB BLOOD ORDERABLES Final Resu lt Performing Organization Address City/[facility]/ZIP Co de Phone Number [facility] [address] [place] [phone] * Hepatitis B surface antigen, EIA (08/15/2023 9:33 AM EDT) Pathologist [facility] Hepatitis B Surface Ag Negative Negative [facility] 08/15/2023 9:33 AM EDT 08/15/2023 11:22 AM EDT [facility] LAB BLOOD ORDERABLES Final Resu lt Performing Organization Address [facility] Co de Phone Number [facility] [address] [place] [phone] * HIV-1/2 Antigen and Antibodies, Fourth Generation, with Reflexes (08/15/2023 9:33 AM EDT) HIV AB/AG Nonreactive Nonreactive [facility] Comment:HIV-1 p24 Ag and/or HIV-1/HIV-2 Ab not detected.A test result that is nonreactive does not exclude thepossibility of exposure to or infection with HIV-1 and/orHIV-2. Nonreactive results in this assay for individualswith prior exposure to HIV-1 and/or HIV-2 may be due toantigen and antibody levels that are below the limit ofdetection of this assay.The [employer] US[employer]' HIV Ag/Ab Combo assay result andsupplemental assay results should be interpreted inconjunction with the patient's clinical presentation,history and other laboratory results. If the results areinconsistent with clinical evidence, additional testing issuggested to confirm the result. 08/15/2023 9:33 AM EDT 08/15/2023 11:22 AM EDT Ana Collado SNOWBOARD DESIGNER LAB BLOOD ORDERABLES Final Resu lt Performing Organization Address [facility] Co de Phone Number [facility] [address] [place] [phone] * Prothrombin Time-INR (08/15/2023 9:33 AM EDT) Prothrombin Time 11.2 11.1 - 13.3 SEC [facility] INTERNATIONAL NORM RATIO 0.9 0.9 - 1.1 [facility] Comment:INTERNATIONAL NORMAL IZED RATIO (INR) [...] AM EDT 08/15/2023 11:29 AM EDT Ana Collado SNOWBOARD DESIGNER LAB BLOOD ORDERABLES Final Resu lt Performing Organization Address [facility] Co de Phone Number [facility] [address] [place] [phone] * (ABNORMAL) CBC auto differential (08/15/2023 9:33 AM EDT) White Blood Count 4.9 4.8 - 10.8 X10*3/uL [facility] Red Blood Count 5.00 4.60 - 5.80 X10*6/uL [facility] Hemoglobin 14.4 14.0 - 18.0 g/dl [facility] Hematocrit 44.4 42.0 - 52.0 % [facility] Mean Corpuscular Volume 88.8 80.0 - 98.0 fL [facility] Mean Corpuscular Hemoglobin 28.8 27.0 - 33.0 pg [facility] Mean Corpuscular HGB Conc 32.4 31.0 - 36.0 g/dl [facility] Red Cell Distribution Width 13.3 11.0 - 16.0 % [facility] Platelet Count 219 160 - 400 X10*3/uL [facility] Mean Platelet Volume 10.4 9.4 - 12.4 fL [facility] Neutrophils Percent Auto 49.7 45 - 73 % [facility] Imm Gran Pct Auto 0.2 0.0 - 0.4 % [facility] Lymphocytes Percent Auto 35.7 20 - 40 % [facility] Monocytes Percent Auto 9.7 2 - 11 % [facility] Eosinophils Percent Auto 4.3(H) 0 - 4 % [facility] Basophils Percent Auto 0.4 0 - 2 % [facility] NRBC Pct Auto 0.0 0.0 - 0.2 /100WBC [facility] Neutrophils Absolute Auto 2.4 2.0 - 8.3 x10*3/uL [facility] Imm Gran Abs Auto 0.01 0.00 - 0.03 X10*3/uL [facility] Lymphocytes Absolute Auto 1.7 1.2 - 4.9 X10*3/uL [facility] Monocytes Absolute Auto 0.5 0.1 - 1.2 X10*3/uL [facility] Eosinophils Absolute Auto 0.2 0.0 - 0.4 X10*3/uL [facility] Basophils Absolute Auto 0.0 0.0 - 0.2 X10*3/uL [facility] NRBC Abs Auto 0.000 0.0 - 0.012 X10*3/uL [facility] 08/15/2023 9:33 AM EDT 08/15/2023 11:22 AM EDT us Ana Sanchez SNOWBOARD DESIGNER LAB BLOOD ORDERABLES Final Resu lt [facility] [address] [place] [phone] documented in this encounter Visit Diagnoses Diagnosis Chronic hepatitis C without hepatic coma (HCC)- Primary documented in this encounter Additional Health Concerns Assessment Noted Time PHQ-9 Depression Total Score: 0 07/04/19 24 1:59 PM EDT documented as of this encounter Care Teams Boat Master Relationship Specialty Start Date End Date Ana Sanchez NP [address] [place] [address] PCP - General Family Medicine 07/04/23 11/07/23 Kristina Paul NP [address] [place] [address] PCP - General Family Medicine 11/08/23 documented as of this encounter
--- OUTSIDE RECORDS SUMMARY | 2025-03-14 10:47 | XMS_ITS | Encounter Summary ---
Author Organization [employer] Address [address] [facility] 7 [place] [address] Care Team Providers Care Global Consumer Sector Vice President Name Role Phone Kristina Paul NP Primary Care Provider [phone] Reason for Visit * Reason Comments Med Refill Encounter Details Date Type Department Care Team ([facility] Contact Info) Description 02/19/2024 Refill [facility] [address] [place] [address] Kristina Paul NP [address] [place] [address] Localized edema Social History Tobacco Use Types [...] Description 03/20/2025 10:30 AM EST Medication Management [address] [phone] Sarah Marrufo, PharmD [address] [place] [phone] 04/22/2025 11:15 AM EST Office Visit [address] [address] Kristina Paul NP [address] [place] [phone] documented as of this encounter Visit Diagnoses Diagnosis Localized edema Edema documented in this encounter Additional Health Concerns Assessment Noted Time PHQ-9 Depression Total Score: 0 07/04/19 24 1:59 PM EDT documented as of this encounter Care Teams Global Consumer Sector Vice President Relationship Specialty Start Date End Date Kristina Paul NP [address] [place] [phone] PCP - General Family Medicine 11/08/23 documented as of this encounter
--- OUTSIDE RECORDS SUMMARY | 2025-03-14 10:47 | XMS_ITS | Encounter Summary ---
Author Organization [employer] Address [address] [facility] [address]t [place] [address] Care Team Providers Care Display Artist Name Role Phone Kristina Paul NP Primary Care Provider [phone] Encounter Details Date Type Department Care Team (Late st Contact Info) Description 07/07/2024 Telephone [facility] [address] [place], [place] [phone] Juan Torres PharmD Social History Tobacco Use [...] with others, in a hotel, in a long term, living outside on the street, on a [...] to medication, denies missing any doses Thank Jani guajardo documented in this encounter Plan of Treatment Upcoming Encounters Date Type Department Care Team (Late st Contact Info) Description 03/20/2025 10:30 AM EST Medication Management [facility] [address] [place] [phone] Sarah Marrufo PharmD [address] [place] [address] 04/22/2025 11:15 AM EST Office Visit [facility] [address] [place] [phone] Kristina Paul NP [address] [place] [address] documented as of this encounter Visit Diagnoses Not on filedocumented in this encounter Additional Health Concerns Assessment Noted Time PHQ-9 Depression Total Score: 0 07/04/19 24 1:59 PM EDT documented as of this encounter Care Teams Display Artist Relationship Specialty Start Date End Date Kristina Paul NP [address] [place] [address] PCP - General Family Medicine 11/08/23 documented as of this encounter
--- OUTSIDE RECORDS SUMMARY | 2025-03-14 10:47 | XMS_ITS | Encounter Summary ---
Author Organization [employer] Address [address] [place] [address] Care Team Providers Care Health Services Information Specialist Name Role Phone Kristina Paul NP Primary Care Provider [phone] Reason for Visit * Reason Onset Date Comments pt1 02/24/2025 Patient requesti [email or web address] Address verified: Y / N: YesProvider name or facility name:1. [address] [facility] 2. 5 [facility] Escort needed: Y/N: No Do you have a wheelchair: Y/N: NoIf yes- Manual or Electric: NoHow often 5 Times a month Pt has an apt on 03/14/25 11:30 C for MRI TelephoneCall 02/24/2025 Encounter Details Date Type Department Care Team (Late st Contact Info) Description 02/24/2025 Telephone [facility] 230 [place] [address] Juan Torres PharmD pt1 (Patient requesting pt1/Home Address verified: Y / N: Yes/Provider name or facility name:/1. 230 [facility] /[address]/ /Escort needed: Y/N: No /Do you have a wheelchair: Y/N: No/If yes- Manual or Electric: No/How often 5 Times a month / /Pt has an apt on 03/14/25 11:30 [facility] for [place] /); TelephoneCall Social History Tobacco Use Types Packs/Day Years [...] others, in a hotel, in a senior living, living outside on the street, on a [...] Telephone Encounter - Annamaria Luis RN - 03/10/2025 3:07 PM EST Tc to pt via [facility] [place]: [id number] to assist with setswana translation. Pt requested to go over their x-ray results. 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 Nerve painpresent; further evaluation needed. MRI of the back scheduled for March 14, 2025, at 11:30 AM toassess cartilage and nerve involvement. . Pt verbalized understanding and agrees with plan to attend their MRI appointment. Pt denies any further questions or concerns at this time. Pt is to follow up with PCP as needed. * Telephone Encounter - Tika Glaser - 03/10/2025 10:39 AM EST Patient walked in stating he was seen by provider on 03/06/25 however he does not recall discussinghis xray results. Requesting to speak with providers nurse.Call back number is [phone] * Telephone Encounter - Cristy Pederson - 03/06/2025 11:39 AM EST Patient will recieve approval / denial letter via mail. Vamp Marker also mailed pt letter with further instructions PT-1 Request Number [id number] is Pending - [facility] 230 [facility] [address] PT-1 Request Number [id number] is Pending - [place] [id number] [facility] [id number] * Telephone Encounter - Clark Bourne - 03/06/2025 11:10 AM EST Patient requesting pt1 Home Address verified: Y / N: Yes Provider name or facility name: [address] [place] [address] 2. 575 [facility] Escort needed: Y/N: No Do you have a wheelchair: Y/N: No If yes- Manual or Electric: No How often 5 Times a month Pt has an apt on 03/14/25 11:30 [facility] for [place] * Telephone Encounter - Juan Torres PharmD - 02/24/2025 10:38 AM EST Patient picked up last refill of Vosevi on 02/24/2025. Patient Denied ORTIZ Adherence was discussed with patient and they reported Patient reported strict adherence to medication, denies missing any doses Frederic Gunter documented in this encounter Plan of Treatment Upcoming Encounters Date Type Department Care Team (Late st Contact Info) Description 03/20/2025 10:30 AM EST Medication Management [facility] [address] [place] [phone] Sarah Marrufo PharmD 230 [place] [address] 04/22/2025 11:15 AM EST Office Visit [facility] [address] [place] [address] Kristnia Paul NP [address] [place] [address] documented as of this encounter Visit Diagnoses Not on filedocumented in this encounter Additional Health Concerns Assessment Noted Time PHQ-9 Depression Total Score: 3 07/15/19 25 11:39 AM EDT documented as of this encounter Care Teams Health Services Information Specialist Relationship Specialty Start Date End Date Kristina Paul NP [address] [place] [address] PCP - General Family Medicine 11/08/23 documented as of this encounter
--- OUTSIDE RECORDS SUMMARY | 2025-03-14 10:47 | XMS_ITS | Encounter Summary ---
Author Organization [employer] Address [address] [facility] 7t [place] [address] Care Team Providers Care Porter Head Name Role Phone Kristina Paul NP Primary Care Provider [phone] Encounter Details Date Type Department Care Team ([facility] st Contact Info) Description 01/21/2025 Telephone [facility] 230 [place], [place] [phone] Juan Torres PharmD Social History Tobacco Use [...] Telephone Encounter - Juan Torres PharmD - 01/21/2025 11:27 AM EDT Patient picked up 2nd refill of VOSEVI on 01/21/2025. Patient Denied ORTIZ Adherence was discussed with patient and they reported Patient reported strict adherence to medication, denies missing any doses Frederic Gunter documented in this encounter Plan of Treatment Upcoming Encounters Date Type Department Care Team (Late st Contact Info) Description 03/20/2025 10:30 AM EST Medication Management [facility] [address] [place] [address] Sarah Marrufo, ChivoD 230 [place] [address] 04/22/2025 11:15 AM EST Office Visit [facility] [address] [place] [phone] Kristina Paul NP 230 [place] [address] documented as of this encounter Visit Diagnoses Not on filedocumented in this encounter Additional Health Concerns Assessment Noted Time PHQ-9 Depression Total Score: 3 04/14/20 25 11:39 AM EDT documented as of this encounter Care Teams Porter Head Relationship Specialty Start Date End Date Kristina Paul NP 230 [place] [address] PCP - General Family Medicine 11/08/23 documented as of this encounter
--- OUTSIDE RECORDS SUMMARY | 2025-03-14 10:47 | XMS_ITS | Encounter Summary ---
Author Organization [employer] Address [address] [place] [address] 7 [place] [address] Care Team Providers Care General Farm Hand Name Role Phone Kristina Paul NP Primary Care Provider [phone] Reason for Visit * Reason Comments Med Refill Pt requesting med re fills for ibuprofen and naproxen Encounter Details Date Type Department Care Team (Late st Contact Info) Description 12/23/2024 Refill [facility] 230 [place] [address] Kristina Paul NP 230 [place] [address] Social History Tobacco Use Types Packs/Day Years [...] encounter Miscellaneous Notes * Telephone Encounter - Jody Tariq - 12/25/2024 10:19 AM EDT Pt requesting med refills for ibuprofen and naproxen documented in this encounter Plan of Treatment Upcoming Encounters Date Type Department Care Team (Late st Contact Info) Description 03/20/2025 10:30 AM EST Medication Management [facility] [address] [place] [phone] Sarah Marrufo, ChivoD 230 [place] [address] 04/22/2025 11:15 AM EST Office Visit [facility] [address] [place] [phone] Kristina Paul NP 230 [place] [address] documented as of this encounter Visit Diagnoses Not on filedocumented in this encounter Additional Health Concerns Assessment Noted Time PHQ-9 Depression Total Score: 3 07/15/19 25 11:39 AM EDT documented as of this encounter Care Teams General Farm Hand Relationship Specialty Start Date End Date Kristina Paul NP 230 [place] [address] PCP - General Family Medicine 11/08/23 documented as of this encounter
--- OUTSIDE RECORDS SUMMARY | 2025-03-14 10:47 | XMS_ITS | Encounter Summary ---
Author Organization [employer] Address [address] [facility] 7t [place] [address] Care Team Providers Care Chain Dyer Name Role Phone Kristina Paul NP Primary Care Provider [phone] Encounter Details Date Type Department Care Team ([facility] st Contact Info) Description 04/22/2024 Telephone [facility] 230 [place], [place] [phone] Kristina Paul NP 230 [place], [place] [phone] Social History Tobacco Use Types Packs/Day Years [...] Description 03/20/2025 10:30 AM EST Medication Management [facility] [address] [place] [phone] Sarah Marrufo, PharmD [address] [place] [address] 04/22/2025 11:15 AM EST Office Visit [facility] [address] [place] [phone] Kristina Paul NP [address] [place] [address] documented as of this encounter Visit Diagnoses Not on filedocumented in this encounter Additional Health Concerns Assessment Noted Time PHQ-9 Depression Total Score: 0 07/04/19 24 1:59 PM EDT documented as of this encounter Care Teams Chain Dyer Relationship Specialty Start Date End Date Kristina Paul NP [address] [place] [address] PCP - General Family Medicine 11/08/23 documented as of this encounter
--- OUTSIDE RECORDS SUMMARY | 2025-03-14 10:47 | XMS_ITS | Encounter Summary ---
Author Organization [employer] Address [address] [facility] 7 [place] [address] Care Team Providers Care House Worker General Name Role Phone Kristina Paul NP Primary Care Provider [phone] Reason for Visit * Reason Comments [facility] Recovery Supports Encounter Details Date Type Department Care Team ([facility] st Contact Info) Description 03/12/2025 Patient Outreach [facility] 230 [place] [address] Jenny Barker Recovery Supports Social History Tobacco [...] with others, in a hotel, in a care home, living outside on the street, on [...] encounter Progress Notes * Jenny Barker - 03/12/2025 3:18 PM EST I met with Thony griffin. Setting: in person at [facility] Recovery Wellness Goals worked on: Social Stability Action taken/next steps: Attended alcohol and drug free activity Additional comments: Jenny Barker documented in this encounter Plan of Treatment Upcoming Encounters Date Type Department Care Team (Late st Contact Info) Description 03/20/2025 10:30 AM EST Medication Management [facility] [address] [place] [phone] Sarah Marrufo, PharmD 230 [place] [address] 04/22/2025 11:15 AM EST Office Visit [facility] [address] [place] [phone] Kristina Paul NP 230 [place] [address] documented as of this encounter Visit Diagnoses Not on filedocumented in this encounter Additional Health Concerns Assessment Noted Time PHQ-9 Depression Total Score: 3 07/15/19 25 11:39 AM EDT documented as of this encounter Care Teams House Worker General Relationship Specialty Start Date End Date Krsitina Paul NP [address] [place] [address] PCP - General Family Medicine 11/08/23 documented as of this encounter
--- OUTSIDE RECORDS SUMMARY | 2025-03-14 10:47 | XMS_ITS | Encounter Summary ---
Author Organization [employer] Address [address] [facility] 7 [place] [address] Care Team Providers Care Command Center Analyst Name Role Phone Kristina Paul NP Primary Care Provider [phone] Reason for Visit * Reason Comments [facility] Supp[facility] Encounter Details Date Type Department Care Team ([facility] st Contact Info) Description 03/09/2025 Patient Outreach [facility] 230 [place] [address] Jenny Barker Recovery Supports Social History Tobacco [...] encounter Progress Notes * Jenny Barker - 03/09/2025 3:24 PM EST I met with Thony griffin. Setting: in person at [facility] Recovery Wellness Goals worked on: Social Stability Action taken/next steps: Attended alcohol and drug free activity Additional comments: Jenny Barker documented in this encounter Plan of Treatment Upcoming Encounters Date Type Department Care Team (Late st Contact Info) Description 03/20/2025 10:30 AM EST Medication Management [facility] [address] [place] [address] Sarah Marrufo, PharmD 230 [place] [address] 04/22/2025 11:15 AM EST Office Visit [facility] [address] [place] [address] Kristina Paul NP 230 [place] [address] documented as of this encounter Visit Diagnoses Not on filedocumented in this encounter Additional Health Concerns Assessment Noted Time PHQ-9 Depression Total Score: 3 07/15/19 25 11:39 AM EDT documented as of this encounter Care Teams Command Center Analyst Relationship Specialty Start Date End Date Kristina Paul NP [address] [place] [address] PCP - General Family Medicine 11/08/23 documented as of this encounter
--- OUTSIDE RECORDS SUMMARY | 2025-03-14 10:47 | XMS_ITS | Patient Health Record ---
Author Organization [facility] Address [address] [place] [address] Care Team Providers Care Finger Lift Operator Name Role Phone [facility] Primary Care Provider Marycarmen Ireland [facility] Reason For Referral No Information Encounters Encounter Location Date Provider Diagnosis [facility] [address] [place], [place] [phone] 07/16/2024 Marycarmen [facility] [address] [place], [place] [phone] 10/30/2024 Marycarmen [place] [facility] [address] [place] [phone] 12/30/2024 Marycarmen Ireland Plan Of Treatment No Information Insurance Providers Payer Name Payer Address Payer Phone Subscriber Number Group Number Insured Name Patient Relationship to Insured Coverage Start Date Coverage End Date [place] Medicaid Standard [address] [place] [address] [id number] Thony Rothman Self - patient is the insured 3
--- OUTSIDE RECORDS SUMMARY | 2025-03-14 10:47 | XMS_ITS | Clinical Summary ---
Author Organization [employer] Address [address] [place] [address] 7 [place] [address] Care Team Providers Care Resawyer Name Role Phone Kristina Paul NP Primary Care Provider [phone] Allergies No known active allergies Medications * This document contains information received from the source organization and may not represent a complete record from that organization. traZODone (Desyrel) 50 MG tablet TAKE 1 OR 2 TABLETS BY MOUTH EVERY DAY AT BEDTIME NEEDED 025 Active methadone (Dolophine) 10 MG/5ML solution Take 125 mg by mouth Once per day. Active triamcinolone (Kenalog) 0.1 % cream Apply topically if needed in the morning and at bedtime (pain and swelling). 30 g 2 025 Active propranolol LA (Inderal LA) 60 MG 24 hr capsuleIndicatio ns:Chronic tension-type headache, not intractable Take 1 capsule (60 mg) by mouth Once per day. Do not crush, chew, or split. 90 capsule 1 025 2025 Active naproxen (Naprosyn) 500 MG tabletIndication s:Nonintractable headache, unspecified chronicity pattern, unspecified headache type TAKE 1 TABLET BY MOUTH EVERY DAY WITH sumatriptan WITH FOOD 60 tablet 025 Active Sofosbuv-Velpata sv-Voxilaprev (Vosevi) 400-100-100 MG tablet Take 1 tablet by mouth Once per day for 28 days. 28 tablet 2 10:40 AM EST 025 2024 Active gabapentin (Neurontin) 100 MG capsuleIndicatio ns:Lumbar radiculopathy Take 1 capsule (100 mg) by mouth at bedtime for 3 days, THEN 2 capsules (200 mg) at bedtime for 3 days, THEN 3 capsules (300 mg) at bedtime. 99 capsule Active docusate sodium (Colace) 100 MG capsule Take 1 capsule (100 mg) by mouth Once per day. 30 capsule 2 2025 Active polyethylene glycol, PEG, 3350 (MiraLax) 17 GM/SCOOP powder Take 17 g by mouth Once per day. 527 g 2 2025 Active tiZANidine (Zanaflex) 2 MG tablet TAKE 2 TABLETS BY MOUTH AT BEDTIME NEEDED FOR MUSCLE SPASMS 60 tablet 9:38 AM EST Active SUMAtriptan (Imitrex) 50 MG tabletIndication s:Chronic migraine with aura without status migrainosus, not intractable,Mirtha ntractable headache, unspecified chronicity pattern, unspecified headache type Take 1 tablet (50 mg) by mouth 1 (one) time if needed for migraine (take no more than twice weekly). May repeat dose once in 2 hours if no relief. Do not exceed 2 doses in 24 hours. 9 tablet 2 5 9:38 AM EST 2025 Active hydroCHLOROthiaz beatris 12.5 MG tablet Take 1 tablet (12.5 mg) by mouth Once per day. 90 tablet 5 9:38 AM EST 2025 Active fluticasone (Flonase) 50 MCG/ACT nasal sprayIndications :Nasal congestion with rhinorrhea Administer 2 sprays into each nostril Once per day. Shake gently. Before first use, prime pump. After use, clean tip and replace cap. 48 g 3 Active tiZANidine (Zanaflex) 2 MG tablet TAKE 2 TABLETS BY MOUTH AT BEDTIME NEEDED FOR MUSCLE SPASMS 30 tablet 025 2024 Discontinued(R eorder (will not trigger notification to Pharmacy)) SUMAtriptan (Imitrex) 50 MG tabletIndication s:Chronic migraine with aura without status migrainosus, not intractable,Mirtha ntractable headache, unspecified chronicity pattern, unspecified headache type Take 1 tablet (50 mg) by mouth 1 (one) time if needed for migraine (take no more than twice weekly) for up to 27 days. May repeat dose once in 2 hours if no relief. Do not exceed 2 doses in 24 hours. 9 tablet 2 025 2024 Discontinued(R eorder (will not trigger notification to Pharmacy)) fluticasone (Flonase) 50 MCG/ACT nasal sprayIndications :Nasal congestion with rhinorrhea USE 1 SPRAY IN EACH NOSTRIL ONCE DAILY. SHAKE GENTLY. PRIME PUMP. CLEAN TIP 48 g 025 2024 Discontinued(R eorder (will not trigger notification to Pharmacy)) furosemide (Lasix) 20 MG tabletIndication s:Localized edema Take 2 tablets (40 mg) by mouth Once per day for 5 days. Take 1 tablet by mouth wait 1-2 hours, if no increase in urine output may take second dose, do not exceed two tablets per day 10 tablet 025 2024 Discontinued(T herapy completed) Active Problems Problem Noted Date Diagnosed Date Lumbar radiculopathy 02/02/2025 Assessment & Plan (02/02/2025 12:01 PM EST): Orders: gabapentin (Neurontin) 100 MG capsule; Take 1 capsule (100 mg) by mouth at bedtime for 3 days, THEN 2 capsules (200 mg) at bedtime for 3 days, THEN 3 capsules (300 mg) at bedtime. Referral to Pharmacy [facility] Comprehensive Metabolic Panel; Future MR Lumbar Spine w/o Contrast; Future Drug-induced constipation 02/02/2025 Assessment & Plan (02/02/2025 12:01 PM EST): Orders: Comprehensive Metabolic Panel; Future Venous stasis 10/21/2024 Assessment & Plan (10/21/2024 1:32 PM EDT): Continue with skin care, activity, minimizing activity, elevation and compressions stockings Seasonal allergic rhinitis due to pollen 025 Tinea corporis 05/12/2024 Assessment & Plan (06/09/2024 10:23 AM EDT): Cream effective, renew Nasal congestion with rhinorrhea 05/12/2024 Assessment & Plan (03/06/2025 11:02 AM EST): Orders: fluticasone (Flonase) 50 MCG/ACT nasal spray; Administer 2 sprays into each nostril Once per day. Shake gently. Before first use, prime pump. After use, clean tip and replace cap. Assessment & Plan (10/21/2024 1:32 PM EDT): [...] Pt with difficulty facilitating and attending visits. [facility] team is working on scheduling [...] migrainosus, not intractable 12/26/2023 Assessment & Plan (03/06/2025 11:02 AM EST): Orders: SUMAtriptan (Imitrex) 50 MG tablet; Take 1 tablet (50 mg) by mouth 1 (one) time if needed for migraine (take no more than twice weekly). May repeat dose once in 2 hours if no relief. Do not exceed 2 doses in 24 hours. Assessment & Plan (12/15/2024 10:44 AM EDT): [...] dry Localized edema 07/23/2023 Assessment & Plan (03/06/2025 11:02 AM EST): Assessment & Plan (02/02/2025 12:01 PM EST): Orders: furosemide (Lasix) 20 MG tablet; Take 2 tablets (40 mg) by mouth Once per day for 5 days. Take 1 tablet by mouth wait 1-2 hours, if no increase in urine output may take second dose, do not exceed two tablets per day Comprehensive Metabolic Panel; Future Assessment & Plan (01/25/2024 5:59 PM EDT): Echo ordered, previously ordered compression stockings will contact pt when ready This is a recurring issue, and previous ultrasounds neg for dvt Abdominal ultrasound ordered, Suspect venous insufficiency , advised elevation Furosemide ordered , pt to update clinic on Sunday Assessment & Plan (09/21/2023 9:02 AM EDT): Referral to vascular, Will picker tender helper compression stockings. No evidence of cellulitis today [...] Dvt ultrasound ordered to be completed at [facility]. Assessment & Plan (07/07/2023 1:25 PM EDT): Cellulitis of the RLE. docxycline prescribed. Started on abx 07/03 doxyclinine Less redness , less swelling No [...] EDT): In care with infectious disease at [facility] Assessment & Plan (01/25/2024 5:57 PM EDT): Abdominal ultrasound ordered Assessment & Plan (10/06/2023 8:48 PM EDT): -patient reports history of hep C infection -labs ordered to [facility] current infection -will refer to [facility] for treatment if lab results reveal active infection Assessment & Plan (09/21/2023 9:01 AM EDT): In care with [facility] ID. Assessment & Plan (08/25/2023 8:20 PM EDT): Interested in management Assessment & Plan (07/07/2023 1:24 PM EDT): Due for labs, pt plans to complete this week Nonintractable headache 07/04/2023 Assessment & Plan (03/06/2025 11:02 AM EST): Orders: SUMAtriptan (Imitrex) 50 MG tablet; Take 1 tablet (50 mg) by mouth 1 (one) time if needed for migraine (take no more than twice weekly). May repeat dose once in 2 hours if no relief. Do not exceed 2 doses in 24 hours. Assessment & Plan (12/15/2024 10:44 AM EDT): [...] inc luding opioid drug with daily use ([facility]) 11/24/2020 Encounters * This document contains information received from the source organization and may not represent a complete record from that organization. Date Type Department Care Team Description 03/12/2025 Patient Outreach [facility] [place] [address] Jenny Barker Recovery Supports 03/10/2025 Patient Outreach [facility] [place] [address] Zelalem Bourne Recovery Supports 03/09/2025 Patient Outreach [address] [address] Jenny Barker [facility] 03/06/2025 11:15 AM EST Office Visit [address] [address] Kristina Paul NP Localized edema (Primary Dx); Chronic migraine with aura without status migrainosus, not intractable; Nonintractable headache, unspecified chronicity pattern, unspecified headache type; Nasal congestion with rhinorrhea 03/06/2025 Travel 03/05/2025 Patient Outreach [address] [address] Albino Hidalgo Recovery Supports 03/05/[address] [address] Deshaun Louise [place] CHART PREP 03/04/2025 10:00 AM EST Office Visit [address] [address] Long Manuel MD Opioid dependence, uncomplicated (CMS/HCC) (HCC) (Primary Dx) 03/04/2025 Travel 03/02/2025 Patient Outreach [address] [address] Jenny Barker [facility] 02/24/[address] [address] Juan Torres PharmD pt1 (Patient requesting pt1/Home Address verified: Y / N: Yes/Provider name or facility name:/1. [address] [facility] /2. [facility]/ /Escort needed: Y/N: No /Do you have a wheelchair: Y/N: No/If yes- Manual or Electric: No/How often 5 Times a month / /Pt has an apt on 03/14/25 11:30 [facility] [place] /); TelephoneCall 02/16/2025 Patient Outreach [address] [address] Jenny Barker [facility] 02/13/2025 Patient Outreach [address] [address] Albino Hidalgo Recovery Supports 02/12/2025 Patient Outreach [address] [address] Albino Hidalgo 02/11/2025 9:00 AM EST Office Visit [address] [address] Long Maunel MD Opioid dependence, uncomplicated (CMS/HCC) (HCC) (Primary Dx) 02/11/2025 Travel 02/09/2025 Patient Outreach [address] [address] Jenny Barker [facility] Supp[facility] 02/06/2025 Patient Outreach [address] [address] Albino Hidalgo Recovery Supports 02/05/2025 Patient Outreach [address] [address] Albino Hidalgo Recovery Supports 02/03/2025 Patient Outreach [address] [address] Jenny Barker [facility] 02/02/2025 11:30 AM EST Office Visit [address] [address] Kristina Paul NP Lumbar radiculopathy (Primary Dx); Localized edema; Drug-induced constipation 02/02/2025 Patient Outreach [address] [address] Jenny Barker [facility] 02/02/2025 Patient Outreach [address] [address] Jenny Barker [facility] 02/02/2025 Travel 2025 Patient Outreach [address] [address] Albino Hidalgo Recovery Supports 01/29/2025 Telephone [facility] [address] [place] [address] Kristina Paul NP Chart Prep 01/29/2025 Patient Outreach [address] [address] Albino Hidalgo Recovery Supports 01/21/[address] [address] Juan Torres, ChivoD 01/20/[address] [address] Kristina Paul NP Med Refill (PATIENT REQUESTING MED REFILL FOR TERAZOSIN AND IBUPROFEN) 01/12/[address] [address] Kristina Paul NP Nasal congestion with rhinorrhea 12/30/[address] [address] Irvin Haile 12/30/[address] [address] Kristina Paul NP Med Refill (Pt came in requesting refill on naproxen and sumatriptan medication ) 12/29/2024 Patient Outreach [address] [address] Jenny Barker [facility] 12/25/2024 Patient Outreach [address] [address] Albnio Hidalgo Recovery Supports 12/25/[address] [address] Kristina Paul NP 12/23/[address] [address] Kristina Paul NP 12/22/2024 1:30 PM EDT Office Visit [address] [address] Tika Danielson MD Hepatitis C virus infection without hepatic coma, unspecified chronicity (Primary Dx) 12/22/2024 Travel 12/19/2024 Patient Outreach [facility] [address] [place] [address] Albino Hidalgo Recovery Supports 12/15/2024 10:15 AM EDT Office Visit [facility] [address] [place] [address] Kristina Paul, ANTONY Chronic migraine with aura without status migrainosus, not intractable; Nonintractable headache, unspecified chronicity pattern, unspecified headache type 12/15/2024 Patient Outreach [facility] [address] [place] [address] Jenny Barker Recovery Supp[facility] 12/15/2024 Telephone [facility] [address] [place] [address] Annamaria Luis RN 12/15/2024 Travel from Last 3 Months Immunizations Immunization Administration [...] Sign Reading Time Taken Comments Blood Pressure 116/84 03/06/2025 10:38 AM EST Pulse 92 03/06/2025 10:38 AM EST Temperature 37.2 C (99 F) 03/06/2025 10:38 AM EST Respiratory Rate 23 03/06/2025 10:38 AM EST Oxygen Saturation 95% 03/06/2025 10:38 AM EST Inhaled Oxygen Concentration - - Weight 97.1 kg (214 lb) 03/06/2025 10:38 AM EST Height 167.6 cm (5' 6 ) 03/06/2025 10:38 AM EST Body Mass Index 34.54 03/06/2025 10:38 AM EST Plan of Treatment Upcoming Encounters Date Type Department Care Team (Late st Contact Info) Description 03/20/2025 10:30 AM EST Medication Management [facility] MEDICINE [address] [place] [address] Sarah Marrufo, PharmD [address] [place] [address] 04/22/2025 11:15 AM EST Office Visit [facility] [address] [place] [address] Kristina Paul, ANTONY [address] [place] [address] Health Maintenance Due Date Last Done Comments CT Colonography 1980 Colonoscopy 1980 Colorectal Cancer Screening 1980 FIT DNA/Cologuard 1980 FIT 1980 FOBT 1980 Lipid Panel 1980 Sigmoidoscopy 1980 Family Planning (PISQ) 01/29/1995 HPV Vaccines [...] 08/24/2020, 07/27/2020 Influenza Vaccine (#1) 2024 03/23/2022 SDOH Screening 05/12/2025 05/12/2024 Depression Screening 07/14/2025 07/14/2024, 07/14/2024 Disability Screening 08/11/2025 08/11/2024 Alcohol/Substance Use Screening 02/02/2026 02/02/2025 Tobacco Screening 02/02/2026 02/02/2025 Zoster Vaccines (1 of 2) 01/29/2030 DTaP/Tdap/Td [...] Procedure Name Priority Date/Time Associated Diagnosis Comments COMPREHENSIVE METABOLIC PANEL Routine 03/09/2025 9:37 AM EST Lumbar radiculopathy Localized edema Drug-induced constipation XR LUMBAR SPINE COMPLETE 4+ VIEWS Routine 12/16/2024 12:20 PM EDT Chronic low back pain with bilateral sciatica, unspecified back pain laterality HIV 1/2 ANTIGEN/ANTIBODY, FOURTH GENERATION W/RFL Routine 09/03/2023 9:34 AM EDT Chronic hepatitis C without hepatic coma (CMS/HCC) from Last 3 Months or Most Recently Relevant to Health Maintenance Results * (ABNORMAL) Comprehensive Metabolic Panel (03/09/2025 9:37 AM EST) Sodium 138 135 - 145 mmol/L [facility] Potassium 4.4 3.3 - 5.1 mmol/L [facility] Chloride 106 96 - 108 mmol/L [facility] Carbon Dioxide 26 22 - 29 mmol/L [facility] Anion Gap 10(L) 12 - 20 [facility] Urea Nitrogen (BUN) 13 9 - 16 mg/dL [facility] Creatinine, Serum 0.73 0.5 - 1.4 mg/dL [facility] Estimated Glomerular Filt Rate >60 [facility] Comment:Chronic Kidney Disea se: Estimated GFR < 60 mL/min/[id number] Kidney Disease: Estimated GFR < 15 mL/min/1.73m2 Glucose 119(H) 60 - 115 mg/dL [facility] Calcium 9.7 8.4 - 10.2 mg/dL [facility] Bilirubin, Total 0.3 0.0 - 1.0 mg/dL [facility] Aspartate Amino Transferase 25 5 - 37 U/L [facility] Alanine Aminotransferase 14 0 - 40 U/L [facility] Total Protein 7.9 6.5 - 8.0 g/dL [facility] Albumin Level 4.4 3.5 - 5.0 g/dL [facility] Alkaline Phosphatase 90 39 - 117 U/L [facility] Blood Venous blood specimen / Unknown 03/09/2025 9:37 AM EST 03/09/2025 11:31 AM EST us Kristina Paul DIRECTOR PERSONAL LAB BLOOD ORDERABLES Final Resul t [facility] [address] [place] [phone] * XR Lumbar Spine Complete 4+ Views (12/16/2024 12:20 PM EDT) Anatomical Region Laterality Modality Spine, L-spine Radiographic Adriane ging 12/16/2024 12:2 0 PM EDT Narrative 12/16/2024 12:31 PM EDT [address] [address] XRay Report Signed Patient: Thony Barker MR#: [id number] : 1980 Acct:[id number] Age/Sex: 44 / M ADM Date: 12/16/24 Loc: HO.HHCX Attending Dr: Kristina Paul DIRECTOR PERSONAL Ordering Physician: Kristina Paul NP Date of Service: 12/16/24 Procedure(s): XR lumbar spine 4V min Accession Number(s): [id number] cc: Kristina Paul NP Reason for Exam: [...] 12/16/24 1228 DD/ 1220 TD/TT: 12/16/24 1221 Enrollment Management Manager: Procedure Note Donotuseinterpreter, Image - 12/16/2024 [place] [address] XRay Report Signed Patient: Barbara Barker#: [id number] : 1980Acct:[id number] Age/Sex: 44 / MADM Date: 12/16/24 Loc: HO.HHCX Attending Dr: Kristina Paul NP Ordering Physician: Kristina Paul NP Date of Service: 12/16/24 Procedure(s): XR lumbar spine 4V min Accession Number(s): [id number] cc: Kristina Paul NP Reason for Exam: [...] 12/16/24 1228 DD/ 1220 TD/TT: 12/16/24 1221 Enrollment Management Manager: us Kristina Paul NP IMG XR PROCEDURES Edited Result - Final * HIV-1/2 Antigen and Antibodies, Fourth Generation, with Reflexes (09/03/2023 9:34 AM EDT) Pathologist [facility] HIV AB/AG Nonreactive Nonreactive [facility] Comment:HIV-1 p24 Ag and/or HIV-1/HIV-2 Ab not detected.A test result that is nonreactive does not exclude thepossibility of exposure to or infection with HIV-1 and/orHIV-2. Nonreactive results in this assay for individualswith prior exposure to HIV-1 and/or HIV-2 may be due toantigen and antibody levels that are below the limit ofdetection of this assay.The [employer] HIV Ag/Ab Combo assay result andsupplemental assay results should be interpreted inconjunction with the patient's clinical presentation,history and other laboratory results. If the results areinconsistent with clinical evidence, additional testing issuggested to confirm the result. 09/03/2023 9:34 AM EDT 09/03/2023 11:55 AM EDT us Ana Sanchez NP LAB BLOOD ORDERABLES Final Resu lt [facility] [address] [place] [phone] from Last 3 Months or Most Recently Relevant to Health Maintenance Insurance * Guarantor: Thony Rothman Account Type Relation to Patient Date of Phone Billing Address Personal/Family Self [address] [facility]. [facility] [address] [place] [address] [facility] . [address] [place] [address] [place] [address] Care Teams Resawyer Relationship Specialty Start Date End Date Kristina Paul NP [address] [place] [phone] PCP - General Family Medicine 11/08/23
--- OUTSIDE RECORDS SUMMARY | 2025-03-14 10:47 | XMS_ITS | Encounter Summary ---
Author Organization [employer] Address [address] [facility] 7 [place] [address] Care Team Providers Care Construction Estimator Name Role Phone Kristina Paul NP Primary Care Provider [phone] Reason for Visit * Reason Comments Med Refill Encounter Details Date Type Department Care Team ([facility] Contact Info) Description 10/14/2024 Refill [facility] [address] [place] [address] Kristina Paul NP [address] [place] [address] Localized edema Social History Tobacco Use Types [...] Description 03/20/2025 10:30 AM EST Medication Management [facility] [address] [place] [phone] Sarah Marrufo, PharmD [address] [place] [phone] 04/22/2025 11:15 AM EST Office Visit [facility] [address] [place] [phone] Kristina Paul NP [address] [place] [place] [phone] documented as of this encounter Visit Diagnoses Diagnosis Localized edema Edema documented in this encounter Additional Health Concerns Assessment Noted Time PHQ-9 Depression Total Score: 3 07/15/19 25 11:39 AM EDT documented as of this encounter Care Teams Construction Estimator Relationship Specialty Start Date End Date Kristina Paul NP [address] [place] [place] [address] PCP - General Family Medicine 11/08/23 documented as of this encounter
--- OUTSIDE RECORDS SUMMARY | 2025-03-14 10:47 | XMS_ITS | Encounter Summary ---
Author Organization [email or web address] Address [address] [place] [address] 7 [place] [address] Care Team Providers Care Art Museum Aide Name Role Phone Kristina Paul NP Primary Care Provider [phone] Reason for Visit * Reason Comments [facility] Encounter Details Date Type Department Care Team ([facility] Contact Info) Description 03/10/2025 Patient Outreach [facility] [address] [place] [address] Zelalem Bourne [address] [place] [address] [facility] Social History Tobacco Use [...] as of this encounter Progress Notes * Zelalem Bourne - 03/10/2025 3:56 PM EST I met with Thony griffin. Setting: in person at [facility] Recovery Wellness Goals worked on: Social Stability Action taken/next steps: Attended alcohol and drug free activity Additional comments: Zelalem Bourne documented in this encounter Plan of Treatment Upcoming Encounters Date Type Department Care Team (Late st Contact Info) Description 03/20/2025 10:30 AM EST Medication Management [facility] [address] [place] [phone] Sarah Marrufo, PharmD [address] [place] [address] 04/22/2025 11:15 AM EST Office Visit [facility] [address] [place] [phone] Kristina Paul, ANTONY [address] [place] [address] documented as of this encounter Visit Diagnoses Not on filedocumented in this encounter Additional Health Concerns Assessment Noted Time PHQ-9 Depression Total Score: 3 07/15/19 25 11:39 AM EDT documented as of this encounter Care Teams Art Museum Aide Relationship Specialty Start Date End Date Kristina Paul NP [address] [place] [address] PCP - General Family Medicine 11/08/23 documented as of this encounter
== END 2025-03-14 10:41 | disposition home or self-care (01) ==
LOC: HO.MRI 10:40
PROVIDERS: PCP Nurse Practitioner Family; Visit Provider Nurse Practitioner Family
DX: M54.16 Radiculopathy, lumbar region (principal)
CPT/HCPCS: 72148

== ENCOUNTER → 2025-03-14 10:46 | Outpatient (BNV) | payer MEDICAID, SELFPAY | PROVIDERS: PCP Nurse Practitioner Family; Visit Provider Radiology Diagnostic Radiology | DX: M54.50 Low back pain, unspecified (principal) | CPT/HCPCS: 72148 ==